=== PATIENT | male | born 1940 | race Caucasian/White ===

== ENCOUNTER 2016-12-01 12:58 | Day surgery (SDC) | payer MEDICARE, SELFPAY ==
[2016-11-28 13:08] LABS: Hematocrit 29.1 % (40-54); Hemoglobin 8.8 g/dl (13.0-16.5); Mean Corp Hgb Conc 30.2 g/gl (32-36); Mean Corpuscular Hgb 27.8 pg (27.0-32.0); Mean Corpuscular Volume 91.8 fL (80-94); Mean Platelet Vol. 8.5 fl (6.2-12.0); Platelet Count 505 K/mm3 (150-450); RBC Distribution Width CV 17.7 % (11.6-14.6); RBC Distribution Width SD 56.6 fl (35.1-43.9); Red Blood Count 3.17 M/mm3 (4.6-6.2); White Blood Count 15.5 K/mm3 (4.4-11.0)
[2016-11-28 13:09] LABS: Differential Indicated MANUAL DIFF; POSITIVE COUNT YES; POSITIVE DIFFERENTIAL YES; POSITIVE MORPHOLOGY YES
[2016-11-28 13:16] LABS: Anion Gap 4 (5-15); BUN 27 mg/dL (7-18); BUN/Creat Ratio 34.2 RATIO (10-20); Calcium,Total 8.6 mg/dL (8.5-10.1); Chloride 100 mmol/L (98-107); Creatinine, Serum 0.79 mg/dL (0.70-1.30); EST Glomerular Filtration Rate 102 mL/min (>60); Est Glom Filt Rate - Afr Amer 123 mL/min (>60); Glucose 96 mg/dL (70-110); Potassium 4.1 mmol/L (3.5-5.1); Sodium Level 134 mmol/L (136-145)
[2016-11-28 14:03] LABS: Anisocytosis 1+; Hypochromasia 1+; Lymphocyte 7 % (19-41); Metamyelocyte 1 % (0-1); Microcytosis 1+; Monocyte 15 % (0-10); Neutrophil-Band 1 % (0-5); Neutrophil-Segmented 76 % (47-70); Polychromasia 1+; Total Cells Counted 100 (MANUAL DIFF)
[2016-11-28 14:04] LABS: Platelet Estimate SLT INC (ADEQ); Platelet Morphology LARGE
[2016-11-28 14:06] LABS: Absolute Lymphocyte Count 1.09 X10^3/ul (0.83-4.51); Absolute Neutrophil Count 11.9 X10^3/uL (2.0-7.7)
[2016-12-01] VITALS (9 sets, daily range): BP systolic 102–145; BP diastolic 63–98; PULSE 69–70; RESP 15–18; TEMP 36.1–36.3; O2SAT 92–95; BMI 25.0
[2016-12-01 12:45] LABS: Pathologist Review Reviewed
--- NOTE | 2016-12-01 15:29 | PCM.DC.GS ---
Discharge Diet: Light diet - advance as tolerated - if you have questions about your diet instructions, please talk to you doctor. Discharge Activity: May Not Drive - for 1 week or while taking narcotic pain medicine. May shower in (days): 1 Lifting Restrictions: 10 pounds Call your doctor if your incision/area has: Continuous Slow Oozing, Sudden Increased Bleeding, Increased Pain/ Swelling, Increased Redness, Foul Smelling Discharge Call your doctor if you observe: Fever of 101 or Higher Suture Line Care: Avoid Pulling/Pushing, Avoid Pinching/Bending Additional Dressing/Incision Instructions:: Change or remove dressing in 4 days. Leave steri-strips in place for 1 week. Allergies/Adverse Reactions: Allergies folic acid Adverse Reaction (Mild, Verified 11/28/16 11:34) Rash amiodarone Adverse Reaction (Unknown, Verified 11/28/16 11:34) Unknown cannot remember morphine Adverse Reaction (Verified 11/28/16 11:34) HALLUCINATIONS Medications to take at Discharge Aspirin E.C. [Ecotrin] 81 mg PO DAILY@0800 11/15/14 Lisinopril [Zestril] 10 mg PO BID 11/15/14 Metoprolol(XL)Succ [Toprol Xl (Beta Jake)] 50 mg PO DAILY 11/15/14 Nitroglycerin [Nitro-Dur] 0.1 mg TRANSDERM. DAILY 11/15/14 Ranitidine [Zantac] 150 mg PO BID 11/15/14 Rosuvastatin Calcium [Crestor] 40 mg PO DAILY 11/15/14 Furosemide [Lasix] 40 mg PO DAILY 11/11/16 Potassium Chloride [Klor-Con] 20 meq PO DAILY 11/11/16 Hydrocodone/Acetaminophen [Hydrocodon-Acetaminophen 5-325] 2 each PO Q6H PRN 11/19/16 Amoxicillin/Potassium Clav [Augmentin 875-125 Tablet] 1 each PO BID #20 tablet 11/26/16 Warfarin Sodium [Coumadin] 2 mg PO DAILY 11/26/16 L. Rhamnosus GG/Inulin [Culturelle Capsule] 1 each PO DAILY 11/28/16 Primary Care Physician: Niko Sampson MD [Primary Care Provider] - Please Follow Up With: Elliott Ulloa - [phone] When: Call to make an appointment to be seen in about 10 days.
[2016-12-01] MEDS: Bupivacaine Mpf 0.5% 30 ML VIAL (15:50)
--- NOTE | 2016-12-01 16:12 | RAD_ITS ---
STUDY: X-RAY CHEST REASON FOR EXAM: Male, 76 years old. Port placement TECHNIQUE: Single frontal view of the chest. COMPARISON: October 26, 2016 FINDINGS: A right internal jugular port is present. A pacing device is stable in the left chest. The lungs are under aerated. Coarse markings are stable in the lung bases. There is stable minimal blunting of the right costophrenic angle. There is mild enlargement of the cardiac silhouette. Normal mediastinum and su. Normal visualized pulmonary arteries. There is atherosclerotic calcification of the aortic arch with tortuosity. There are diffuse degenerative changes of the visualized thoracic spine. Old rib fractures are present on the right side. There is no demonstrated abnormality of the visualized soft tissue structures of the upper abdomen. RAD/Chest 1 View (Portable) IMPRESSION: No acute abnormalities are seen after port placement on the right side. The tip is in the expected location of the distal SVC or cavoatrial junction. There is stable mild enlargement of the cardiac silhouette. There are stable chronic changes throughout the lungs. Electronically Signed: Laurie Kirk MD at 17:48 EDT Tel [phone], Service support ,
--- NOTE | 2016-12-01 16:12 | PCM.OPRPT ---
Report of Operation Date of Procedure: 12/01/16 Pre-Operative Diagnosis: Lung cancer in need of IV access for chemotherapy Post-Operative Diagnosis: Lung cancer in need of IV access for chemotherapy. Necrotic wound dorsal right foot Surgery/Procedure Performed:: Right internal jugular 6 Vietnamese PowerPort placement. Sharp debridement dorsal right foot Description of Surgical Findings:: Timeout and informed consent was obtained. 76-year-old gentleman presents for placement of a port to facilitate chemotherapy. Just prior to the operation I was asked by his to perform a dressing change of the right lower extremity if possible. The patient has dressings completely intact to the right lower extremity. He was taken the operating room placed on the table. Underwent monitored anesthesia care local anesthetic. The right neck and chest were sterilely prepped and draped. Ancef 2 g given intravenous preoperatively. Ultrasound was used to identify the right internal jugular vein local was instilled a micropuncture needle inserted micropuncture wire inserted short sheath status inserted 035 J-wire was inserted down upon the chest wall a transverse incision made right mid clavicular line second intercostal space left cautery was used to make a subtenons pocket. The tubing was then tunneled from the neck to the chest site. Fluoroscopy demonstrated good positioning sheath dilator was placed over the wire the wire and dilator removed the catheter advanced through the sheath the sheath was split the catheter was positioned at the SVC atrial junction it was connected the port securely attached over the port attachment device the port was placed in the pocket secured there with 2-0 silk the port was closed with site was closed with interrupted 3-0 Vicryl the neck site was closed with interrupted 5-0 Vicryl Steri-Strips Telfa OpSite dressings applied. I then went to perform a dressing change to the right lower extremity only to find that the dorsum of the right foot which by report previously had a blistered area now was a full-thickness necrotic wound. I sharply debrided this wound measures 3.5 x 2.5 cm. Necrotic debris extended through the subcutaneous fat. Extensor tendons appear to be on few but did not appear to be intermittently involved. Where possible debridement was performed. I then applied a saline wet-to-dry dressing.. Appropriate ongoing care will be recommended. Patient taken to recovery area in satisfactory condition. Stat portable chest x-ray is pending. Specimens obtained include cultures from the right foot wound. No drains. Blood loss minimal. Stat portable chest x-ray is pending. Elliott Ulloa M.D., F.A.C.S. cc:Dr Sampson
== END 2016-12-01 18:05 | disposition home or self-care (01) ==
PROVIDERS: Family Provider Family Medicine; PCP Family Medicine; Visit Provider Surgery
DX: C34.91 Malignant neoplasm of unspecified part of right bronchus or lung (principal); S90.821A Blister (nonthermal), right foot, initial encounter; L08.9 Local infection of the skin and subcutaneous tissue, unspecified; I48.91 Unspecified atrial fibrillation; Z95.0 Presence of cardiac pacemaker; E78.5 Hyperlipidemia, unspecified; K27.9 Peptic ulcer, site unspecified, unspecified as acute or chronic, without hemorrhage or perforation; I71.4 Abdominal aortic aneurysm, without rupture; E05.80 Other thyrotoxicosis without thyrotoxic crisis or storm; T46.2X5A Adverse effect of other antidysrhythmic drugs, initial encounter; I25.10 Atherosclerotic heart disease of native coronary artery without angina pectoris; I25.5 Ischemic cardiomyopathy; I50.9 Heart failure, unspecified; I49.3 Ventricular premature depolarization; F17.210 Nicotine dependence, cigarettes, uncomplicated; Z86.73 Personal history of transient ischemic attack (TIA), and cerebral infarction without residual deficits; Z79.1 Long term (current) use of non-steroidal anti-inflammatories (NSAID); Z79.82 Long term (current) use of aspirin; Z79.01 Long term (current) use of anticoagulants; Z79.899 Other long term (current) drug therapy
CPT/HCPCS: 11042; 36561; 36415; 36416; 71010; 71045; 77001; 80048; 85025; 85610; 87070; 87075; 87077; 87186; 87205; J7120; C1788; J2405

== ENCOUNTER → 2017-04-29 09:58 | Outpatient (CLI) | payer MEDICARE, SELFPAY ==
--- NOTE | 2017-04-29 11:27 | NURSING ---
port accessed, flushed, deaccessed per protocol attempted blood draw, some blood return noted but not enough for specimen needed. Blood draw obtained via peripheral draw per coordinate measuring machine programmer. Pt notified that cath flow may be needed if unable to draw blood in future. port did flush easily.
== END ==
PROVIDERS: Family Provider Family Medicine; PCP Family Medicine; Visit Provider Internal Medicine Cardiovascular Disease
DX: I73.89 Other specified peripheral vascular diseases (principal); Z79.01 Long term (current) use of anticoagulants; L97.512 Non-pressure chronic ulcer of other part of right foot with fat layer exposed; R60.0 Localized edema; C34.90 Malignant neoplasm of unspecified part of unspecified bronchus or lung; R09.89 Other specified symptoms and signs involving the circulatory and respiratory systems
CPT/HCPCS: 11042; 36415; 85610; 96523; A4216

== ENCOUNTER 2017-05-06 09:00 | Outpatient (RCR) | payer MEDICARE, SELFPAY ==
[2017-04-06 00:21] VITALS: BP 158/79; PULSE 96; RESP 18; TEMP 36.6; BMI 24.9
[2017-04-08 08:58] VITALS: BP 136/86; PULSE 70; RESP 18; TEMP 35.9; BMI 24.9
[2017-04-15 08:52] VITALS: BP 112/71; PULSE 70; RESP 16; TEMP 36.2; BMI 24.9
--- NOTE | 2017-04-15 11:38 | PCM.WC.PN ---
(1) Ulcer of right foot with fat layer exposed Status: Chronic Current Visit: Yes Code(s): L97.512 - Non-pressure chronic ulcer of other part of right foot with fat layer exposed (2) Other specified peripheral vascular diseases Status: Chronic Current Visit: Yes Code(s): I73.89 - Other specified peripheral vascular diseases (3) Malnutrition Status: Chronic Current Visit: Yes Code(s): E46 - Unspecified protein-calorie malnutrition (4) Adenocarcinoma of lung, stage 3 Status: Chronic Current Visit: Yes Code(s): C34.90 - Malignant neoplasm of unspecified part of unspecified bronchus or lung Comment: stage 3b Type of Wound Date of Service: 04/15/17 Chief Complaint: right foot ulcer. Left heel ulcers - healed History of Wound: He is following up for chronic right foot ulcer with tendon exposed that was taken to the operating room and advanced wound care product was applied (01/16/2017). He denies fever, chills, nausea, vomiting, loss of appetite. He denies lower extremity pain. He is eager to see if he is advanced wound care product was applied. Progress of Wound: Improving - Physical Exam Vital Signs Temp Pulse Resp BP 97.1 F L 70 16 112/71 04/15/17 08:52 04/15/17 08:52 04/15/17 08:52 04/15/17 08:52 General: Alert, Oriented x3, Cooperative Extremities: No cyanosis, Capillary Refill Less than 3 Seconds, No Calf Tenderness, Diminished Peripheral Pulses, Edema Skin: Ulcer/ Wound - No purulence, no erythema, no streaking, no infection, no exposed tendon. The wound is 100% healthy granular and there is no fibrous or necrotic tissue noted. The peripheral skin is atrophic and hairless. Wound Measurements and Assessment KUSUM - Nurse 1 - General Ulcer Measurement Start: 04/08/17 08:58 Freq: Status: Active Protocol: Activity Type Activity Date Activity User E-Sign Co-Sign Detail Recorded Client Recorded Date Recorded By Document 04/15/17 08:52 MW [id number] 04/15/17 09:01 MW 04/15/17 08:52 Wound Center Nurse 1 [Ulcer Assessment Protocol: WC.WD.LOC] #1 right foot anterior -Combined with other wound No -Current Size (cm) - Length 1.6 -Current Size (cm) - Width 1.0 -Current Size (cm) - Depth 0.1 -Total Square Cm 1.60 -Photo Taken No -Epithelialization None Present -Tunneling No -Undermining/Tunneling No -Circular Undermining No -Exudate Amt Small (1-33%) -Exudate Type Serosanguineous -Wound Margin Flat & Intact -Granulation Amt Small (1-33%) -Granulation Quality [place] -Slough/Fibrin Yes -Necrosis Amt Large (67-100%) -Necrotic Tissue Type Adherent Slough -Structure Exposed N/A -Texture (Crystal-wound Skin Appearance) Assessed Scarring -Moisture (Crystal-wound Skin Appearance Assessed ) Dry/Scaly -Color (Crystal-wound Skin Appearance) No Abnormality Assessed -Temperature (Crystal-wound Skin No Abnormality Appearance) (Pt Warm) -Tenderness on Palpation (Crystal-wound Yes Skin Appearance) -Ulcer Cleansing Rinsed/ Irrigated with Saline -Foul Odor after Cleansing No -Anesthetic Used 5% Lidocaine Gel [Edema Assessment] -Lower Limb Edema Present No -Right Calf (cm) 32.0 -Right Ankle (cm) 19.2 WC - Nurse 2 - General Ulcer CM Notes Start: 04/08/17 08:58 Freq: Status: Active Protocol: Activity Type Activity Date Activity User E-Sign Co-Sign Detail Recorded Client Recorded Date Recorded By Document 04/15/17 10:23 VINAYAK [id number] 04/15/17 10:29 VINAYAK 04/15/17 10:23 Wound Center Nurse 2 [Procedure/Treatment] #1 right foot anterior -Time 10:23 -Correct Patient Yes -Correct Side, Site, Position Yes -Correct Procedure Yes -Procedure Performed Yes -Type of Procedure Debridement -Clinical Debridement Subcutaneous -Post Debridement Size (cm) - Length 1.6 -Post Debridement Size (cm) - Width 1.1 -Post Debridement Size (cm) - Depth 0.1 -Total Square Cm 1.76 -Wound/Ulcer Outcome Not Healed -Ulcer Cleansing Rinsed/ Irrigated with Saline -Foul Odor after Cleansing No -Bioengineered Tissue No -Cetacaine [place] No -Bleeding Controlled with Pressure -Treatment Response Procedure Tolerated Well [See Physician Procedure note for Specifics] Pain Scale: 0-10 Numeric [Pain] -Is Patient Pain Free? Yes Musculoskeletal: No Tenderness to Palpation of Joints or Extremities, Muscle Wasting, - - Crepitus on palpation not present Neurological: Sensory exam intact to light touch and pain Psych/Mental Status: Normal Affect, Appropriate Debridement Note Post-Debridement Measurements/Treatment WC - Nurse 2 - General Ulcer CM Notes Start: 04/08/17 08:58 Freq: Status: Active Protocol: Activity Type Activity Date Activity User E-Sign Co-Sign Detail Recorded Client Recorded Date Recorded By Document 04/08/17 09:17 [id number] 04/08/17 09:20 Document 04/15/17 10:23 [id number] 04/15/17 10:29 04/08/17 04/15/17 09:17 10:23 Wound Center Nurse 2 #1 right foot anterior -Time 09:17 10:23 -Correct Patient Yes Yes -Correct Side, Site, Position Yes Yes -Correct Procedure Yes Yes -Procedure Performed Yes Yes -Type of Procedure Debridement -Clinical Debridement Subcutaneous -Post Debridement Size (cm) - Length 1.3 1.6 -Post Debridement Size (cm) - Width 1.4 1.1 -Post Debridement Size (cm) - Depth 0.1 0.1 -Total Square Cm 1.82 1.76 -Wound/Ulcer Outcome Not Healed Not Healed -Ulcer Cleansing Rinsed/ Rinsed/ Irrigated with Irrigated with Saline Saline -Foul Odor after Cleansing No No -Bioengineered Tissue No No -Cetacaine [place] No No -Bleeding Controlled with NA Pressure -Other Epicord intact no debridement today -Treatment Response Procedure Procedure Tolerated Well Tolerated Well Pain Scale: 0-10 Numeric Is Patient Pain Free? Yes Yes Wound debrided: Dorsal foot Laterality: Right Type of Debridement: Excisional debridement Anesthesia Used: 4% Lidocaine Solution Depth: in the subcutaneous layer Percentage of wound debrided: 100 Instrument Used: #15 blade Tissue Removed: Fibrous, devitalized subcutaneous, biofilm, slough Severity: Fat Layer Exposed Amount of bleeding with debridement: Mild Bleeding Controlled with: Pressure Patient tolerated procedure well Assessment/Plan Active Problems (Last Updated 04/09/17 @ 14:07 by Abi Lucio) Adenocarcinoma of lung, stage 3 (Chronic) stage 3b Malnutrition (Chronic) Ulcer of right foot with fat layer exposed (Chronic) Other specified peripheral vascular diseases (Chronic) Assessment: Right foot ulcer; now status post versa jet tendon and subcutaneous tissue debridement, application of advanced wound care products. Peripheral vascular disease, multilevel disease suspected. Edema left lower extremity. Malnutrition. Delayed healing. Complicated medical history with active stage IV lung disease undergoing chemotherapy Delayed healing Plan: I reviewed and discussed his case with his and the patient today. Verbal consent was obtained for subcutaneous excisional debridement of the right foot . He tolerated this well. He is progressing well on his current treatment plan and transition to epi-fix application will be considered in the future; preauthorization is still in process. A phone call was placed again today to confirm the status and there will be meeting tomorrow with [facility] director. To change dressing daily with Fela is applied today. To continue with nutritional optimization with protein supplementation and controlled medical management. To reduce pressure to the sites. He was reassured there are no acute signs of infection and I do not recommend additional antibiotics. To keep surgical shoe strap off of the dorsal right foot ulcer. He is aware of this. It is okay to continue with regular shoe gear in the left lower extremity. To keep the foot moisturized and to check to look for re-ulceration. To return to clinic in 1 week or call sooner if there are any questions or concerns. He is demonstrated that he has high risk with his recent cancer status and delayed healing. Application of this advanced wound care product is medically necessary for limb salvage and life maintenance.
--- NOTE | 2017-04-15 11:45 | PN.PCM_ITS ---
(1) Ulcer of right foot with fat layer exposed Status: Chronic Current Visit: Yes Code(s): L97.512 - Non-pressure chronic ulcer of other part of right foot with fat layer exposed (2) Other specified peripheral vascular diseases Status: Chronic Current Visit: Yes Code(s): I73.89 - Other specified peripheral vascular diseases (3) Malnutrition Status: Chronic Current Visit: Yes Code(s): E46 - Unspecified protein- calorie malnutrition (4) Adenocarcinoma of lung, stage 3 Status: Chronic Current Visit: Yes Code(s): C34.90 - Malignant neoplasm of unspecified part of unspecified bronchus or lung Comment: stage 3b Type of Wound Date of Service: 04/15/17 Chief Complaint: right foot ulcer. Left heel ulcers - healed History of Wound: He is following up for chronic right foot ulcer with tendon exposed that was taken to the operating room and advanced wound care product was applied (01/16/2017). He denies fever, chills, nausea, vomiting, loss of appetite. He denies lower extremity pain. He is eager to see if he is advanced wound care product was applied. Progress of Wound: Improving - Physical Exam Vital Signs Temp Pulse Resp BP 97.1 F L 70 16 112/71 04/15/17 08:52 04/15/17 08:52 04/15/17 08:52 04/15/17 08:52 General: Alert, Oriented x3, Cooperative Extremities: No cyanosis, Capillary Refill Less than 3 Seconds, No Calf Tenderness, Diminished Peripheral Pulses, Edema Skin: Ulcer/ Wound - No purulence, no erythema, no streaking, no infection, no exposed tendon. The wound is 100% healthy granular and there is no fibrous or necrotic tissue noted. The peripheral skin is atrophic and hairless. Wound Measurements and Assessment KUSUM - Nurse 1 - General Ulcer Measurement Start: 04/08/17 08:58 Freq: Status: Active Protocol: Activity Type Activity Date Activity User E-Sign Co-Sign Detail Recorded Client Recorded Date Recorded By Document 04/15/17 08:52 MW [id number] 04/15/17 09:01 MW 04/15/17 08:52 Wound Center Nurse 1 [Ulcer Assessment Protocol: WC.WD.LOC] #1 right foot anterior -Combined with other wound No -Current Size (cm) - Length 1.6 -Current Size (cm) - Width 1.0 -Current Size (cm) - Depth 0.1 -Total Square Cm 1.60 -Photo Taken No -Epithelialization None Present -Tunneling No -Undermining/Tunneling No -Circular Undermining No -Exudate Amt Small (1-33%) -Exudate Type Serosanguineous -Wound Margin Flat & Intact -Granulation Amt Small (1-33%) -Granulation Quality [place] -Slough/Fibrin Yes -Necrosis Amt Large (67-100%) -Necrotic Tissue Type Adherent Slough -Structure Exposed N/A -Texture (Crystal-wound Skin Appearance) Assessed Scarring -Moisture (Crystal-wound Skin Appearance Assessed ) Dry/Scaly -Color (Crystal-wound Skin Appearance) No Abnormality Assessed -Temperature (Crystal-wound Skin No Abnormality Appearance) (Pt Warm) -Tenderness on Palpation (Crystal-wound Yes Skin Appearance) -Ulcer Cleansing Rinsed/ Irrigated with Saline -Foul Odor after Cleansing No -Anesthetic Used 5% Lidocaine Gel [Edema Assessment] -Lower Limb Edema Present No -Right Calf (cm) 32.0 -Right Ankle (cm) 19.2 WC - Nurse 2 - General Ulcer CM Notes Start: 04/08/17 08:58 Freq: Status: Active Protocol: Activity Type Activity Date Activity User E-Sign Co-Sign Detail Recorded Client Recorded Date Recorded By Document 04/15/17 10:23 [email or web address] [id number] 04/15/17 10:29 VINAYAK 04/15/17 10:23 Wound Center Nurse 2 [Procedure/Treatment] #1 right foot anterior -Time 10:23 -Correct Patient Yes -Correct Side, Site, Position Yes -Correct Procedure Yes -Procedure Performed Yes -Type of Procedure Debridement -Clinical Debridement Subcutaneous -Post Debridement Size (cm) - Length 1.6 -Post Debridement Size (cm) - Width 1.1 -Post Debridement Size (cm) - Depth 0.1 -Total Square Cm 1.76 -Wound/Ulcer Outcome Not Healed -Ulcer Cleansing Rinsed/ Irrigated with Saline -Foul Odor after Cleansing No -Bioengineered Tissue No -Cetacaine [place] No -Bleeding Controlled with Pressure -Treatment Response Procedure Tolerated Well [See Physician Procedure note for Specifics] Pain Scale: 0-10 Numeric [Pain] -Is Patient Pain Free? Yes Musculoskeletal: No Tenderness to Palpation of Joints or Extremities, Muscle Wasting, - - Crepitus on palpation not present Neurological: Sensory exam intact to light touch and pain Psych/Mental Status: Normal Affect, Appropriate Debridement Note Post-Debridement Measurements/Treatment WC - Nurse 2 - General Ulcer CM Notes Start: 04/08/17 08:58 Freq: Status: Active Protocol: Activity Type Activity Date Activity User E-Sign Co-Sign Detail Recorded Client Recorded Date Recorded By Document 04/08/17 09:17 [id number] 04/08/17 09:20 Document 04/15/17 10:23 [id number] 04/15/17 10:29 04/08/17 04/15/17 09:17 10:23 Wound Center Nurse 2 #1 right foot anterior -Time 09:17 10:23 -Correct Patient Yes Yes -Correct Side, Site, Position Yes Yes -Correct Procedure Yes Yes -Procedure Performed Yes Yes -Type of Procedure Debridement -Clinical Debridement Subcutaneous -Post Debridement Size (cm) - Length 1.3 1.6 -Post Debridement Size (cm) - Width 1.4 1.1 -Post Debridement Size (cm) - Depth 0.1 0.1 -Total Square Cm 1.82 1.76 -Wound/Ulcer Outcome Not Healed Not Healed -Ulcer Cleansing Rinsed/ Rinsed/ Irrigated with Irrigated with Saline Saline -Foul Odor after Cleansing No No -Bioengineered Tissue No No -Cetacaine [place] No No -Bleeding Controlled with NA Pressure -Other Epicord intact no debridement today -Treatment Response Procedure Procedure Tolerated Well Tolerated Well Pain Scale: 0-10 Numeric Is Patient Pain Free? Yes Yes Wound debrided: Dorsal foot Laterality: Right Type of Debridement: Excisional debridement Anesthesia Used: 4% Lidocaine Solution Depth: in the subcutaneous layer Percentage of wound debrided: 100 Instrument Used: #15 blade Tissue Removed: Fibrous, devitalized subcutaneous, biofilm, slough Severity: Fat Layer Exposed Amount of bleeding with debridement: Mild Bleeding Controlled with: Pressure Patient tolerated procedure well Assessment/Plan Active Problems (Last Updated 04/09/17 @ 14:07 by Abi Lucio) Adenocarcinoma of lung, stage 3 (Chronic) stage 3b Malnutrition (Chronic) Ulcer of right foot with fat layer exposed (Chronic) Other specified peripheral vascular diseases (Chronic) Assessment: Right foot ulcer; now status post versa jet tendon and subcutaneous tissue debridement, application of advanced wound care products. Peripheral vascular disease, multilevel disease suspected. Edema left lower extremity. Malnutrition. Delayed healing. Complicated medical history with active stage IV lung disease undergoing chemotherapy Delayed healing Plan: I reviewed and discussed his case with his and the patient today. Verbal consent was obtained for subcutaneous excisional debridement of the right foot . He tolerated this well. He is progressing well on his current treatment plan and transition to epi-fix application will be considered in the future; preauthorization is still in process. A phone call was placed again today to confirm the status and there will be meeting tomorrow with [facility] director. To change dressing daily with Fela is applied today. To continue with nutritional optimization with protein supplementation and controlled medical management. To reduce pressure to the sites. He was reassured there are no acute signs of infection and I do not recommend additional antibiotics. To keep surgical shoe strap off of the dorsal right foot ulcer. He is aware of this. It is okay to continue with regular shoe gear in the left lower extremity. To keep the foot moisturized and to check to look for re- ulceration. To return to clinic in 1 week or call sooner if there are any questions or concerns. He is demonstrated that he has high risk with his recent cancer status and delayed healing. Application of this advanced wound care product is medically necessary for limb salvage and life maintenance.
[2017-04-22 08:53] VITALS: BP 146/83; PULSE 83; RESP 18; TEMP 35.2; BMI 24.9
--- NOTE | 2017-04-22 13:56 | PN.PCM_ITS ---
(1) Ulcer of right foot with fat layer exposed Status: Chronic Code(s): L97.512 - Non-pressure chronic ulcer of other part of right foot with fat layer exposed (2) Other specified peripheral vascular diseases Status: Chronic Code(s): I73.89 - Other specified peripheral vascular diseases (3) Malnutrition Status: Chronic Code(s): E46 - Unspecified protein-calorie malnutrition (4) Adenocarcinoma of lung, stage 3 Status: Chronic Code(s): C34.90 - Malignant neoplasm of unspecified part of unspecified bronchus or lung Comment: stage 3b Type of Wound Date of Service: 04/26/17 Chief Complaint: right foot ulcer. Left heel ulcers -remains healed History of Wound: He is following up for chronic right foot ulcer with tendon exposed that was taken to the operating room and advanced wound care product was applied (01/16/2017). He denies fever, chills, nausea, vomiting, loss of appetite. He denies lower extremity pain. He has a callus on his left heel that he is concerned about request an evaluation today. He denies drainage or redness to left foot Progress of Wound: Improving - Physical Exam Vital Signs Temp Pulse Resp BP 95.3 F L 83 18 146/83 H 04/22/17 08:53 04/22/17 08:53 04/22/17 08:53 04/22/17 08:53 General: Alert, Oriented x3, Cooperative Extremities: No cyanosis, Capillary Refill Less than 3 Seconds, No Calf Tenderness, Diminished Peripheral Pulses, Edema Skin: Ulcer/ Wound - No purulence, no erythema, no streaking, no odor, no necrosis, no infection bilateral, - - Dry skin buildup to the posterior lateral heel upon debridement for epithelialization is noted and there is no drainage or inflammation. I lateral lower extremity skin is atrophic and hairless. There is no longer any exposed tendon on the right foot. Wound Measurements and Assessment KUSUM - Nurse 1 - General Ulcer Measurement Start: 04/08/17 08:58 Freq: Status: Active Protocol: Activity Type Activity Date Activity User E-Sign Co-Sign Detail Recorded Client Recorded Date Recorded By Document 04/22/17 08:53 VINAYAK [id number] 04/22/17 08:59 VINAYAK 04/22/17 08:53 Wound Center Nurse 1 [Ulcer Assessment Protocol: KUSUM.TWILA.LOC] #1 right foot anterior -Combined with other wound No -Current Size (cm) - Length 0.1 -Current Size (cm) - Width 0.1 -Current Size (cm) - Depth 0.1 -Total Square Cm 0.01 -Photo Taken No -Epithelialization Large 67-100% -Tunneling No -Undermining/Tunneling No -Circular Undermining No -Exudate Amt None Present (0 %) -Wound Margin Fibrotic Scar, Thickened Scar -Granulation Amt None Present (0 %) -Slough/Fibrin Yes -Necrosis Amt Large (67-100%) -Necrotic Tissue Type Adherent Slough -Structure Exposed N/A -Texture (Crystal-wound Skin Appearance) Assessed Scarring -Moisture (Crystal-wound Skin Appearance Assessed ) Dry/Scaly -Color (Crystal-wound Skin Appearance) Assessed -Temperature (Crystal-wound Skin No Abnormality Appearance) (Pt Warm) -Tenderness on Palpation (Crystal-wound No Skin Appearance) -Ulcer Cleansing Rinsed/ Irrigated with Saline -Foul Odor after Cleansing No -Anesthetic Used 4% Lidocaine Solution [Edema Assessment] -Lower Limb Edema Present Yes -Right Calf (cm) 29.8 -Right Ankle (cm) 19.0 WC - Nurse 2 - General Ulcer CM Notes Start: 04/08/17 08:58 Freq: Status: Active Protocol: Activity Type Activity Date Activity User E-Sign Co-Sign Detail Recorded Client Recorded Date Recorded By Document 04/22/17 09:16 [id number] 04/22/17 09:20 04/22/17 09:16 Wound Center Nurse 2 [Procedure/Treatment] #1 right foot anterior -Time 09:17 -Correct Patient Yes -Correct Side, Site, Position Yes -Correct Procedure Yes -Procedure Performed Yes -Type of Procedure Debridement -Clinical Debridement Subcutaneous -Post Debridement Size (cm) - Length 1.0 -Post Debridement Size (cm) - Width 1.0 -Post Debridement Size (cm) - Depth 0.1 -Total Square Cm 1.00 -Wound/Ulcer Outcome Not Healed -Ulcer Cleansing Rinsed/ Irrigated with Saline -Foul Odor after Cleansing No -Bioengineered Tissue Yes -Type of bioengineered Tissue EPIFIX -Expiration Date 02/04/22 -Product Lot Number [id number] -Percent Used 100 -Cetacaine [place] No -Topical Lidocaine (%) 5 -Bleeding Controlled with Pressure -Treatment Response Procedure Tolerated Well [See Physician Procedure note for Specifics] Pain Scale: 0-10 Numeric [Pain] -Is Patient Pain Free? Yes Musculoskeletal: No Tenderness to Palpation of Joints or Extremities, Muscle Wasting, - - No crepitus on palpation. No pain with manipulation right foot Neurological: - - Lack of epicritic sensation light touch bilateral lower extremities Psych/Mental Status: Normal Affect, Appropriate Debridement Note Post-Debridement Measurements/Treatment WC - Nurse 2 - General Ulcer CM Notes Start: 04/08/17 08:58 Freq: Status: Active Protocol: Activity Type Activity Date Activity User E-Sign Co-Sign Detail Recorded Client Recorded Date Recorded By Document 04/08/17 09:17 [id number] 04/08/17 09:20 Document 04/15/17 10:23 [id number] 04/15/17 10:29 Document 04/22/17 09:16 [id number] 04/22/17 09:20 04/08/17 04/15/17 04/22/17 09:17 10:23 09:16 Wound Center Nurse 2 #1 right foot anterior -Time 09:17 10:23 09:17 -Correct Patient Yes Yes Yes -Correct Side, Site, Position Yes Yes Yes -Correct Procedure Yes Yes Yes -Procedure Performed Yes Yes Yes -Type of Procedure Debridement Debridement -Clinical Debridement Subcutaneous Subcutaneous -Post Debridement Size (cm) - Length 1.3 1.6 1.0 -Post Debridement Size (cm) - Width 1.4 1.1 1.0 -Post Debridement Size (cm) - Depth 0.1 0.1 0.1 -Total Square Cm 1.82 1.76 1.00 -Wound/Ulcer Outcome Not Healed Not Healed Not Healed -Ulcer Cleansing Rinsed/ Rinsed/ Rinsed/ Irrigated with Irrigated with Irrigated with Saline Saline Saline -Foul Odor after Cleansing No No No -Bioengineered Tissue No No Yes -Type of bioengineered Tissue EPIFIX -Expiration Date 02/04/22 -Product Lot Number [id number] -Percent Used 100 -Cetacaine [place] No No No -Topical Lidocaine (%) 5 -Bleeding Controlled with NA Pressure Pressure -Other Epicord intact no debridement today -Treatment Response Procedure Procedure Procedure Tolerated Well Tolerated Well Tolerated Well Pain Scale: 0-10 Numeric Is Patient Pain Free? Yes Yes Yes Wound debrided: Dorsal foot Laterality: Right Type of Debridement: Excisional debridement Anesthesia Used: 4% Lidocaine Solution Depth: in the subcutaneous layer Percentage of wound debrided: 100 Instrument Used: #15 blade Tissue Removed: Fibrous, devitalized subcutaneous, biofilm, slough Severity: Fat Layer Exposed Amount of bleeding with debridement: Mild Bleeding Controlled with: Pressure Patient tolerated procedure well Assessment/Plan Assessment: Right foot ulcer; now status post versa jet tendon and subcutaneous tissue debridement, application of advanced wound care products. Callus/dry skin-left heel without wound or infection. Peripheral vascular disease, multilevel disease suspected. Edema left lower extremity. Malnutrition. Delayed healing. Complicated medical history with active stage IV lung disease undergoing chemotherapy Delayed healing Plan: I reviewed and discussed his case with his and the patient today. Verbal consent was obtained for subcutaneous excisional debridement of the right foot. He tolerated this well. He is progressing well on his current treatment plan and transition to epi-fix application was initiated today. This product was approved and he understands the indications. He tolerated this well which was performed according to standard protocol. Product was moistened with saline gauze and further secured in place with the wound veil and Steri- Strips. He was advised to keep his dressing clean, dry, and intact until follow -up visit next week. Callus left heel was gently debrided and he was reassured no wound or infection are noted. To monitor and check daily. To continue with nutritional optimization with protein supplementation and controlled medical management. To reduce pressure to the sites. He was reassured there are no acute signs of infection and I do not recommend additional antibiotics. To keep surgical shoe strap off of the dorsal right foot ulcer. He is aware of this. It is okay to continue with regular shoe gear in the left lower extremity. To keep the foot moisturized and to check to look for re- ulceration. To return to clinic in 1 week or call sooner if there are any questions or concerns. He is demonstrated that he has high risk with his recent cancer status and delayed healing. Application of this advanced wound care product is medically necessary for limb salvage and life maintenance.
[2017-04-29 09:03] VITALS: BP 143/96; PULSE 77; RESP 18; TEMP 36; BMI 24.9
--- NOTE | 2017-04-29 09:51 | PN.PCM_ITS ---
(1) Ulcer of right foot with fat layer exposed Status: Chronic Code(s): L97.512 - Non-pressure chronic ulcer of other part of right foot with fat layer exposed (2) Other specified peripheral vascular diseases Status: Chronic Code(s): I73.89 - Other specified peripheral vascular diseases (3) Malnutrition Status: Chronic Code(s): E46 - Unspecified protein-calorie malnutrition (4) Adenocarcinoma of lung, stage 3 Status: Chronic Code(s): C34.90 - Malignant neoplasm of unspecified part of unspecified bronchus or lung Comment: stage 3b Type of Wound Date of Service: 05/02/17 Chief Complaint: right foot ulcer History of Wound: He is following up for chronic right foot ulcer with tendon exposed that was taken to the operating room and advanced wound care product was applied (01/16/2017). He denies fever, chills, nausea, vomiting, loss of appetite. He denies lower extremity pain. Progress of Wound: Improving - Physical Exam Vital Signs Temp Pulse Resp BP 96.8 F L 77 18 143/96 H 04/29/17 09:03 04/29/17 09:03 04/29/17 09:03 04/29/17 09:03 General: Alert, Oriented x3, Cooperative Extremities: No cyanosis, Capillary Refill Less than 3 Seconds, No Calf Tenderness, Diminished Peripheral Pulses, Edema - Controlled Skin: Ulcer/ Wound - No purulence, no erythema, no streaking, no infection, - - Atrophic skin Wound Measurements and Assessment WC - Nurse 1 - General Ulcer Measurement Start: 04/08/17 08:58 Freq: Status: Active Protocol: Activity Type Activity Date Activity User E-Sign Co-Sign Detail Recorded Client Recorded Date Recorded By Document 04/29/17 09:03 [facility] [id number] 04/29/17 09:10 [facility] 04/29/17 09:03 Wound Center Nurse 1 [Ulcer Assessment Protocol: KUSUM.WD.LOC] #1 right foot anterior -Combined with other wound No -Current Size (cm) - Length 1.6 -Current Size (cm) - Width 1.3 -Current Size (cm) - Depth 0.1 -Total Square Cm 2.08 -Photo Taken No -Tunneling No -Undermining/Tunneling No -Exudate Amt Small (1-33%) -Exudate Type Serosanguineous -Granulation Amt None Present (0 %) -Slough/Fibrin Yes -Necrosis Amt Large (67-100%) -Necrotic Tissue Type Adherent Slough -Structure Exposed N/A -Texture (Crystal-wound Skin Appearance) Scarring -Moisture (Crystal-wound Skin Appearance Dry/Scaly ) -Color (Crystal-wound Skin Appearance) Assessed -Temperature (Crystal-wound Skin No Abnormality Appearance) (Pt Warm) -Tenderness on Palpation (Crystal-wound No Skin Appearance) -Ulcer Cleansing Rinsed/ Irrigated with Saline -Foul Odor after Cleansing No -Anesthetic Used 5% Lidocaine Gel [Edema Assessment] -Lower Limb Edema Present No -Right Calf (cm) 30.5 -Right Ankle (cm) 19.5 - Nurse 2 - General Ulcer CM Notes Start: 04/08/17 08:58 Freq: Status: Active Protocol: Activity Type Activity Date Activity User E-Sign Co-Sign Detail Recorded Client Recorded Date Recorded By Document 04/29/17 09:30 [id number] 04/29/17 09:39 04/29/17 09:30 Wound Center Nurse 2 [Procedure/Treatment] #1 right foot anterior -Time 09:31 -Correct Patient Yes -Correct Side, Site, Position Yes -Correct Procedure Yes -Procedure Performed Yes -Type of Procedure Debridement -Clinical Debridement Subcutaneous -Post Debridement Size (cm) - Length 1.0 -Post Debridement Size (cm) - Width 0.3 -Post Debridement Size (cm) - Depth 0.1 -Total Square Cm 0.30 -Wound/Ulcer Outcome Not Healed -Ulcer Cleansing Rinsed/ Irrigated with Saline -Foul Odor after Cleansing No -Bioengineered Tissue No -Cetacaine [place] No -Topical Lidocaine (%) 5 -Bleeding Controlled with Pressure -Treatment Response Procedure Tolerated Well [See Physician Procedure note for Specifics] Pain Scale: 0-10 Numeric [Pain] -Is Patient Pain Free? Yes Musculoskeletal: No Tenderness to Palpation of Joints or Extremities, Muscle Wasting, Tenderness - No palpation pain to the wound Neurological: - - Lack of sensation right foot to light touch Psych/Mental Status: Normal Affect, Appropriate Debridement Note Post-Debridement Measurements/Treatment - Nurse 2 - General Ulcer CM Notes Start: 04/08/17 08:58 Freq: Status: Active Protocol: Activity Type Activity Date Activity User E-Sign Co-Sign Detail Recorded Client Recorded Date Recorded By Document 04/08/17 09:17 TM [id number] 04/08/17 09:20 TM Document 04/15/17 10:23 [id number] 04/15/17 10:29 JF Document 04/22/17 09:16 TM [id number] 04/22/17 09:20 TM Document 04/29/17 09:30 TM [id number] 04/29/17 09:39 04/08/17 04/15/17 04/22/17 09:17 10:23 09:16 Wound Center Nurse 2 #1 right foot anterior -Time 09:17 10:23 09:17 -Correct Patient Yes Yes Yes -Correct Side, Site, Position Yes Yes Yes -Correct Procedure Yes Yes Yes -Procedure Performed Yes Yes Yes -Type of Procedure Debridement Debridement -Clinical Debridement Subcutaneous Subcutaneous -Post Debridement Size (cm) - Length 1.3 1.6 1.0 -Post Debridement Size (cm) - Width 1.4 1.1 1.0 -Post Debridement Size (cm) - Depth 0.1 0.1 0.1 -Total Square Cm 1.82 1.76 1.00 -Wound/Ulcer Outcome Not Healed Not Healed Not Healed -Ulcer Cleansing Rinsed/ Rinsed/ Rinsed/ Irrigated with Irrigated with Irrigated with Saline Saline Saline -Foul Odor after Cleansing No No No -Bioengineered Tissue No No Yes -Type of bioengineered Tissue EPIFIX -Expiration Date 02/04/22 -Product Lot Number [id number] -Percent Used 100 -Cetacaine [place] No No No -Topical Lidocaine (%) 5 -Bleeding Controlled with NA Pressure Pressure -Other Epicord intact no debridement today -Treatment Response Procedure Procedure Procedure Tolerated Well Tolerated Well Tolerated Well Pain Scale: 0-10 Numeric Is Patient Pain Free? Yes Yes Yes 04/29/17 09:30 Wound Center Nurse 2 #1 right foot anterior -Time 09:31 -Correct Patient Yes -Correct Side, Site, Position Yes -Correct Procedure Yes -Procedure Performed Yes -Type of Procedure Debridement -Clinical Debridement Subcutaneous -Post Debridement Size (cm) - Length 1.0 -Post Debridement Size (cm) - Width 0.3 -Post Debridement Size (cm) - Depth 0.1 -Total Square Cm 0.30 -Wound/Ulcer Outcome Not Healed -Ulcer Cleansing Rinsed/ Irrigated with Saline -Foul Odor after Cleansing No -Bioengineered Tissue No -Type of bioengineered Tissue -Expiration Date -Product Lot Number -Percent Used -Cetacaine [place] No -Topical Lidocaine (%) 5 -Bleeding Controlled with Pressure -Other -Treatment Response Procedure Tolerated Well Pain Scale: 0-10 Numeric Is Patient Pain Free? Yes Wound debrided: Dorsal foot Laterality: Right Type of Debridement: Excisional debridement Anesthesia Used: 4% Lidocaine Solution Depth: in the subcutaneous layer Percentage of wound debrided: 100 Instrument Used: #15 blade Tissue Removed: Fibrous, devitalized subcutaneous, biofilm, slough Severity: Fat Layer Exposed Amount of bleeding with debridement: Mild Bleeding Controlled with: Pressure Patient tolerated procedure well Assessment/Plan Assessment: Right foot ulcer. Peripheral vascular disease, multilevel disease suspected. Edema left lower extremity. Malnutrition. Delayed healing. Complicated medical history with active stage IV lung disease undergoing chemotherapy Delayed healing Plan: I reviewed and discussed his case with his and the patient today. Verbal consent was obtained for subcutaneous excisional debridement of the right foot. He tolerated this well. He is progressing well on his current treatment plan and an application of epi-fix was initiated today. This product was approved and he understands the indications. He tolerated this well which was performed according to standard protocol. Product was moistened with saline gauze and further secured in place with the wound veil and Steri-Strips. He was advised to keep his dressing clean, dry, and intact until follow-up visit next week. To continue with nutritional optimization with protein supplementation and controlled medical management. To reduce pressure to the sites. He was reassured there are no acute signs of infection and I do not recommend additional antibiotics. To keep surgical shoe strap off of the dorsal right foot ulcer. He is aware of this. It is okay to continue with regular shoe gear in the left lower extremity. To keep the foot moisturized and to check to look for re-ulceration. To return to clinic in 1 week or call sooner if there are any questions or concerns. He is demonstrated that he has high risk with his recent cancer status and delayed healing. Application of this advanced wound care product is medically necessary for limb salvage and life maintenance.
[2017-04-29 10:39] LABS: International Normalized Ratio 1.7; Prothrombin Time (Protime)PT. 19.4 SECONDS (11.7-14.9)
[2017-05-06 08:54] VITALS: BP 130/81; PULSE 71; RESP 18; TEMP 36; BMI 24.9
--- NOTE | 2017-05-06 09:25 | PCM.WC.PN ---
(1) Ulcer of right foot with fat layer exposed Status: Resolved Current Visit: Yes Code(s): L97.512 - Non-pressure chronic ulcer of other part of right foot with fat layer exposed (2) Other specified peripheral vascular diseases Status: Chronic Current Visit: Yes Code(s): I73.89 - Other specified peripheral vascular diseases (3) Malnutrition Status: Chronic Current Visit: Yes Code(s): E46 - Unspecified protein-calorie malnutrition (4) Adenocarcinoma of lung, stage 3 Status: Chronic Current Visit: Yes Code(s): C34.90 - Malignant neoplasm of unspecified part of unspecified bronchus or lung Comment: stage 3b Type of Wound Date of Service: 05/06/17 Chief Complaint: right foot ulcer History of Wound: He is following up for chronic right foot ulcer with tendon exposed that was taken to the operating room and advanced wound care product was applied (01/16/2017). He denies fever, chills, nausea, vomiting, loss of appetite. He denies lower extremity pain. His denies drainage this past week. He continues to wear surgical shoe. Progress of Wound: Healed - Physical Exam Vital Signs Temp Pulse Resp BP 96.8 F L 71 18 130/81 H 05/06/17 08:54 05/06/17 08:54 05/06/17 08:54 05/06/17 08:54 General: Alert, Oriented x3, Cooperative Extremities: No cyanosis, No edema, Capillary Refill Less than 3 Seconds, No Calf Tenderness - Negative Rena and Grubbs sign bilateral, Diminished Peripheral Pulses, - - Dorsal contraction of lesser toes right foot Skin: Ulcer/ Wound - Full epithelialization is noted in the wound has healed. No erythema, no streaking, no odor, no drainage right foot. Wound Measurements and Assessment - Nurse 1 - General Ulcer Measurement Start: 04/08/17 08:58 Freq: Status: Active Protocol: Activity Type Activity Date Activity User E-Sign Co-Sign Detail Recorded Client Recorded Date Recorded By Document 05/06/17 08:54 VINAYAK [id number] 05/06/17 08:55 VINAYAK 05/06/17 08:54 Wound Center Nurse 1 [Ulcer Assessment Protocol: KUSUM.WD.LOC] #1 right foot anterior -Combined with other wound No -Current Size (cm) - Length 0.1 -Current Size (cm) - Width 0.1 -Current Size (cm) - Depth 0.1 -Total Square Cm 0.01 -Photo Taken Yes -Epithelialization Large 67-100% -Tunneling No -Undermining/Tunneling No -Circular Undermining No -Exudate Amt Small (1-33%) -Exudate Type Serosanguineous -Wound Margin Flat & Intact -Granulation Amt Large (67-100%) -Granulation Quality Red -Slough/Fibrin Yes -Necrosis Amt Small (1-33%) -Necrotic Tissue Type Adherent Slough -Structure Exposed N/A -Texture (Crystal-wound Skin Appearance) Assessed Scarring -Moisture (Crystal-wound Skin Appearance Assessed ) Dry/Scaly -Color (Crystal-wound Skin Appearance) Assessed -Temperature (Crystal-wound Skin No Abnormality Appearance) (Pt Warm) -Foul Odor after Cleansing No -Anesthetic Used 4% Lidocaine Solution [Edema Assessment] -Lower Limb Edema Present NA - Nurse 2 - General Ulcer CM Notes Start: 04/08/17 08:58 Freq: Status: Active Protocol: Activity Type Activity Date Activity User E-Sign Co-Sign Detail Recorded Client Recorded Date Recorded By Document 05/06/17 09:03 [id number] 05/06/17 09:04 05/06/17 09:03 Wound Center Nurse 2 [Procedure/Treatment] #1 right foot anterior -Correct Patient No -Correct Side, Site, Position No -Correct Procedure No -Procedure Performed No -Post Debridement Size (cm) - Length 0 -Post Debridement Size (cm) - Width 0 -Post Debridement Size (cm) - Depth 0 -Total Square Cm 0 -Wound/Ulcer Outcome Healed- Epithelialized -Bleeding Controlled with NA [See Physician Procedure note for Specifics] Pain Scale: 0-10 Numeric [Pain] -Is Patient Pain Free? Yes Musculoskeletal: No Tenderness to Palpation of Joints or Extremities, Muscle Wasting, - - Compartments of right foot soft Neurological: - - Lack of epicritic sensation light touch right foot Psych/Mental Status: Normal Affect, Appropriate Debridement Note Post-Debridement Measurements/Treatment - Nurse 2 - General Ulcer CM Notes Start: 04/08/17 08:58 Freq: Status: Active Protocol: Activity Type Activity Date Activity User E-Sign Co-Sign Detail Recorded Client Recorded Date Recorded By Document 04/08/17 09:17 [id number] 04/08/17 09:20 Document 04/15/17 10:23 [id number] 04/15/17 10:29 Document 04/22/17 09:16 TM [id number] 04/22/17 09:20 TM Document 04/29/17 09:30 TM [id number] 04/29/17 09:39 TM Document 05/06/17 09:03 JF [id number] 05/06/17 09:04 04/08/17 04/15/17 04/22/17 09:17 10:23 09:16 Wound Center Nurse 2 #1 right foot anterior -Time 09:17 10:23 09:17 -Correct Patient Yes Yes Yes -Correct Side, Site, Position Yes Yes Yes -Correct Procedure Yes Yes Yes -Procedure Performed Yes Yes Yes -Type of Procedure Debridement Debridement -Clinical Debridement Subcutaneous Subcutaneous -Post Debridement Size (cm) - Length 1.3 1.6 1.0 -Post Debridement Size (cm) - Width 1.4 1.1 1.0 -Post Debridement Size (cm) - Depth 0.1 0.1 0.1 -Total Square Cm 1.82 1.76 1.00 -Wound/Ulcer Outcome Not Healed Not Healed Not Healed -Ulcer Cleansing Rinsed/ Rinsed/ Rinsed/ Irrigated with Irrigated with Irrigated with Saline Saline Saline -Foul Odor after Cleansing No No No -Bioengineered Tissue No No Yes -Type of bioengineered Tissue EPIFIX -Expiration Date 02/04/22 -Product Lot Number [id number] -Percent Used 100 -Cetacaine [place] No No No -Topical Lidocaine (%) 5 -Bleeding Controlled with NA Pressure Pressure -Other Epicord intact no debridement today -Treatment Response Procedure Procedure Procedure Tolerated Well Tolerated Well Tolerated Well Pain Scale: 0-10 Numeric Is Patient Pain Free? Yes Yes Yes 04/29/17 05/06/17 09:30 09:03 Wound Center Nurse 2 #1 right foot anterior -Time 09:31 -Correct Patient Yes No -Correct Side, Site, Position Yes No -Correct Procedure Yes No -Procedure Performed Yes No -Type of Procedure Debridement -Clinical Debridement Subcutaneous -Post Debridement Size (cm) - Length 1.0 0 -Post Debridement Size (cm) - Width 0.3 0 -Post Debridement Size (cm) - Depth 0.1 0 -Total Square Cm 0.30 0 -Wound/Ulcer Outcome Not Healed Healed- Epithelialized -Ulcer Cleansing Rinsed/ Irrigated with Saline -Foul Odor after Cleansing No -Bioengineered Tissue No -Type of bioengineered Tissue -Expiration Date -Product Lot Number -Percent Used -Cetacaine [place] No -Topical Lidocaine (%) 5 -Bleeding Controlled with Pressure NA -Other -Treatment Response Procedure Tolerated Well Pain Scale: 0-10 Numeric Is Patient Pain Free? Yes Yes No debridement was completed today - The wound has healed Assessment/Plan Active Problems (Last Updated 05/01/17 @ 11:38 by Lexus Watters) Adenocarcinoma of lung, stage 3 (Chronic) stage 3b Malnutrition (Chronic) Other specified peripheral vascular diseases (Chronic) Assessment: Right foot ulcer. Peripheral vascular disease, multilevel disease suspected. Edema left lower extremity. Malnutrition. Delayed healing. Complicated medical history with active stage IV lung disease undergoing chemotherapy Delayed healing Plan: I reviewed and discussed his case . The wound has healed and no dressing was applied today. His prefers to keep it covered with a dry gauze for couple days and this is okay to progress to a regular sock after this. To keep surgical shoe strap off of the dorsal right foot ulcer. To transition back into an athletic sneaker taking care to monitor his skin for any openings, friction irritation, or pressure points; he is aware of this. To moisturize feet daily. To check feet daily for new openings or infection which are not noted today. To return to clinic in 2 week or call sooner if there are any questions or concerns. If the wound remains healed at this time he will be formally discharged from the wound care center at this visit. He is demonstrated that he has high risk with his recent cancer status and delayed healing. Application of this advanced wound care product is medically necessary for limb salvage and life maintenance.
--- NOTE | 2017-05-06 09:30 | PN.PCM_ITS ---
(1) Ulcer of right foot with fat layer exposed Status: Resolved Current Visit: Yes Code(s): L97.512 - Non-pressure chronic ulcer of other part of right foot with fat layer exposed (2) Other specified peripheral vascular diseases Status: Chronic Current Visit: Yes Code(s): I73.89 - Other specified peripheral vascular diseases (3) Malnutrition Status: Chronic Current Visit: Yes Code(s): E46 - Unspecified protein- calorie malnutrition (4) Adenocarcinoma of lung, stage 3 Status: Chronic Current Visit: Yes Code(s): C34.90 - Malignant neoplasm of unspecified part of unspecified bronchus or lung Comment: stage 3b Type of Wound Date of Service: 05/06/17 Chief Complaint: right foot ulcer History of Wound: He is following up for chronic right foot ulcer with tendon exposed that was taken to the operating room and advanced wound care product was applied (01/16/2017). He denies fever, chills, nausea, vomiting, loss of appetite. He denies lower extremity pain. His denies drainage this past week. He continues to wear surgical shoe. Progress of Wound: Healed - Physical Exam Vital Signs Temp Pulse Resp BP 96.8 F L 71 18 130/81 H 05/06/17 08:54 05/06/17 08:54 05/06/17 08:54 05/06/17 08:54 General: Alert, Oriented x3, Cooperative Extremities: No cyanosis, No edema, Capillary Refill Less than 3 Seconds, No Calf Tenderness - Negative Rena and Grubbs sign bilateral, Diminished Peripheral Pulses, - - Dorsal contraction of lesser toes right foot Skin: Ulcer/ Wound - Full epithelialization is noted in the wound has healed. No erythema, no streaking, no odor, no drainage right foot. Wound Measurements and Assessment - Nurse 1 - General Ulcer Measurement Start: 04/08/17 08:58 Freq: Status: Active Protocol: Activity Type Activity Date Activity User E-Sign Co-Sign Detail Recorded Client Recorded Date Recorded By Document 05/06/17 08:54 VINAYAK [id number] 05/06/17 08:55 VINAYAK 05/06/17 08:54 Wound Center Nurse 1 [Ulcer Assessment Protocol: KUSUM.WD.LOC] #1 right foot anterior -Combined with other wound No -Current Size (cm) - Length 0.1 -Current Size (cm) - Width 0.1 -Current Size (cm) - Depth 0.1 -Total Square Cm 0.01 -Photo Taken Yes -Epithelialization Large 67-100% -Tunneling No -Undermining/Tunneling No -Circular Undermining No -Exudate Amt Small (1-33%) -Exudate Type Serosanguineous -Wound Margin Flat & Intact -Granulation Amt Large (67-100%) -Granulation Quality Red -Slough/Fibrin Yes -Necrosis Amt Small (1-33%) -Necrotic Tissue Type Adherent Slough -Structure Exposed N/A -Texture (Crystal-wound Skin Appearance) Assessed Scarring -Moisture (Crystal-wound Skin Appearance Assessed ) Dry/Scaly -Color (Crystal-wound Skin Appearance) Assessed -Temperature (Crystal-wound Skin No Abnormality Appearance) (Pt Warm) -Foul Odor after Cleansing No -Anesthetic Used 4% Lidocaine Solution [Edema Assessment] -Lower Limb Edema Present NA - Nurse 2 - General Ulcer CM Notes Start: 04/08/17 08:58 Freq: Status: Active Protocol: Activity Type Activity Date Activity User E-Sign Co-Sign Detail Recorded Client Recorded Date Recorded By Document 05/06/17 09:03 [id number] 05/06/17 09:04 05/06/17 09:03 Wound Center Nurse 2 [Procedure/Treatment] #1 right foot anterior -Correct Patient No -Correct Side, Site, Position No -Correct Procedure No -Procedure Performed No -Post Debridement Size (cm) - Length 0 -Post Debridement Size (cm) - Width 0 -Post Debridement Size (cm) - Depth 0 -Total Square Cm 0 -Wound/Ulcer Outcome Healed- Epithelialized -Bleeding Controlled with NA [See Physician Procedure note for Specifics] Pain Scale: 0-10 Numeric [Pain] -Is Patient Pain Free? Yes Musculoskeletal: No Tenderness to Palpation of Joints or Extremities, Muscle Wasting, - - Compartments of right foot soft Neurological: - - Lack of epicritic sensation light touch right foot Psych/Mental Status: Normal Affect, Appropriate Debridement Note Post-Debridement Measurements/Treatment - Nurse 2 - General Ulcer CM Notes Start: 04/08/17 08:58 Freq: Status: Active Protocol: Activity Type Activity Date Activity User E-Sign Co-Sign Detail Recorded Client Recorded Date Recorded By Document 04/08/17 09:17 [id number] 04/08/17 09:20 Document 04/15/17 10:23 [id number] 04/15/17 10:29 Document 04/22/17 09:16 TM [id number] 04/22/17 09:20 TM Document 04/29/17 09:30 TM [id number] 04/29/17 09:39 TM Document 05/06/17 09:03 JF [id number] 05/06/17 09:04 04/08/17 04/15/17 04/22/17 09:17 10:23 09:16 Wound Center Nurse 2 #1 right foot anterior -Time 09:17 10:23 09:17 -Correct Patient Yes Yes Yes -Correct Side, Site, Position Yes Yes Yes -Correct Procedure Yes Yes Yes -Procedure Performed Yes Yes Yes -Type of Procedure Debridement Debridement -Clinical Debridement Subcutaneous Subcutaneous -Post Debridement Size (cm) - Length 1.3 1.6 1.0 -Post Debridement Size (cm) - Width 1.4 1.1 1.0 -Post Debridement Size (cm) - Depth 0.1 0.1 0.1 -Total Square Cm 1.82 1.76 1.00 -Wound/Ulcer Outcome Not Healed Not Healed Not Healed -Ulcer Cleansing Rinsed/ Rinsed/ Rinsed/ Irrigated with Irrigated with Irrigated with Saline Saline Saline -Foul Odor after Cleansing No No No -Bioengineered Tissue No No Yes -Type of bioengineered Tissue EPIFIX -Expiration Date 02/04/22 -Product Lot Number [id number] -Percent Used 100 -Cetacaine [place] No No No -Topical Lidocaine (%) 5 -Bleeding Controlled with NA Pressure Pressure -Other Epicord intact no debridement today -Treatment Response Procedure Procedure Procedure Tolerated Well Tolerated Well Tolerated Well Pain Scale: 0-10 Numeric Is Patient Pain Free? Yes Yes Yes 04/29/17 05/06/17 09:30 09:03 Wound Center Nurse 2 #1 right foot anterior -Time 09:31 -Correct Patient Yes No -Correct Side, Site, Position Yes No -Correct Procedure Yes No -Procedure Performed Yes No -Type of Procedure Debridement -Clinical Debridement Subcutaneous -Post Debridement Size (cm) - Length 1.0 0 -Post Debridement Size (cm) - Width 0.3 0 -Post Debridement Size (cm) - Depth 0.1 0 -Total Square Cm 0.30 0 -Wound/Ulcer Outcome Not Healed Healed- Epithelialized -Ulcer Cleansing Rinsed/ Irrigated with Saline -Foul Odor after Cleansing No -Bioengineered Tissue No -Type of bioengineered Tissue -Expiration Date -Product Lot Number -Percent Used -Cetacaine [place] No -Topical Lidocaine (%) 5 -Bleeding Controlled with Pressure NA -Other -Treatment Response Procedure Tolerated Well Pain Scale: 0-10 Numeric Is Patient Pain Free? Yes Yes No debridement was completed today - The wound has healed Assessment/Plan Active Problems (Last Updated 05/01/17 @ 11:38 by Lexus Watters) Adenocarcinoma of lung, stage 3 (Chronic) stage 3b Malnutrition (Chronic) Other specified peripheral vascular diseases (Chronic) Assessment: Right foot ulcer. Peripheral vascular disease, multilevel disease suspected. Edema left lower extremity. Malnutrition. Delayed healing. Complicated medical history with active stage IV lung disease undergoing chemotherapy Delayed healing Plan: I reviewed and discussed his case . The wound has healed and no dressing was applied today. His prefers to keep it covered with a dry gauze for couple days and this is okay to progress to a regular sock after this. To keep surgical shoe strap off of the dorsal right foot ulcer. To transition back into an athletic sneaker taking care to monitor his skin for any openings, friction irritation, or pressure points; he is aware of this. To moisturize feet daily. To check feet daily for new openings or infection which are not noted today. To return to clinic in 2 week or call sooner if there are any questions or concerns. If the wound remains healed at this time he will be formally discharged from the wound care center at this visit. He is demonstrated that he has high risk with his recent cancer status and delayed healing. Application of this advanced wound care product is medically necessary for limb salvage and life maintenance.
[2017-05-06 09:56] LABS: International Normalized Ratio 1.8; Prothrombin Time (Protime)PT. 20.5 SECONDS (11.7-14.9)
== END 2017-05-06 23:59 ==
LOC: WC 09:00
PROVIDERS: Internal Medicine Cardiovascular Disease; Family Provider Family Medicine; PCP Family Medicine; Visit Provider Podiatrist
DX: I73.89 Other specified peripheral vascular diseases (principal); L97.512 Non-pressure chronic ulcer of other part of right foot with fat layer exposed; R60.0 Localized edema; C34.90 Malignant neoplasm of unspecified part of unspecified bronchus or lung; R09.89 Other specified symptoms and signs involving the circulatory and respiratory systems; Z79.01 Long term (current) use of anticoagulants
CPT/HCPCS: 11042; 15275; 36415; 85610; 99213; Q4131; G0463

== ENCOUNTER → 2017-05-06 09:30 | Outpatient (CLI) | payer MEDICARE, SELFPAY | PROVIDERS: Family Provider Family Medicine; PCP Family Medicine; Visit Provider Internal Medicine Cardiovascular Disease | DX: I73.89 Other specified peripheral vascular diseases (principal); R60.0 Localized edema; L97.512 Non-pressure chronic ulcer of other part of right foot with fat layer exposed; C34.90 Malignant neoplasm of unspecified part of unspecified bronchus or lung; R09.89 Other specified symptoms and signs involving the circulatory and respiratory systems; Z79.01 Long term (current) use of anticoagulants | CPT/HCPCS: 36591; 85610; 99213; A4216; G0463 ==

== ENCOUNTER 2017-05-20 08:53 | Outpatient (RCR) | payer MEDICARE, SELFPAY ==
[2017-05-06 08:54] VITALS: BP 130/81
[2017-05-07 00:25] VITALS: PULSE 71; RESP 18; TEMP 36
[2017-05-20 08:58] VITALS: BP 133/74; PULSE 71; RESP 20; TEMP 36.4; BMI 24.9
--- NOTE | 2017-05-20 11:46 | PCM.WC.PN ---
(1) Other specified peripheral vascular diseases Status: Chronic Code(s): I73.89 - Other specified peripheral vascular diseases (2) Chronic ulcer of left foot with fat layer exposed Status: Resolved Code(s): L97.522 - Non-pressure chronic ulcer of other part of left foot with fat layer exposed Type of Wound Date of Service: 05/23/17 Chief Complaint: right foot ulcer History of Wound: He is following up for chronic right foot ulcer with tendon exposed that was taken to the operating room and advanced wound care product was applied (01/16/2017). The site remains healed and he denies drainage or new skin breaks. He denies fever, chills, nausea, vomiting, loss of appetite. He denies lower extremity pain. His denies drainage this past week. He continues to wear surgical shoe. He will resume cancer treatment this upcoming week with his oncologist. Progress of Wound: Healed - Physical Exam Vital Signs Temp Pulse Resp BP 97.5 F L 71 20 H 133/74 H 05/20/17 08:58 05/20/17 08:58 05/20/17 08:58 05/20/17 08:58 General: Alert, Oriented x3, Cooperative Extremities: No cyanosis, No edema, Capillary Refill Less than 3 Seconds, No Calf Tenderness - Negative Rena and Grubbs bilateral, Diminished Peripheral Pulses Skin: Ulcer/ Wound - No purulence, no erythema, no streaking, no odor. There is full epithelialization noted to the dorsal right foot and this site remains healed. His skin is very atrophic and hairless right lower extremity Wound Measurements and Assessment KUSUM - Nurse 1 - General Ulcer Measurement Start: 05/20/17 08:57 Freq: Status: Active Protocol: Activity Type Activity Date Activity User E-Sign Co-Sign Detail Recorded Client Recorded Date Recorded By Document 05/20/17 08:58 PIPER [id number] 05/20/17 09:09 PIPER 05/20/17 08:58 Wound Center Nurse 1 [Ulcer Assessment Protocol: KUSUM.WD.LOC] #1 right foot anterior -Combined with other wound No -Current Size (cm) - Length 0.1 -Current Size (cm) - Width 0.1 -Current Size (cm) - Depth 0 -Total Square Cm 0.01 -Date of Last Picture (Recall this 05/06/17 field) -Photo Taken No -Epithelialization Medium 34-66% -Tunneling No -Undermining/Tunneling No -Circular Undermining No -Classification - Thickness Full Thickness with Exposed Support Structure -Exudate Amt None Present (0 %) -Wound Margin Distinct, Outline Attached -Granulation Amt None Present (0 %) -Granulation Quality N/A -Slough/Fibrin Yes -Necrosis Amt None Present (0 %) -Necrotic Tissue Type Eschar -Structure Exposed N/A -Texture (Crystal-wound Skin Appearance) No Abnormality -Moisture (Crystal-wound Skin Appearance No Abnormality ) -Color (Crystal-wound Skin Appearance) No Abnormality -Temperature (Crystal-wound Skin No Abnormality Appearance) (Pt Warm) -Tenderness on Palpation (Crystal-wound No Skin Appearance) -Ulcer Cleansing Rinsed/ Irrigated with Saline -Foul Odor after Cleansing No -Anesthetic Used 5% Lidocaine Gel - Nurse 2 - General Ulcer CM Notes Start: 05/20/17 08:57 Freq: Status: Active Protocol: Activity Type Activity Date Activity User E-Sign Co-Sign Detail Recorded Client Recorded Date Recorded By Document 05/20/17 09:40 [id number] 05/20/17 09:42 05/20/17 09:40 Wound Center Nurse 2 [Procedure/Treatment] -Correct Patient No -Correct Side, Site, Position No -Correct Procedure No -Procedure Performed No -Post Debridement Size (cm) - Length 0 -Post Debridement Size (cm) - Width 0 -Post Debridement Size (cm) - Depth 0 -Total Square Cm 0 -Wound/Ulcer Outcome Healed- Epithelialized [See Physician Procedure note for Specifics] Pain Scale: 0-10 Numeric [Pain] -Is Patient Pain Free? Yes Musculoskeletal: No Tenderness to Palpation of Joints or Extremities, Muscle Wasting, - - Compartment soft right lower extremity and no crepitus on palpation. Neurological: Sensory exam intact to light touch and pain Psych/Mental Status: Normal Affect, Appropriate Debridement Note Post-Debridement Measurements/Treatment - Nurse 2 - General Ulcer CM Notes Start: 05/20/17 08:57 Freq: Status: Active Protocol: Activity Type Activity Date Activity User E-Sign Co-Sign Detail Recorded Client Recorded Date Recorded By Document 05/20/17 09:40 [id number] 05/20/17 09:42 05/20/17 09:40 Wound Center Nurse 2 #1 right foot anterior -Correct Patient No -Correct Side, Site, Position No -Correct Procedure No -Procedure Performed No -Post Debridement Size (cm) - Length 0 -Post Debridement Size (cm) - Width 0 -Post Debridement Size (cm) - Depth 0 -Total Square Cm 0 -Wound/Ulcer Outcome Healed- Epithelialized Pain Scale: 0-10 Numeric Is Patient Pain Free? Yes No debridement was completed today - The wound site remains healed and he will be discharged today Assessment/Plan Assessment: Right foot ulcer-healed. Peripheral vascular disease, multilevel disease suspected. Edema left lower extremity. Malnutrition. Delayed healing. Complicated medical history with active stage IV lung disease undergoing chemotherapy Delayed healing Plan: I reviewed and discussed his case. The wound has remained healed and no dressing was applied today. To continue to wear protective and supportive shoes. To monitor for any openings, friction irritation, or pressure points; he is aware of this. To moisturize feet daily. To check feet daily for new openings or infection which are not noted today. He will be discharged from the wound care center today and has done very well. To return to the [facility] clinic within 2 months for palliative care assistance and risk assessment. To call sooner if there are any questions or concerns. I answered all his questions.
== END 2017-06-03 23:59 ==
LOC: WC 08:53
PROVIDERS: Family Provider Family Medicine; PCP Family Medicine; Visit Provider Podiatrist
DX: Z09 Encounter for follow-up examination after completed treatment for conditions other than malignant neoplasm (principal); I73.89 Other specified peripheral vascular diseases; C34.91 Malignant neoplasm of unspecified part of right bronchus or lung; R60.0 Localized edema
CPT/HCPCS: 99213; G0463

== ENCOUNTER → 2017-06-10 16:30 | Outpatient (CLI) | payer MEDICARE, SELFPAY ==
--- NOTE | 2017-06-10 16:40 | CT_ITS ---
STUDY: CT CHEST WITH CONTRAST REASON FOR EXAM: Male, 76 years old. Lung cancer RADIATION DOSAGE (If Supplied By Facility): CTDIvol = ( 13.34 ) mGy, DLP = ( 478.45 ) mGycm TECHNIQUE: Transaxial imaging was performed following intravenous administration of 100mL ml of Isovue 300 contrast material. Individualized dose optimization techniques were used for this CT. 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 Mild emphysema. Stable small nodular densities and terminal alveolar disease in the left lower lobe. The largest measures up to 3 mm. Calcified granuloma in the right middle lobe. Normal heart and pericardium. Interval development of right paratracheal adenopathy, with a short axis measurement of 1.6 cm. Normal hilar regions. Normal enhanced pulmonary arteries. Normal aorta arch and descending thoracic aorta. Multiple remote thoracic compression deformities. These are unchanged. Remote rib deformities. Right renal cyst. CT/Chest WITH Contrast IMPRESSION: Stable small nodular densities and terminal alveolar disease in the left lower lobe. No new suspicious lung lesions. Evolving right paratracheal adenopathy. Electronically Signed: Jed Morfin MD at 5:32 EST Tel , Service support ,
[2017-06-10 16:41] LABS: CREATININE FINGERSTICK 1.3 mg/dL (0.70-1.30)
== END ==
PROVIDERS: Family Provider Family Medicine; PCP Family Medicine; Visit Provider Internal Medicine Medical Oncology
DX: C34.91 Malignant neoplasm of unspecified part of right bronchus or lung (principal)
CPT/HCPCS: 71260; Q9967; A4216

== ENCOUNTER 2017-07-01 10:15 | Outpatient (RCR) | payer MEDICARE, SELFPAY ==
[2017-06-04 00:25] VITALS: BP 130/81; PULSE 71; RESP 20; TEMP 36.4; BMI 24.9
[2017-06-17 15:28] VITALS: BP 138/73; PULSE 71; RESP 16; TEMP 36.2; BMI 25.8
--- NOTE | 2017-06-17 17:26 | PCM.WC.PN ---
(1) Chronic ulcer of left foot with fat layer exposed Status: Chronic Code(s): L97.522 - Non-pressure chronic ulcer of other part of left foot with fat layer exposed (2) ACACIA (acute kidney injury) Status: Acute Code(s): N17.9 - Acute kidney failure, unspecified (3) Other specified peripheral vascular diseases Status: Chronic Code(s): I73.89 - Other specified peripheral vascular diseases (4) Malnutrition Status: Chronic Code(s): E46 - Unspecified protein-calorie malnutrition Type of Wound Date of Service: 06/20/17 Chief Complaint: left foot ulcer History of Wound: He is following up for a return left foot ulcer with an onset of 3 weeks ago. He denies fever, chills, nausea, vomiting, loss of appetite. He denies lower extremity pain. His denies drainage this past week. He has returned to wearing his surgical shoe. Progress of Wound: stable - Physical Exam Vital Signs Temp Pulse Resp BP 97.1 F L 71 16 138/73 H 06/17/17 15:28 06/17/17 15:28 06/17/17 15:28 06/17/17 15:28 General: Alert, Oriented x3, Cooperative Extremities: No cyanosis, Capillary Refill Less than 3 Seconds, No Calf Tenderness - negative gilbert and cuevas bilateral, Diminished Peripheral Pulses, Edema - mild left Skin: Ulcer/ Wound - no maceration, no erythema, no streaking, no infection, no exposed deep tissue. the skin is atrophic. the wound bed is granular Wound Measurements and Assessment WC - Nurse 1 - General Ulcer Measurement Start: 06/17/17 13:26 Freq: Status: Active Protocol: Activity Type Activity Date Activity User E-Sign Co-Sign Detail Recorded Client Recorded Date Recorded By Document 06/17/17 15:28 MW [id number] 06/17/17 15:38 MW 06/17/17 15:28 Wound Center Nurse 1 [Ulcer Assessment] #7 LEFT LATERAL HEEL -Combined with other wound No -Current Size (cm) - Length 0.9 -Current Size (cm) - Width 0.4 -Current Size (cm) - Depth 0.2 -Total Square Cm 0.36 -Date of Last Picture (Recall this 06/17/17 field) -Photo Taken Yes -Epithelialization None Present -Tunneling No -Undermining/Tunneling No -Circular Undermining No -Exudate Amt None Present (0 %) -Granulation Amt None Present (0 %) -Granulation Quality N/A -Slough/Fibrin Yes -Necrosis Amt Large (67-100%) -Necrotic Tissue Type Adherent Slough -Structure Exposed Fat Layer Exposed -Texture (Crystal-wound Skin Appearance) Assessed Callus -Moisture (Crystal-wound Skin Appearance Assessed ) Dry/Scaly -Color (Crystal-wound Skin Appearance) No Abnormality Assessed -Temperature (Crystal-wound Skin No Abnormality Appearance) (Pt Warm) -Tenderness on Palpation (Crystal-wound No Skin Appearance) -Ulcer Cleansing Rinsed/ Irrigated with Saline -Foul Odor after Cleansing No -Anesthetic Used 4% Lidocaine Solution [Edema Assessment] -Lower Limb Edema Present No -Right Calf (cm) 33.0 -Right Ankle (cm) 19.7 -Left Calf (cm) 31.6 -Left Ankle (cm) 19.6 WC - Nurse 2 - General Ulcer CM Notes Start: 06/17/17 13:26 Freq: Status: Active Protocol: Activity Type Activity Date Activity User E-Sign Co-Sign Detail Recorded Client Recorded Date Recorded By Document 06/17/17 16:08 [id number] 06/17/17 16:09 06/17/17 16:08 Wound Center Nurse 2 [Procedure/Treatment] #7 LEFT LATERAL HEEL -Time 16:08 -Correct Patient Yes -Correct Side, Site, Position Yes -Correct Procedure Yes -Procedure Performed Yes -Type of Procedure Debridement -Clinical Debridement Subcutaneous -Post Debridement Size (cm) - Length 1.0 -Post Debridement Size (cm) - Width 0.4 -Post Debridement Size (cm) - Depth 0.2 -Total Square Cm 0.40 -Wound/Ulcer Outcome Not Healed -Ulcer Cleansing Rinsed/ Irrigated with Saline -Foul Odor after Cleansing No -Bioengineered Tissue No -Bleeding Controlled with Pressure -Treatment Response Procedure Tolerated Well [See Physician Procedure note for Specifics] Pain Scale: 0-10 Numeric [Pain] -Is Patient Pain Free? Yes Musculoskeletal: No Tenderness to Palpation of Joints or Extremities, Muscle Wasting Neurological: Sensory exam intact to light touch and pain Psych/Mental Status: Normal Affect, Appropriate Debridement Note Post-Debridement Measurements/Treatment WC - Nurse 2 - General Ulcer CM Notes Start: 06/17/17 13:26 Freq: Status: Active Protocol: Activity Type Activity Date Activity User E-Sign Co-Sign Detail Recorded Client Recorded Date Recorded By Document 06/17/17 16:08 [id number] 06/17/17 16:09 06/17/17 16:08 Wound Center Nurse 2 #7 LEFT LATERAL HEEL -Time 16:08 -Correct Patient Yes -Correct Side, Site, Position Yes -Correct Procedure Yes -Procedure Performed Yes -Type of Procedure Debridement -Clinical Debridement Subcutaneous -Post Debridement Size (cm) - Length 1.0 -Post Debridement Size (cm) - Width 0.4 -Post Debridement Size (cm) - Depth 0.2 -Total Square Cm 0.40 -Wound/Ulcer Outcome Not Healed -Ulcer Cleansing Rinsed/ Irrigated with Saline -Foul Odor after Cleansing No -Bioengineered Tissue No -Bleeding Controlled with Pressure -Treatment Response Procedure Tolerated Well Pain Scale: 0-10 Numeric Is Patient Pain Free? Yes Wound debrided: posterior lateral heel Laterality: Left Type of Debridement: Excisional debridement Anesthesia Used: 4% Lidocaine Solution Depth: in the subcutaneous layer Percentage of wound debrided: 100 Instrument Used: #15 blade Tissue Removed: fibrous, devitalized subcutaneous, biofilm, slough Severity: Fat Layer Exposed Amount of bleeding with debridement: Mild Bleeding Controlled with: Pressure Patient tolerated procedure well Assessment/Plan Assessment: Right foot ulcer-healed. Peripheral vascular disease, multilevel disease suspected. Edema left lower extremity. Malnutrition. Delayed healing. Complicated medical history with active stage IV lung disease undergoing chemotherapy Delayed healing Plan: I reviewed and discussed his case. The wound was debrided as noted in the clinical panel. To continue to wear protective and supportive shoes left surgical shoe and offloading pad. To offload this site vigorously while resting by hanging this over a pillow while in bed or wear a PRAFO boot. To monitor for any additional openings, friction irritation, or pressure points; he is aware of this. To moisturize feet daily the surround site to keep skin integrity intact. To return to the wound care center in 1 week or call sooner if problems. I answered all his questions.
[2017-06-24 11:08] VITALS: BP 124/70; PULSE 70; RESP 16; TEMP 36.2; BMI 25.8
--- NOTE | 2017-06-24 12:56 | PCM.WC.PN ---
(1) Chronic ulcer of left foot with fat layer exposed Status: Chronic Current Visit: Yes Code(s): L97.522 - Non-pressure chronic ulcer of other part of left foot with fat layer exposed (2) ACACIA (acute kidney injury) Status: Acute Current Visit: Yes Code(s): N17.9 - Acute kidney failure, unspecified (3) Other specified peripheral vascular diseases Status: Chronic Current Visit: Yes Code(s): I73.89 - Other specified peripheral vascular diseases (4) Malnutrition Status: Chronic Current Visit: Yes Code(s): E46 - Unspecified protein-calorie malnutrition (5) Delayed wound healing Status: Chronic Current Visit: Yes Code(s): T14.8XXD - Other injury of unspecified body region, subsequent encounter Type of Wound Date of Service: 06/24/17 Chief Complaint: left foot ulcer History of Wound: He is following up for a return left foot ulcer. He denies fever, chills, nausea, vomiting, loss of appetite. He denies lower extremity pain. He has returned to wearing his surgical shoe. He tries to hang his left foot over pillows while seated or lying in bed and has not obtained his offloading PRAFO boot yet as advised. He takes nutritional supplementation as advised. He did not have any CAT scan changes to his previous lung cancer site and his oncologist does not recommend proceeding forward with any additional chemotherapy or radiation therapy at this time. He will follow-up with his oncologist in 6 months. Progress of Wound: stable - Physical Exam Vital Signs Temp Pulse Resp BP 97.1 F L 70 16 124/70 H 06/24/17 11:08 06/24/17 11:08 06/24/17 11:08 06/24/17 11:08 General: Alert, Oriented x3, Cooperative Extremities: No cyanosis, No edema, Capillary Refill Less than 3 Seconds, No Calf Tenderness - Negative Grubbs sign left, Diminished Peripheral Pulses Skin: Ulcer/ Wound - No purulence, no erythema, string, no odor, no infection left lower externally. Wound bed is granular was spares fibrous tissue noted. The peripheral skin is atrophic and hairless. Wound Measurements and Assessment WC - Nurse 1 - General Ulcer Measurement Start: 06/17/17 13:26 Freq: Status: Active Protocol: Activity Type Activity Date Activity User E-Sign Co-Sign Detail Recorded Client Recorded Date Recorded By Document 06/24/17 11:08 MW [id number] 06/24/17 11:15 MW 06/24/17 11:08 Wound Center Nurse 1 [Ulcer Assessment] #7 LEFT LATERAL HEEL -Combined with other wound No -Current Size (cm) - Length 0.5 -Current Size (cm) - Width 0.5 -Current Size (cm) - Depth 0.2 -Total Square Cm 0.25 -Photo Taken No -Epithelialization None Present -Tunneling No -Undermining/Tunneling No -Circular Undermining No -Exudate Amt Small (1-33%) -Exudate Type Serosanguineous -Wound Margin Distinct, Outline Attached -Granulation Amt Small (1-33%) -Granulation Quality [place] -Slough/Fibrin Yes -Necrosis Amt Medium (34-66%) -Necrotic Tissue Type Adherent Slough -Structure Exposed N/A -Texture (Crystal-wound Skin Appearance) No Abnormality Assessed -Moisture (Crystal-wound Skin Appearance No Abnormality ) Assessed -Color (Crystal-wound Skin Appearance) No Abnormality Assessed -Temperature (Crystal-wound Skin No Abnormality Appearance) (Pt Warm) -Tenderness on Palpation (Crystal-wound No Skin Appearance) -Ulcer Cleansing Rinsed/ Irrigated with Saline -Foul Odor after Cleansing No -Anesthetic Used 4% Lidocaine Solution [Edema Assessment] -Lower Limb Edema Present No WC - Nurse 2 - General Ulcer CM Notes Start: 06/17/17 13:26 Freq: Status: Active Protocol: Activity Type Activity Date Activity User E-Sign Co-Sign Detail Recorded Client Recorded Date Recorded By Document 06/24/17 11:41 [id number] 06/24/17 11:42 06/24/17 11:41 Wound Center Nurse 2 [Procedure/Treatment] #7 LEFT LATERAL HEEL -Time 11:41 -Correct Patient Yes -Correct Side, Site, Position Yes -Correct Procedure Yes -Procedure Performed Yes -Type of Procedure Debridement -Clinical Debridement Subcutaneous -Post Debridement Size (cm) - Length 0.5 -Post Debridement Size (cm) - Width 0.9 -Post Debridement Size (cm) - Depth 0.2 -Total Square Cm 0.45 -Wound/Ulcer Outcome Not Healed -Ulcer Cleansing Rinsed/ Irrigated with Saline -Foul Odor after Cleansing No -Bioengineered Tissue No -Bleeding Controlled with Pressure -Treatment Response Procedure Tolerated Well [See Physician Procedure note for Specifics] Pain Scale: 0-10 Numeric [Pain] -Is Patient Pain Free? Yes Musculoskeletal: No Tenderness to Palpation of Joints or Extremities, Muscle Wasting, Tenderness - Pain with wound debridement and manipulation is minimal left lower extremity, - - No crepitus on palpation Neurological: - - Lack of epicritic sensation to light touch left Psych/Mental Status: Normal Affect, Appropriate Debridement Note Post-Debridement Measurements/Treatment WC - Nurse 2 - General Ulcer CM Notes Start: 06/17/17 13:26 Freq: Status: Active Protocol: Activity Type Activity Date Activity User E-Sign Co-Sign Detail Recorded Client Recorded Date Recorded By Document 06/17/17 16:08 [id number] 06/17/17 16:09 Document 06/24/17 11:41 [id number] 06/24/17 11:42 06/17/17 06/24/17 16:08 11:41 Wound Center Nurse 2 #7 LEFT LATERAL HEEL -Time 16:08 11:41 -Correct Patient Yes Yes -Correct Side, Site, Position Yes Yes -Correct Procedure Yes Yes -Procedure Performed Yes Yes -Type of Procedure Debridement Debridement -Clinical Debridement Subcutaneous Subcutaneous -Post Debridement Size (cm) - Length 1.0 0.5 -Post Debridement Size (cm) - Width 0.4 0.9 -Post Debridement Size (cm) - Depth 0.2 0.2 -Total Square Cm 0.40 0.45 -Wound/Ulcer Outcome Not Healed Not Healed -Ulcer Cleansing Rinsed/ Rinsed/ Irrigated with Irrigated with Saline Saline -Foul Odor after Cleansing No No -Bioengineered Tissue No No -Bleeding Controlled with Pressure Pressure -Treatment Response Procedure Procedure Tolerated Well Tolerated Well Pain Scale: 0-10 Numeric Is Patient Pain Free? Yes Yes Wound debrided: posterior lateral heel Laterality: Left Type of Debridement: Excisional debridement Anesthesia Used: 4% Lidocaine Solution Depth: in the subcutaneous layer Percentage of wound debrided: 100 Instrument Used: #15 blade Tissue Removed: fibrous, devitalized subcutaneous, biofilm, slough Severity: Fat Layer Exposed Amount of bleeding with debridement: Mild Bleeding Controlled with: Pressure Patient tolerated procedure well Assessment/Plan Active Problems (Last Reviewed 06/22/17 @ 13:20 by Abi Lucio) Delayed wound healing (Chronic) ACACIA (acute kidney injury) (Acute) Other specified peripheral vascular diseases (Chronic) Malnutrition (Chronic) Chronic ulcer of left foot with fat layer exposed (Chronic) Assessment: Left heel ulcer with fat layer exposed. Peripheral vascular disease, multilevel disease suspected. Edema left lower extremity. Malnutrition. Delayed healing. Complicated medical history with active stage IV lung disease -stable and no treatment intervention planned at this time Plan: I reviewed and discussed his case. The wound was debrided as noted in the clinical panel. A Fela dressing was applied and he was advised to changes daily. To discontinue Band-Aid use on his friable skin. To continue to wear protective and supportive shoes left surgical shoe and offloading pad. To offload this site vigorously while resting by hanging this over a pillow while in bed or wear a PRAFO boot. He was urged to get this this upcoming week. A prescription was previously provided. To monitor for any additional openings, friction irritation, or pressure points; he is aware of this. Continue to optimize healing by taking nutritional supplementation, Chilo. His previous vascular surgery intervention with Dr. Ulloa is noted. Re-referral will be considered if lack of healing occurs. To moisturize feet daily the surround site to keep skin integrity intact. To return to the wound care center in 1 week or call sooner if problems. I answered all his questions.
--- NOTE | 2017-06-24 13:02 | PN.PCM_ITS ---
(1) Chronic ulcer of left foot with fat layer exposed Status: Chronic Current Visit: Yes Code(s): L97.522 - Non-pressure chronic ulcer of other part of left foot with fat layer exposed (2) ACACIA (acute kidney injury) Status: Acute Current Visit: Yes Code(s): N17.9 - Acute kidney failure, unspecified (3) Other specified peripheral vascular diseases Status: Chronic Current Visit: Yes Code(s): I73.89 - Other specified peripheral vascular diseases (4) Malnutrition Status: Chronic Current Visit: Yes Code(s): E46 - Unspecified protein- calorie malnutrition (5) Delayed wound healing Status: Chronic Current Visit: Yes Code(s): T14.8XXD - Other injury of unspecified body region, subsequent encounter Type of Wound Date of Service: 06/24/17 Chief Complaint: left foot ulcer History of Wound: He is following up for a return left foot ulcer. He denies fever, chills, nausea, vomiting, loss of appetite. He denies lower extremity pain. He has returned to wearing his surgical shoe. He tries to hang his left foot over pillows while seated or lying in bed and has not obtained his offloading PRAFO boot yet as advised. He takes nutritional supplementation as advised. He did not have any CAT scan changes to his previous lung cancer site and his oncologist does not recommend proceeding forward with any additional chemotherapy or radiation therapy at this time. He will follow-up with his oncologist in 6 months. Progress of Wound: stable - Physical Exam Vital Signs Temp Pulse Resp BP 97.1 F L 70 16 124/70 H 06/24/17 11:08 06/24/17 11:08 06/24/17 11:08 06/24/17 11:08 General: Alert, Oriented x3, Cooperative Extremities: No cyanosis, No edema, Capillary Refill Less than 3 Seconds, No Calf Tenderness - Negative Grubbs sign left, Diminished Peripheral Pulses Skin: Ulcer/ Wound - No purulence, no erythema, string, no odor, no infection left lower externally. Wound bed is granular was spares fibrous tissue noted. The peripheral skin is atrophic and hairless. Wound Measurements and Assessment WC - Nurse 1 - General Ulcer Measurement Start: 06/17/17 13:26 Freq: Status: Active Protocol: Activity Type Activity Date Activity User E-Sign Co-Sign Detail Recorded Client Recorded Date Recorded By Document 06/24/17 11:08 MW [id number] 06/24/17 11:15 MW 06/24/17 11:08 Wound Center Nurse 1 [Ulcer Assessment] #7 LEFT LATERAL HEEL -Combined with other wound No -Current Size (cm) - Length 0.5 -Current Size (cm) - Width 0.5 -Current Size (cm) - Depth 0.2 -Total Square Cm 0.25 -Photo Taken No -Epithelialization None Present -Tunneling No -Undermining/Tunneling No -Circular Undermining No -Exudate Amt Small (1-33%) -Exudate Type Serosanguineous -Wound Margin Distinct, Outline Attached -Granulation Amt Small (1-33%) -Granulation Quality [place] -Slough/Fibrin Yes -Necrosis Amt Medium (34-66%) -Necrotic Tissue Type Adherent Slough -Structure Exposed N/A -Texture (Crystal-wound Skin Appearance) No Abnormality Assessed -Moisture (Crystal-wound Skin Appearance No Abnormality ) Assessed -Color (Crystal-wound Skin Appearance) No Abnormality Assessed -Temperature (Crystal-wound Skin No Abnormality Appearance) (Pt Warm) -Tenderness on Palpation (Crystal-wound No Skin Appearance) -Ulcer Cleansing Rinsed/ Irrigated with Saline -Foul Odor after Cleansing No -Anesthetic Used 4% Lidocaine Solution [Edema Assessment] -Lower Limb Edema Present No WC - Nurse 2 - General Ulcer CM Notes Start: 06/17/17 13:26 Freq: Status: Active Protocol: Activity Type Activity Date Activity User E-Sign Co-Sign Detail Recorded Client Recorded Date Recorded By Document 06/24/17 11:41 [id number] 06/24/17 11:42 06/24/17 11:41 Wound Center Nurse 2 [Procedure/Treatment] #7 LEFT LATERAL HEEL -Time 11:41 -Correct Patient Yes -Correct Side, Site, Position Yes -Correct Procedure Yes -Procedure Performed Yes -Type of Procedure Debridement -Clinical Debridement Subcutaneous -Post Debridement Size (cm) - Length 0.5 -Post Debridement Size (cm) - Width 0.9 -Post Debridement Size (cm) - Depth 0.2 -Total Square Cm 0.45 -Wound/Ulcer Outcome Not Healed -Ulcer Cleansing Rinsed/ Irrigated with Saline -Foul Odor after Cleansing No -Bioengineered Tissue No -Bleeding Controlled with Pressure -Treatment Response Procedure Tolerated Well [See Physician Procedure note for Specifics] Pain Scale: 0-10 Numeric [Pain] -Is Patient Pain Free? Yes Musculoskeletal: No Tenderness to Palpation of Joints or Extremities, Muscle Wasting, Tenderness - Pain with wound debridement and manipulation is minimal left lower extremity, - - No crepitus on palpation Neurological: - - Lack of epicritic sensation to light touch left Psych/Mental Status: Normal Affect, Appropriate Debridement Note Post-Debridement Measurements/Treatment WC - Nurse 2 - General Ulcer CM Notes Start: 06/17/17 13:26 Freq: Status: Active Protocol: Activity Type Activity Date Activity User E-Sign Co-Sign Detail Recorded Client Recorded Date Recorded By Document 06/17/17 16:08 [id number] 06/17/17 16:09 Document 06/24/17 11:41 [id number] 06/24/17 11:42 06/17/17 06/24/17 16:08 11:41 Wound Center Nurse 2 #7 LEFT LATERAL HEEL -Time 16:08 11:41 -Correct Patient Yes Yes -Correct Side, Site, Position Yes Yes -Correct Procedure Yes Yes -Procedure Performed Yes Yes -Type of Procedure Debridement Debridement -Clinical Debridement Subcutaneous Subcutaneous -Post Debridement Size (cm) - Length 1.0 0.5 -Post Debridement Size (cm) - Width 0.4 0.9 -Post Debridement Size (cm) - Depth 0.2 0.2 -Total Square Cm 0.40 0.45 -Wound/Ulcer Outcome Not Healed Not Healed -Ulcer Cleansing Rinsed/ Rinsed/ Irrigated with Irrigated with Saline Saline -Foul Odor after Cleansing No No -Bioengineered Tissue No No -Bleeding Controlled with Pressure Pressure -Treatment Response Procedure Procedure Tolerated Well Tolerated Well Pain Scale: 0-10 Numeric Is Patient Pain Free? Yes Yes Wound debrided: posterior lateral heel Laterality: Left Type of Debridement: Excisional debridement Anesthesia Used: 4% Lidocaine Solution Depth: in the subcutaneous layer Percentage of wound debrided: 100 Instrument Used: #15 blade Tissue Removed: fibrous, devitalized subcutaneous, biofilm, slough Severity: Fat Layer Exposed Amount of bleeding with debridement: Mild Bleeding Controlled with: Pressure Patient tolerated procedure well Assessment/Plan Active Problems (Last Reviewed 06/22/17 @ 13:20 by Abi Lucio) Delayed wound healing (Chronic) ACACIA (acute kidney injury) (Acute) Other specified peripheral vascular diseases (Chronic) Malnutrition (Chronic) Chronic ulcer of left foot with fat layer exposed (Chronic) Assessment: Left heel ulcer with fat layer exposed. Peripheral vascular disease , multilevel disease suspected. Edema left lower extremity. Malnutrition. Delayed healing. Complicated medical history with active stage IV lung disease -stable and no treatment intervention planned at this time Plan: I reviewed and discussed his case. The wound was debrided as noted in the clinical panel. A Fela dressing was applied and he was advised to changes daily. To discontinue Band-Aid use on his friable skin. To continue to wear protective and supportive shoes left surgical shoe and offloading pad. To offload this site vigorously while resting by hanging this over a pillow while in bed or wear a PRAFO boot. He was urged to get this this upcoming week. A prescription was previously provided. To monitor for any additional openings, friction irritation, or pressure points; he is aware of this. Continue to optimize healing by taking nutritional supplementation, Chilo. His previous vascular surgery intervention with Dr. Ulloa is noted. Re-referral will be considered if lack of healing occurs. To moisturize feet daily the surround site to keep skin integrity intact. To return to the wound care center in 1 week or call sooner if problems. I answered all his questions.
[2017-07-01 10:16] VITALS: BP 138/68; PULSE 71; RESP 16; TEMP 36.6; BMI 25.8
--- NOTE | 2017-07-01 11:38 | PCM.WC.PN ---
(1) Chronic ulcer of left foot with fat layer exposed Status: Chronic Current Visit: Yes Code(s): L97.522 - Non-pressure chronic ulcer of other part of left foot with fat layer exposed (2) ACACIA (acute kidney injury) Status: Acute Current Visit: Yes Code(s): N17.9 - Acute kidney failure, unspecified (3) Other specified peripheral vascular diseases Status: Chronic Current Visit: Yes Code(s): I73.89 - Other specified peripheral vascular diseases (4) Malnutrition Status: Chronic Current Visit: Yes Code(s): E46 - Unspecified protein-calorie malnutrition (5) Delayed wound healing Status: Chronic Current Visit: Yes Code(s): T14.8XXD - Other injury of unspecified body region, subsequent encounter (6) Ingrowing nail Status: Chronic Current Visit: Yes Code(s): L60.0 - Ingrowing nail (7) Toe pain, left Status: Chronic Current Visit: Yes Code(s): M79.675 - Pain in left toe(s) Type of Wound Date of Service: 07/01/17 Chief Complaint: painful ingrown toenail and left foot ulcer History of Wound: He is following up for a return left foot ulcer. He denies fever, chills, nausea, vomiting, loss of appetite. He denies lower extremity pain. He has returned to wearing his surgical shoe. He tries to hang his left foot over pillows while seated or lying in bed. He did obtain an alternative offloading boot however it was not a PRAFO BOOT. he takes nutritional supplementation as advised. He also complains of a new left big toe pain and thinks his nail border is ingrown. His tried to trim it. He denies redness odor or known drainage. He has lung cancer and will follow-up with his oncologist in 6 months. Progress of Wound: stable - Physical Exam Vital Signs Temp Pulse Resp BP 97.8 F 71 16 138/68 H 07/01/17 10:16 07/01/17 10:16 07/01/17 10:16 07/01/17 10:16 General: Alert, Oriented x3, Cooperative Extremities: No cyanosis, Capillary Refill Less than 3 Seconds, No Calf Tenderness, Diminished Peripheral Pulses, Edema - Mild left Skin: Ulcer/ Wound - No purulence, no erythema, streaking, no exposed tissue, no infection. There is incurvated lateral hallux nail border that does have adjacent skin discontinuity with serous drainage. There is no acute signs of infection. Pain is resolved upon removal of this nail border. His skin is atrophic and there is no hair noted Left Wound Measurements and Assessment WC - Nurse 1 - General Ulcer Measurement Start: 06/17/17 13:26 Freq: Status: Active Protocol: Activity Type Activity Date Activity User E-Sign Co-Sign Detail Recorded Client Recorded Date Recorded By Document 07/01/17 10:16 [facility] [id number] 07/01/17 10:27 [facility] 07/01/17 10:16 Wound Center Nurse 1 [Ulcer Assessment] #7 LEFT LATERAL HEEL -Combined with other wound No -Current Size (cm) - Length 0.7 -Current Size (cm) - Width 0.5 -Current Size (cm) - Depth 0.3 -Total Square Cm 0.35 -Photo Taken No -Epithelialization None Present -Tunneling No -Undermining/Tunneling No -Circular Undermining No -Exudate Amt Small (1-33%) -Exudate Type Serous -Wound Margin Distinct, Outline Attached -Granulation Amt None Present (0 %) -Slough/Fibrin Yes -Necrosis Amt Large (67-100%) -Necrotic Tissue Type Adherent Slough -Structure Exposed N/A -Texture (Crystal-wound Skin Appearance) Scarring -Moisture (Crystal-wound Skin Appearance Dry/Scaly ) -Color (Crystal-wound Skin Appearance) Erythema -Temperature (Crystal-wound Skin No Abnormality Appearance) (Pt Warm) -Tenderness on Palpation (Crystal-wound No Skin Appearance) -Ulcer Cleansing Rinsed/ Irrigated with Saline -Foul Odor after Cleansing No -Anesthetic Used 5% Lidocaine Gel WC - Nurse 2 - General Ulcer CM Notes Start: 06/17/17 13:26 Freq: Status: Active Protocol: Activity Type Activity Date Activity User E-Sign Co-Sign Detail Recorded Client Recorded Date Recorded By Document 07/01/17 10:32 [id number] 07/01/17 10:41 07/01/17 10:32 Wound Center Nurse 2 [Procedure/Treatment] -Time 10:32 -Correct Patient Yes -Correct Side, Site, Position Yes -Correct Procedure Yes -Procedure Performed Yes -Type of Procedure Debridement -Clinical Debridement Subcutaneous -Post Debridement Size (cm) - Length 0.8 -Post Debridement Size (cm) - Width 0.6 -Post Debridement Size (cm) - Depth 0.3 -Total Square Cm 0.48 -Wound/Ulcer Outcome Not Healed -Ulcer Cleansing Rinsed/ Irrigated with Saline -Foul Odor after Cleansing No -Bioengineered Tissue No -Topical Lidocaine (%) 5 -Bleeding Controlled with Pressure -Treatment Response Procedure Tolerated Well [See Physician Procedure note for Specifics] Pain Scale: 0-10 Numeric [Pain] -Is Patient Pain Free? Yes Musculoskeletal: No Tenderness to Palpation of Joints or Extremities, Muscle Wasting Neurological: Sensory exam intact to light touch and pain Psych/Mental Status: Normal Affect, Appropriate Debridement Note Post-Debridement Measurements/Treatment WC - Nurse 2 - General Ulcer CM Notes Start: 06/17/17 13:26 Freq: Status: Active Protocol: Activity Type Activity Date Activity User E-Sign Co-Sign Detail Recorded Client Recorded Date Recorded By Document 06/17/17 16:08 [id number] 06/17/17 16:09 Document 06/24/17 11:41 [id number] 06/24/17 11:42 Document 07/01/17 10:32 [id number] 07/01/17 10:41 06/17/17 06/24/17 07/01/17 16:08 11:41 10:32 Wound Center Nurse 2 #7 LEFT LATERAL HEEL -Time 16:08 11:41 10:32 -Correct Patient Yes Yes Yes -Correct Side, Site, Position Yes Yes Yes -Correct Procedure Yes Yes Yes -Procedure Performed Yes Yes Yes -Type of Procedure Debridement Debridement Debridement -Clinical Debridement Subcutaneous Subcutaneous Subcutaneous -Post Debridement Size (cm) - Length 1.0 0.5 0.8 -Post Debridement Size (cm) - Width 0.4 0.9 0.6 -Post Debridement Size (cm) - Depth 0.2 0.2 0.3 -Total Square Cm 0.40 0.45 0.48 -Wound/Ulcer Outcome Not Healed Not Healed Not Healed -Ulcer Cleansing Rinsed/ Rinsed/ Rinsed/ Irrigated with Irrigated with Irrigated with Saline Saline Saline -Foul Odor after Cleansing No No No -Bioengineered Tissue No No No -Topical Lidocaine (%) 5 -Bleeding Controlled with Pressure Pressure Pressure -Treatment Response Procedure Procedure Procedure Tolerated Well Tolerated Well Tolerated Well Pain Scale: 0-10 Numeric Is Patient Pain Free? Yes Yes Yes Wound debrided: heel Laterality: Left Type of Debridement: Excisional debridement Anesthesia Used: 4% Lidocaine Solution Depth: Down to and including healthy tissue Percentage of wound debrided: 100 Instrument Used: #15 blade Tissue Removed: fibrous, devitalized subcutaneous, biofilm, slough Severity: Fat Layer Exposed Amount of bleeding with debridement: Mild Bleeding Controlled with: Pressure Patient tolerated procedure well Assessment/Plan Active Problems (Last Reviewed 06/22/17 @ 13:20 by Abi Lucio) Delayed wound healing (Chronic) Ingrowing nail (Chronic) Toe pain, left (Chronic) ACACIA (acute kidney injury) (Acute) Other specified peripheral vascular diseases (Chronic) Malnutrition (Chronic) Chronic ulcer of left foot with fat layer exposed (Chronic) Assessment: Left heel ulcer with fat layer exposed. Left lateral hallux onychocryptosis without infection. Small superficial wound noted. Peripheral vascular disease, multilevel disease suspected. Edema left lower extremity. Malnutrition. Delayed healing. Complicated medical history with active stage IV lung disease -stable and no treatment intervention planned at this time Plan: I reviewed and discussed his case. The wound was debrided as noted in the clinical panel. A Santyl dressing was applied and he was advised to changes daily with nickel thickness. To continue to wear protective and supportive shoes left surgical shoe and offloading pad. To offload this site vigorously while resting by hanging this over a pillow while in bed or wear a PRAFO boot. He obtained an alternative offloading heel boot which looks okay at this time. To monitor for any additional openings, friction irritation, or pressure points; he is aware of this. Continue to optimize healing by taking nutritional supplementation, Chilo. His previous vascular surgery intervention with Dr. Ulloa is noted. Re-referral will be considered if lack of healing occurs. To moisturize feet daily the surround site to keep skin integrity intact. A wedge resection was performed to the left lateral hallux nail with immediate relief. There is some scant drainage but no deep tissue exposure or infection is noted. Relief to palpate the site is noted. I do not recommend additional antibiotics at this time. To return to the wound care center in 1 week or call sooner if problems. I answered all his questions.
== END 2017-07-04 23:59 ==
LOC: WC 10:15
PROVIDERS: Family Provider Family Medicine; PCP Family Medicine; Visit Provider Podiatrist
DX: I73.89 Other specified peripheral vascular diseases (principal); L97.522 Non-pressure chronic ulcer of other part of left foot with fat layer exposed; C34.91 Malignant neoplasm of unspecified part of right bronchus or lung; R60.0 Localized edema; N17.9 Acute kidney failure, unspecified; M79.675 Pain in left toe(s)
CPT/HCPCS: 11042; 97602; 99213; G0463

== ENCOUNTER 2017-07-22 11:30 | Outpatient (RCR) | payer MEDICARE, SELFPAY ==
[2017-07-05 00:25] VITALS: BP 130/81; PULSE 71; RESP 16; TEMP 36.6; BMI 24.9
[2017-07-08 10:35] VITALS: BP 144/87; PULSE 70; RESP 18; TEMP 35.7; BMI 24.9
--- NOTE | 2017-07-08 11:18 | PN.PCM_ITS ---
(1) Chronic ulcer of left foot with fat layer exposed Status: Chronic Current Visit: Yes Code(s): L97.522 - Non-pressure chronic ulcer of other part of left foot with fat layer exposed (2) Delayed wound healing Status: Chronic Current Visit: Yes Code(s): T14.8XXD - Other injury of unspecified body region, subsequent encounter (3) Cancer of right lung Status: Acute Current Visit: Yes Code(s): C34.91 - Malignant neoplasm of unspecified part of right bronchus or lung (4) Other specified peripheral vascular diseases Status: Chronic Current Visit: Yes Code(s): I73.89 - Other specified peripheral vascular diseases (5) Malnutrition Status: Chronic Current Visit: Yes Code(s): E46 - Unspecified protein- calorie malnutrition Type of Wound Date of Service: 07/09/17 Chief Complaint: left foot ulcer. Ingrown toenail pain has resolved History of Wound: He is following up for a return left foot ulcer. He denies fever, chills, nausea, vomiting, loss of appetite. He tries to hang his left foot over pillows while seated or lying in bed. He wears offloading boot. He takes nutritional supplementation as advised. His ingrown toenail pain is resolved since a wedge resection was performed he denies redness odor or drainage. Progress of Wound: Resolved ingrown toenail left. Improved wound quality left heel wound - Physical Exam Vital Signs Temp Pulse Resp BP 96.2 F L 70 18 144/87 H 07/08/17 10:35 07/08/17 10:35 07/08/17 10:35 07/08/17 10:35 General: Alert, Oriented x3, Cooperative Extremities: No cyanosis, Capillary Refill Less than 3 Seconds, No Calf Tenderness, Diminished Peripheral Pulses, Edema Skin: Ulcer/ Wound - No purulence, no erythema, streaking, no infection. Atrophic. Resolved ingrown toenail and inflammation noted to left hallux Wound Measurements and Assessment WC - Nurse 1 - General Ulcer Measurement Start: 07/08/17 10:35 Freq: Status: Active Protocol: Activity Type Activity Date Activity User E-Sign Co-Sign Detail Recorded Client Recorded Date Recorded By Document 07/08/17 10:35 DL [id number] 07/08/17 10:43 DL 07/08/17 10:35 Wound Center Nurse 1 [Ulcer Assessment] #7 LEFT LATERAL HEEL -Current Size (cm) - Length 0.5 -Current Size (cm) - Width 0.7 -Current Size (cm) - Depth 0.2 -Total Square Cm 0.35 -Photo Taken No -Exudate Amt None Present (0 %) -Wound Margin Distinct, Outline Attached -Granulation Amt Small (1-33%) -Granulation Quality [place] -Necrosis Amt Large (67-100%) -Necrotic Tissue Type Adherent Slough -Structure Exposed N/A -Texture (Crystal-wound Skin Appearance) No Abnormality -Moisture (Crystal-wound Skin Appearance No Abnormality ) -Color (Crystal-wound Skin Appearance) No Abnormality -Temperature (Crystal-wound Skin No Abnormality Appearance) (Pt Warm) -Ulcer Cleansing Wound Cleanser -Foul Odor after Cleansing No -Anesthetic Used 4% Lidocaine Solution WC - Nurse 2 - General Ulcer CM Notes Start: 07/08/17 10:35 Freq: Status: Active Protocol: Activity Type Activity Date Activity User E-Sign Co-Sign Detail Recorded Client Recorded Date Recorded By Document 07/08/17 10:54 [id number] 07/08/17 10:55 07/08/17 10:54 Wound Center Nurse 2 [Procedure/Treatment] -Time 10:54 -Correct Patient Yes -Correct Side, Site, Position Yes -Correct Procedure Yes -Procedure Performed Yes -Type of Procedure Debridement -Clinical Debridement Subcutaneous -Post Debridement Size (cm) - Length 0.6 -Post Debridement Size (cm) - Width 0.8 -Post Debridement Size (cm) - Depth 0.2 -Total Square Cm 0.48 -Wound/Ulcer Outcome Not Healed -Ulcer Cleansing Rinsed/ Irrigated with Saline -Foul Odor after Cleansing No -Bioengineered Tissue No -Topical Lidocaine (%) 4 -Bleeding Controlled with Pressure -Treatment Response Procedure Tolerated Well [See Physician Procedure note for Specifics] Pain Scale: 0-10 Numeric [Pain] -Is Patient Pain Free? Yes Musculoskeletal: No Tenderness to Palpation of Joints or Extremities, Muscle Wasting Neurological: Sensory exam intact to light touch and pain, - Psych/Mental Status: Normal Affect, Appropriate Debridement Note Post-Debridement Measurements/Treatment WC - Nurse 2 - General Ulcer CM Notes Start: 07/08/17 10:35 Freq: Status: Active Protocol: Activity Type Activity Date Activity User E-Sign Co-Sign Detail Recorded Client Recorded Date Recorded By Document 07/08/17 10:54 [id number] 07/08/17 10:55 07/08/17 10:54 Wound Center Nurse 2 #7 LEFT LATERAL HEEL -Time 10:54 -Correct Patient Yes -Correct Side, Site, Position Yes -Correct Procedure Yes -Procedure Performed Yes -Type of Procedure Debridement -Clinical Debridement Subcutaneous -Post Debridement Size (cm) - Length 0.6 -Post Debridement Size (cm) - Width 0.8 -Post Debridement Size (cm) - Depth 0.2 -Total Square Cm 0.48 -Wound/Ulcer Outcome Not Healed -Ulcer Cleansing Rinsed/ Irrigated with Saline -Foul Odor after Cleansing No -Bioengineered Tissue No -Topical Lidocaine (%) 4 -Bleeding Controlled with Pressure -Treatment Response Procedure Tolerated Well Pain Scale: 0-10 Numeric Is Patient Pain Free? Yes Wound debrided: lateral heel Laterality: Left Type of Debridement: Excisional debridement Anesthesia Used: 4% Lidocaine Solution Depth: in the subcutaneous layer Percentage of wound debrided: 100 Instrument Used: #15 blade Tissue Removed: Devitalized subcutaneous, biofilm, slough, fibrous tissue Severity: Fat Layer Exposed Amount of bleeding with debridement: Mild Bleeding Controlled with: Pressure Patient tolerated procedure well Assessment/Plan Active Problems (Last Reviewed 06/22/17 @ 13:20 by Abi Lucio) Delayed wound healing (Chronic) Cancer of right lung (Acute) Other specified peripheral vascular diseases (Chronic) Malnutrition (Chronic) Chronic ulcer of left foot with fat layer exposed (Chronic) Assessment: Left heel ulcer with fat layer exposed. Left lateral hallux onychocryptosis with previous wedge resection is now resolved. Peripheral vascular disease, multilevel disease suspected. Edema left lower extremity. Malnutrition. Delayed healing. Complicated medical history with active stage IV lung disease -stable and no treatment intervention planned at this time Plan: I reviewed and discussed his case. The wound was debrided as noted in the clinical panel. A Santyl dressing was applied and he was advised to changes daily with nickel thickness. To continue to wear protective and supportive shoes left surgical shoe and offloading pad. To offload this site vigorously while resting by hanging this over a pillow while in bed or wear a PRAFO boot. He obtained an alternative offloading heel boot which looks okay at this time. To monitor for any additional openings, friction irritation, or pressure points; he is aware of this. Continue to optimize healing by taking nutritional supplementation, Chilo. His previous vascular surgery intervention with Dr. Ulloa is noted. Re-referral will be considered if lack of healing occurs. To moisturize feet daily the surround site to keep skin integrity intact. A wedge resection was performed last visit and his ingrown toenail pain and wound have resolved. To return to the wound care center in 1 week or call sooner if problems. I answered all his questions.
[2017-07-15 08:34] VITALS: BP 146/86; PULSE 70; RESP 18; TEMP 36.4; BMI 24.9
--- NOTE | 2017-07-15 09:42 | PCM.WC.PN ---
(1) Chronic ulcer of left foot with fat layer exposed Status: Chronic Current Visit: Yes Code(s): L97.522 - Non-pressure chronic ulcer of other part of left foot with fat layer exposed (2) Delayed wound healing Status: Chronic Current Visit: Yes Code(s): T14.8XXD - Other injury of unspecified body region, subsequent encounter (3) Cancer of right lung Status: Acute Current Visit: Yes Code(s): C34.91 - Malignant neoplasm of unspecified part of right bronchus or lung (4) Other specified peripheral vascular diseases Status: Chronic Current Visit: Yes Code(s): I73.89 - Other specified peripheral vascular diseases (5) Malnutrition Status: Chronic Current Visit: Yes Code(s): E46 - Unspecified protein-calorie malnutrition Type of Wound Date of Service: 07/15/17 Chief Complaint: left foot ulcer History of Wound: He is following up for a return left foot ulcer. He denies fever, chills, nausea, vomiting, loss of appetite. He tries to hang his left foot over pillows while seated or lying in bed. He wears offloading boot. He takes nutritional supplementation as advised. Progress of Wound: . Improved wound quality left heel wound - Physical Exam Vital Signs Temp Pulse Resp BP 97.6 F L 70 18 146/86 H 07/15/17 08:34 07/15/17 08:34 07/15/17 08:34 07/15/17 08:34 General: Alert, Oriented x3, Cooperative Extremities: No cyanosis, Capillary Refill Less than 3 Seconds, No Calf Tenderness - Negative Rena and Grubbs left, Diminished Peripheral Pulses, Edema - Mild Skin: Ulcer/ Wound - No purulence, no erythema, streaking, odor, no necrosis, no exposed deep tissue. There is improved granulation tissue noted, - - Atrophic and hairless skin left lower extremity. Cat hair and heel noted left Wound Measurements and Assessment WC - Nurse 1 - General Ulcer Measurement Start: 07/08/17 10:35 Freq: Status: Active Protocol: Activity Type Activity Date Activity User E-Sign Co-Sign Detail Recorded Client Recorded Date Recorded By Document 07/15/17 08:34 DL [id number] 07/15/17 08:39 DL 07/15/17 08:34 Wound Center Nurse 1 [Ulcer Assessment] #7 LEFT LATERAL HEEL -Current Size (cm) - Length 0.6 -Current Size (cm) - Width 0.5 -Current Size (cm) - Depth 0.2 -Total Square Cm 0.30 -Photo Taken No -Exudate Amt Small (1-33%) -Exudate Type Serosanguineous -Wound Margin Distinct, Outline Attached -Granulation Amt Small (1-33%) -Granulation Quality [place] -Necrosis Amt Small (1-33%) -Necrotic Tissue Type Adherent Slough -Structure Exposed N/A -Texture (Crystal-wound Skin Appearance) No Abnormality -Moisture (Crystal-wound Skin Appearance Dry/Scaly ) -Color (Crystal-wound Skin Appearance) No Abnormality -Temperature (Crystal-wound Skin No Abnormality Appearance) (Pt Warm) -Tenderness on Palpation (Crystal-wound Yes Skin Appearance) -Ulcer Cleansing Rinsed/ Irrigated with Saline -Foul Odor after Cleansing No -Anesthetic Used 4% Lidocaine Solution WC - Nurse 2 - General Ulcer CM Notes Start: 07/08/17 10:35 Freq: Status: Active Protocol: Activity Type Activity Date Activity User E-Sign Co-Sign Detail Recorded Client Recorded Date Recorded By Document 07/15/17 08:56 [id number] 07/15/17 08:58 07/15/17 08:56 Wound Center Nurse 2 [Procedure/Treatment] -Time 08:56 -Correct Patient Yes -Correct Side, Site, Position Yes -Correct Procedure Yes -Procedure Performed Yes -Type of Procedure Debridement -Clinical Debridement Subcutaneous -Post Debridement Size (cm) - Length 0.7 -Post Debridement Size (cm) - Width 0.6 -Post Debridement Size (cm) - Depth 0.2 -Total Square Cm 0.42 -Wound/Ulcer Outcome Not Healed -Ulcer Cleansing Rinsed/ Irrigated with Saline -Foul Odor after Cleansing No -Bioengineered Tissue No -Topical Lidocaine (%) 4 -Bleeding Controlled with Pressure -Treatment Response Procedure Tolerated Well [See Physician Procedure note for Specifics] Pain Scale: 0-10 Numeric [Pain] -Is Patient Pain Free? Yes Musculoskeletal: No Tenderness to Palpation of Joints or Extremities, Muscle Wasting, Tenderness - Wound manipulation pain, - - External rotation of left lower extremity seated position is noted. Neurological: Sensory exam intact to light touch and pain Psych/Mental Status: Normal Affect, Appropriate Debridement Note Post-Debridement Measurements/Treatment WC - Nurse 2 - General Ulcer CM Notes Start: 07/08/17 10:35 Freq: Status: Active Protocol: Activity Type Activity Date Activity User E-Sign Co-Sign Detail Recorded Client Recorded Date Recorded By Document 07/08/17 10:54 TM [id number] 07/08/17 10:55 TM Document 07/15/17 08:56 TM [id number] 07/15/17 08:58 TM 07/08/17 07/15/17 10:54 08:56 Wound Center Nurse 2 #7 LEFT LATERAL HEEL -Time 10:54 08:56 -Correct Patient Yes Yes -Correct Side, Site, Position Yes Yes -Correct Procedure Yes Yes -Procedure Performed Yes Yes -Type of Procedure Debridement Debridement -Clinical Debridement Subcutaneous Subcutaneous -Post Debridement Size (cm) - Length 0.6 0.7 -Post Debridement Size (cm) - Width 0.8 0.6 -Post Debridement Size (cm) - Depth 0.2 0.2 -Total Square Cm 0.48 0.42 -Wound/Ulcer Outcome Not Healed Not Healed -Ulcer Cleansing Rinsed/ Rinsed/ Irrigated with Irrigated with Saline Saline -Foul Odor after Cleansing No No -Bioengineered Tissue No No -Topical Lidocaine (%) 4 4 -Bleeding Controlled with Pressure Pressure -Treatment Response Procedure Procedure Tolerated Well Tolerated Well Pain Scale: 0-10 Numeric Is Patient Pain Free? Yes Yes Wound debrided: lateral posterior heel Laterality: Left Type of Debridement: Excisional debridement Anesthesia Used: 4% Lidocaine Solution Percentage of wound debrided: 100 Severity: Fat Layer Exposed Amount of bleeding with debridement: Mild Bleeding Controlled with: Pressure Patient tolerated procedure well Assessment/Plan Active Problems (Last Reviewed 06/22/17 @ 13:20 by Abi Lucio) Delayed wound healing (Chronic) Cancer of right lung (Acute) Other specified peripheral vascular diseases (Chronic) Malnutrition (Chronic) Chronic ulcer of left foot with fat layer exposed (Chronic) Assessment: Left heel ulcer with fat layer exposed. Peripheral vascular disease, multilevel disease suspected. Edema left lower extremity. Malnutrition. Delayed healing. Complicated medical history with active stage IV lung disease -stable and no treatment intervention planned at this time Plan: I reviewed and discussed his case. The wound was debrided as noted in the clinical panel. A Santyl dressing was applied and he was advised to changes daily with nickel thickness. To continue to wear protective and supportive shoes left surgical shoe and offloading pad. To offload this site vigorously while resting by hanging this over a pillow while in bed or wear a PRAFO boot. He obtained an alternative offloading heel boot which looks okay at this time. To monitor for any additional openings, friction irritation, or pressure points; he is aware of this. A prescription for tramadol was provided and he was advised on safe and proper use. He was advised to take 1 tablet as needed at bedtime for pain. Continue to optimize healing by taking nutritional supplementation, Chilo. His previous vascular surgery intervention with Dr. Ulloa is noted. Re-referral will be considered if lack of healing occurs. To moisturize feet daily the surround site to keep skin integrity intact. A wedge resection was performed last visit and his ingrown toenail pain and wound have resolved. It is noted he has a collection of cat hair on the bottom of his foot he was advised to protect and shield his wound and foot from cat hair exposure to avoid infections or delayed healing. To return to the wound care center in 1 week or call sooner if problems. I answered all his questions.
--- NOTE | 2017-07-15 09:45 | PN.PCM_ITS ---
(1) Chronic ulcer of left foot with fat layer exposed Status: Chronic Current Visit: Yes Code(s): L97.522 - Non-pressure chronic ulcer of other part of left foot with fat layer exposed (2) Delayed wound healing Status: Chronic Current Visit: Yes Code(s): T14.8XXD - Other injury of unspecified body region, subsequent encounter (3) Cancer of right lung Status: Acute Current Visit: Yes Code(s): C34.91 - Malignant neoplasm of unspecified part of right bronchus or lung (4) Other specified peripheral vascular diseases Status: Chronic Current Visit: Yes Code(s): I73.89 - Other specified peripheral vascular diseases (5) Malnutrition Status: Chronic Current Visit: Yes Code(s): E46 - Unspecified protein- calorie malnutrition Type of Wound Date of Service: 07/15/17 Chief Complaint: left foot ulcer History of Wound: He is following up for a return left foot ulcer. He denies fever, chills, nausea, vomiting, loss of appetite. He tries to hang his left foot over pillows while seated or lying in bed. He wears offloading boot. He takes nutritional supplementation as advised. Progress of Wound: . Improved wound quality left heel wound - Physical Exam Vital Signs Temp Pulse Resp BP 97.6 F L 70 18 146/86 H 07/15/17 08:34 07/15/17 08:34 07/15/17 08:34 07/15/17 08:34 General: Alert, Oriented x3, Cooperative Extremities: No cyanosis, Capillary Refill Less than 3 Seconds, No Calf Tenderness - Negative Rena and Grubbs left, Diminished Peripheral Pulses, Edema - Mild Skin: Ulcer/ Wound - No purulence, no erythema, streaking, odor, no necrosis, no exposed deep tissue. There is improved granulation tissue noted, - - Atrophic and hairless skin left lower extremity. Cat hair and heel noted left Wound Measurements and Assessment WC - Nurse 1 - General Ulcer Measurement Start: 07/08/17 10:35 Freq: Status: Active Protocol: Activity Type Activity Date Activity User E-Sign Co-Sign Detail Recorded Client Recorded Date Recorded By Document 07/15/17 08:34 DL [id number] 07/15/17 08:39 DL 07/15/17 08:34 Wound Center Nurse 1 [Ulcer Assessment] #7 LEFT LATERAL HEEL -Current Size (cm) - Length 0.6 -Current Size (cm) - Width 0.5 -Current Size (cm) - Depth 0.2 -Total Square Cm 0.30 -Photo Taken No -Exudate Amt Small (1-33%) -Exudate Type Serosanguineous -Wound Margin Distinct, Outline Attached -Granulation Amt Small (1-33%) -Granulation Quality [place] -Necrosis Amt Small (1-33%) -Necrotic Tissue Type Adherent Slough -Structure Exposed N/A -Texture (Crystal-wound Skin Appearance) No Abnormality -Moisture (Crystal-wound Skin Appearance Dry/Scaly ) -Color (Crystal-wound Skin Appearance) No Abnormality -Temperature (Crystal-wound Skin No Abnormality Appearance) (Pt Warm) -Tenderness on Palpation (Crystal-wound Yes Skin Appearance) -Ulcer Cleansing Rinsed/ Irrigated with Saline -Foul Odor after Cleansing No -Anesthetic Used 4% Lidocaine Solution WC - Nurse 2 - General Ulcer CM Notes Start: 07/08/17 10:35 Freq: Status: Active Protocol: Activity Type Activity Date Activity User E-Sign Co-Sign Detail Recorded Client Recorded Date Recorded By Document 07/15/17 08:56 [id number] 07/15/17 08:58 07/15/17 08:56 Wound Center Nurse 2 [Procedure/Treatment] -Time 08:56 -Correct Patient Yes -Correct Side, Site, Position Yes -Correct Procedure Yes -Procedure Performed Yes -Type of Procedure Debridement -Clinical Debridement Subcutaneous -Post Debridement Size (cm) - Length 0.7 -Post Debridement Size (cm) - Width 0.6 -Post Debridement Size (cm) - Depth 0.2 -Total Square Cm 0.42 -Wound/Ulcer Outcome Not Healed -Ulcer Cleansing Rinsed/ Irrigated with Saline -Foul Odor after Cleansing No -Bioengineered Tissue No -Topical Lidocaine (%) 4 -Bleeding Controlled with Pressure -Treatment Response Procedure Tolerated Well [See Physician Procedure note for Specifics] Pain Scale: 0-10 Numeric [Pain] -Is Patient Pain Free? Yes Musculoskeletal: No Tenderness to Palpation of Joints or Extremities, Muscle Wasting, Tenderness - Wound manipulation pain, - - External rotation of left lower extremity seated position is noted. Neurological: Sensory exam intact to light touch and pain Psych/Mental Status: Normal Affect, Appropriate Debridement Note Post-Debridement Measurements/Treatment WC - Nurse 2 - General Ulcer CM Notes Start: 07/08/17 10:35 Freq: Status: Active Protocol: Activity Type Activity Date Activity User E-Sign Co-Sign Detail Recorded Client Recorded Date Recorded By Document 07/08/17 10:54 TM [id number] 07/08/17 10:55 TM Document 07/15/17 08:56 TM [id number] 07/15/17 08:58 TM 07/08/17 07/15/17 10:54 08:56 Wound Center Nurse 2 #7 LEFT LATERAL HEEL -Time 10:54 08:56 -Correct Patient Yes Yes -Correct Side, Site, Position Yes Yes -Correct Procedure Yes Yes -Procedure Performed Yes Yes -Type of Procedure Debridement Debridement -Clinical Debridement Subcutaneous Subcutaneous -Post Debridement Size (cm) - Length 0.6 0.7 -Post Debridement Size (cm) - Width 0.8 0.6 -Post Debridement Size (cm) - Depth 0.2 0.2 -Total Square Cm 0.48 0.42 -Wound/Ulcer Outcome Not Healed Not Healed -Ulcer Cleansing Rinsed/ Rinsed/ Irrigated with Irrigated with Saline Saline -Foul Odor after Cleansing No No -Bioengineered Tissue No No -Topical Lidocaine (%) 4 4 -Bleeding Controlled with Pressure Pressure -Treatment Response Procedure Procedure Tolerated Well Tolerated Well Pain Scale: 0-10 Numeric Is Patient Pain Free? Yes Yes Wound debrided: lateral posterior heel Laterality: Left Type of Debridement: Excisional debridement Anesthesia Used: 4% Lidocaine Solution Percentage of wound debrided: 100 Severity: Fat Layer Exposed Amount of bleeding with debridement: Mild Bleeding Controlled with: Pressure Patient tolerated procedure well Assessment/Plan Active Problems (Last Reviewed 06/22/17 @ 13:20 by Abi Lucio) Delayed wound healing (Chronic) Cancer of right lung (Acute) Other specified peripheral vascular diseases (Chronic) Malnutrition (Chronic) Chronic ulcer of left foot with fat layer exposed (Chronic) Assessment: Left heel ulcer with fat layer exposed. Peripheral vascular disease , multilevel disease suspected. Edema left lower extremity. Malnutrition. Delayed healing. Complicated medical history with active stage IV lung disease -stable and no treatment intervention planned at this time Plan: I reviewed and discussed his case. The wound was debrided as noted in the clinical panel. A Santyl dressing was applied and he was advised to changes daily with nickel thickness. To continue to wear protective and supportive shoes left surgical shoe and offloading pad. To offload this site vigorously while resting by hanging this over a pillow while in bed or wear a PRAFO boot. He obtained an alternative offloading heel boot which looks okay at this time. To monitor for any additional openings, friction irritation, or pressure points; he is aware of this. A prescription for tramadol was provided and he was advised on safe and proper use. He was advised to take 1 tablet as needed at bedtime for pain. Continue to optimize healing by taking nutritional supplementation, Chilo. His previous vascular surgery intervention with Dr. Ulloa is noted. Re-referral will be considered if lack of healing occurs. To moisturize feet daily the surround site to keep skin integrity intact. A wedge resection was performed last visit and his ingrown toenail pain and wound have resolved. It is noted he has a collection of cat hair on the bottom of his foot he was advised to protect and shield his wound and foot from cat hair exposure to avoid infections or delayed healing. To return to the wound care center in 1 week or call sooner if problems. I answered all his questions.
[2017-07-22 11:27] VITALS: BP 110/68; PULSE 70; RESP 18; TEMP 35.3; BMI 24.9
--- NOTE | 2017-07-22 12:59 | PN.PCM_ITS ---
(1) Chronic ulcer of left foot with fat layer exposed Status: Chronic Current Visit: Yes Code(s): L97.522 - Non-pressure chronic ulcer of other part of left foot with fat layer exposed (2) Delayed wound healing Status: Chronic Current Visit: Yes Code(s): T14.8XXD - Other injury of unspecified body region, subsequent encounter (3) Cancer of right lung Status: Acute Current Visit: Yes Code(s): C34.91 - Malignant neoplasm of unspecified part of right bronchus or lung (4) Other specified peripheral vascular diseases Status: Chronic Current Visit: Yes Code(s): I73.89 - Other specified peripheral vascular diseases (5) Malnutrition Status: Chronic Current Visit: Yes Code(s): E46 - Unspecified protein- calorie malnutrition Type of Wound Date of Service: 07/22/17 Chief Complaint: left foot ulcer History of Wound: He is following up for a return left foot ulcer. He denies fever, chills, nausea, vomiting, loss of appetite. He tries to hang his left foot over pillows while seated or lying in bed. He wears offloading boot and reports he would not be surprised if there is still pressure applied to his wound. He takes nutritional supplementation as advised. The Regranex prescription authorization is pending. Progress of Wound: . Improved wound quality left heel wound - Physical Exam Vital Signs Temp Pulse Resp BP 95.5 F L 70 18 110/68 07/22/17 11:27 07/22/17 11:27 07/22/17 11:27 07/22/17 11:27 General: Alert, Oriented x3, Cooperative Extremities: No cyanosis, Capillary Refill Less than 3 Seconds, No Calf Tenderness - Negative Rena and Grubbs left, Diminished Peripheral Pulses, Edema Skin: Ulcer/ Wound - No purulence, no erythema, streaking, no odor, no infection. Wound bed has increased granulation tissue. The skin is atrophic. Wound Measurements and Assessment WC - Nurse 1 - General Ulcer Measurement Start: 07/08/17 10:35 Freq: Status: Active Protocol: Activity Type Activity Date Activity User E-Sign Co-Sign Detail Recorded Client Recorded Date Recorded By Document 07/22/17 11:27 VINAYAK [id number] 07/22/17 11:31 VINAYAK 07/22/17 11:27 Wound Center Nurse 1 [Ulcer Assessment] #7 LEFT LATERAL HEEL -Combined with other wound No -Current Size (cm) - Length 0.6 -Current Size (cm) - Width 0.4 -Current Size (cm) - Depth 0.2 -Total Square Cm 0.24 -Photo Taken No -Epithelialization None Present -Tunneling No -Undermining/Tunneling No -Circular Undermining No -Exudate Amt Small (1-33%) -Exudate Type Serosanguineous -Wound Margin Flat & Intact -Granulation Amt Small (1-33%) -Granulation Quality [place] -Slough/Fibrin Yes -Necrosis Amt Large (67-100%) -Necrotic Tissue Type Adherent Slough -Structure Exposed N/A -Texture (Crystal-wound Skin Appearance) Assessed -Moisture (Crystal-wound Skin Appearance Assessed ) Dry/Scaly -Color (Crystal-wound Skin Appearance) Assessed -Temperature (Crystal-wound Skin No Abnormality Appearance) (Pt Warm) -Tenderness on Palpation (Crystal-wound No Skin Appearance) -Ulcer Cleansing Rinsed/ Irrigated with Saline -Foul Odor after Cleansing No -Anesthetic Used 4% Lidocaine Solution [Edema Assessment] -Lower Limb Edema Present No WC - Nurse 2 - General Ulcer CM Notes Start: 07/08/17 10:35 Freq: Status: Active Protocol: Activity Type Activity Date Activity User E-Sign Co-Sign Detail Recorded Client Recorded Date Recorded By Document 07/22/17 12:09 VINAYAK [id number] 07/22/17 12:10 VINAYAK 07/22/17 12:09 Wound Center Nurse 2 [Procedure/Treatment] #7 LEFT LATERAL HEEL -Time 12:09 -Correct Patient Yes -Correct Side, Site, Position Yes -Correct Procedure Yes -Procedure Performed Yes -Type of Procedure Debridement -Clinical Debridement Subcutaneous -Post Debridement Size (cm) - Length 0.6 -Post Debridement Size (cm) - Width 0.5 -Post Debridement Size (cm) - Depth 0.2 -Total Square Cm 0.30 -Wound/Ulcer Outcome Not Healed -Ulcer Cleansing Rinsed/ Irrigated with Saline -Foul Odor after Cleansing No -Bioengineered Tissue No -Bleeding Controlled with Pressure -Treatment Response Procedure Tolerated Well [See Physician Procedure note for Specifics] Pain Scale: 0-10 Numeric [Pain] -Is Patient Pain Free? Yes Musculoskeletal: No Tenderness to Palpation of Joints or Extremities, No Muscle Wasting, Muscle Wasting Neurological: Sensory exam intact to light touch and pain Psych/Mental Status: Normal Affect, Appropriate Debridement Note Post-Debridement Measurements/Treatment WC - Nurse 2 - General Ulcer CM Notes Start: 07/08/17 10:35 Freq: Status: Active Protocol: Activity Type Activity Date Activity User E-Sign Co-Sign Detail Recorded Client Recorded Date Recorded By Document 07/08/17 10:54 [id number] 07/08/17 10:55 Document 07/15/17 08:56 [id number] 07/15/17 08:58 Document 07/22/17 12:09 [id number] 07/22/17 12:10 07/08/17 07/15/17 07/22/17 10:54 08:56 12:09 Wound Center Nurse 2 #7 LEFT LATERAL HEEL -Time 10:54 08:56 12:09 -Correct Patient Yes Yes Yes -Correct Side, Site, Position Yes Yes Yes -Correct Procedure Yes Yes Yes -Procedure Performed Yes Yes Yes -Type of Procedure Debridement Debridement Debridement -Clinical Debridement Subcutaneous Subcutaneous Subcutaneous -Post Debridement Size (cm) - Length 0.6 0.7 0.6 -Post Debridement Size (cm) - Width 0.8 0.6 0.5 -Post Debridement Size (cm) - Depth 0.2 0.2 0.2 -Total Square Cm 0.48 0.42 0.30 -Wound/Ulcer Outcome Not Healed Not Healed Not Healed -Ulcer Cleansing Rinsed/ Rinsed/ Rinsed/ Irrigated with Irrigated with Irrigated with Saline Saline Saline -Foul Odor after Cleansing No No No -Bioengineered Tissue No No No -Topical Lidocaine (%) 4 4 -Bleeding Controlled with Pressure Pressure Pressure -Treatment Response Procedure Procedure Procedure Tolerated Well Tolerated Well Tolerated Well Pain Scale: 0-10 Numeric Is Patient Pain Free? Yes Yes Yes Wound debrided: heel Laterality: Left Type of Debridement: Excisional debridement Anesthesia Used: 4% Lidocaine Solution Depth: in the subcutaneous layer Percentage of wound debrided: 100 Instrument Used: #15 blade Tissue Removed: fibrous, devitalized subcutaneous, biofilm, slough Severity: Fat Layer Exposed Amount of bleeding with debridement: Mild Bleeding Controlled with: Pressure Patient tolerated procedure well Assessment/Plan Active Problems (Last Reviewed 06/22/17 @ 13:20 by Abi Lucio) Delayed wound healing (Chronic) Cancer of right lung (Acute) Other specified peripheral vascular diseases (Chronic) Malnutrition (Chronic) Chronic ulcer of left foot with fat layer exposed (Chronic) Assessment: Left heel ulcer with fat layer exposed. Peripheral vascular disease , multilevel disease suspected. Edema left lower extremity. Malnutrition. Delayed healing. Complicated medical history with active stage IV lung disease -stable and no treatment intervention planned at this time Plan: I reviewed and discussed his case. The wound was debrided as noted in the clinical panel. A Santyl dressing was applied and he was advised to changes daily with nickel thickness. The Regranex prescription authorization is pending. To continue to wear protective and supportive shoes left surgical shoe and offloading pad. To offload this site vigorously while resting by hanging this over a pillow while in bed. He has an offloading donut pillow and I strongly urged him to resume use. To monitor for any additional openings, friction irritation, or pressure points; he is aware of this. Continue to optimize healing by taking nutritional supplementation, Chilo. His previous vascular surgery intervention with Dr. Ulloa is noted. Re-referral will be considered if lack of healing occurs. To moisturize feet daily the surround site to keep skin integrity intact. To return to the wound care center in 1 week or call sooner if problems. I answered all his questions.
== END 2017-08-03 23:59 ==
LOC: WC 11:30
PROVIDERS: Family Provider Family Medicine; PCP Family Medicine; Visit Provider Podiatrist
DX: I73.89 Other specified peripheral vascular diseases (principal); C34.91 Malignant neoplasm of unspecified part of right bronchus or lung; R60.0 Localized edema; L97.422 Non-pressure chronic ulcer of left heel and midfoot with fat layer exposed
CPT/HCPCS: 11042; 97602

== ENCOUNTER → 2017-08-21 12:02 | Outpatient (CLI) | payer MEDICARE, SELFPAY ==
[2017-08-21 12:21] LABS: Prothrombin Time Fingerstick 29.8 SEC (11.9-14.4)
== END ==
PROVIDERS: Family Provider Family Medicine; PCP Family Medicine; Visit Provider Internal Medicine Cardiovascular Disease
DX: Z95.828 Presence of other vascular implants and grafts (principal)
CPT/HCPCS: 36416; 85610

== ENCOUNTER 2017-09-02 09:30 | Outpatient (RCR) | payer MEDICARE, SELFPAY ==
[2017-08-04 00:25] VITALS: BP 130/81; PULSE 70; RESP 18; TEMP 35.3; BMI 24.9
[2017-08-05 09:24] VITALS: BP 146/79; PULSE 70; RESP 18; TEMP 35.9; BMI 24.9
--- NOTE | 2017-08-05 10:18 | PN.PCM_ITS ---
(1) Chronic ulcer of left foot with fat layer exposed Status: Chronic Current Visit: Yes Code(s): L97.522 - Non-pressure chronic ulcer of other part of left foot with fat layer exposed (2) Delayed wound healing Status: Chronic Current Visit: Yes Code(s): T14.8XXD - Other injury of unspecified body region, subsequent encounter (3) Adenocarcinoma of lung, stage 3 Status: Chronic Current Visit: Yes Code(s): C34.90 - Malignant neoplasm of unspecified part of unspecified bronchus or lung Comment: stage 3b (4) Malnutrition Status: Chronic Current Visit: Yes Code(s): E46 - Unspecified protein- calorie malnutrition (5) Other specified peripheral vascular diseases Status: Chronic Current Visit: Yes Code(s): I73.89 - Other specified peripheral vascular diseases Type of Wound Date of Service: 08/06/17 Chief Complaint: left foot ulcer History of Wound: He is following up for a return left foot ulcer. He denies fever, chills, nausea, vomiting, loss of appetite. He tries to hang his left foot over pillows while seated or lying in bed. He wears offloading boot and reports he would not be surprised if there is still pressure applied to his wound. He takes nutritional supplementation as advised. The Regranex prescription authorization is pending. Progress of Wound: . Improved wound quality left heel wound - Physical Exam Vital Signs Temp Pulse Resp BP 96.6 F L 70 18 146/79 H 08/05/17 09:24 08/05/17 09:24 08/05/17 09:24 08/05/17 09:24 General: Alert, Oriented x3, Cooperative Extremities: No cyanosis, Capillary Refill Less than 3 Seconds, No Calf Tenderness, Diminished Peripheral Pulses, Edema Skin: Ulcer/ Wound - No purulence, no erythema, streaking, odor, no infection, - - atrophic skin Wound Measurements and Assessment WC - Nurse 1 - General Ulcer Measurement Start: 08/05/17 09:24 Freq: Status: Active Protocol: Activity Type Activity Date Activity User E-Sign Co-Sign Detail Recorded Client Recorded Date Recorded By Document 08/05/17 09:24 RB [id number] 08/05/17 09:27 RB 08/05/17 09:24 Wound Center Nurse 1 [Ulcer Assessment] #7 LEFT LATERAL HEEL -Combined with other wound No -Current Size (cm) - Length 0.3 -Current Size (cm) - Width 0.4 -Current Size (cm) - Depth 0.1 -Total Square Cm 0.12 -Photo Taken Yes -Tunneling No -Undermining/Tunneling No -Circular Undermining No -Classification - Thickness Full Thickness without Exposed Support Structure -Exudate Amt Small (1-33%) -Exudate Type Serosanguineous -Wound Margin Thickened -Granulation Amt Small (1-33%) -Granulation Quality [place] -Slough/Fibrin Yes -Necrosis Amt Medium (34-66%) -Necrotic Tissue Type Adherent Slough -Structure Exposed N/A -Texture (Crystal-wound Skin Appearance) Assessed -Moisture (Crystal-wound Skin Appearance [place] ) -Color (Crystal-wound Skin Appearance) Assessed -Temperature (Crystal-wound Skin No Abnormality Appearance) (Pt Warm) -Tenderness on Palpation (Crystal-wound No Skin Appearance) -Ulcer Cleansing Rinsed/ Irrigated with Saline -Foul Odor after Cleansing No -Anesthetic Used 4% Lidocaine Solution WC - Nurse 2 - General Ulcer CM Notes Start: 08/05/17 09:24 Freq: Status: Active Protocol: Activity Type Activity Date Activity User E-Sign Co-Sign Detail Recorded Client Recorded Date Recorded By Document 08/05/17 09:50 VINAYAK [id number] 08/05/17 09:51 VINAYAK 08/05/17 09:50 Wound Center Nurse 2 [Procedure/Treatment] -Time 09:50 -Correct Patient Yes -Correct Side, Site, Position Yes -Correct Procedure Yes -Procedure Performed Yes -Type of Procedure Debridement -Clinical Debridement Subcutaneous -Post Debridement Size (cm) - Length 0.3 -Post Debridement Size (cm) - Width 0.6 -Post Debridement Size (cm) - Depth 0.2 -Total Square Cm 0.18 -Wound/Ulcer Outcome Not Healed -Ulcer Cleansing Rinsed/ Irrigated with Saline -Foul Odor after Cleansing No -Bioengineered Tissue No -Bleeding Controlled with Pressure -Treatment Response Procedure Tolerated Well [See Physician Procedure note for Specifics] Pain Scale: 0-10 Numeric [Pain] -Is Patient Pain Free? Yes Musculoskeletal: No Tenderness to Palpation of Joints or Extremities, Muscle Wasting, Tenderness - wound manipulation Neurological: Sensory exam intact to light touch and pain, - Psych/Mental Status: Normal Affect, Appropriate Debridement Note Post-Debridement Measurements/Treatment WC - Nurse 2 - General Ulcer CM Notes Start: 08/05/17 09:24 Freq: Status: Active Protocol: Activity Type Activity Date Activity User E-Sign Co-Sign Detail Recorded Client Recorded Date Recorded By Document 08/05/17 09:50 VINAYAK [id number] 08/05/17 09:51 VINAYAK 08/05/17 09:50 Wound Center Nurse 2 #7 LEFT LATERAL HEEL -Time 09:50 -Correct Patient Yes -Correct Side, Site, Position Yes -Correct Procedure Yes -Procedure Performed Yes -Type of Procedure Debridement -Clinical Debridement Subcutaneous -Post Debridement Size (cm) - Length 0.3 -Post Debridement Size (cm) - Width 0.6 -Post Debridement Size (cm) - Depth 0.2 -Total Square Cm 0.18 -Wound/Ulcer Outcome Not Healed -Ulcer Cleansing Rinsed/ Irrigated with Saline -Foul Odor after Cleansing No -Bioengineered Tissue No -Bleeding Controlled with Pressure -Treatment Response Procedure Tolerated Well Pain Scale: 0-10 Numeric Is Patient Pain Free? Yes Wound debrided: heel Laterality: Left Type of Debridement: Excisional debridement Anesthesia Used: 5% Lidocaine Gel Depth: in the subcutaneous layer Percentage of wound debrided: 100 Instrument Used: #15 blade Tissue Removed: fibrous, devitalized subcutaneous, biofilm, slough Severity: Fat Layer Exposed Amount of bleeding with debridement: Mild Bleeding Controlled with: Pressure Patient tolerated procedure well Assessment/Plan Active Problems (Last Reviewed 06/22/17 @ 13:20 by Abi Lucio) Delayed wound healing (Chronic) Adenocarcinoma of lung, stage 3 (Chronic) stage 3b Malnutrition (Chronic) Chronic ulcer of left foot with fat layer exposed (Chronic) Other specified peripheral vascular diseases (Chronic) Assessment: Left heel ulcer with fat layer exposed. Peripheral vascular disease , multilevel disease suspected. Edema left lower extremity. Malnutrition. Delayed healing. Complicated medical history with active stage IV lung disease -stable and no treatment intervention planned at this time Plan: I reviewed and discussed his case. The wound was debrided as noted in the clinical panel. A Santyl dressing was applied and he was advised to changes daily with nickel thickness. The Regranex prescription authorization is pending. To continue to wear protective and supportive shoes left surgical shoe and offloading pad. To offload this site vigorously while resting by hanging this over a pillow while in bed. He has an offloading donut pillow and I strongly urged him to resume use. To monitor for any additional openings, friction irritation, or pressure points; he is aware of this. Continue to optimize healing by taking nutritional supplementation, Chilo. His previous vascular surgery intervention with Dr. Ulloa is noted. Re-referral will be considered if lack of healing occurs. To moisturize feet daily the surround site to keep skin integrity intact. To return to the wound care center in 1 week or call sooner if problems. I answered all his questions.
[2017-08-12 09:07] VITALS: BP 128/98; PULSE 71; RESP 16; TEMP 35.7; BMI 24.9
[2017-08-19 09:28] VITALS: BP 123/75; PULSE 70; RESP 18; TEMP 36.3; BMI 24.9
--- NOTE | 2017-08-19 12:38 | PN.PCM_ITS ---
(1) Chronic ulcer of left foot with fat layer exposed Status: Chronic Current Visit: Yes Code(s): L97.522 - Non-pressure chronic ulcer of other part of left foot with fat layer exposed (2) Delayed wound healing Status: Inactive Current Visit: Yes Code(s): T14.8XXD - Other injury of unspecified body region, subsequent encounter (3) Adenocarcinoma of lung, stage 3 Status: Chronic Current Visit: Yes Code(s): C34.90 - Malignant neoplasm of unspecified part of unspecified bronchus or lung Comment: stage 3b (4) Malnutrition Status: Chronic Current Visit: Yes Code(s): E46 - Unspecified protein- calorie malnutrition (5) Other specified peripheral vascular diseases Status: Inactive Current Visit: Yes Code(s): I73.89 - Other specified peripheral vascular diseases Type of Wound Date of Service: 08/19/17 Chief Complaint: left foot ulcer History of Wound: He is following up for a return left foot ulcer. He denies fever, chills, nausea, vomiting, loss of appetite. He tries to hang his left foot over pillows while seated or lying in bed. He wears offloading boot and reports he would not be surprised if there is still pressure applied to his wound. He takes nutritional supplementation as advised. Progress of Wound: . Improved wound quality left heel wound - Physical Exam Vital Signs Temp Pulse Resp BP 97.3 F L 70 18 123/75 H 08/19/17 09:28 08/19/17 09:28 08/19/17 09:28 08/19/17 09:28 General: Alert, Oriented x3, Cooperative HEENT: Atraumatic Extremities: No cyanosis, Capillary Refill Less than 3 Seconds, No Calf Tenderness, Diminished Peripheral Pulses, Edema Skin: Ulcer/ Wound - No purulence, no erythema, streaking, no odor, no infection left foot. Improved granulation central tissue is noted. There is no deep exposed tissue. The skin is atrophic. Wound Measurements and Assessment WC - Nurse 1 - General Ulcer Measurement Start: 08/05/17 09:24 Freq: Status: Active Protocol: Activity Type Activity Date Activity User E-Sign Co-Sign Detail Recorded Client Recorded Date Recorded By Document 08/19/17 09:28 RB [id number] 08/19/17 09:42 RB 08/19/17 09:28 Wound Center Nurse 1 [Ulcer Assessment] #7 LEFT LATERAL HEEL -Combined with other wound No -Current Size (cm) - Length 0.2 -Current Size (cm) - Width 0.5 -Current Size (cm) - Depth 0.1 -Total Square Cm 0.10 -Photo Taken No -Tunneling No -Undermining/Tunneling No -Circular Undermining No -Classification - Thickness Full Thickness without Exposed Support Structure -Exudate Amt Small (1-33%) -Exudate Type Serosanguineous -Wound Margin Fibrotic Scar, Thickened Scar -Granulation Amt Medium (34-66%) -Granulation Quality Seminary -Slough/Fibrin Yes -Necrosis Amt Small (1-33%) -Necrotic Tissue Type Adherent Slough -Structure Exposed N/A -Texture (Crystal-wound Skin Appearance) Callus -Moisture (Crystal-wound Skin Appearance Assessed ) -Color (Crystal-wound Skin Appearance) Assessed -Temperature (Crystal-wound Skin No Abnormality Appearance) (Pt Warm) -Tenderness on Palpation (Crystal-wound No Skin Appearance) -Ulcer Cleansing Rinsed/ Irrigated with Saline -Foul Odor after Cleansing No -Anesthetic Used 5% Lidocaine Gel Musculoskeletal: No Tenderness to Palpation of Joints or Extremities, Muscle Wasting Neurological: Sensory exam intact to light touch and pain Psych/Mental Status: Normal Affect, Appropriate Debridement Note Post-Debridement Measurements/Treatment WC - Nurse 2 - General Ulcer CM Notes Start: 08/05/17 09:24 Freq: Status: Active Protocol: Activity Type Activity Date Activity User E-Sign Co-Sign Detail Recorded Client Recorded Date Recorded By Document 08/05/17 09:50 [email or web address] [id number] 08/05/17 09:51 [email or web address] 08/05/17 09:50 Wound Center Nurse 2 #7 LEFT LATERAL HEEL -Time 09:50 -Correct Patient Yes -Correct Side, Site, Position Yes -Correct Procedure Yes -Procedure Performed Yes -Type of Procedure Debridement -Clinical Debridement Subcutaneous -Post Debridement Size (cm) - Length 0.3 -Post Debridement Size (cm) - Width 0.6 -Post Debridement Size (cm) - Depth 0.2 -Total Square Cm 0.18 -Wound/Ulcer Outcome Not Healed -Ulcer Cleansing Rinsed/ Irrigated with Saline -Foul Odor after Cleansing No -Bioengineered Tissue No -Bleeding Controlled with Pressure -Treatment Response Procedure Tolerated Well Pain Scale: 0-10 Numeric Is Patient Pain Free? Yes Wound debrided: heel Laterality: Left Type of Debridement: Excisional debridement Anesthesia Used: 4% Lidocaine Solution Depth: in the subcutaneous layer Percentage of wound debrided: 100 Instrument Used: #15 blade Tissue Removed: fibrous, devitalized subcutaneous, biofilm, slough Severity: Fat Layer Exposed Amount of bleeding with debridement: Mild Bleeding Controlled with: Pressure Patient tolerated procedure well Assessment/Plan Active Problems (Last Reviewed 08/17/17 @ 10:48 by Guadalupe Grissom) Adenocarcinoma of lung, stage 3 (Chronic) stage 3b Malnutrition (Chronic) Chronic ulcer of left foot with fat layer exposed (Chronic) Assessment: Left heel ulcer with fat layer exposed. Peripheral vascular disease , multilevel disease suspected. Edema left lower extremity. Malnutrition. Delayed healing. Complicated medical history with active stage IV lung disease -stable and no treatment intervention planned at this time Plan: I reviewed and discussed his case. The wound was debrided as noted in the clinical panel. A Santyl dressing was applied and he was advised to changes daily with nickel thickness. The Regranex prescription authorization is pending. To continue to wear protective and supportive shoes left surgical shoe and offloading pad. To offload this site vigorously while resting by hanging this over a pillow while in bed. He has an offloading donut pillow and I strongly urged him to resume use. To monitor for any additional openings, friction irritation, or pressure points; he is aware of this. Continue to optimize healing by taking nutritional supplementation, Chilo. His previous vascular surgery intervention with Dr. Ulloa is noted. Re-referral will be considered if lack of healing occurs. To moisturize feet daily the surround site to keep skin integrity intact. To return to the wound care center in 1 week or call sooner if problems. I answered all his questions.
[2017-08-26 09:19] VITALS: BP 147/68; PULSE 72; RESP 18; TEMP 35.9; BMI 24.9
--- NOTE | 2017-08-26 09:49 | PCM.WC.PN ---
(1) Chronic ulcer of left foot with fat layer exposed Status: Chronic Current Visit: Yes Code(s): L97.522 - Non-pressure chronic ulcer of other part of left foot with fat layer exposed (2) Delayed wound healing Status: Inactive Current Visit: Yes Code(s): T14.8XXD - Other injury of unspecified body region, subsequent encounter (3) Adenocarcinoma of lung, stage 3 Status: Chronic Current Visit: Yes Code(s): C34.90 - Malignant neoplasm of unspecified part of unspecified bronchus or lung Comment: stage 3b (4) Malnutrition Status: Chronic Current Visit: Yes Code(s): E46 - Unspecified protein-calorie malnutrition (5) Other specified peripheral vascular diseases Status: Inactive Current Visit: Yes Code(s): I73.89 - Other specified peripheral vascular diseases Type of Wound Date of Service: 08/26/17 Chief Complaint: left foot ulcer History of Wound: He is following up for a return left foot ulcer. He denies fever, chills, nausea, vomiting, loss of appetite. He tries to hang his left foot over pillows while seated or lying in bed. He takes nutritional supplementation as advised. He has new discomfort to the ball of his foot on the left side. He is with his today. Progress of Wound: improving - Physical Exam Vital Signs Temp Pulse Resp BP 96.6 F L 72 18 147/68 H 08/26/17 09:19 08/26/17 09:19 08/26/17 09:19 08/26/17 09:19 General: Alert, Oriented x3, Cooperative Extremities: No cyanosis, Capillary Refill Less than 3 Seconds, No Calf Tenderness, Diminished Peripheral Pulses, Edema Skin: Ulcer/ Wound - No purulence, no erythema, skin, no odor, no infection. The wound site is decreasing there is peripheral epithelialization. There is no wound to the plantar ball the foot. There is a small nucleated callus subsecond metatarsal head without skin discontinuity. His skin is atrophic Wound Measurements and Assessment WC - Nurse 1 - General Ulcer Measurement Start: 08/05/17 09:24 Freq: Status: Active Protocol: Activity Type Activity Date Activity User E-Sign Co-Sign Detail Recorded Client Recorded Date Recorded By Document 08/26/17 09:19 DOREEN [email or web address] 08/26/17 09:22 DL 08/26/17 09:19 Wound Center Nurse 1 [Ulcer Assessment] #7 LEFT LATERAL HEEL -Current Size (cm) - Length 0.2 -Current Size (cm) - Width 0.2 -Current Size (cm) - Depth 0.1 -Total Square Cm 0.04 -Photo Taken No -Exudate Amt Small (1-33%) -Exudate Type Serosanguineous -Wound Margin Distinct, Outline Attached -Granulation Amt None Present (0 %) -Necrosis Amt Large (67-100%) -Necrotic Tissue Type Adherent Slough -Structure Exposed N/A -Texture (Crystal-wound Skin Appearance) Scarring -Moisture (Crystal-wound Skin Appearance No Abnormality ) -Color (Crystal-wound Skin Appearance) No Abnormality -Temperature (Crystal-wound Skin No Abnormality Appearance) (Pt Warm) -Ulcer Cleansing Rinsed/ Irrigated with Saline -Foul Odor after Cleansing No -Anesthetic Used 4% Lidocaine Solution WC - Nurse 2 - General Ulcer CM Notes Start: 08/05/17 09:24 Freq: Status: Active Protocol: Activity Type Activity Date Activity User E-Sign Co-Sign Detail Recorded Client Recorded Date Recorded By Document 08/26/17 09:36 [id number] 08/26/17 09:39 08/26/17 09:36 Wound Center Nurse 2 [Procedure/Treatment] -Time 09:38 -Correct Patient Yes -Correct Side, Site, Position Yes -Correct Procedure Yes -Procedure Performed Yes -Type of Procedure Debridement -Clinical Debridement Subcutaneous -Post Debridement Size (cm) - Length 0.2 -Post Debridement Size (cm) - Width 0.3 -Post Debridement Size (cm) - Depth 0.2 -Total Square Cm 0.06 -Wound/Ulcer Outcome Not Healed -Ulcer Cleansing Rinsed/ Irrigated with Saline -Foul Odor after Cleansing No -Bioengineered Tissue No -Bleeding Controlled with Pressure -Treatment Response Procedure Tolerated Well [See Physician Procedure note for Specifics] Pain Scale: 0-10 Numeric [Pain] -Is Patient Pain Free? Yes Musculoskeletal: No Tenderness to Palpation of Joints or Extremities, Muscle Wasting, - - Atrophic fat pad with prominent metatarsal head left foot and dorsal contraction of lesser toes Neurological: Sensory exam intact to light touch and pain Psych/Mental Status: Normal Affect, Appropriate Debridement Note Post-Debridement Measurements/Treatment WC - Nurse 2 - General Ulcer CM Notes Start: 08/05/17 09:24 Freq: Status: Active Protocol: Activity Type Activity Date Activity User E-Sign Co-Sign Detail Recorded Client Recorded Date Recorded By Document 08/05/17 09:50 [id number] 08/05/17 09:51 Document 08/26/17 09:36 [id number] 08/26/17 09:39 08/05/17 08/26/17 09:50 09:36 Wound Center Nurse 2 #7 LEFT LATERAL HEEL -Time 09:50 09:38 -Correct Patient Yes Yes -Correct Side, Site, Position Yes Yes -Correct Procedure Yes Yes -Procedure Performed Yes Yes -Type of Procedure Debridement Debridement -Clinical Debridement Subcutaneous Subcutaneous -Post Debridement Size (cm) - Length 0.3 0.2 -Post Debridement Size (cm) - Width 0.6 0.3 -Post Debridement Size (cm) - Depth 0.2 0.2 -Total Square Cm 0.18 0.06 -Wound/Ulcer Outcome Not Healed Not Healed -Ulcer Cleansing Rinsed/ Rinsed/ Irrigated with Irrigated with Saline Saline -Foul Odor after Cleansing No No -Bioengineered Tissue No No -Bleeding Controlled with Pressure Pressure -Treatment Response Procedure Procedure Tolerated Well Tolerated Well Pain Scale: 0-10 Numeric Is Patient Pain Free? Yes Yes Wound debrided: heel Laterality: Left Type of Debridement: Excisional debridement Anesthesia Used: 5% Lidocaine Gel Depth: in the subcutaneous layer Percentage of wound debrided: 100 Instrument Used: #15 blade Tissue Removed: fibrous, devitalized subcutaneous, biofilm, slough Severity: Fat Layer Exposed Amount of bleeding with debridement: Mild Bleeding Controlled with: Pressure Patient tolerated procedure well Assessment/Plan Active Problems (Last Reviewed 08/17/17 @ 10:48 by Guadalupe Grissom) Adenocarcinoma of lung, stage 3 (Chronic) stage 3b Malnutrition (Chronic) Chronic ulcer of left foot with fat layer exposed (Chronic) Assessment: Left heel ulcer with fat layer exposed. Peripheral vascular disease, multilevel disease suspected. Edema left lower extremity. Malnutrition. Delayed healing. Complicated medical history with active stage IV lung disease -stable and no treatment intervention planned at this time. callous sub 2nd metatarsal head; metatarsalgia; atrophic fat pad Plan: I reviewed and discussed his case. The wound was debrided as noted in the clinical panel. A Santyl dressing was applied and he was advised to changes daily with nickel thickness. I recommended Regranex as well. To continue to wear protective and supportive shoes left surgical shoe and offloading pad. To offload this site vigorously while resting by hanging this over a pillow while in bed. He has an offloading donut pillow and I strongly urged him to resume use. To monitor for any additional openings, friction irritation, or pressure points; he is aware of this. Continue to optimize healing by taking nutritional supplementation, Chilo. His previous vascular surgery intervention with Dr. Ulloa is noted. Re-referral will be considered if lack of healing occurs. I debrided a small callus and recommended offloading with metatarsal raise pad. I will bring for him next week. He was reassured there are no wounds or infection, site. I discussed his etiology and treatment recommendations. Continue with surgical shoe. To moisturize feet daily the surround site to keep skin integrity intact. To return to the wound care center in 1 week or call sooner if problems. I answered all his questions.
--- NOTE | 2017-08-26 09:53 | PN.PCM_ITS ---
(1) Chronic ulcer of left foot with fat layer exposed Status: Chronic Current Visit: Yes Code(s): L97.522 - Non-pressure chronic ulcer of other part of left foot with fat layer exposed (2) Delayed wound healing Status: Inactive Current Visit: Yes Code(s): T14.8XXD - Other injury of unspecified body region, subsequent encounter (3) Adenocarcinoma of lung, stage 3 Status: Chronic Current Visit: Yes Code(s): C34.90 - Malignant neoplasm of unspecified part of unspecified bronchus or lung Comment: stage 3b (4) Malnutrition Status: Chronic Current Visit: Yes Code(s): E46 - Unspecified protein- calorie malnutrition (5) Other specified peripheral vascular diseases Status: Inactive Current Visit: Yes Code(s): I73.89 - Other specified peripheral vascular diseases Type of Wound Date of Service: 08/26/17 Chief Complaint: left foot ulcer History of Wound: He is following up for a return left foot ulcer. He denies fever, chills, nausea, vomiting, loss of appetite. He tries to hang his left foot over pillows while seated or lying in bed. He takes nutritional supplementation as advised. He has new discomfort to the ball of his foot on the left side. He is with his today. Progress of Wound: improving - Physical Exam Vital Signs Temp Pulse Resp BP 96.6 F L 72 18 147/68 H 08/26/17 09:19 08/26/17 09:19 08/26/17 09:19 08/26/17 09:19 General: Alert, Oriented x3, Cooperative Extremities: No cyanosis, Capillary Refill Less than 3 Seconds, No Calf Tenderness, Diminished Peripheral Pulses, Edema Skin: Ulcer/ Wound - No purulence, no erythema, skin, no odor, no infection. The wound site is decreasing there is peripheral epithelialization. There is no wound to the plantar ball the foot. There is a small nucleated callus subsecond metatarsal head without skin discontinuity. His skin is atrophic Wound Measurements and Assessment WC - Nurse 1 - General Ulcer Measurement Start: 08/05/17 09:24 Freq: Status: Active Protocol: Activity Type Activity Date Activity User E-Sign Co-Sign Detail Recorded Client Recorded Date Recorded By Document 08/26/17 09:19 DOREEN [id number] 08/26/17 09:22 DL 08/26/17 09:19 Wound Center Nurse 1 [Ulcer Assessment] #7 LEFT LATERAL HEEL -Current Size (cm) - Length 0.2 -Current Size (cm) - Width 0.2 -Current Size (cm) - Depth 0.1 -Total Square Cm 0.04 -Photo Taken No -Exudate Amt Small (1-33%) -Exudate Type Serosanguineous -Wound Margin Distinct, Outline Attached -Granulation Amt None Present (0 %) -Necrosis Amt Large (67-100%) -Necrotic Tissue Type Adherent Slough -Structure Exposed N/A -Texture (Crystal-wound Skin Appearance) Scarring -Moisture (Crystal-wound Skin Appearance No Abnormality ) -Color (Crystal-wound Skin Appearance) No Abnormality -Temperature (Crystal-wound Skin No Abnormality Appearance) (Pt Warm) -Ulcer Cleansing Rinsed/ Irrigated with Saline -Foul Odor after Cleansing No -Anesthetic Used 4% Lidocaine Solution WC - Nurse 2 - General Ulcer CM Notes Start: 08/05/17 09:24 Freq: Status: Active Protocol: Activity Type Activity Date Activity User E-Sign Co-Sign Detail Recorded Client Recorded Date Recorded By Document 08/26/17 09:36 [id number] 08/26/17 09:39 08/26/17 09:36 Wound Center Nurse 2 [Procedure/Treatment] -Time 09:38 -Correct Patient Yes -Correct Side, Site, Position Yes -Correct Procedure Yes -Procedure Performed Yes -Type of Procedure Debridement -Clinical Debridement Subcutaneous -Post Debridement Size (cm) - Length 0.2 -Post Debridement Size (cm) - Width 0.3 -Post Debridement Size (cm) - Depth 0.2 -Total Square Cm 0.06 -Wound/Ulcer Outcome Not Healed -Ulcer Cleansing Rinsed/ Irrigated with Saline -Foul Odor after Cleansing No -Bioengineered Tissue No -Bleeding Controlled with Pressure -Treatment Response Procedure Tolerated Well [See Physician Procedure note for Specifics] Pain Scale: 0-10 Numeric [Pain] -Is Patient Pain Free? Yes Musculoskeletal: No Tenderness to Palpation of Joints or Extremities, Muscle Wasting, - - Atrophic fat pad with prominent metatarsal head left foot and dorsal contraction of lesser toes Neurological: Sensory exam intact to light touch and pain Psych/Mental Status: Normal Affect, Appropriate Debridement Note Post-Debridement Measurements/Treatment WC - Nurse 2 - General Ulcer CM Notes Start: 08/05/17 09:24 Freq: Status: Active Protocol: Activity Type Activity Date Activity User E-Sign Co-Sign Detail Recorded Client Recorded Date Recorded By Document 08/05/17 09:50 [id number] 08/05/17 09:51 Document 08/26/17 09:36 [id number] 08/26/17 09:39 08/05/17 08/26/17 09:50 09:36 Wound Center Nurse 2 #7 LEFT LATERAL HEEL -Time 09:50 09:38 -Correct Patient Yes Yes -Correct Side, Site, Position Yes Yes -Correct Procedure Yes Yes -Procedure Performed Yes Yes -Type of Procedure Debridement Debridement -Clinical Debridement Subcutaneous Subcutaneous -Post Debridement Size (cm) - Length 0.3 0.2 -Post Debridement Size (cm) - Width 0.6 0.3 -Post Debridement Size (cm) - Depth 0.2 0.2 -Total Square Cm 0.18 0.06 -Wound/Ulcer Outcome Not Healed Not Healed -Ulcer Cleansing Rinsed/ Rinsed/ Irrigated with Irrigated with Saline Saline -Foul Odor after Cleansing No No -Bioengineered Tissue No No -Bleeding Controlled with Pressure Pressure -Treatment Response Procedure Procedure Tolerated Well Tolerated Well Pain Scale: 0-10 Numeric Is Patient Pain Free? Yes Yes Wound debrided: heel Laterality: Left Type of Debridement: Excisional debridement Anesthesia Used: 5% Lidocaine Gel Depth: in the subcutaneous layer Percentage of wound debrided: 100 Instrument Used: #15 blade Tissue Removed: fibrous, devitalized subcutaneous, biofilm, slough Severity: Fat Layer Exposed Amount of bleeding with debridement: Mild Bleeding Controlled with: Pressure Patient tolerated procedure well Assessment/Plan Active Problems (Last Reviewed 08/17/17 @ 10:48 by Guadalupe Grissom) Adenocarcinoma of lung, stage 3 (Chronic) stage 3b Malnutrition (Chronic) Chronic ulcer of left foot with fat layer exposed (Chronic) Assessment: Left heel ulcer with fat layer exposed. Peripheral vascular disease , multilevel disease suspected. Edema left lower extremity. Malnutrition. Delayed healing. Complicated medical history with active stage IV lung disease -stable and no treatment intervention planned at this time. callous sub 2nd metatarsal head; metatarsalgia; atrophic fat pad Plan: I reviewed and discussed his case. The wound was debrided as noted in the clinical panel. A Santyl dressing was applied and he was advised to changes daily with nickel thickness. I recommended Regranex as well. To continue to wear protective and supportive shoes left surgical shoe and offloading pad. To offload this site vigorously while resting by hanging this over a pillow while in bed. He has an offloading donut pillow and I strongly urged him to resume use. To monitor for any additional openings, friction irritation, or pressure points; he is aware of this. Continue to optimize healing by taking nutritional supplementation, Chilo. His previous vascular surgery intervention with Dr. Ulloa is noted. Re-referral will be considered if lack of healing occurs. I debrided a small callus and recommended offloading with metatarsal raise pad. I will bring for him next week. He was reassured there are no wounds or infection, site. I discussed his etiology and treatment recommendations. Continue with surgical shoe. To moisturize feet daily the surround site to keep skin integrity intact. To return to the wound care center in 1 week or call sooner if problems. I answered all his questions.
[2017-09-02 09:27] VITALS: BP 130/67; PULSE 69; RESP 18; TEMP 36.4; BMI 24.9
--- NOTE | 2017-09-02 11:05 | PN.PCM_ITS ---
(1) Chronic ulcer of left foot with fat layer exposed Status: Chronic Current Visit: Yes Code(s): L97.522 - Non-pressure chronic ulcer of other part of left foot with fat layer exposed (2) Delayed wound healing Status: Inactive Current Visit: Yes Code(s): T14.8XXD - Other injury of unspecified body region, subsequent encounter (3) Adenocarcinoma of lung, stage 3 Status: Chronic Current Visit: Yes Code(s): C34.90 - Malignant neoplasm of unspecified part of unspecified bronchus or lung Comment: stage 3b (4) Malnutrition Status: Chronic Current Visit: Yes Code(s): E46 - Unspecified protein- calorie malnutrition (5) Other specified peripheral vascular diseases Status: Inactive Current Visit: Yes Code(s): I73.89 - Other specified peripheral vascular diseases Type of Wound Date of Service: 09/02/17 Chief Complaint: left foot ulcer History of Wound: He is following up for a return left foot ulcer. He denies fever, chills, nausea, vomiting, loss of appetite. He tries to hang his left foot over pillows while seated or lying in bed. He takes nutritional supplementation as advised. He is with his today. Progress of Wound: improving - Physical Exam Vital Signs Temp Pulse Resp BP 97.5 F L 69 18 130/67 H 09/02/17 09:27 09/02/17 09:27 09/02/17 09:27 09/02/17 09:27 General: Alert, Oriented x3, Cooperative Extremities: No cyanosis, Capillary Refill Less than 3 Seconds, No Calf Tenderness, Diminished Peripheral Pulses, Tenderness - Resolved palpation pain ulcer site left Skin: Ulcer/ Wound - No purulence, no erythema, streaking, odor, no infection left foot. There is peripheral epithelialization noted in the wound depth has decreased. The peripheral skin is atrophic and hairless. No necrosis is noted. Wound Measurements and Assessment WC - Nurse 1 - General Ulcer Measurement Start: 08/05/17 09:24 Freq: Status: Active Protocol: Activity Type Activity Date Activity User E-Sign Co-Sign Detail Recorded Client Recorded Date Recorded By Document 09/02/17 09:27 DL [id number] 09/02/17 09:35 DL 09/02/17 09:27 Wound Center Nurse 1 [Ulcer Assessment] #7 LEFT LATERAL HEEL -Current Size (cm) - Length 0.1 -Current Size (cm) - Width 0.2 -Current Size (cm) - Depth 0.1 -Total Square Cm 0.02 -Photo Taken No -Exudate Amt None Present (0 %) -Wound Margin Flat & Intact -Granulation Amt Large (67-100%) -Granulation Quality [place] -Necrosis Amt Small (1-33%) -Necrotic Tissue Type Adherent Slough -Structure Exposed N/A -Texture (Crystal-wound Skin Appearance) No Abnormality -Moisture (Crystal-wound Skin Appearance No Abnormality ) -Color (Crystal-wound Skin Appearance) No Abnormality -Temperature (Crystal-wound Skin No Abnormality Appearance) (Pt Warm) -Tenderness on Palpation (Crystal-wound No Skin Appearance) -Ulcer Cleansing Rinsed/ Irrigated with Saline -Foul Odor after Cleansing No -Anesthetic Used 4% Lidocaine Solution WC - Nurse 2 - General Ulcer CM Notes Start: 08/05/17 09:24 Freq: Status: Active Protocol: Activity Type Activity Date Activity User E-Sign Co-Sign Detail Recorded Client Recorded Date Recorded By Document 09/02/17 09:48 [id number] 09/02/17 09:49 09/02/17 09:48 Wound Center Nurse 2 [Procedure/Treatment] -Time 09:48 -Correct Patient Yes -Correct Side, Site, Position Yes -Correct Procedure Yes -Procedure Performed Yes -Type of Procedure Debridement -Clinical Debridement Subcutaneous -Post Debridement Size (cm) - Length 0.2 -Post Debridement Size (cm) - Width 0.3 -Post Debridement Size (cm) - Depth 0.1 -Total Square Cm 0.06 -Wound/Ulcer Outcome Not Healed -Ulcer Cleansing Rinsed/ Irrigated with Saline -Foul Odor after Cleansing No -Bioengineered Tissue No -Bleeding Controlled with Pressure -Treatment Response Procedure Tolerated Well [See Physician Procedure note for Specifics] Pain Scale: 0-10 Numeric [Pain] -Is Patient Pain Free? Yes Musculoskeletal: No Tenderness to Palpation of Joints or Extremities, Muscle Wasting Neurological: Sensory exam intact to light touch and pain Psych/Mental Status: Normal Affect, Appropriate Debridement Note Post-Debridement Measurements/Treatment WC - Nurse 2 - General Ulcer CM Notes Start: 08/05/17 09:24 Freq: Status: Active Protocol: Activity Type Activity Date Activity User E-Sign Co-Sign Detail Recorded Client Recorded Date Recorded By Document 08/05/17 09:50 [id number] 08/05/17 09:51 Document 08/26/17 09:36 [id number] 08/26/17 09:39 Document 09/02/17 09:48 [id number] 09/02/17 09:49 08/05/17 08/26/17 09/02/17 09:50 09:36 09:48 Wound Center Nurse 2 #7 LEFT LATERAL HEEL -Time 09:50 09:38 09:48 -Correct Patient Yes Yes Yes -Correct Side, Site, Position Yes Yes Yes -Correct Procedure Yes Yes Yes -Procedure Performed Yes Yes Yes -Type of Procedure Debridement Debridement Debridement -Clinical Debridement Subcutaneous Subcutaneous Subcutaneous -Post Debridement Size (cm) - Length 0.3 0.2 0.2 -Post Debridement Size (cm) - Width 0.6 0.3 0.3 -Post Debridement Size (cm) - Depth 0.2 0.2 0.1 -Total Square Cm 0.18 0.06 0.06 -Wound/Ulcer Outcome Not Healed Not Healed Not Healed -Ulcer Cleansing Rinsed/ Rinsed/ Rinsed/ Irrigated with Irrigated with Irrigated with Saline Saline Saline -Foul Odor after Cleansing No No No -Bioengineered Tissue No No No -Bleeding Controlled with Pressure Pressure Pressure -Treatment Response Procedure Procedure Procedure Tolerated Well Tolerated Well Tolerated Well Pain Scale: 0-10 Numeric Is Patient Pain Free? Yes Yes Yes Wound debrided: heel Laterality: Left Type of Debridement: Excisional debridement Anesthesia Used: 5% Lidocaine Gel Depth: in the subcutaneous layer Percentage of wound debrided: 100 Instrument Used: #15 blade Tissue Removed: fibrous, devitalized subcutaneous, biofilm, slough, callous peripheral Severity: Fat Layer Exposed Amount of bleeding with debridement: Mild Bleeding Controlled with: Pressure Patient tolerated procedure well Assessment/Plan Active Problems (Last Reviewed 08/17/17 @ 10:48 by Guadalupe Grissom) Adenocarcinoma of lung, stage 3 (Chronic) stage 3b Malnutrition (Chronic) Chronic ulcer of left foot with fat layer exposed (Chronic) Assessment: Left heel ulcer with fat layer exposed. Peripheral vascular disease , multilevel disease suspected. Edema left lower extremity. Malnutrition. Delayed healing. Complicated medical history with active stage IV lung disease -stable and no treatment intervention planned at this time. callous sub 2nd metatarsal head; metatarsalgia; atrophic fat pad Plan: I reviewed and discussed his case. The wound was debrided as noted in the clinical panel. A Santyl dressing was applied and he was advised to changes daily with nickel thickness. I recommended Regranex as well. To continue to wear protective and supportive shoes left surgical shoe and offloading pad. To offload this site vigorously while resting by hanging this over a pillow while in bed. He has an offloading donut pillow and I strongly urged him to resume use. To monitor for any additional openings, friction irritation, or pressure points; he is aware of this. Continue to optimize healing by taking nutritional supplementation, Chilo. His previous vascular surgery intervention with Dr. Ulloa is noted. Re-referral will be considered if lack of healing occurs. He was reassured there are no wounds or infection, site. I discussed his etiology and treatment recommendations. Continue with surgical shoe. To moisturize feet daily the surround site to keep skin integrity intact. To return to the wound care center in 1 week or call sooner if problems. I answered all his questions.
== END 2017-09-03 23:59 ==
LOC: WC 09:30
PROVIDERS: Family Provider Family Medicine; PCP Family Medicine; Visit Provider Podiatrist
DX: L97.522 Non-pressure chronic ulcer of other part of left foot with fat layer exposed (principal); L97.512 Non-pressure chronic ulcer of other part of right foot with fat layer exposed; I73.89 Other specified peripheral vascular diseases; C34.91 Malignant neoplasm of unspecified part of right bronchus or lung; R60.0 Localized edema; E46 Unspecified protein-calorie malnutrition; M77.42 Metatarsalgia, left foot
CPT/HCPCS: 11042; 97602; 99212; G0463

== ENCOUNTER → 2017-09-09 10:48 | Outpatient (CLI) | payer MEDICARE, SELFPAY ==
--- NOTE | 2017-09-09 10:48 | DT_ITS ---
This patient was seen during an EMR downtime September 07, 2017 - September 14, 2017. This patient may have a combination of paper and electronic documentation or all paper documentation. All documentation is viewable within the e-chart portion of [employer] for each patient visit.
[2017-09-14 14:36] LABS: Prothrombin Time Fingerstick 34.1 SEC (11.9-14.4)
== END ==
PROVIDERS: Family Provider Family Medicine; PCP Family Medicine; Visit Provider Internal Medicine Cardiovascular Disease
DX: I48.91 Unspecified atrial fibrillation (principal)
CPT/HCPCS: 36416; 85610

== ENCOUNTER 2017-09-30 09:35 | Outpatient (RCR) | payer MEDICARE, SELFPAY ==
[2017-09-30 09:56] LABS: Prothrombin Time Fingerstick 34.9 SEC (11.9-14.4)
== END 2017-09-30 10:00 | disposition home or self-care (01) ==
LOC: LAB 09:35
PROVIDERS: Family Provider Family Medicine; PCP Family Medicine; Visit Provider Internal Medicine Cardiovascular Disease
DX: Z95.828 Presence of other vascular implants and grafts (principal)
CPT/HCPCS: 36416; 85610

== ENCOUNTER 2017-09-30 14:00 | Outpatient (RCR) | payer MEDICARE, SELFPAY ==
[2017-09-04 00:26] VITALS: BP 130/67; PULSE 69; RESP 18; TEMP 36.4; BMI 24.9
[2017-09-16 09:26] VITALS: BP 133/73; PULSE 71; RESP 18; TEMP 35.9; BMI 24.9
--- NOTE | 2017-09-16 11:13 | PN.PCM_ITS ---
(1) Chronic ulcer of left foot with fat layer exposed Status: Chronic Current Visit: Yes Code(s): L97.522 - Non-pressure chronic ulcer of other part of left foot with fat layer exposed (2) Ingrowing nail Status: Chronic Current Visit: Yes Code(s): L60.0 - Ingrowing nail (3) PVD (peripheral vascular disease) Status: Chronic Current Visit: Yes Code(s): I73.9 - Peripheral vascular disease, unspecified Type of Wound Date of Service: 09/16/17 Chief Complaint: left foot ulcer. ingrown toenail painful History of Wound: He is following up for a return left foot ulcer. He denies fever, chills, nausea, vomiting, loss of appetite. He tries to hang his left foot over pillows while seated or lying in bed. He takes nutritional supplementation as advised. He is with his today. He complains of an ingrown toenail of the left great toe and asked for help trimming this. he reports some minimal drainage and pain with shoe gear and direct touch. He reports resolved ball of foot pain. Progress of Wound: improving. Other issue today-left ingrown toenail - Physical Exam Vital Signs Temp Pulse Resp BP 96.6 F L 71 18 133/73 H 09/16/17 09:26 09/16/17 09:26 09/16/17 09:26 09/16/17 09:26 General: Alert, Oriented x3, Cooperative Extremities: No cyanosis, Capillary Refill Less than 3 Seconds, No Calf Tenderness - Negative Rena and Grubbs bilateral, Diminished Peripheral Pulses, Edema - Mild bilateral lower extremities, - - Palpation pain to the lateral border of left hallux incurvature nail. No pain to hallux interphalangeal joint or with passive motion of the left foot. No metatarsal head plantar palpation discomfort of left foot Skin: Ulcer/ Wound - No purulence, no erythema, streaking, odor, no necrosis. The wound site is significantly decreased and there is no longer exposed granulation tissue. This is more of a sub-hemorrhagic tissue and is demonstrating signs of healing. Bilateral lower extremity skin is atrophic and hairless. The right dorsal foot previous ulcer site is fully epithelialized and demonstrates remodeling progression; this looks great, - - There is an curvature to the medial and lateral borders of the left hallux nail with skin discontinuity to the lateral deep aspect with minimal hematogenous drainage upon wedge resection. The rest of the nails well adhered and there is no signs of infection. Wound Measurements and Assessment - Nurse 1 - General Ulcer Measurement Start: 09/16/17 09:26 Freq: Status: Active Protocol: Activity Type Activity Date Activity User E-Sign Co-Sign Detail Recorded Client Recorded Date Recorded By Document 09/16/17 09:26 RB [id number] 09/16/17 09:35 RB 09/16/17 09:26 Wound Center Nurse 1 [Ulcer Assessment] #7 LEFT LATERAL HEEL -Combined with other wound No -Current Size (cm) - Length 0.3 -Current Size (cm) - Width 0.1 -Current Size (cm) - Depth 0.1 -Total Square Cm 0.03 -Photo Taken No -Epithelialization Small 1-33% -Tunneling No -Undermining/Tunneling No -Circular Undermining No -Classification - Thickness Full Thickness without Exposed Support Structure -Exudate Amt Small (1-33%) -Exudate Type Serosanguineous -Wound Margin Distinct, Outline Attached -Granulation Amt Medium (34-66%) -Granulation Quality [place] -Slough/Fibrin Yes -Necrosis Amt Small (1-33%) -Necrotic Tissue Type Adherent Slough -Structure Exposed N/A -Texture (Crystal-wound Skin Appearance) Assessed Callus -Moisture (Crystal-wound Skin Appearance Assessed ) -Color (Crystal-wound Skin Appearance) Assessed -Temperature (Crystal-wound Skin No Abnormality Appearance) (Pt Warm) -Tenderness on Palpation (Crystal-wound No Skin Appearance) -Ulcer Cleansing Rinsed/ Irrigated with Saline -Foul Odor after Cleansing No -Anesthetic Used 4% Lidocaine Solution - Nurse 2 - General Ulcer CM Notes Start: 09/16/17 09:26 Freq: Status: Active Protocol: Activity Type Activity Date Activity User E-Sign Co-Sign Detail Recorded Client Recorded Date Recorded By Document 09/16/17 10:15 [email or web address] [id number] 09/16/17 10:16 09/16/17 10:15 Wound Center Nurse 2 [Procedure/Treatment] -Time 10:16 -Correct Patient Yes -Correct Side, Site, Position Yes -Correct Procedure Yes -Procedure Performed Yes -Type of Procedure Debridement -Clinical Debridement Selective -Post Debridement Size (cm) - Length 0.2 -Post Debridement Size (cm) - Width 0.4 -Post Debridement Size (cm) - Depth 0.2 -Total Square Cm 0.08 -Wound/Ulcer Outcome Not Healed -Ulcer Cleansing Rinsed/ Irrigated with Saline -Foul Odor after Cleansing No -Bioengineered Tissue No -Bleeding Controlled with Pressure -Treatment Response Procedure Tolerated Well [See Physician Procedure note for Specifics] Pain Scale: 0-10 Numeric [Pain] -Is Patient Pain Free? Yes Musculoskeletal: No Tenderness to Palpation of Joints or Extremities, Muscle Wasting, - - Decreased pain with left heel wound manipulation Neurological: Sensory exam intact to light touch and pain Psych/Mental Status: Normal Affect, Appropriate Debridement Note Post-Debridement Measurements/Treatment WC - Nurse 2 - General Ulcer CM Notes Start: 09/16/17 09:26 Freq: Status: Active Protocol: Activity Type Activity Date Activity User E-Sign Co-Sign Detail Recorded Client Recorded Date Recorded By Document 09/16/17 10:15 [email or web address] [id number] 09/16/17 10:16 [email or web address] 09/16/17 10:15 Wound Center Nurse 2 #7 LEFT LATERAL HEEL -Time 10:16 -Correct Patient Yes -Correct Side, Site, Position Yes -Correct Procedure Yes -Procedure Performed Yes -Type of Procedure Debridement -Clinical Debridement Selective -Post Debridement Size (cm) - Length 0.2 -Post Debridement Size (cm) - Width 0.4 -Post Debridement Size (cm) - Depth 0.2 -Total Square Cm 0.08 -Wound/Ulcer Outcome Not Healed -Ulcer Cleansing Rinsed/ Irrigated with Saline -Foul Odor after Cleansing No -Bioengineered Tissue No -Bleeding Controlled with Pressure -Treatment Response Procedure Tolerated Well Pain Scale: 0-10 Numeric Is Patient Pain Free? Yes Wound debrided: heel Laterality: Left Type of Debridement: Excisional debridement Anesthesia Used: 5% Lidocaine Gel Depth: Down to and including healthy tissue Percentage of wound debrided: 100 Instrument Used: #15 blade Tissue Removed: fibrous, devitalized superficial tissue, biofilm, slough Severity: Limited To Skin Breakdown Amount of bleeding with debridement: Mild Bleeding Controlled with: Pressure Patient tolerated procedure well Assessment/Plan Active Problems (Last Reviewed 08/17/17 @ 10:48 by Guadalupe Grissom) Ingrowing nail (Chronic) PVD (peripheral vascular disease) (Chronic) Chronic ulcer of left foot with fat layer exposed (Chronic) Assessment: Left heel ulcer with fat layer exposed. Peripheral vascular disease , multilevel disease suspected. Edema left lower extremity. Malnutrition. Delayed healing. Complicated medical history with active stage IV lung disease -stable and no treatment intervention planned at this time. Resolved ball of foot pain. Ingrown toenail without infection left hallux lateral more than medial borders Plan: I reviewed and discussed his case. The wound was debrided as noted in the clinical panel. A Santyl dressing was applied and he was advised to changes daily with nickel thickness. To continue to wear protective and supportive shoes left surgical shoe. To offload this site vigorously while resting by hanging this over a pillow while in bed. He has an offloading donut pillow and I strongly urged him to resume use. To monitor for any additional openings, friction irritation, or pressure points; he is aware of this. Continue to optimize healing by taking nutritional supplementation, Chilo. His previous vascular surgery intervention with Dr. Ulloa is noted. Re-referral will be considered if lack of healing occurs. He was reassured there are no wounds or infection, site. I also evaluated his right foot today which looks very stable and remains healed. To keep the skin moisturized. A wedge resection was performed with a sterile nail nipper to the left hallux lateral and medial borders. There is scant hematogenous drainage noted and a dry Band- Aid was applied. If there are any signs of skin irritation recommend he change to gauze application. Additional wound care is not required at this time. He was reassured there are no signs of infection and he will continue to monitor this. Relief was noted after the wedge resection was performed. To return to the wound care center in 1 week or call sooner if problems. I answered all his questions.
[2017-09-23 10:21] VITALS: BP 152/85; PULSE 78; RESP 20; TEMP 36.6; BMI 24.9
--- NOTE | 2017-09-23 10:58 | PN.PCM_ITS ---
(1) Skin ulcer of left foot, limited to breakdown of skin Status: Chronic Current Visit: Yes Code(s): L97.521 - Non-pressure chronic ulcer of other part of left foot limited to breakdown of skin (2) Ingrowing nail Status: Resolved Current Visit: Yes Code(s): L60.0 - Ingrowing nail (3) PVD (peripheral vascular disease) Status: Chronic Current Visit: Yes Code(s): I73.9 - Peripheral vascular disease, unspecified (4) Metatarsalgia, left foot Status: Resolved Current Visit: Yes Code(s): M77.42 - Metatarsalgia, left foot Type of Wound Date of Service: 09/23/17 Chief Complaint: left foot ulcer. ingrown toenail resolved. Follow-up foot pain resolved left History of Wound: He is following up for a return left foot ulcer. He denies fever, chills, nausea, vomiting, loss of appetite. He tries to hang his left foot over pillows while seated or lying in bed. He takes nutritional supplementation as advised. He is with his today. The pain at his recently trimmed out ingrown toenail the left foot has resolved and he denies redness or drainage. His previous ball of foot pain has resolved and he defers additional workup or intervention. He tries to hang his foot over pillows or bed while resting. Progress of Wound: improving wound - Physical Exam Vital Signs Temp Pulse Resp BP 97.8 F 78 20 H 152/85 H 09/23/17 10:21 09/23/17 10:21 09/23/17 10:21 09/23/17 10:21 General: Alert, Oriented x3, Cooperative Extremities: No cyanosis, No edema, Capillary Refill Less than 3 Seconds, No Calf Tenderness, Diminished Peripheral Pulses Skin: Ulcer/ Wound - No purulence, no erythema, streaking, no odor, no infection. There is no longer exposed fat or subcutaneous tissue and the wound has been epithelializing well. The peripheral skin is atrophic. There is no maceration. Wound Measurements and Assessment WC - Nurse 1 - General Ulcer Measurement Start: 09/16/17 09:26 Freq: Status: Active Protocol: Activity Type Activity Date Activity User E-Sign Co-Sign Detail Recorded Client Recorded Date Recorded By Document 09/23/17 10:21 [email or web address] [id number] 09/23/17 10:23 DL 09/23/17 10:21 Wound Center Nurse 1 [Ulcer Assessment] #7 LEFT LATERAL HEEL -Current Size (cm) - Length 0.6 -Current Size (cm) - Width 0.3 -Current Size (cm) - Depth 0.1 -Total Square Cm 0.18 -Photo Taken No -Exudate Amt None Present (0 %) -Wound Margin Flat & Intact -Granulation Amt None Present (0 %) -Necrosis Amt Small (1-33%) -Necrotic Tissue Type Adherent Slough -Structure Exposed N/A -Texture (Crystal-wound Skin Appearance) No Abnormality -Moisture (Crystal-wound Skin Appearance No Abnormality ) -Color (Crystal-wound Skin Appearance) No Abnormality -Ulcer Cleansing Rinsed/ Irrigated with Saline -Foul Odor after Cleansing No -Anesthetic Used 4% Lidocaine Solution WC - Nurse 2 - General Ulcer CM Notes Start: 09/16/17 09:26 Freq: Status: Active Protocol: Activity Type Activity Date Activity User E-Sign Co-Sign Detail Recorded Client Recorded Date Recorded By Document 09/23/17 10:51 [id number] 09/23/17 10:54 09/23/17 10:51 Wound Center Nurse 2 [Procedure/Treatment] -Time 10:51 -Correct Patient Yes -Correct Side, Site, Position Yes -Correct Procedure Yes -Procedure Performed Yes -Type of Procedure Debridement -Clinical Debridement Selective -Post Debridement Size (cm) - Length 0.6 -Post Debridement Size (cm) - Width 0.3 -Post Debridement Size (cm) - Depth 0.1 -Total Square Cm 0.18 -Wound/Ulcer Outcome Not Healed -Ulcer Cleansing Rinsed/ Irrigated with Saline -Foul Odor after Cleansing No -Bioengineered Tissue No -Bleeding Controlled with Pressure -Treatment Response Procedure Tolerated Well [See Physician Procedure note for Specifics] Pain Scale: 0-10 Numeric [Pain] -Is Patient Pain Free? Yes Musculoskeletal: No Tenderness to Palpation of Joints or Extremities, Muscle Wasting, Tenderness - Resolved tenderness on palpation to the left heel wound Neurological: Sensory exam intact to light touch and pain Psych/Mental Status: Normal Affect, Appropriate Debridement Note Post-Debridement Measurements/Treatment WC - Nurse 2 - General Ulcer CM Notes Start: 09/16/17 09:26 Freq: Status: Active Protocol: Activity Type Activity Date Activity User E-Sign Co-Sign Detail Recorded Client Recorded Date Recorded By Document 09/16/17 10:15 [id number] 09/16/17 10:16 Document 09/23/17 10:51 [id number] 09/23/17 10:54 09/16/17 09/23/17 10:15 10:51 Wound Center Nurse 2 #7 LEFT LATERAL HEEL -Time 10:16 10:51 -Correct Patient Yes Yes -Correct Side, Site, Position Yes Yes -Correct Procedure Yes Yes -Procedure Performed Yes Yes -Type of Procedure Debridement Debridement -Clinical Debridement Selective Selective -Post Debridement Size (cm) - Length 0.2 0.6 -Post Debridement Size (cm) - Width 0.4 0.3 -Post Debridement Size (cm) - Depth 0.2 0.1 -Total Square Cm 0.08 0.18 -Wound/Ulcer Outcome Not Healed Not Healed -Ulcer Cleansing Rinsed/ Rinsed/ Irrigated with Irrigated with Saline Saline -Foul Odor after Cleansing No No -Bioengineered Tissue No No -Bleeding Controlled with Pressure Pressure -Treatment Response Procedure Procedure Tolerated Well Tolerated Well Pain Scale: 0-10 Numeric Is Patient Pain Free? Yes Yes Wound debrided: heel Laterality: Left Type of Debridement: Selective debridement Anesthesia Used: 5% Lidocaine Gel Depth: in the subcutaneous layer Percentage of wound debrided: 100 Instrument Used: #15 blade Tissue Removed: fibrous, peripheral skin peeling and maceration, biofilm, slough Severity: Limited To Skin Breakdown Amount of bleeding with debridement: None Patient tolerated procedure well Assessment/Plan Active Problems (Last Reviewed 08/17/17 @ 10:48 by Guadalupe Grissom) Skin ulcer of left foot, limited to breakdown of skin (Chronic) PVD (peripheral vascular disease) (Chronic) Chronic ulcer of left foot with fat layer exposed (Chronic) Assessment: Left heel ulcer with fat layer exposed. Peripheral vascular disease , multilevel disease suspected. Edema left lower extremity. Malnutrition. Delayed healing. Complicated medical history with active stage IV lung disease -stable and no treatment intervention planned at this time. Resolved ball of foot pain. Ingrown toenail without infection left hallux lateral more than medial borders-resolved after his previous wedge resection Plan: I reviewed and discussed his case. The wound was debrided as noted in the clinical panel. A Santyl dressing was applied and he was advised to changes daily with nickel thickness. To continue to wear protective and supportive shoes left surgical shoe. To offload this site vigorously while resting by hanging this over a pillow while in bed. He has an offloading donut pillow and I strongly urged him to resume use again today which was discussed at length. To monitor for any additional openings, friction irritation, or pressure points; he is aware of this. Continue to optimize healing by taking nutritional supplementation, Chilo. His previous vascular surgery intervention with Dr. Ulloa is noted. Re-referral will be considered if lack of healing occurs. He was reassured there are no wounds or infection, site. I also evaluated his right foot today which looks very stable and remains healed. To keep the skin moisturized. A wedge resection was performed to the left hallux last visit and his pain has completely resolved. He is very happy with his progress. To monitor for return of ingrown toenail or infection in which neither is noted today. There is no drainage or palpation pain. He reassured me there is no ball of foot pain and defers further Insole adjustments or workup. To return to the wound care center in 1 week or call sooner if problems. I answered all his questions.
[2017-09-30 13:44] VITALS: BP 135/71; PULSE 71; RESP 18; TEMP 36.4; BMI 24.9
--- NOTE | 2017-09-30 16:05 | PCM.WC.PN ---
(1) Skin ulcer of left foot, limited to breakdown of skin Status: Resolved Current Visit: Yes Code(s): L97.521 - Non-pressure chronic ulcer of other part of left foot limited to breakdown of skin (2) PVD (peripheral vascular disease) Status: Chronic Current Visit: Yes Code(s): I73.9 - Peripheral vascular disease, unspecified Type of Wound Date of Service: 09/30/17 Chief Complaint: left foot ulcer healed History of Wound: He is following up for a return left foot ulcer. He denies fever, chills, nausea, vomiting, loss of appetite. He tries to hang his left foot over pillows while seated or lying in bed. He takes nutritional supplementation as advised. He is with his today. He tries to hang his foot over pillows or bed while resting. He denies drainage and thinks the site has healed. Progress of Wound: healed - Physical Exam Vital Signs Temp Pulse Resp BP 97.6 F L 71 18 135/71 H 09/30/17 13:44 09/30/17 13:44 09/30/17 13:44 09/30/17 13:44 General: Alert, Oriented x3, Cooperative Extremities: No cyanosis, Capillary Refill Less than 3 Seconds, No Calf Tenderness, Diminished Peripheral Pulses, Edema Skin: Ulcer/ Wound - full epithelialization is noted. there is no purulence, no erythema, no infection noted. the skin is atrophic Wound Measurements and Assessment WC - Nurse 1 - General Ulcer Measurement Start: 09/16/17 09:26 Freq: Status: Active Protocol: Activity Type Activity Date Activity User E-Sign Co-Sign Detail Recorded Client Recorded Date Recorded By Document 09/30/17 13:44 DL [id number] 09/30/17 13:49 DL 09/30/17 13:44 Wound Center Nurse 1 [Ulcer Assessment] #7 LEFT LATERAL HEEL -Current Size (cm) - Length 0.4 -Current Size (cm) - Width 0.6 -Current Size (cm) - Depth 0.1 -Total Square Cm 0.24 -Photo Taken No -Exudate Amt None Present (0 %) -Wound Margin Flat & Intact -Granulation Amt None Present (0 %) -Necrosis Amt Small (1-33%) -Necrotic Tissue Type Adherent Slough -Structure Exposed N/A -Texture (Crystal-wound Skin Appearance) Scarring -Moisture (Crystal-wound Skin Appearance No Abnormality ) -Color (Crystal-wound Skin Appearance) No Abnormality -Temperature (Crystal-wound Skin No Abnormality Appearance) (Pt Warm) -Ulcer Cleansing Rinsed/ Irrigated with Saline -Foul Odor after Cleansing No -Anesthetic Used 4% Lidocaine Solution - Nurse 2 - General Ulcer CM Notes Start: 09/16/17 09:26 Freq: Status: Active Protocol: Activity Type Activity Date Activity User E-Sign Co-Sign Detail Recorded Client Recorded Date Recorded By Document 09/30/17 14:13 [id number] 09/30/17 14:14 09/30/17 14:13 Wound Center Nurse 2 [Procedure/Treatment] -Time 14:13 -Post Debridement Size (cm) - Length 0 -Post Debridement Size (cm) - Width 0 -Post Debridement Size (cm) - Depth 0 -Total Square Cm 0 -Wound/Ulcer Outcome Healed- Epithelialized [See Physician Procedure note for Specifics] Pain Scale: 0-10 Numeric [Pain] -Is Patient Pain Free? Yes Musculoskeletal: No Tenderness to Palpation of Joints or Extremities, Muscle Wasting Neurological: - - lack of epicritic sensation via light touch noted Psych/Mental Status: Normal Affect, Appropriate Debridement Note Post-Debridement Measurements/Treatment - Nurse 2 - General Ulcer CM Notes Start: 09/16/17 09:26 Freq: Status: Active Protocol: Activity Type Activity Date Activity User E-Sign Co-Sign Detail Recorded Client Recorded Date Recorded By Document 09/16/17 10:15 [id number] 09/16/17 10:16 Document 09/23/17 10:51 [id number] 09/23/17 10:54 Document 09/30/17 14:13 [id number] 09/30/17 14:14 09/16/17 09/23/17 09/30/17 10:15 10:51 14:13 Wound Center Nurse 2 #7 LEFT LATERAL HEEL -Time 10:16 10:51 14:13 -Correct Patient Yes Yes -Correct Side, Site, Position Yes Yes -Correct Procedure Yes Yes -Procedure Performed Yes Yes -Type of Procedure Debridement Debridement -Clinical Debridement Selective Selective -Post Debridement Size (cm) - Length 0.2 0.6 0 -Post Debridement Size (cm) - Width 0.4 0.3 0 -Post Debridement Size (cm) - Depth 0.2 0.1 0 -Total Square Cm 0.08 0.18 0 -Wound/Ulcer Outcome Not Healed Not Healed Healed- Epithelialized -Ulcer Cleansing Rinsed/ Rinsed/ Irrigated with Irrigated with Saline Saline -Foul Odor after Cleansing No No -Bioengineered Tissue No No -Bleeding Controlled with Pressure Pressure -Treatment Response Procedure Procedure Tolerated Well Tolerated Well Pain Scale: 0-10 Numeric Is Patient Pain Free? 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 Edema left lower extremity. Malnutrition. Delayed healing. Complicated medical history with active stage IV lung disease -stable and no treatment intervention planned at this time Plan: I reviewed and discussed his case. The wound was debrided as noted in the clinical panel. This site is healed. to d/c dressing care. To continue to wear protective and supportive shoes left surgical shoe. To offload this site vigorously while resting by hanging this over a pillow while in bed. He has an offloading donut pillow and I strongly urged him to resume use again . To monitor for any additional openings, friction irritation, or pressure points; he is aware of this. His previous vascular surgery intervention with Dr. Ulloa is noted. Re-referral will be considered if lack of healing occurs. He was reassured there are no wounds or infection, site. To return to the foot and ankle center with Dr. Cid in 8 weeks or call sooner if problems to confirm this friable site has remodeled and the wound is still healed. I answered all his questions.He is discharged from the wound care center at this time.
== END 2017-10-03 23:59 ==
LOC: WC 14:00
PROVIDERS: Family Provider Family Medicine; PCP Family Medicine; Visit Provider Podiatrist
DX: I73.9 Peripheral vascular disease, unspecified (principal); L97.522 Non-pressure chronic ulcer of other part of left foot with fat layer exposed; L60.0 Ingrowing nail
CPT/HCPCS: 11042; 36416; 85610; 97597; 99213; G0463

== ENCOUNTER 2017-10-29 10:26 | Outpatient (RCR) | payer MEDICARE, SELFPAY ==
[2017-10-29 10:50] LABS: Prothrombin Time Fingerstick 39.9 SEC (11.9-14.4)
[2017-10-29 11:08] LABS: International Normalized Ratio 3.1; Prothrombin Time (Protime)PT. 32.3 SECONDS (11.7-14.9)
== END 2017-10-29 12:00 | disposition home or self-care (01) ==
LOC: LAB 10:26
PROVIDERS: Family Provider Family Medicine; PCP Family Medicine; Visit Provider Internal Medicine Cardiovascular Disease
DX: I48.1 Persistent atrial fibrillation (principal); Z95.828 Presence of other vascular implants and grafts
CPT/HCPCS: 36416; 85610

== ENCOUNTER 2017-11-19 11:37 | Outpatient (RCR) | payer MEDICARE, SELFPAY ==
[2017-11-19 12:48] LABS: International Normalized Ratio 2.9; Prothrombin Time (Protime)PT. 30.7 SECONDS (11.7-14.9)
== END 2017-11-19 13:00 | disposition home or self-care (01) ==
LOC: LAB 11:37
PROVIDERS: Family Provider Family Medicine; PCP Family Medicine; Visit Provider Internal Medicine Cardiovascular Disease
DX: Z95.828 Presence of other vascular implants and grafts (principal)
CPT/HCPCS: 36415; 85610

== ENCOUNTER 2017-12-10 10:46 | Outpatient (RCR) | payer MEDICARE, SELFPAY ==
[2017-12-10 11:51] LABS: International Normalized Ratio 2.5
== END 2017-12-10 12:00 | disposition home or self-care (01) ==
LOC: LAB 10:46
PROVIDERS: Family Provider Family Medicine; PCP Family Medicine; Visit Provider Internal Medicine Cardiovascular Disease
DX: Z95.828 Presence of other vascular implants and grafts (principal)
CPT/HCPCS: 36415; 85610

== ENCOUNTER → 2017-12-24 12:09 | Outpatient (CLI) | payer MEDICARE, SELFPAY ==
--- NOTE | 2017-12-24 12:11 | CT_ITS ---
STUDY: CT CHEST with CONTRAST REASON FOR EXAM: Male, 77 years old. Malignant neoplasm of the lung. RADIATION DOSAGE (If Supplied By Facility): CTDIvol = ( 16.62 ) mGy, DLP = ( 556.97 ) mGycm TECHNIQUE: Transaxial imaging was performed with the administration of intravenous contrast material. Coronal and sagittal 2-D MPR. Isovue-370, 90 mL. Individualized dose optimization techniques were used for this CT. COMPARISON: CT chest 06/10/2017, 04/09/2017, 01/15/2017. FINDINGS: Supraclavicular: Minimally nodular thyroid gland likely reflecting goiter. Stable. Body wall soft tissues: Left pectoral pacer device. No acute process. Upper abdomen: Limited evaluation, stable benign right renal superior pole cyst. Osseous structures: Kyphosis, mild scoliosis, osteopenia, old healed rib fractures. No acute osseous process. Mediastinum: Normal esophagus. A pretracheal centrally necrotic enlarged lymph node measuring 3.3 cm craniocaudal, 3.3 cm anterior-posterior and 3.3 cm transverse has substantially increased in size compared to imaging of June 10, 2017 at which time the greatest dimension was approximately 1.9 cm. A few additional very small lymph nodes are stable. Highly suspicious for metastatic lymphadenopathy. Cardiovascular: Stable borderline cardiomegaly, prominent coronary calcifications. Pacer wires. Nondilated aorta with mild atherosclerosis. Nondilated central pulmonary arteries with no evidence of pulmonary embolus. Lungs: Generalized hyperlucency consistent with underlying COPD with mild paraseptal emphysematous changes at the apices. The left lung is otherwise clear. There is a densely calcified pulmonary nodule in the right lower lobe stable compared to prior imaging. The central airways are normal. No endobronchial lesion. CT/Chest WITH Contrast IMPRESSION: Prominent interval enlargement of a highly suspicious lymph node within the mediastinum since imaging of 06/10/2017. Maximum dimension is 3.3 cm, with evidence of partial central necrosis. Highly suspicious for malignancy. There is no evidence of lung malignancy at this time. Electronically Signed: Heber Ordonez, at 13:01 EDT Tel , Service support ,
[2017-12-24 12:51] LABS: CREATININE FINGERSTICK 0.9 mg/dL (0.70-1.30); EGFR FINGERSTICK > 60.0000 mL/min (>60)
== END ==
PROVIDERS: Family Provider Family Medicine; PCP Family Medicine; Visit Provider Internal Medicine Medical Oncology
DX: C34.2 Malignant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 lobe, bronchus or lung (principal)
CPT/HCPCS: 71260; Q9967

== ENCOUNTER 2018-02-01 15:29 | Emergency (ER) | payer MEDICARE, SELFPAY ==
[2018-02-01 15:30] VITALS: BP 164/82; PULSE 70; RESP 18; TEMP 36.8; O2SAT 94; BMI 29.5
--- NOTE | 2018-02-01 16:02 | ED.VISSUMM ---
- ER Visit Summary Date of Service: 02/01/18 Chief Complaint: Rash History of Present Illness: The patient is a 77 M currently being treated with chemotherapy for lung cancer presenting with a rash down in the creases of his groin that he noticed this morning. It is somewhat itchy but not painful. No rash anywhere else. No fever or other complaints. No nausea or vomiting. Otherwise feeling well. Physical Examination: He has a fairly classic candidal appearing rash in his inguinal creases. No secondary cellulitis. There are fairly classic satellite lesions. No petechiae. No rash anywhere else. The entire area involved is quite small, less than the size of the palm of his hand and total. Test Results: None performed Emergency Department Course and Treatment: The rash appears fairly classic for candidal rash in the creases of his groin. I talked with him about keeping the area dry and we will treat with nystatin powder. I discussed the case with his oncologist, Dr. Corea who agrees and will arrange close follow-up for recheck. There is no evidence of cellulitis or necrotizing fasciitis at this time. Treatment Plan: Nystatin Disposition: Home stable Impression: Initial encounter candidal dermatitis This note was generated with [employer] dictation software. It may contain incorrect words, spelling, and punctuation that were not noted in review of the chart prior to signing ED Disposition - Plan for ED Patient: Chief Complaint: Rash Instructions: ED Candidiasis Cutaneous Referrals: Ian Corea MD [NON-STAFF] - 1 Day for another exam
--- NOTE | 2018-02-01 16:10 | ED.VISSUMM ---
- ER Visit Summary Date of Service: 02/01/18 Chief Complaint: [] History of Present Illness: The patient is a 77 M [] Physical Examination: [] Test Results: [] Emergency Department Course and Treatment: [] Treatment Plan: [] Disposition: [] Impression: [] This note was generated with [employer] dictation software. It may contain incorrect words, spelling, and punctuation that were not noted in review of the chart prior to signing ED Disposition - Plan for ED Patient: Chief Complaint: Rash Instructions: ED Candidiasis Cutaneous Prescriptions: Nystatin Powder [Mycostatin Powder] 1 applic TOPICAL BID 7 Days #1 bottle Referrals: Ian Corea MD [NON-STAFF] - 1 Day for another exam
== END 2018-02-01 16:17 | disposition home or self-care (01) ==
PROVIDERS: Emergency Provider Emergency Medicine; Family Provider Family Medicine; PCP Family Medicine
DX: L30.8 Other specified dermatitis (principal); B37.9 Candidiasis, unspecified; C34.90 Malignant neoplasm of unspecified part of unspecified bronchus or lung; Z79.82 Long term (current) use of aspirin; Z79.01 Long term (current) use of anticoagulants; Z79.899 Other long term (current) drug therapy
CPT/HCPCS: 99282

== ENCOUNTER → 2018-03-03 07:52 | Outpatient (CLI) | payer MEDICARE, SELFPAY ==
[2018-02-23 08:56] VITALS: BMI 31.7
--- NOTE | 2018-03-03 07:53 | CT_ITS ---
STUDY: CT CHEST/THORAX WITH CONTRAST REASON FOR EXAM: Male, 77 years old. Lung cancer follow-up. RADIATION DOSAGE (If Supplied By Facility): CTDIvol = ( 16.43 ) mGy, DLP = ( 739.98 ) mGycm TECHNIQUE: Transaxial imaging was performed following intravenous administration of 100mL ml of Isovue 300 contrast material. Multiplanar coronal and sagittal images were reformatted. Individualized dose optimization techniques were used for this CT. COMPARISON: CT chest with contrast December 24, 2017; PET/CT January 18, 2018. FINDINGS: The generator of a cardiac pacemaker is in the infraclavicular soft tissues of the left anterior chest wall. Leads extend to the right atrium and ventricle. Chemotherapy port hub is in the soft tissues of the right anterior chest wall, the catheter extending to the cavoatrial junction. There is a stable 1 cm calcified granuloma in the anterolateral inferior right middle lobe. 3 mm calcified granuloma seen in the posterolateral left lower lobe. There are subpleural emphysematous blebs in the posterolateral right upper lobe. Minor curvilinear scarring seen in the lateral lingula of the left lower lobe. There is no demonstrated pleural abnormality. Normal heart and pericardium. There are calcifications of the coronary arteries. Again seen is a well-defined 2.0 x 2.05 x 2.05 cm precarinal soft tissue mass correlating to the hypermetabolic lesion on PET/CT. This has decreased in size since December 24, 2017. A few other nonspecific, subcentimeter mediastinal lymph nodes are also present. Normal hilar regions. Normal enhanced pulmonary arteries. There is atherosclerotic calcification of the aortic arch, proximal brachiocephalic arteries, and descending thoracic aorta. There are multi-level degenerative changes of the thoracic spine. There are stable severe compression fractures of the T7 and T8 vertebra, mild depression of the superior T4 and T5 vertebral endplate, minor depression of the inferior T9 vertebral endplate, and mild anterior wedging of the T10 vertebra. There are old healed right 4-9 rib fractures as well as old healed fracture deformities of the left lateral seventh-eighth ribs. There is a stable exophytic 2.5 x 2.0 x 2.1 cm cortical cyst at the medial upper pole of the right kidney. 2 cortical cysts are again seen at the midpole of the left kidney, each measuring approximately 2.3 x 2.5 x 2.5 cm. The gallbladder is partially contracted. Common bile duct diameter reaches 11 mm. The abdominal aorta just below the diaphragmatic hiatus is 3.1 x 3.0 cm. The upper margin of a stent graft is seen in the immediate infrarenal aorta. CT/Chest WITH Contrast IMPRESSION: 1. 2.05 cm precarinal soft tissue mass correlating to the hypermetabolic lesion on recent PET/CT is unchanged. This is decreased in size since December 2017, however. 2. Atherosclerotic vascular calcifications again noted. There is an endovascular stent in the infrarenal abdominal aorta. 3. Chemotherapy port and dual-lead left subclavian cardiac pacemaker are again noted. 4. Stable multilevel compression fracture deformities of the thoracic spine as well as old healed bilateral rib fractures. 5. Stable 1 cm right middle lobe calcified granuloma and focal calcified granuloma in the left lower lobe. 6. Stable bilateral renal cortical cysts. Electronically Signed: Maxime Hercules MD at 8:38 EST , Service support ,
--- OUTSIDE RECORDS SUMMARY | 2018-04-28 12:22 | XMS RPT_ITS ---
:1940 Author Organization OHIP Support Name Relationship Address Phone JULIO MOSLEY Unavailable [address] + [place] [address] R Unavailable Unavailable Unavailable TRENA, SOFIA Unavailable Unavailable + [place] [address] JULIO MOSLEY Unavailable [address] + [place] [address] R Unavailable Unavailable Unavailable TRENA, SOFIA Unavailable Unavailable + [place] [address] JOSE RAMON JULIO Unavailable [address] + [place] [address] R Unavailable Unavailable Unavailable TRENA, SOFIA Unavailable . + [place] [address] PETE MOSLEYA Unavailable [address] + [place] [address] R Unavailable Unavailable Unavailable TRENA, SOFIA Unavailable . + [place] [address] PETE MOSLEYA Unavailable [address] + [place] [address] R Unavailable Unavailable Unavailable TRENA, SOFIA Unavailable . + [place] [address] HAYEGLULY JULIO Unavailable [address] + [place] [address] R Unavailable Unavailable Unavailable TRENA, SOFIA Unavailable Unavailable + [place] [address] PETE MOSLEYA Unavailable [address] + [place] [address] R Unavailable Unavailable Unavailable TRENA, SOFIA Unavailable Unavailable + [place] [address] GREEUGENE JULIO Unavailable [address] + [place] [address] R Unavailable Unavailable Unavailable TRENA, SOFIA Unavailable Unavailable + GREEGORPETEA Unavailable [address] + [place] [address] R Unavailable Unavailable Unavailable TRENA, SOFIA Unavailable Unavailable + GREELMERORPETEA Unavailable [address] + [place] [address] R Unavailable Unavailable Unavailable TRENA, SOFIA Unavailable Unavailable + GREEGOR JULIO Unavailable [address] + [place] [address] R Unavailable Unavailable Unavailable TRENA, SOFIA Unavailable Unavailable + GREEGOR JULIO Unavailable [address] + [place] [address] R Unavailable Unavailable Unavailable TRENA, SOFIA Unavailable Unavailable + GREEGOR JULIO Unavailable [address] + [place] [address] R Unavailable Unavailable Unavailable TRENA, SOFIA Unavailable Unavailable + GREEGOR JULIO Unavailable [address] + [place] [address] R Unavailable Unavailable Unavailable TRENA, SOFIA Unavailable Unavailable + [place] [address] GREEGOR, JULIO Unavailable [address] + [place] [address] R Unavailable Unavailable Unavailable TRENA, SOFIA Unavailable 1 + [place] [address] GREEGOR, JULIO Unavailable [address] + [place] [address] R Unavailable Unavailable Unavailable TRENA, SOFIA Unavailable Unavailable + [place] [address] GREEGOR, JULIO Unavailable [address] + [place] [address] R Unavailable Unavailable Unavailable TRENA, SOFIA Unavailable Unavailable + [place] [address] GREEGOR, JULIO Unavailable [address] + [place] [address] R Unavailable Unavailable Unavailable TRENA, SOFIA Unavailable Unavailable + [place] [address] GREEGOR, JULIO Unavailable [address] + [place] [address] R Unavailable Unavailable Unavailable TRENA, SOFIA Unavailable Unavailable + [place] [address] GREEGOR, JULIO Unavailable [address] + [place] [address] R Unavailable Unavailable Unavailable TRENA, SOFIA Unavailable Unavailable + [place] [address] GREEGOR, JULIO Unavailable [address] + [place] [address] R Unavailable Unavailable Unavailable TRENA, SOFIA Unavailable Unavailable + [place] [address] GREEGOR, JULIO Unavailable [address] + [place] [address] R Unavailable Unavailable Unavailable TRENA, SOFIA Unavailable Unavailable + [place] [address] GREEGOR, JULIO Unavailable [address] + [place] [address] R Unavailable Unavailable Unavailable TRENA, SOFIA Unavailable Unavailable + [place] [address] GREEGOR, JULIO Unavailable [address] + [place] [address] R Unavailable Unavailable Unavailable TRENA, SOFIA Unavailable . + [place] [address] GREEGOR, JULIO Unavailable [address] + [place] [address] R Unavailable Unavailable Unavailable TRENA, SOFIA Unavailable Unavailable + [place] [address] GREEGOR, JULIO Unavailable [address] + [place] [address] R Unavailable Unavailable Unavailable TRENA, SOFIA Unavailable . + [place] [address] GREEGOR, JULIO Unavailable [address] + [place] [address] R Unavailable Unavailable Unavailable TRENA, SOFIA Unavailable . + [place] [address] GREEGOR, JULIO Unavailable [address] + [place] [address] R Unavailable Unavailable Unavailable TRENA, SOFIA Unavailable . + [place] [address] GREEGOR, JULIO Unavailable [address] + [place] [address] R Unavailable Unavailable Unavailable TRENA, SOFIA Unavailable Unavailable + GREEGOR, JULIO Unavailable [address] + [place] [address] R Unavailable Unavailable Unavailable Trena, Sofia Unavailable . + [place] [address] GREEGOR, JULIO Unavailable [address] + [place] [address] R Unavailable Unavailable Unavailable [place], Sofia Unavailable . + [place] [address] GREEGOR, JULIO Unavailable [address] + [place] [address] R Unavailable Unavailable Unavailable Trena, Sofia Unavailable . + [place] [address] GREEGOR, JULIO Unavailable [address] + [place] [address] R Unavailable Unavailable Unavailable [place], Sofia Unavailable . + [place] [address] GREEGOR, JULIO Unavailable [address] + [place] [address] R Unavailable Unavailable Unavailable Trena, Sofia Unavailable . + [place] [address] GREEGOR, JULIO Unavailable [address] + [place] [address] R Unavailable Unavailable Unavailable Trena, Sofia Unavailable . + [place] [address] GREEGOR, JULIO Unavailable [address] + [place] [address] R Unavailable Unavailable Unavailable [place], Sofia Unavailable . + [place] [address] GREEGOR, JULIO Unavailable [address] + [place] [address] R Unavailable Unavailable Unavailable [place], Sofia Unavailable . + [place] [address] GREEGOR JULIO Unavailable [address] + [place] [address] R Unavailable Unavailable Unavailable [place], Sofia Unavailable . + [place] [address] GREEGOR JULIO Unavailable [address] + [place] [address] R Unavailable Unavailable Unavailable [place], Sofia Unavailable . + [place] [address] GREEGOR JULIO Unavailable [address] + [place] [address] R Unavailable Unavailable Unavailable Trena, Sofia Unavailable . + [place] [address] GREEGOR JULIO Unavailable [address] + [place] [address] R Unavailable Unavailable Unavailable [place], Sofia Unavailable . + [place] [address] GREEGOR JULIO Unavailable [address] + [place] [address] R Unavailable Unavailable Unavailable [place], Sofia Unavailable . + [place] [address] R Unavailable Unavailable Unavailable [place], Sofia Unavailable 1 + [place] [address] R Unavailable Unavailable Unavailable [place], Sofia Unavailable 1 + [place] [address] R Unavailable Unavailable Unavailable [place], Sofia Unavailable 1 + [place] [address] Care Team Providers Name Role Phone Allison Cid Attending Unavailable Camilla, Niko Primary Care Unavailable Allison Cid Attending Unavailable Camilla, Niko Primary Care Unavailable Allison Cid Attending Unavailable Camilla, Niko Primary Care Unavailable Allison Cid Attending Unavailable Camilla, Niko Primary Care Unavailable Camilla, Niko Primary Care Unavailable Jenaro Love Attending Unavailable Mariia Bennett Attending Unavailable Nhung Guy Referring Unavailable Camilla, Niko Primary Care Unavailable Ian Corea Consulting Unavailable Ian Corea Attending Unavailable Nhung Guy Referring Unavailable Camilla, Niko Primary Care Unavailable Ian Corea Consulting Unavailable Carine Salmon Attending Unavailable Camilla, Niko Referring Unavailable Flash Gaytan Attending Unavailable Flash Gaytan Referring Unavailable Camilla, Niko Primary Care Unavailable PraIan hunter Attending Unavailable Nhung Guy Referring Unavailable Camilla, Niko Primary Care Unavailable PraIan hunter Consulting Unavailable PraIan hunter Attending Unavailable PrahIan Referring Unavailable Camilla, Niko Primary Care Unavailable Flash Gaytan Attending Unavailable Flash Gaytan Referring Unavailable Camilla, Niko Primary Care Unavailable Flash Gaytan Attending Unavailable Flash Gaytan Referring Unavailable Camilla, Niko Primary Care Unavailable Flash Gaytan Attending Unavailable Flash Gaytan Referring Unavailable Camilla, Niko Primary Care Unavailable Jane CALLE-Micheline Thompson Attending Unavailable Camilla, Niko Referring Unavailable Camilla, Niko Primary Care Unavailable Flash Gaytan Attending Unavailable Flash Gaytan Referring Unavailable Camilla, Niko Primary Care Unavailable Carine Salmon Attending Unavailable Camilla, Niko Referring Unavailable Camilla, Niko Primary Care Unavailable Flash Gaytan Attending Unavailable Flash Gaytan Referring Unavailable Camilla, Niko Primary Care Unavailable Flash Gaytan Attending Unavailable Flash Gaytan Referring Unavailable Camilla, Niko Primary Care Unavailable Flash Gaytan Attending Unavailable Camilla, Niko Referring Unavailable Camilla, Niko Primary Care Unavailable Vaibhav Singh Attending Unavailable Ian Corea Attending Unavailable Nhung Guy Referring Unavailable Camilla, Niko Primary Care Unavailable PraIan hunter Consulting Unavailable PraIan hunter Attending Unavailable PraIan hunter Referring Unavailable Camilla, Niko Primary Care Unavailable Elliott Ulloa Attending Unavailable CebulElliott Referring Unavailable FasciAllison rogers Attending Unavailable Camilla, Niko Primary Care Unavailable Carine Salmon Attending Unavailable Camilla, Niko Referring Unavailable Camilla, Niko Primary Care Unavailable Allison Cid Attending Unavailable Camilla, Niko Primary Care Unavailable Flash Gaytan Attending Unavailable Camilla, Niko Primary Care Unavailable Flash Gaytan Attending Unavailable Flash Gaytan Referring Unavailable Camilla, Niko Primary Care Unavailable PraIan hunter Attending Unavailable Camilla, Niko Primary Care Unavailable PraIan hunter Consulting Unavailable Micheline Lara PA-C Attending Unavailable Camilla, Niko Primary Care Unavailable PraIan hunter Attending Unavailable Camilla, Niko Primary Care Unavailable Allison Cid Attending Unavailable Camilla, Niko Primary Care Unavailable Flash Gaytan Attending Unavailable Camilla, Niko Primary Care Unavailable Mary Aguayo Consulting Unavailable Allison Cid Attending Unavailable Flash Gaytan Attending Unavailable Flash Gaytan Referring Unavailable Camilla, Niko Primary Care Unavailable Flash Gaytan Attending Unavailable Flash Gaytan Referring Unavailable Camilla, Niko Primary Care Unavailable Prah, Ian Attending Unavailable Malena, Nhung Referring Unavailable Camilla, Niko Primary Care Unavailable Prah, Ian Consulting Unavailable Flash Gaytan Attending Unavailable Camilla, Niko Referring Unavailable Prah, Ian Attending Unavailable Guy, Nhung Referring Unavailable Camilla, Niko Primary Care Unavailable Prah, Ian Consulting Unavailable Prah, Ian Attending Unavailable Prah, Ian Referring Unavailable Camilla, Niko Primary Care Unavailable Prah, Ian Attending Unavailable Guy, Nhung Referring Unavailable Camilla, Niko Primary Care Unavailable Prah, Ian Consulting Unavailable Prah, Ian Attending Unavailable Guy, Nhung Referring Unavailable Camilla, Niko Primary Care Unavailable Prah, Ian Consulting Unavailable Sabrina, Mariia Attending Unavailable Malena, Nhung Referring Unavailable Camilla, Niko Primary Care Unavailable Prah, Ian Consulting Unavailable Prah, Ian Attending Unavailable Camilla, Niko Primary Care Unavailable Guy, Nhung Referring Unavailable PROBLEMS PROBLEMS DATE TYPE CONDITION / CODE ATTENDING STATUS SOURCE 03/19/2018 Unknown I25.10 - Flash Gaytan Active [place] Atherosclerotic heart Community disease of [facility] coronary artery Repository without angina pectoris / I25.10(ICD-10) 03/19/2018 Unknown E78.5 - GaytanFlash Active [place] Hyperlipidemia, Community unspecified / Hospital E78.5(ICD-10) Repository 03/16/2018 Unknown Z79.01 - longterm AnmolIan Active [place] (current) use of Community anticoagulants / Hospital Z79.01(ICD-10) Repository 03/12/2018 Unknown 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 / Hospital I27.21(ICD-10) Repository 03/08/2018 Unknown C34.91 - Malignant [place], Ian Active [place] neoplasm of Community unspecified part of Hospital right bronchus or lung Repository / C34.91(ICD-10) 03/08/2018 Unknown Z79.899 - Other long PradaleIan Active [place] term (current) drug Community therapy / Hospital Z79.899(ICD-10) Repository 02/10/2018 Unknown 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, Active [place] neoplasm of upper [place] Community lobe, right bronchus Hospital or lung / Repository C34.11(ICD-10) 01/21/2018 Unknown Z95.828 - Presence of [place], Ian Active [place] other vascular Community implants and grafts / Hospital Z95.828(ICD-10) Repository 01/08/2018 Unknown Z95.0 - Presence of Carine Salmon Active [place] cardiac pacemaker / Community Z95.0(ICD-10) Hospital Repository 01/08/2018 Unknown I44.2 - Carine Salmon Active [place] Atrioventricular Community block, complete / Hospital I44.2(ICD-10) Repository 01/08/2018 Unknown I25.5 - Ischemic Carine Salmon Active [place] cardiomyopathy / Community I25.5(ICD-10) Hospital Repository 01/08/2018 Unknown I48.2 - Chronic atrial Carine Salmon Active [place] fibrillation / Community I48.2(ICD-10) Hospital Repository 12/29/2017 Unknown C34.2 - Malignant Ian Corea Active [place] neoplasm of [facility] lobe, bronchus or lung Hospital / C34.2(ICD-10) Repository 11/05/2017 Unknown I48.1 - Persistent Flash Gaytan Active [place] atrial fibrillation / Community I48.1(ICD-10) Hospital Repository 10/04/2017 Unknown I73.89 - Other Fascione, Active [place] specified peripheral [facility] vascular diseases / Hospital I73.89(ICD-10) Repository 09/30/2017 Unknown I48.91 - Unspecified Flash Gaytan Active [place] atrial fibrillation / Community I48.91(ICD-10) Hospital Repository 06/04/2017 Unknown I73.9 - Peripheral ReenatuckerElliott silva Active [place] vascular disease, Community unspecified / Hospital I73.9(ICD-10) Repository PROCEDURES PROCEDURES No Procedure Records FoundRESULTS RESULTS LIVER PROFILE Collected: 03/19/2018 Status: F Source: [place] 10:55 AM [facility] REPOSITORY TYPE CODE TESTS RESULT OUT OF RANGE REFERENCE UNITS LAB L501.1500 6.4-8.2 g/dL Normal T PROT 7.6 LAB L501.1800 3.2-5.0 g/dL Normal ALB 4.1 LAB L501.1950 2.2-4.2 g/dL Normal GLOB 3.5 LAB L501.4100 15-37 U/L Normal AST 26 LAB L501.4305 45-117 U/L Normal ALK P 70 LAB L501.4405 16-61 U/L Normal ALT 45 LAB L501.4600 0.20-1.00 mg/dL Normal T BILI 0.50 LAB L501.4700 0.00-0.30 mg/dL Normal D BILI 0.17 Performed By: #### L500.3400, L500.4100 #### [facility] [address] [place], [address] LIPID PROFILE Collected: 03/19/2018 Status: F Source: [place] 10:55 AM [facility] REPOSITORY TYPE CODE TESTS RESULT OUT OF RANGE REFERENCE UNITS LAB L501.4900 200 mg/dL Normal CHOL 150 Result Comment: <200 mg/dL Desirable 200-240 mg/dL Borderline >240 mg/dL High Risk LAB L501.5000 mg/dL Normal TRIG 97 Result Comment: The drugs N-Acetylcysteine and Metamizole may falsely depress this assay. Serum Triglycerides Reference Interval Normal <150 mg/dL Borderline high 150 - 199 mg/dL High 200 - 499 mg/dL Very High > or = 500 mg/dL LAB L501.6400 mg/dL Normal HDL 84 Result Comment: The drugs N-Acetylcysteine and Metamizole may falsely depress this assay. Reference Range HDL <40 mg/dL Low HDL Cholesterol HDL >or= 60 mg/dL High HDL Cholesterol LAB L501.6500 0-130 mg/dL Normal LDL 47 LAB L501.6600 5-40 mg/dL Normal VLDL 19 Performed By: #### L500.3400, L500.4100 #### [facility] [address] [place], [address] ONCOLOGY VISIT REPORT Observed: 03/16/2018 Status: F Source: [place] 9:23 AM [facility] REPOSITORY [facility] [address] [place] [address] OFFICE VISIT Date of Service: 03/16/18912 MR#: [id number] Acct: [id number] Name: TOMÁS MOSLEY Rep #: [id number] : 1940 From: Ian Corea MD Age/Sex: 77/M Location: OMD Status: Signed Subjective - Date of Service Date of Service:: 03/16/18 - Chief Complaint F/U for chemotherapy. - History of Present Illness Mr. Tomás Mosley is a pleasant 77y.o.man who presented with chronic cough, CTA 08/11/16 revealed right pleural based mass/effusion. He underwent a CT guided biopsy on 08/28/2016 under the care of Dr. An which showed poorly differentiated NSCLC, of adenocarcinoma histology. PET/CT 09/29/16 showed hypermetabolic activity in the carinal- subcarinal mediastinum, right infrahilar region measuring 2.1 cm, SUV 7.1 and throughout right hemithorax SUV 10.5. CT brain obtained 09/29/16 demonstrated no evidence of metastatic disease. Lung sequence could not be performed d/t inadequate amount of tissue from original biopsy. Proposed patient begin Cisplatin/Alimta on 10/09/16, however patient elected to hold until second biopsy could be obtained to allow for lung sequencing and more specific diagnosis. Final lung sequencing showed negative EGFR, ALK, ROS1 AND BRAF. Thus, he began Carboplatin/Alimta/Keytruda on 11/05/16. He developed peripheral edema, given Lasix then developed ulcers on the R feet so 2nd cycle is delayed. He was found to have Peripheral vascular disease and had angioplasty and stenting of R femoral artery done on 01/01/2017. CT chest on 01/15/2017 showed partial response with decrease in the pleural based nodules. Chemotherapy was held because of peripheral Vascular disease and leg ulcers, since healed. PET/CT 01/18/18 showed progressive disease-mediastinal node. Began palliative carboplatin, pemetrexed and pembrolizumab on 01/26/18, 2nd cycle was delayed one week because of Neutropenia-ANC 1.2. CT chest on 03/03/2018 showed Partial response with decrease in pretracheal node. He comes in for 3rd cycle. - Past Medical/Social History Past Medical History Past Medical History: Edema,Heart disease,Hypertension Other Past Medical History: PERIPHERAL VASCULAR DISEASE Cancer: Lung cancer Past Surgical History Surgical: Appendectomy,Pacemaker Other Surgical History: PORT PLACEMENT CARDIAC CATH PERFORATED ULCER ANGIOPLASTI/STENT abdominal anerysm right foot ulcer debridement dr. cid rt leg arteriogram, rt femoral artery stents dr ulloa Dec 2016 Family History Paternal Past Medical History: Unknown Maternal Past Medical History: Heart disease Social History Social History: No changes Smoking Status Former smoker Review of Systems Constitutional:: Denies: Fever, Sweats, Weight loss, Appetite change, Chills Cardiovascular:: Denies: Chest pain, Palpitations, Dyspnea on exertion, Orthopnea, PND, Shortness of breath Respiratory: Denies: Cough, Hemoptysis, Shortness of Breath, Wheezing Gastrointestinal:: Denies: Abdominal pain, Nausea, Vomiting, Diarrhea, Constipation, Hematochezia Genitourinary: Denies: Dysuria, Hematuria, 15, Flank pain Musculoskeletal:: Denies: Back pain, Myalgia, Arthralgia Skin: Denies: Rash, Skin Changes, Wounds Neurological:: Denies: Headache, Dizziness, Visual changes, Tinnitus, Hearing loss Psychiatric: Denies: Anxiety, Depression, Homicidal Ideations, Suicidal Ideations Vital Signs Height 5 ft 7 in Weight: 92.351 kg Weight in Pounds 203.6 lbs Pulse Ox 98 - Physical Exam General: - - Port R IC area. HEENT: Atraumatic, PERRLA, EOMI, Normocephalic Oropharynx:: Dry mucosa Neck:: Supple, Trachea midline. Negative for: JVD, bilateral Cardiac:: Regular rate, Regular rhythm, Normal S1, Normal S2. Negative for: Murmur Lungs: Clear to auscultation, Excusion symmetrical. Negative for: Rhonchi, Wheezes Abdomen:: Bowel sounds x 4, Soft, Non-tender, Non-distended. Negative for: Hepatosplenomegaly Extremities:: Negative for: Cyanosis, Edema Neurological: Neuro grossly intact Skin:: Negative for: Lesions, Rash, Petechiae, Ecchymosis Psychiatric:: Appropriate affect, Euthymic Lymphatics:: Negative for: Cervical lymphadenopathy, Supraclavicular lymphadenopathy, Axillary lymphadenopathy Laboratory Data: Laboratory Tests Diagnostic Data: Diagnostic Data PET, CT Tumor Imaging 01/18/18 10:48 IMPRESSION: 1. ABNORMAL EXAMINATION INDICATIVE OF MALIGNANT VIABLE NEOPLASM. 2. Increased glucose concentration persistently defined in the carinal level mediastinum fulfills quantitative criteria for viable neoplasm. 3. Enhanced FDG concentration currently defined in the right upper medial hemithorax pleural interface does not fulfill quantitative criteria for viable pleural neoplasm. (Barbour, et al, Chest 122:1918, 2002). 4. Facilitated radiopharmaceutical concentration noted in the lower pelvis contiguous to prostate gland to the right of the midline may warrant further investigation with magnetic resonance imaging or potentially 18F-fluciclovine PET-CT scintigraphy. (Ben et al, Journal of Nuclear Medicine 55:1986, 2014). 5. There is interim metabolic resolution of the prior defined mediastinal and right thoracic perihilar, right hemithorax pleural interface hypermetabolic foci. Electronic Signature Heber Bardales D.O. Electronically Signed: Heber Bardales DO at 13:49 EDT Tel , Service support , Assessment and Plan NSCLC adenocarcinoma stage IV, Partial Response to 1 cycle of Carboplatin, Alimta and Keytruda so did observation. PET/CT showed progressive disease-mediastinal node. Restarted Carboplatin/Alimta/Keytruda, due for 3rd cycle, Partial response. Counts OK. Plan is to proceed with Carboplatin/Alimta/Keytruda C3. Will do additional 2 more cycles then reassess with CT. RTC 2 weeks with CBC/CMP/Mag for Toxicity check. Medications: Prescriptions This Visit Medication Instructions Recorded Primary Care Provider: Niko Sampson MD Referring Provider: - Problem List (1) Non-small cell carcinoma of right lung, stage 4 Status: Chronic (2) Chemotherapy management, encounter for Status: Acute Code Visit Office Visits / Consults: [id number] OV L5 Est 03/16/18 0923 <Electronically signed by Ian Corea MD> Date Ian Corea MD Cosigner Signature: Date (if applicable) CC: CBC W/DIFF, AUTOMATED Collected: 03/16/2018 Status: F Source: [place] 8:22 AM [facility] REPOSITORY TYPE CODE TESTS RESULT OUT OF RANGE REFERENCE UNITS LAB L100.1000 4.4-11.0 K/mm3 Low WBC 4.2 LAB L100.1200 4.6-6.2 M/mm3 Low RBC 4.39 LAB L100.1300 13.0-16.5 g/dl Normal HGB 13.0 LAB L100.1400 40-54 % Normal HCT 41.2 LAB L100.1500 80-94 fL Normal MCV 93.8 LAB L100.1600 27.0-32.0 pg Normal MCH 29.6 LAB L100.1700 32-36 g/gl Low MCHC 31.6 LAB L100.1810 11.6-14.6 % High RDW CV 17.0 LAB L100.1820 35.1-43.9 fl High RDW SD 56.8 LAB L100.1900 150-450 K/mm3 Normal PLT 266 LAB L100.2000 6.2-12.0 fl Normal MPV 8.6 LAB L100.2100 47-70 % Low NEUT% 44.4 LAB L100.2200 19-41 % Normal LY% 24.1 LAB L100.2300 0-10 % High MONO% 30.4 LAB L100.2400 0-5 % Normal EO% 0.2 LAB L100.2500 0-1 % Normal BASO% 0.2 LAB L100.2550 0.0-0.9 % Normal IM GRAN % 0.700 Result Comment: IG% - Immature Granulocytes (promyelocytes, myelocytes and metamyelocytes) > 1% indicates that a LEFT SHIFT is Present. LAB L100.2620 2.0-7.7 X10 3/uL Low Absolute Neut 1.9 LAB L100.2720 0.83-4.51 X10 3/ul Normal Absolute Lymph 1.02 Performed By: #### L100.0100 #### [facility] [address] [place], [address] COMPREHENSIVE METABOLIC Collected: 03/16/2018 Status: F Source: [facility] 8:22 AM [facility] REPOSITORY Order Comment: Reason for Laboratory Test Chemotherapy Reason for Laboratory Test CHEMOTHERAPY TYPE CODE TESTS RESULT OUT OF RANGE REFERENCE UNITS LAB L501.0100 74-106 mg/dL Normal GLU 104 Result Comment: Fasting Glucose result from 100 to 125 mg/dL suggests IMPAIRED HOMEOSTASIS per A.D.A. criteria. Please note revised GLUCOSE reference range effective 2017. LAB L501.1000 7-18 mg/dL High BUN 39 LAB L501.1100 0.70-1.30 mg/dL Normal CREAT,SERUM 1.26 Result Comment: The validity of the calculated GFR AND GFRAA in patients over 70 years has not been determined. Clinical correlation is essential. LAB L501.1110 >60 mL/min Low EST GFR 59 Result Comment: Non- GFR Calc LAB L501.1115 >60 mL/min Normal EST GFR - AA 71 Result Comment: GFR Calc LAB L501.1255 ml/min Normal Estimated CRCL 46.63 LAB L501.1300 10-20 RATIO High BUN/CRE 31.0 LAB L501.1500 6.4-8. g/dL Normal 2 T PROT 7.3 LAB L501.1800 3.2-5. g/dL Normal 0 ALB 3.7 LAB L501.1950 2.2-4. g/dL Normal 2 GLOB 3.6 LAB L501.2000 0.9-2. RATIO Normal 4 A/G 1.0 LAB L501.2200 8.5-10 mg/dL Normal .1 CA 8.7 LAB L501.4100 15-37 U/L Normal AST 24 LAB L501.4305 45-117 U/L Normal ALK P 83 LAB L501.4405 16-61 U/L Normal ALT 51 LAB L501.4600 0.20-1 mg/dL Normal .00 T BILI 0.20 LAB L501.5300 136-14 mmol/L Normal 5 NA 139 LAB L501.5600 3.5-5. mmol/L Normal 1 K 4.6 LAB L501.5900 98-107 mmol/L Normal CL 107 LAB L501.6100 21.0-3 mmol/L Normal 2.0 CO2 24.0 LAB L501.6200 5-15 Normal GAP 8 Performed By: #### L500.4050, L501.2300, L501.9520 #### [facility] [address] [place], [address] PHOSPHORUS Collected: 03/16/2018 Status: F Source: MERT 8:22 AM [facility] REPOSITORY Order Comment: Reason for Laboratory Test Chemotherapy Reason for Laboratory Test CHEMOTHERAPY TYPE CODE TESTS RESULT OUT OF RANGE REFERENCE UNITS LAB L501.2300 2.5-4.9 mg/dL Normal PHOS 2.8 Performed By: #### L500.4050, L501.2300, L501.9520 #### [facility] [address] [place], [address] THYROID STIM HORMONE Collected: 03/16/2018 Status: F Source: SAPPHIRE (TSH) 8:22 AM [facility] REPOSIT[facility] Order Comment: Reason for Laboratory Test Chemotherapy Reason for Laboratory Test CHEMOTHERAPY TYPE CODE TESTS RESULT OUT OF RANGE REFERENCE UNITS LAB L501.9520 0.358-3.74 uIU/mL Normal TSH 3.72 Performed By: #### L500.4050, L501.2300, L501.9520 #### [facility] [address] [place], [address] CARDIOLOGY VISIT Observed: 03/12/2018 Status: F Source: [facility] REPORT 11:23 AM [facility] REPOSIT[facility] [address] [place] [address] OFFICE VISIT Date of Service: 03/12/18 MR#: [id number] Acct: [id number] Name: TOMÁS MOSLEY Rep #: [id number] : 1940 Provider: Flash Gaytan MD Age/Sex: 77/M [place] [facility] [place] Signed HPI HPI Chief Complaint: Routine follow up Details: Mr Mosley is a very pleasant 77-year-old gentleman. He is returning for followup of his coronary artery disease and atrial fibrillation status post AV junctional ablation and permanent pacemaker with history of resolved Ischemic cardiomyopathy. Mr. Mosley underwent a CT scan of his abdomen which showed a 4.9 cm fusiform infrarenal abdominal aortic aneurysm which was an increase in size from his previous ultrasound of a year ago measuring 4.1 cm. He apparently was evaluated by Dr. Ulloa who recommended endovascular repair. in anticipation of his endovascular repair, he underwent a stress echocardiogram and echocardiogram on 03/24/12. At that time he had no new ischemic territories his LVEF was 50%. The patient underwent successful aortoiliac stent grafting at that time. Recently, on 11/16/14 the patient presented with abdominal pain and acute suppurative appendicitis. He underwent urgent surgical correction by Dr. Ulloa and has been doing well ever since. He denies any abdominal pain. From a cardiac standpoint he denies any chest pain, angina, shortness of breath or dyspnea on exertion. Unfortunately, despite his plethora of endovascular disease, he continues to smoke about 1 pack of cigarettes per day. He had been smoking about 1 pack for the past 55 years, and in fact has quit smoking completely for over 1 year. He denies any lightheadedness, dizziness, presyncope or syncopal episodes. He is taking and tolerating his medicines well. patient recently had his appendix repaired, as well as his pacemaker generator change. In addition Dr. Ulloa has placed a AAA endovascular stent, as well as more recently performed lower extremity angioplasty and stenting after the patient developed sores on his heels, and a nonhealing ulcer, and his claudication symptoms have markedly improved. 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 He has successfully quit smoking about 6 months ago. Patient continues to undergo chemotherapy every 3 weeks, followed by CAT scans. He denies any exertional chest pain, angina, shortness of breath presyncope or syncope. In our office today his blood pressure is 90/60, and pulse is 72 and regular. His physical exam is as below. He has no edema. His lipids as of 12/2014 showed an HDL of 50 and LDL of 55. His lipids as of August 2015 show an LDL 65 and HDL of 45. His lipids as of 03/09/17 show an LDL of 29 and HDL of 53. Intake Vital Signs03/12/18 Height 5 ft 7 in 03/12/18 Weight: 203 lb 03/12/18 Body Mass Index (BMI) 31.8 03/12/18 Blood Pressure 90/60 Intake Visit Reasons: 6 M FU Russet Repairer Required: No Accompanied by: Is patient in pain?: No Allergies morphine Adverse Reaction (Severe, Verified 03/12/18 11:05) HALLUCINATIONS amiodarone Adverse Reaction (Unknown, Verified 03/12/18 11:05) Unknown Medications Aspirin E.C. [Ecotrin] 81 mg PO DAILY@0800 11/15/14 [History Confirmed 03/12/18] rosuvastatin 40 mg tablet 40 mg PO DAILY #90 tab 07/14/17 [Rx Confirmed 03/12/18] warfarin 6 mg tablet 6 mg PO 6XW #90 tab 07/20/17 [Rx Confirmed 03/12/18] lisinopril 10 mg tablet 10 mg PO BID #180 tab 08/17/17 [Rx Confirmed 03/12/18] metoprolol succinate ER 100 mg tablet,extended release 24 hr 50 mg PO DAILY #90 tab 08/17/17 [Rx Confirmed 03/12/18] potassium chloride ER 20 mEq tablet,extended release(part/cryst) 20 meq PO DAILY #90 tab 12/21/17 [Rx Confirmed 03/12/18] Dexamethasone [Decadron] 4 mg PO BIDCM #30 tab 01/21/18 [Rx Confirmed 03/08/18] Folic Acid 1 mg PO DAILY@0800 #90 tab 01/21/18 [Rx Confirmed 03/12/18] furosemide 40 mg tablet 40 mg PO DAILY #180 tab 01/25/18 [Rx Confirmed 03/12/18] nitroglycerin 0.1 mg/hr transdermal 24 hour patch 0.1 mg TRANSDERMAL DAILY #90 ea 02/10/18 [Rx Confirmed 03/12/18] ranitidine 150 mg tablet 150 mg PO BID #180 tab 03/04/18 [Rx Confirmed 03/12/18] Lidocaine/Prilocaine [Lidocaine-Prilocaine Cream] 30 gm TP DAILY #1 tube 03/08/18 [Rx Confirmed 03/12/18] Lactobacillus rhamnosus GG 10 billion cell capsule 1 cap PO DAILY 03/12/18 [History Confirmed 03/12/18] PFSH Medical History Secondary pulmonary arterial hypertension (Chronic) AAA (abdominal aortic aneurysm) (Chronic) Atrial flutter (Chronic) Atherosclerotic heart disease of [place] coronary artery without angina pectoris (Chronic) Hyperthyroidism (Chronic) Chronic systolic congestive heart failure (Chronic) Pleural effusion (Chronic) PVD (peripheral vascular disease) (Chronic) Chronic atrial fibrillation (Chronic) Cardiomyopathy, ischemic (Chronic) Atrioventricular block, complete (Chronic) Hyperlipidemia (Chronic) Hypertension (Chronic) longterm (current) use of anticoagulants (Chronic) Perforated ulcer (Acute) RIGHT FOOT ULCER DEBRIDEMENT (Acute) s/p apll (Acute 03/10/17) Surgical History H/O endovascular stent graft for abdominal aortic aneurysm (Chronic) History of coronary artery stent placement (Chronic 03/01/01) Presence of cardiac pacemaker (Chronic) H/O angioplasty (Chronic) History of appendectomy (Chronic) Hx of cardiac cath (Chronic) MED PORT PLACEMENT (Chronic) STENT FEMORAL ARTERY (Chronic) Family History Mother Hypertension CAD (coronary artery disease) Myocardial infarction Brother Sudden cardiac Brother Sudden cardiac CAD (coronary artery disease) CABG Social History Smoking Status: Former smoker ROS Const Const: Positive for other (Feels well, is undergoing chemo for lung cancer per Dr. Scales); negative for weakness, body ache, fever(s), chills, frequent falls, night sweats, daytime sleepiness, difficulty sleeping, weight gain, weight loss, increased appetite, poor appetite, anorexia, fatigue, excessive sweating or headache(s) Eyes Eyes: Negative for blind spots, loss of peripheral vision, transient loss of vision, blurry vision, change in vision, double vision, floaters, tunnel vision or other ENT ENT: Negative for headache(s), tongue swelling, lip swelling or balance problems Cardio Chest Pain: No Palpitations: No Edema: None Muscle aches with walking: None Resp Respiratory: Positive for SOB with activity (Not too bad, just a little); negative for SOB at rest, SOB orthopnea\SOB lying down, Cough, Coughing up blood/hemoptysis, chest congestion, pain on inspiration, snoring, stridor, wheezing, crackles, paroxysmal nocturnal dyspnea or other GI GI: Negative nausea, vomiting, heartburn, constipation, belching, bloating, cramping, vomiting blood/hematemesis, bright, red blood in stools, black,tarry stools, loose stools, Difficulty Swallowing or other : Negative for hematuria, frequent nighttime urination/ nocturia, erectile dysfunction or abnormal vaginal bleeding Musc Musc: Negative for muscle aches/ myalgia, muscle weakness, joint pain or balance problems Skin Skin: Negative redness, non-healing lesions, rash, unusual bruising, skin ulcer, wounds, jaundice or other Neuro Neuro: Positive for other (Uses cane for balance); negative for weakness, frequent falls, blurry vision, double vision or headache(s) Vladimir Hematologic/Lymphatic: Negative for easy bleeding, easy bruising, enlarged lymph nodes or other Endo Endo: Negative for fatigue or excessive sweating Psych Psych: Negative for anxiety, depression, thoughts of harming anyone, thoughts of harming yourself, visual hallucinations, panic attacks or audible hallucinations Allergy Allergy/Immunology: Negative for throat swelling, Negative for hives, Negative for tongue swelling, Negative for lip swelling, Negative for rash Cardiology Exam Const Appearance: cooperative, healthy appearing and no acute distress Nutritional Appearance: well nourished Orientation: alert, oriented x3 and oriented to person Head Head: normal to inspection, atraumatic and normocephalic Nose: external nose normal Face and Sinus: face symmetric Mouth: oral mucosae normal Eyes General: appearance normal, both eyes and all related structures Eyelids: eyelids normal Conjunctivae: conjunctivae normal Pupils: PERRL and normal by confrontation EOM: EOM intact bilaterally Neck Neck: normal visual inspection and full ROM Carotids: normal carotid upstroke Chest Chest inspection: normal inspection of the chest Auscultation: Bilateral: Clear to Auscultation Cardio Palpation: normal PMI Rate: regular rate Rhythm: regular rhythm Heart sounds: S1 normal and S2 normal GI GI: normal to inspection, no hepatosplenomegaly and bowel sounds present Neuro General: alert, oriented x3, awake, CN's II-XI intact bilaterally and moves all extremities Skin Skin: no rashes or lesions noted Extremities Pulses: Normal: Right Femoral Pulse, Left Femoral Pulse, Right Dorsalis Pedis Pulse, Left Dorsalis Pedis Pulse, Right Posterior Tibial Pulse, Left Posterior Tibial Pulse, Right Radial Pulse, Left Radial Pulse Lower Extremity Edema: None: Bilateral Psych Psychological: normal affect Assessment AND Plan 1. Atherosclerotic heart disease of [place] coronary artery without angina pectoris I25.10 Plan 1. Coronary artery disease: No exertional anginal symptoms at this time. No indication for any additional stress testing. I have recommended the patient undergo a repeat echocardiogram given his cardiomyopathy, pulmonary hypertension, and ongoing chemotherapy to document his LV function. His most recent echocardiogram was on 11/13/16, which showed mild global LV dysfunction with an EF of 50%, and RVSP of 41 mmHg. The patient has had a significant reduction in his LV function, he may require adjustment to his chemotherapy. If however he does remain the same, he can proceed with ongoing chemotherapy. Orders Orders: 2. Hyperlipidemia, unspecified hyperlipidemia type E78.5 Plan 2. Hyperlipidemia: We are awaiting a repeat lipid profile. Patient has no myalgias. Continue Crestor. 3. Atrial fibrillation: Patient is status post ablation therapy followed by pacemaker therapy with chronic background atrial fibrillation. Continue Coumadin therapy. His pacemaker is monitored by Marilyn on a regular basis. 4. Return office in 6 months. This note was generated using a voice recognition system and there may be incorrect words, spelling or punctuation that were not noted when reviewing the office note prior to saving. Orders Orders: Plan Detail Other Orders Orders: Follow Up +6M (Michael) Coding Level of Care Code Off vis,est,level 3 Diagnoses Atherosclerotic heart disease of [place] coronary artery without angina pectoris I25.10 Hyperlipidemia, unspecified hyperlipidemia type E78.5 Hyperlipidemia type: unspecified Coding Level of Care Code Off vis,est,level 3 Diagnoses Atherosclerotic heart disease of [place] coronary artery without angina pectoris I25.10 Hyperlipidemia, unspecified hyperlipidemia type E78.5 Hyperlipidemia type: unspecified 03/12/18 1123 <Electronically signed by Flash Gaytan MD> Date Flash Gaytan MD Cosigner Signature: Date (if applicable) CC: Niko Sampson MD ONCOLOGY VISIT REPORT Observed: 03/08/2018 Status: F Source: [facility]IRE 5:20 PM [facility] REPOSIT[facility] [address] [place] [id number] OFFICE VISIT Date of Service: 03/08/18 1135 MR#: [id number] Acct: [id number] Name: TOMÁS MOSLEY Rep #: [id number] : 1940 From: Ian Corea MD Age/Sex: 77/M Location: [facility] Status: Signed Subjective - Date of Service Date of Service:: 03/08/18 - Chief Complaint F/U for toxicity check and CT results. - History of Present Illness Mr. Tomás Mosley is a pleasant 77y.o.man who presented with chronic cough, CTA 08/11/16 revealed right pleural based mass/effusion. He underwent a CT guided biopsy on 08/28/2016 under the care of Dr. An which showed poorly differentiated NSCLC, of adenocarcinoma histology. PET/CT 09/29/16 showed hypermetabolic activity in the carinal- subcarinal mediastinum, right infrahilar region measuring 2.1 cm, SUV 7.1 and throughout right hemithorax SUV 10.5. CT brain obtained 09/29/16 demonstrated no evidence of metastatic disease. Lung sequence could not be performed d/t inadequate amount of tissue from original biopsy. Proposed patient begin Cisplatin/Alimta on 10/09/16, however patient elected to hold until second biopsy could be obtained to allow for lung sequencing and more specific diagnosis. Final lung sequencing showed negative EGFR, ALK, ROS1 AND BRAF. Thus, he began Carboplatin/Alimta/Keytruda on 11/05/16. He developed peripheral edema, given Lasix then developed ulcers on the R feet so 2nd cycle is delayed. He was found to have Peripheral vascular disease and had angioplasty and stenting of R femoral artery done on 01/01/2017. CT chest on 01/15/2017 showed partial response with decrease in the pleural based nodules. Chemotherapy was held because of peripheral Vascular disease and leg ulcers, since healed. PET/CT 01/18/18 showed progressive disease-mediastinal node. Began palliative carboplatin, pemetrexed, pembrolizumab on 01/26/18, 2nd cycle was delayed one week because of Neutropenia-ANC 1.2. He comes in for 3rd cycle after CT chest. - Past Medical/Social History Past Medical History Past Medical History: Edema,Heart disease,Hypertension Other Past Medical History: PERIPHERAL VASCULAR DISEASE Cancer: Lung cancer Past Surgical History Surgical: Appendectomy,Pacemaker Other Surgical History: PORT PLACEMENT CARDIAC CATH PERFORATED ULCER ANGIOPLASTI/STENT abdominal anerysm right foot ulcer debridement dr. cid rt leg arteriogram, rt femoral artery stents dr ulloa Dec 2016 Family History Paternal Past Medical History: Unknown Maternal Past Medical History: Heart disease Social History Social History: No changes Smoking Status Former smoker Review of Systems Constitutional:: Denies: Fever, Sweats, Weight loss, Appetite change, Chills Cardiovascular:: Denies: Chest pain, Palpitations, Dyspnea on exertion, Orthopnea, PND, Shortness of breath Respiratory: Denies: Cough, Hemoptysis, Shortness of Breath, Wheezing Gastrointestinal:: Denies: Abdominal pain, Nausea, Vomiting, Diarrhea, Constipation, Hematochezia Genitourinary: Denies: Dysuria, Hematuria, 15, Flank pain Musculoskeletal:: Denies: Back pain, Myalgia, Arthralgia Skin: Denies: Rash, Skin Changes, Wounds Neurological:: Denies: Headache, Dizziness, Visual changes, Tinnitus, Hearing loss Psychiatric: Denies: Anxiety, Depression, Homicidal Ideations, Suicidal Ideations Vital Signs Height 5 ft 7 in Weight: 92.986 kg Weight in Pounds 205.0 lbs Pulse Ox 92 - Physical Exam General: Alert, Oriented x3, No apparent distress, - - port R IC area HEENT: Atraumatic, PERRLA, EOMI, Normocephalic Oropharynx:: Dry mucosa Neck:: Supple, Trachea midline. Negative for: JVD, bilateral Cardiac:: Regular rate, Regular rhythm, Normal S1, Normal S2. Negative for: Murmur Lungs: Clear to auscultation, Excusion symmetrical. Negative for: Rhonchi, Wheezes Abdomen:: Bowel sounds x 4, Soft, Non-tender, Non-distended. Negative for: Hepatosplenomegaly Lymphatics:: Negative for: Cervical lymphadenopathy, Supraclavicular lymphadenopathy, Axillary lymphadenopathy Laboratory Data: Laboratory Tests WBC 5.3 (4.4-11.0) K/mm3 Diagnostic Data: Diagnostic Data PET, CT Tumor Imaging 01/18/18 10:48 IMPRESSION: 1. ABNORMAL EXAMINATION INDICATIVE OF MALIGNANT VIABLE NEOPLASM. 2. Increased glucose concentration persistently defined in the carinal level mediastinum fulfills quantitative criteria for viable neoplasm. 3. Enhanced FDG concentration currently defined in the right upper medial hemithorax pleural interface does not fulfill quantitative criteria for viable pleural neoplasm. (Barbour, et al, Chest 122:1918, 2002). 4. Facilitated radiopharmaceutical concentration noted in the lower pelvis contiguous to prostate gland to the right of the midline may warrant further investigation with magnetic resonance imaging or potentially 18F-fluciclovine PET-CT scintigraphy. (Ben et al, Journal of Nuclear Medicine 55:1986, 2014). 5. There is interim metabolic resolution of the prior defined mediastinal and right thoracic perihilar, right hemithorax pleural interface hypermetabolic foci. Electronic Signature Heber Bardales D.O. Electronically Signed: Heber Bardales DO at 13:49 EDT Tel , Service support , 03/03/2018 CT/Chest WITH Contrast IMPRESSION: 1. 2.05 cm precarinal soft tissue mass correlating to the hypermetabolic lesion on recent PET/CT is unchanged. This is decreased in size since December 2017, however. 2. Atherosclerotic vascular calcifications again noted. There is an endovascular stent in the infrarenal abdominal aorta. 3. Chemotherapy port and dual-lead left subclavian cardiac pacemaker are again noted. 4. Stable multilevel compression fracture deformities of the thoracic spine as well as old healed bilateral rib fractures. 5. Stable 1 cm right middle lobe calcified granuloma and focal calcified granuloma in the left lower lobe. 6. Stable bilateral renal cortical cysts. Electronically Signed: Maxime Hercules MD at 8:38 EST Assessment and Plan NSCLC adenocarcinoma stage IV, Partial Response to 1 cycle of Carboplatin, Alimta and Keytruda. PET/CT showed progressive disease-mediastinal node. Restarted Carboplatin/Alimta/Keytruda, due for 2nd cycle, Partial response. Counts OK. Plan is to proceed with Carboplatin/Alimta/Keytruda C3. Will do additional 2 cycles [address]ess with CT. RTC 2 weeks with CBC/CMP/Mag for Toxicity check. Medications: Prescriptions This Visit Medication Instructions Recorded Dexamethasone [Decadron] 4 mg PO BIDCM #30 tablet 01/21/18 Primary Care Provider: Niko Sampson MD Referring Provider: - Problem List (1) Non-small cell carcinoma of right lung, stage 4 Status: Chronic (2) Chemotherapy management, encounter for Status: Acute Code Visit Office Visits / Consults: [id number] OV L5 Est 03/08/18 1720 <Electronically signed by Ian Corea MD> Date Ian Corea MD Cosigner Signature: Date (if applicable) CC: PROTHROMBIN TIME W/INR Collected: 03/08/2018 Status: F Source: [facility] 9:52 AM [facility] REPOS[facility] TYPE CODE TESTS RESULT OUT OF RANGE REFERENCE UNITS LAB L300.4150 11.7-14.9 SECONDS High PROTIME 29.9 LAB L300.4200 Normal INR 2.8 Performed By: #### L300.3900 #### [facility] [address] [place], [address] CBC W/DIFF, AUTOMATED Collected: 03/08/2018 Status: F Source: [facility] 9:51 AM [facility]POSIT[facility] Order Comment: Reason for Laboratory Test . TYPE CODE TESTS RESULT OUT OF RANGE REFERENCE UNITS LAB L100.1000 4.4-11.0 K/mm3 Normal WBC 5.3 LAB L100.1200 4.6-6.2 M/mm3 Low RBC 4.39 LAB L100.1300 13.0-16.5 g/dl Low HGB 12.7 LAB L100.1400 40-54 % Normal HCT 40.5 LAB L100.1500 80-94 fL Normal MCV 92.3 LAB L100.1600 27.0-32.0 pg Normal MCH 28.9 LAB L100.1700 32-36 g/gl Low MCHC 31.4 LAB L100.1810 11.6-14.6 % High RDW CV 16.1 LAB L100.1820 35.1-43.9 fl High RDW SD 53.1 LAB L100.1900 150-450 K/mm3 Low PLT 59 LAB L100.2000 6.2-12.0 fl Normal MPV 10.1 LAB L100.2100 47-70 % High NEUT% 73.3 LAB L100.2200 19-41 % Low LY% 12.4 LAB L100.2300 0-10 % High MONO% 13.7 LAB L100.2400 0-5 % Normal EO% 0.2 LAB L100.2500 0-1 % Normal BASO% 0.0 LAB L100.2550 0.0-0.9 % Normal IM GRAN % 0.400 Result Comment: IG% - Immature Granulocytes (promyelocytes, myelocytes and metamyelocytes) > 1% indicates that a LEFT SHIFT is Present. LAB L100.2620 2.0-7.7 X10 3/uL Normal Absolute Neut 3.9 LAB L100.2720 0.83-4.51 X10 3/ul Low Absolute Lymph 0.66 Performed By: #### L100.0100 #### [facility] [address] [place], [address] COMPREHENSIVE METABOLIC Collected: 03/08/2018 Status: F Source: MERT PACK 9:51 AM [facility] REPOSIT[facility] Order Comment: Reason for Laboratory Test . TYPE CODE TESTS RESULT OUT OF RANGE REFERENCE UNITS LAB L501.0100 74-106 mg/dL High GLU 108 Result Comment: Fasting Glucose result from 100 to 125 mg/dL suggests IMPAIRED HOMEOSTASIS per A.D.A. criteria. Please note revised GLUCOSE reference range effective 2017. LAB L501.1000 7-18 mg/dL High BUN 45 LAB L501.1100 0.70-1.30 mg/dL Normal CREAT,SERUM 1.09 Result Comment: The validity of the calculated GFR AND GFRAA in patients over 70 years has not been determined. Clinical correlation is essential. LAB L501.1110 >60 mL/min Normal EST GFR 70 Result Comment: Non- GFR Calc LAB L501.1115 >60 mL/min Normal EST GFR - AA 85 Result Comment: GFR Calc LAB L501.1255 ml/min Normal Estimated CRCL 53.90 LAB L501.1300 10-20 RATIO High BUN/CRE 41.3 LAB L501.1500 6.4-8. g/dL Normal 2 T PROT 7.1 LAB L501.1800 3.2-5. g/dL Normal 0 ALB 3.6 LAB L501.1950 2.2-4. g/dL Normal 2 GLOB 3.5 LAB L501.2000 0.9-2. RATIO Normal 4 A/G 1.0 LAB L501.2200 8.5-10 mg/dL Normal .1 CA 8.6 LAB L501.4100 15-37 U/L High AST 41 LAB L501.4305 45-117 U/L Normal ALK P 79 LAB L501.4405 16-61 U/L High ALT 80 LAB L501.4600 0.20-1 mg/dL Normal .00 T BILI 0.20 LAB L501.5300 136-14 mmol/L Normal 5 NA 139 LAB L501.5600 3.5-5. mmol/L Normal 1 K 4.7 LAB L501.5900 98-107 mmol/L High CL 108 LAB L501.6100 21.0-3 mmol/L Normal 2.0 CO2 24.0 LAB L501.6200 5-15 Normal GAP 7 Performed By: #### L500.4050 #### [facility] [address] [place], [address] CHEST WITH CONTRAST Observed: 03/03/2018 Status: F Source: [facility] 7:53 AM [facility] REPOSIT[facility] [address] [place] [address] Chest WITH Contrast MR#: [id number] Acct: [id number] Name: TOMÁS MOSLEY Rep #: [id number] : 1940 M 77 From: Mono Hercules MD PCP: Niko Sampson MD Status: REG CLI Study: Chest WITH Contrast Date of Exam: 03/03/18 Exam# [id number] Ordering Dr: Ian Corea MD STUDY: CT CHEST/THORAX WITH CONTRAST REASON FOR EXAM: Male, 77 years old. Lung cancer follow-up. RADIATION DOSAGE (If Supplied By Facility): CTDIvol = ( 16.43 ) mGy, DLP = ( 739.98 ) mGycm TECHNIQUE: Transaxial imaging was performed following intravenous administration of 100mL ml of Isovue 300 contrast material. Multiplanar coronal and sagittal images were reformatted. Individualized dose optimization techniques were used for this CT. COMPARISON: CT chest with contrast December 24, 2017; PET/CT January 18, 2018. FINDINGS: The generator of a cardiac pacemaker is in the infraclavicular soft tissues of the left anterior chest wall. Leads extend to the right atrium and ventricle. Chemotherapy port hub is in the soft tissues of the right anterior chest wall, the catheter extending to the cavoatrial junction. There is a stable 1 cm calcified granuloma in the anterolateral inferior right middle lobe. 3 mm calcified granuloma seen in the posterolateral left lower lobe. There are subpleural emphysematous blebs in the posterolateral right upper lobe. Minor curvilinear scarring seen in the lateral lingula of the left lower lobe. There is no demonstrated pleural abnormality. Normal heart and pericardium. There are calcifications of the coronary arteries. Again seen is a well-defined 2.0 x 2.05 x 2.05 cm precarinal soft tissue mass correlating to the hypermetabolic lesion on PET/CT. This has decreased in size since December 24, 2017. A few other nonspecific, subcentimeter mediastinal lymph nodes are also present. Normal hilar regions. Normal enhanced pulmonary arteries. There is atherosclerotic calcification of the aortic arch, proximal brachiocephalic arteries, and descending thoracic aorta. There are multi-level degenerative changes of the thoracic spine. There are stable severe compression fractures of the T7 and T8 vertebra, mild depression of the superior T4 and T5 vertebral endplate, minor depression of the inferior T9 vertebral endplate, and mild anterior wedging of the T10 vertebra. There are old healed right 4-9 rib fractures as well as old healed fracture deformities of the left lateral seventh-eighth ribs. There is a stable exophytic 2.5 x 2.0 x 2.1 cm cortical cyst at the medial upper pole of the right kidney. 2 cortical cysts are again seen at the midpole of the left kidney, each measuring approximately 2.3 x 2.5 x 2.5 cm. The gallbladder is partially contracted. Common bile duct diameter reaches 11 mm. The abdominal aorta just below the diaphragmatic hiatus is 3.1 x 3.0 cm. The upper margin of a stent graft is seen in the immediate infrarenal aorta. CT/Chest WITH Contrast IMPRESSION: 1. 2.05 cm precarinal soft tissue mass correlating to the hypermetabolic lesion on recent PET/CT is unchanged. This is decreased in size since December 2017, however. 2. Atherosclerotic vascular calcifications again noted. There is an endovascular stent in the infrarenal abdominal aorta. 3. Chemotherapy port and dual-lead left subclavian cardiac pacemaker are again noted. 4. Stable multilevel compression fracture deformities of the thoracic spine as well as old healed bilateral rib fractures. 5. Stable 1 cm right middle lobe calcified granuloma and focal calcified granuloma in the left lower lobe. 6. Stable bilateral renal cortical cysts. Electronically Signed: Maxime Hercules MD at 8:38 EST , Service support , CC: Ian Corea MD; Niko Sampson MD Bread Wrapper Operator: Signed ONCOLOGY VISIT REPORT Observed: 02/23/2018 Status: F Source: [facility] 9:36 AM [facility] REPOSITORY [facility] [address] [place], [place] [address] [address] OFFICE VISIT Date of Service: 02/23/18 0932 MR#: [id number] Acct: [id number] Name: TOMÁS MOSLEY Rep #: [id number] : 1940 From: Ian Corea MD Age/Sex: 77/M Location: OMD Status: Signed Subjective - Date of Service Date of Service:: 02/23/18 - Chief Complaint F/U for Carboplatin/pemetrexed/pembrolizumab - History of Present Illness Mr. Tomás Mosley is a pleasant 77y.o.man who presented with chronic cough, CTA 08/11/16 revealed right pleural based mass/effusion. He underwent a CT guided biopsy on 08/28/2016 under the care of Dr. An which showed poorly differentiated NSCLC, of adenocarcinoma histology. PET/CT 09/29/16 showed hypermetabolic activity in the carinal- subcarinal mediastinum, right infrahilar region measuring 2.1 cm, SUV 7.1 and throughout right hemithorax SUV 10.5. CT brain obtained 09/29/16 demonstrated no evidence of metastatic disease. Lung sequence could not be performed d/t inadequate amount of tissue from original biopsy. Proposed patient begin Cisplatin/Alimta on 10/09/16, however patient elected to hold until second biopsy could be obtained to allow for lung sequencing and more specific diagnosis. Final lung sequencing showed negative EGFR, ALK, ROS1 AND BRAF. Thus, he began Carboplatin/Alimta/Keytruda on 11/05/16. He developed peripheral edema, given Lasix then developed ulcers on the R feet so 2nd cycle is delayed. He was found to have Peripheral vascular disease and had angioplasty and stenting of R femoral artery done on 01/01/2017. CT chest on 01/15/2017 showed partial response with decrease in the pleural based nodules. Chemotherapy was held because of peripheral Vascular disease and leg ulcers, since healed. PET/CT 01/18/18 showed progressive disease-mediastinal node. Began palliative carboplatin, pemetrexed, pembrolizumab on 01/26/18, comes in for 2nd cycle. Was delayed last week because of Neutropenia-ANC 1.2. - Past Medical/Social History Past Medical History Past Medical History: Edema,Heart disease,Hypertension Other Past Medical History: PERIPHERAL VASCULAR DISEASE Cancer: Lung cancer Past Surgical History Surgical: Appendectomy,Pacemaker Other Surgical History: PORT PLACEMENT CARDIAC CATH PERFORATED ULCER ANGIOPLASTI/STENT abdominal anerysm right foot ulcer debridement dr. cid rt leg arteriogram, rt femoral artery stents dr ulloa Dec 2016 Family History Paternal Past Medical History: Unknown Maternal Past Medical History: Heart disease Social History Social History: No changes Smoking Status Former smoker Review of Systems Constitutional:: Denies: Fever, Sweats, Weight loss, Appetite change, Chills Cardiovascular:: Denies: Chest pain, Palpitations, Dyspnea on exertion, Orthopnea, PND, Shortness of breath Respiratory: Denies: Cough, Hemoptysis, Shortness of Breath, Wheezing Gastrointestinal:: Denies: Abdominal pain, Nausea, Vomiting, Diarrhea, Constipation, Hematochezia Genitourinary: Denies: Dysuria, Hematuria, 15, Flank pain Musculoskeletal:: Denies: Back pain, Myalgia, Arthralgia Skin: Denies: Rash, Skin Changes, Wounds Neurological:: Denies: Headache, Dizziness, Visual changes, Tinnitus, Hearing loss Psychiatric: Denies: Anxiety, Depression, Homicidal Ideations, Suicidal Ideations Vital Signs Height 5 ft 7 in Weight: 91.989 kg Weight in Pounds 202.8 lbs Pulse Ox 92 - Physical Exam General: Alert, Oriented x3, No apparent distress HEENT: Atraumatic, PERRLA, EOMI, Normocephalic Oropharynx:: Dry mucosa Neck:: Supple, Trachea midline. Negative for: JVD, bilateral Cardiac:: Regular rate, Regular rhythm, Normal S1, Normal S2. Negative for: Murmur Lungs: Clear to auscultation, Excusion symmetrical. Negative for: Rhonchi, Wheezes Neurological: Unsteady Gait - walking with a cane Lymphatics:: Negative for: Cervical lymphadenopathy, Supraclavicular lymphadenopathy, Axillary lymphadenopathy Laboratory Data: Laboratory Tests Diagnostic Data: Diagnostic Data PET, CT Tumor Imaging 01/18/18 10:48 IMPRESSION: 1. ABNORMAL EXAMINATION INDICATIVE OF MALIGNANT VIABLE NEOPLASM. 2. Increased glucose concentration persistently defined in the carinal level mediastinum fulfills quantitative criteria for viable neoplasm. 3. Enhanced FDG concentration currently defined in the right upper medial hemithorax pleural interface does not fulfill quantitative criteria for viable pleural neoplasm. (Barbour, et al, Chest 122:1918, 2002). 4. Facilitated radiopharmaceutical concentration noted in the lower pelvis contiguous to prostate gland to the right of the midline may warrant further investigation with magnetic resonance imaging or potentially 18F-fluciclovine PET-CT scintigraphy. (Ben et al, Journal of Nuclear Medicine 55:1986, 2014). 5. There is interim metabolic resolution of the prior defined mediastinal and right thoracic perihilar, right hemithorax pleural interface hypermetabolic foci. Electronic Signature Heber Bardales D.O. Electronically Signed: Heber Bardales DO at 13:49 EDT Tel , Service support , Assessment and Plan NSCLC adenocarcinoma stage IV, Partial Response to 1 cycle of Carboplatin, Alimta and Keytruda. PET/CT shows progressive disease-mediastinal node. Restarted Carboplatin/Alimta/Keytruda, due for 2nd cycle. Counts OK. Plan is to proceed with Carboplatin/Alimta/Keytruda C2. Obtain CT chest to assess disease status. RTC 2 weeks with CBC/CMP/Mag for Toxicity check. Medications: Prescriptions This Visit Medication Instructions Recorded Dexamethasone [Decadron] 4 mg PO BIDCM #30 tablet 01/21/18 Primary Care Provider: Niko Sampson MD Referring Provider: - Problem List (1) Non-small cell carcinoma of right lung, stage 4 Status: Chronic (2) Chemotherapy management, encounter for Status: Acute Code Visit Office Visits / Consults: [id number] OV L5 Est 02/23/18 0936 <Electronically signed by Ian Corea MD> Date Ian Corea MD Cosigner Signature: Date (if applicable) CC: CBC W/DIFF, AUTOMATED Collected: 02/23/2018 Status: F Source: [facility] 8:30 AM [facility] REPOSITORY TYPE CODE TESTS RESULT OUT OF RANGE REFERENCE UNITS LAB L100.1000 4.4-11.0 K/mm3 Normal WBC 6.2 LAB L100.1200 4.6-6.2 M/mm3 Low RBC 4.56 LAB L100.1300 13.0-16.5 g/dl Normal HGB 13.3 LAB L100.1400 40-54 % Normal HCT 42.6 LAB L100.1500 80-94 fL Normal MCV 93.4 LAB L100.1600 27.0-32.0 pg Normal MCH 29.2 LAB L100.1700 32-36 g/gl Low MCHC 31.2 LAB L100.1810 11.6-14.6 % High RDW CV 15.9 LAB L100.1820 35.1-43.9 fl High RDW SD 53.8 LAB L100.1900 150-450 K/mm3 Normal PLT 211 LAB L100.2000 6.2-12.0 fl Normal MPV 9.2 LAB L100.2100 47-70 % Normal NEUT% 51.2 LAB L100.2200 19-41 % Normal LY% 33.4 LAB L100.2300 0-10 % High MONO% 14.1 LAB L100.2400 0-5 % Normal EO% 0.2 LAB L100.2500 0-1 % Normal BASO% 0.3 LAB L100.2550 0.0-0.9 % Normal IM GRAN % 0.800 Result Comment: IG% - Immature Granulocytes (promyelocytes, myelocytes and metamyelocytes) > 1% indicates that a LEFT SHIFT is Present. LAB L100.2620 2.0-7.7 X10 3/uL Normal Absolute Neut 3.2 LAB L100.2720 0.83-4.51 X10 3/ul Normal Absolute Lymph 2.08 Performed By: #### L100.0100 #### [facility] [address], [address] COMPREHENSIVE METABOLIC Collected: 02/23/2018 Status: F Source: [facility] 8:30 AM [facility] REPOSIT[facility] Order Comment: Reason for Laboratory Test Chemotherapy Reason for Laboratory Test CHEMOTHERAPY TYPE CODE TESTS RESULT OUT OF RANGE REFERENCE UNITS LAB L501.0100 74-106 mg/dL High GLU 109 Result Comment: Fasting Glucose result from 100 to 125 mg/dL suggests IMPAIRED HOMEOSTASIS per A.D.A. criteria. Please note revised GLUCOSE reference range effective 2017. LAB L501.1000 7-18 mg/dL High BUN 35 LAB L501.1100 0.70-1.30 mg/dL Normal CREAT,SERUM 1.19 Result Comment: The validity of the calculated GFR AND GFRAA in patients over 70 years has not been determined. Clinical correlation is essential. LAB L501.1110 >60 mL/min Normal EST GFR 63 Result Comment: Non- GFR Calc LAB L501.1115 >60 mL/min Normal EST GFR - AA 76 Result Comment: GFR Calc LAB L501.1255 ml/min Normal Estimated CRCL 49.37 LAB L501.1300 10-20 RATIO High BUN/CRE 29.4 LAB L501.1500 6.4-8. g/dL Normal 2 T PROT 7.4 LAB L501.1800 3.2-5. g/dL Normal 0 ALB 3.7 LAB L501.1950 2.2-4. g/dL Normal 2 GLOB 3.7 LAB L501.2000 0.9-2. RATIO Normal 4 A/G 1.0 LAB L501.2200 8.5-10 mg/dL Normal .1 CA 8.7 LAB L501.4100 15-37 U/L Normal AST 22 LAB L501.4305 45-117 U/L Normal ALK P 90 LAB L501.4405 16-61 U/L Normal ALT 42 LAB L501.4600 0.20-1 mg/dL Normal .00 T BILI 0.30 LAB L501.5300 136-14 mmol/L Low 5 NA 135 LAB L501.5600 3.5-5. mmol/L Normal 1 K 4.8 LAB L501.5900 98-107 mmol/L Normal CL 105 LAB L501.6100 21.0-3 mmol/L Normal 2.0 CO2 26.0 LAB L501.6200 5-15 Low GAP 4 Performed By: #### L500.4050, L501.2300, L501.9520 #### [facility] [address] [facility] [place], [address] PHOSPHORUS Collected: 02/23/2018 Status: F Source: [facility] 8:30 AM [facility] REPOSITORY Order Comment: Reason for Laboratory Test Chemotherapy Reason for Laboratory Test CHEMOTHERAPY TYPE CODE TESTS RESULT OUT OF RANGE REFERENCE UNITS LAB L501.2300 2.5-4.9 mg/dL Low PHOS 2.4 Performed By: #### L500.4050, L501.2300, L501.9520 #### [facility] [address] [place], [address] THYROID STIM HORMONE Collected: 02/23/2018 Status: F Source: [facility] ([facility]) 8:30 AM [facility] REPOSITORY Order Comment: Reason for Laboratory Test Chemotherapy Reason for Laboratory Test CHEMOTHERAPY TYPE CODE TESTS RESULT OUT OF RANGE REFERENCE UNITS LAB L501.9520 0.358-3.74 uIU/mL Normal TSH 3.17 Performed By: #### L500.4050, L501.2300, L501.9520 #### [facility] [address] [place], [address] ONCOLOGY VISIT REPORT Observed: 02/16/2018 Status: F Source: [facility] 9:13 AM [facility] REPOSITORY [facility] [address] [place] [address] OFFICE VISIT Date of Service: 02/16/18 09 MR#: [id number] Acct: [id number] Name: TOMÁS MOSLEY Jacque Rep #: [id number] : 1940 From: Ian Corea MD Age/Sex: 77/M Location: OMD Status: Signed Subjective - Date of Service Date of Service:: 02/16/18 - Chief Complaint F/U for Carboplatin/pemetrexed/pembrolizumab - History of Present Illness Mr. Tomás Mosley is a pleasant 77y.o.man who presented with chronic cough, CTA 08/11/16 revealed right pleural based mass/effusion. He underwent a CT guided biopsy on 08/28/2016 under the care of Dr. An which showed poorly differentiated NSCLC, of adenocarcinoma histology. PET/CT 09/29/16 showed hypermetabolic activity in the carinal- subcarinal mediastinum, right infrahilar region measuring 2.1 cm, SUV 7.1 and throughout right hemithorax SUV 10.5. CT brain obtained 09/29/16 demonstrated no evidence of metastatic disease. Lung sequence could not be performed d/t inadequate amount of tissue from original biopsy. Proposed patient begin Cisplatin/Alimta on 10/09/16, however patient elected to hold until second biopsy could be obtained to allow for lung sequencing and more specific diagnosis. Final lung sequencing showed negative EGFR, ALK, ROS1 AND BRAF. Thus, he began Carboplatin/Alimta/Keytruda on 11/05/16. He developed peripheral edema, given Lasix then developed ulcers on the R feet so 2nd cycle is delayed. He was found to have Peripheral vascular disease and had angioplasty and stenting of R femoral artery done on 01/01/2017. CT chest on 01/15/2017 showed partial response with decrease in the pleural based nodules. Chemotherapy was held because of peripheral Vascular disease and leg ulcers, since healed. PET/CT 01/18/18 showed progressive disease-mediastinal node. Began palliative carboplatin, pemetrexed, pembrolizumab on 01/26/18, comes in for 2nd cycle. - Past Medical/Social History Past Medical History Past Medical History: Edema,Heart disease,Hypertension Other Past Medical History: PERIPHERAL VASCULAR DISEASE Cancer: Lung cancer Past Surgical History Surgical: Appendectomy,Pacemaker Other Surgical History: PORT PLACEMENT CARDIAC CATH PERFORATED ULCER ANGIOPLASTI/STENT abdominal anerysm right foot ulcer debridement dr. cid rt leg arteriogram, rt femoral artery stents dr ulloa Dec 2016 Family History Paternal Past Medical History: Unknown Maternal Past Medical History: Heart disease Social History Social History: No changes Smoking Status Former smoker Review of Systems Constitutional:: Denies: Fever, Sweats, Weight loss, Appetite change, Chills Cardiovascular:: Denies: Chest pain, Palpitations, Dyspnea on exertion, Orthopnea, PND, Shortness of breath Respiratory: Denies: Cough, Hemoptysis, Shortness of Breath, Wheezing Gastrointestinal:: Denies: Abdominal pain, Nausea, Vomiting, Diarrhea, Constipation, Hematochezia Genitourinary: Denies: Dysuria, Hematuria, 15, Flank pain Musculoskeletal:: Denies: Back pain, Myalgia, Arthralgia Skin: Denies: Rash, Skin Changes, Wounds Neurological:: Denies: Headache, Dizziness, Visual changes, Tinnitus, Hearing loss Psychiatric: Denies: Anxiety, Depression, Homicidal Ideations, Suicidal Ideations Vital Signs Height 5 ft 7 in Weight: 91.535 kg Weight in Pounds 201.8 lbs Pulse Ox 99 - Physical Exam General: Alert, Oriented x3, No apparent distress, - - port R IC area. HEENT: Atraumatic, PERRLA, EOMI, Normocephalic Oropharynx:: Dry mucosa Neck:: Supple, Trachea midline. Negative for: JVD, bilateral Cardiac:: Regular rate, Regular rhythm, Normal S1, Normal S2. Negative for: Murmur Lungs: Clear to auscultation, Excusion symmetrical. Negative for: Rhonchi, Wheezes Extremities:: Negative for: Cyanosis, Edema Neurological: Neuro grossly intact Laboratory Data: Laboratory Tests WBC 2.8 L (4.4-11.0) K/mm3 RBC 4.29 L (4.6-6.2) M/mm3 Hgb 12.7 L (13.0-16.5) g/dl Diagnostic Data: Diagnostic Data PET, CT Tumor Imaging 01/18/18 10:48 IMPRESSION: 1. ABNORMAL EXAMINATION INDICATIVE OF MALIGNANT VIABLE NEOPLASM. 2. Increased glucose concentration persistently defined in the carinal level mediastinum fulfills quantitative criteria for viable neoplasm. 3. Enhanced FDG concentration currently defined in the right upper medial hemithorax pleural interface does not fulfill quantitative criteria for viable pleural neoplasm. (Barbour, et al, Chest 122:1918, 2002). 4. Facilitated radiopharmaceutical concentration noted in the lower pelvis contiguous to prostate gland to the right of the midline may warrant further investigation with magnetic resonance imaging or potentially 18F-fluciclovine PET-CT scintigraphy. (Ben et al, Journal of Nuclear Medicine 55:1986, 2014). 5. There is interim metabolic resolution of the prior defined mediastinal and right thoracic perihilar, right hemithorax pleural interface hypermetabolic foci. Electronic Signature Heber Bardales D.O. Electronically Signed: Heber Bardales DO at 13:49 EDT Tel , Service support , Assessment and Plan NSCLC adenocarcinoma stage IV, Partial Response to 1 cycle of Carboplatin, Alimta and Keytruda. PET/CT shows progressive disease-mediastinal node. Restarted Carboplatin/Alimta/Keytruda, due for 2nd cycle. Low ANC-1.2 Plan is to hold therapy with Carboplatin/Alimta/Keytruda C2. RTC 1 week with CBC/CMP/Mag for C2. Medications: Prescriptions This Visit Medication Instructions Recorded Dexamethasone [Decadron] 4 mg PO BIDCM #30 tablet 01/21/18 Primary Care Provider: Niko Sampson MD Referring Provider: - Problem List (1) Non-small cell carcinoma of right lung, stage 4 Status: Chronic (2) Chemotherapy management, encounter for Status: Acute Code Visit Office Visits / Consults: [id number] OV L5 Est 02/16/1813 <Electronically signed by Ian Corea MD> Date Ian Corea MD Cosign Signature: Date (if applicable) CC: CBC W/DIFF, AUTOMATED Collected: 02/16/2018 Status: F Source: [facility] 8:34 AM [facility] REPOSITORY Order Comment: Reason for Laboratory Test . TYPE CODE TESTS RESULT OUT OF RANGE REFERENCE UNITS LAB L100.1000 4.4-11.0 K/mm3 Low WBC 2.8 LAB L100.1200 4.6-6.2 M/mm3 Low RBC 4.29 LAB L100.1300 13.0-16.5 g/dl Low HGB 12.7 LAB L100.1400 40-54 % Normal HCT 40.3 LAB L100.1500 80-94 fL Normal MCV 93.9 LAB L100.1600 27.0-32.0 pg Normal MCH 29.6 LAB L100.1700 32-36 g/gl Low MCHC 31.5 LAB L100.1810 11.6-14.6 % High RDW CV 15.4 LAB L100.1820 35.1-43.9 fl High RDW SD 50.4 LAB L100.1900 150-450 K/mm3 Normal PLT 217 LAB L100.2000 6.2-12.0 fl Normal MPV 8.6 LAB L100.2100 47-70 % Low NEUT% 44.2 LAB L100.2200 19-41 % Normal LY% 28.6 LAB L100.2300 0-10 % High MONO% 25.7 LAB L100.2400 0-5 % Normal EO% 0.7 LAB L100.2500 0-1 % Normal BASO% 0.4 LAB L100.2550 0.0-0.9 % Normal IM GRAN % 0.400 Result Comment: IG% - Immature Granulocytes (promyelocytes, myelocytes and metamyelocytes) > 1% indicates that a LEFT SHIFT is Present. LAB L100.2620 2.0-7.7 X10 3/uL Low Absolute Neut 1.2 LAB L100.2720 0.83-4.51 X10 3/ul Low Absolute Lymph 0.79 Performed By: #### L100.0100 #### [facility] [address] [place], [address] COMPREHENSIVE METABOLIC Collected: 02/16/2018 Status: F Source: [facility] 8:34 AM [facility] REPOS[facility] Order Comment: Reason for Laboratory Test . TYPE CODE TESTS RESULT OUT OF RANGE REFERENCE UNITS LAB L501.0100 74-106 mg/dL High GLU 136 Result Comment: Fasting Glucose result greater than or equal to 126 mg/dL suggests DIABETES MELLITUS per A.D.A. criteria. Please note revised GLUCOSE reference range effective 2017. LAB L501.1000 7-18 mg/dL High BUN 31 LAB L501.1100 0.70-1.30 mg/dL Normal CREAT,SERUM 1.28 Result Comment: The validity of the calculated GFR AND GFRAA in patients over 70 years has not been determined. Clinical correlation is essential. LAB L501.1110 >60 mL/min Low EST GFR 58 Result Comment: Non- GFR Calc LAB L501.1115 >60 mL/min Normal EST GFR - AA 70 Result Comment: GFR Calc LAB L501.1255 ml/min Normal Estimated CRCL 45.90 LAB L501.1300 10-20 RATIO High BUN/CRE 24.2 LAB L501.1500 6.4-8. g/dL Normal 2 T PROT 7.1 LAB L501.1800 3.2-5. g/dL Normal 0 ALB 3.5 LAB L501.1950 2.2-4. g/dL Normal 2 GLOB 3.6 LAB L501.2000 0.9-2. RATIO Normal 4 A/G 1.0 LAB L501.2200 8.5-10 mg/dL Normal .1 CA 8.5 LAB L501.4100 15-37 U/L Normal AST 20 LAB L501.4305 45-117 U/L Normal ALK P 89 LAB L501.4405 16-61 U/L Normal ALT 42 LAB L501.4600 0.20-1 mg/dL Normal .00 T BILI 0.30 LAB L501.5300 136-14 mmol/L Normal 5 NA 143 LAB L501.5600 3.5-5. mmol/L Normal 1 K 4.4 LAB L501.5900 98-107 mmol/L High CL 109 LAB L501.6100 21.0-3 mmol/L Normal 2.0 CO2 27.0 LAB L501.6200 5-15 Normal GAP 7 Performed By: #### L500.4050 #### [facility] [address] [place], [place], [address] CBC W/DIFF, AUTOMATED Collected: 02/11/2018 Status: F Source: [facility] 7:59 AM [facility] REPOSITORY Order Comment: Reason for Laboratory Test . TYPE CODE TESTS RESULT OUT OF RANGE REFERENCE UNITS LAB L100.1000 4.4-11.0 K/mm3 Low WBC 2.8 LAB L100.1200 4.6-6.2 M/mm3 Low RBC 4.37 LAB L100.1300 13.0-16.5 g/dl Low HGB 12.9 LAB L100.1400 40-54 % Normal HCT 40.9 LAB L100.1500 80-94 fL Normal MCV 93.6 LAB L100.1600 27.0-32.0 pg Normal MCH 29.5 LAB L100.1700 32-36 g/gl Low MCHC 31.5 LAB L100.1810 11.6-14.6 % High RDW CV 14.8 LAB L100.1820 35.1-43.9 fl High RDW SD 47.9 LAB L100.1900 150-450 K/mm3 Low PLT 79 LAB L100.2000 6.2-12.0 fl Normal MPV 8.9 LAB L100.2100 47-70 % Normal NEUT% 55.6 LAB L100.2200 19-41 % Normal LY% 23.3 LAB L100.2300 0-10 % High MONO% 20.0 LAB L100.2400 0-5 % Normal EO% 0.7 LAB L100.2500 0-1 % Normal BASO% 0.0 LAB L100.2550 0.0-0.9 % Normal IM GRAN % 0.400 Result Comment: IG% - Immature Granulocytes (promyelocytes, myelocytes and metamyelocytes) > 1% indicates that a LEFT SHIFT is Present. LAB L100.2620 2.0-7.7 X10 3/uL Low Absolute Neut 1.5 LAB L100.2720 0.83-4.51 X10 3/ul Low Absolute Lymph 0.64 Performed By: #### L100.0100 #### [facility] [address] [place] [address]. [place], [address] ONCOLOGY VISIT REPORT Observed: 02/10/2018 Status: F Source: [facility] 1:29 PM [facility] REPOSITORY [facility] [address] [place] [address]. [place] [address] OFFICE VISIT Date of Service: 02/09/18 1119 MR#: [id number] Acct: [id number] Name: TOMÁS MOSLEY Rep #: [id number] : 1940 From: Mariia DEE Age/Sex: 77/M Location: OMD Status: Signed Subjective - Date of Service Date of Service:: 02/09/18 - Chief Complaint Toxicity assessment Carboplatin/pemetrexed/pembrolizumab - History of Present Illness Mr. Tomás Mosley is a pleasant 77y.o.man who presented with chronic cough, CTA 08/11/16 revealed right pleural based mass/effusion. He underwent a CT guided biopsy on 08/28/2016 under the care of Dr. An which showed poorly differentiated NSCLC, of adenocarcinoma histology. PET/CT 09/29/16 showed hypermetabolic activity in the carinal- subcarinal mediastinum, right infrahilar region measuring 2.1 cm, SUV 7.1 and throughout right hemithorax SUV 10.5. CT brain obtained 09/29/16 demonstrated no evidence of metastatic disease. Lung sequence could not be performed d/t inadequate amount of tissue from original biopsy. Proposed patient begin Cisplatin/Alimta on 10/09/16, however patient elected to hold until second biopsy could be obtained to allow for lung sequencing and more specific diagnosis. Final lung sequencing showed negative EGFR, ALK, ROS1 AND BRAF. Thus, he began Carboplatin/Alimta/Keytruda on 11/05/16. He developed peripheral edema, given Lasix then developed ulcers on the R feet so 2nd cycle is delayed. He was found to have Peripheral vascular disease and had angioplasty and stenting of R femoral artery done on 01/01/2017. CT chest on 01/15/2017 showed partial response with decrease in the pleural based nodules. Chemotherapy was held because of peripheral Vascular disease and leg ulcers, since healed. PET/CT 01/18/18 showed progressive disease-mediastinal node. Began palliative carboplatin, pemetrexed, pembrolizumab on 01/26/18. - Interval History The patient is presenting to clinic accompanied by spouse for 2 week follow up and toxicity assessment. Received cycle 1 carboplatin, pemetrexed and pembrolizumab on 01/26/18. States he developed a rash in his groin last week which prompted presentation to [facility] ED. Treated for candidiasis, states rash has resolved with Nystatin. Otherwise, he denies any outstanding complaints r/t today's visit and verbalized it went good in reference to the past 2 weeks. Admits to bruising easily but denies any overt episodes of bleeding. - Past Medical/Social History Past Medical History Past Medical History: Edema,Heart disease,Hypertension Other Past Medical History: PERIPHERAL VASCULAR DISEASE Cancer: Lung cancer Past Surgical History Surgical: Appendectomy,Pacemaker Other Surgical History: PORT PLACEMENT CARDIAC CATH PERFORATED ULCER ANGIOPLASTI/STENT abdominal anerysm right foot ulcer debridement dr. cid rt leg arteriogram, rt femoral artery stents dr ulloa Dec 2016 Family History Paternal Past Medical History: Unknown Maternal Past Medical History: Heart disease Social History Social History: No changes Smoking Status Former smoker Review of Systems Constitutional:: Reports: Fatigue - mild, unchanged. Denies: Fever, Sweats, Weight loss, Appetite change, Chills Cardiovascular:: Reports: Dyspnea on exertion - mild, unchanged. Denies: Chest pain, Palpitations, Orthopnea, PND, Shortness of breath Respiratory: Reports: Cough, Shortness of Breath. Denies: Hemoptysis, Wheezing Gastrointestinal:: Denies: Abdominal pain, Nausea, Vomiting, Diarrhea, Constipation, Melena, Hematochezia Genitourinary: Reports: Nocturia. Denies: Dysuria, Hematuria, Urinary frequency, Flank pain Musculoskeletal:: Denies: Back pain, Myalgia, Arthralgia Skin: Denies: Rash, Skin Changes, Wounds Neurological:: Reports: Numbness, Tingling. Denies: Headache, Dizziness, Visual changes, Tinnitus, Hearing loss Psychiatric: Denies: Anxiety, Depression, Homicidal Ideations, Suicidal Ideations Vital Signs Height 5 ft 7 in Weight: 202 lb 12.8 oz Weight in Pounds 202.8 lbs Pulse Ox 94 - Physical Exam General: Alert, Oriented x3, No apparent distress HEENT: Atraumatic, Normocephalic Oropharynx:: Negative for: Dry mucosa, Ulcerated lesions Neck:: Supple, Trachea midline. Negative for: JVD, bilateral Cardiac:: Regular rate, Regular rhythm, Normal S1, Normal S2 Lungs: Diminished, Excusion symmetrical. Negative for: Rhonchi, Wheezes, Tachypneic, Increased respiratory effort Abdomen:: Bowel sounds x 4, Soft, Non-tender, Non-distended. Negative for: Hepatosplenomegaly Extremities:: Negative for: Cyanosis, Edema Neurological: Neuro grossly intact, Unsteady Gait - uses cane Skin:: Ecchymosis - multiple areas in various stages of healing BUE. Negative for: Lesions, Rash, Petechiae Psychiatric:: Appropriate affect, Euthymic Lymphatics:: Negative for: Cervical lymphadenopathy, Supraclavicular lymphadenopathy, Axillary lymphadenopathy Laboratory Data: Laboratory Tests WBC 3.5 L (4.4-11.0) K/mm3 RBC 4.31 L (4.6-6.2) M/mm3 Hgb 12.8 L (13.0-16.5) g/dl Diagnostic Data: Diagnostic Data PET, CT Tumor Imaging 01/18/18 10:48 IMPRESSION: 1. ABNORMAL EXAMINATION INDICATIVE OF MALIGNANT VIABLE NEOPLASM. 2. Increased glucose concentration persistently defined in the carinal level mediastinum fulfills quantitative criteria for viable neoplasm. 3. Enhanced FDG concentration currently defined in the right upper medial hemithorax pleural interface does not fulfill quantitative criteria for viable pleural neoplasm. (Barbour, et al, Chest 122:1918, 2002). 4. Facilitated radiopharmaceutical concentration noted in the lower pelvis contiguous to prostate gland to the right of the midline may warrant further investigation with magnetic resonance imaging or potentially 18F-fluciclovine PET-CT scintigraphy. (Ben et al, Journal of Nuclear Medicine 55:1986, 2014). 5. There is interim metabolic resolution of the prior defined mediastinal and right thoracic perihilar, right hemithorax pleural interface hypermetabolic foci. Electronic Signature Heber Bardales D.O. Electronically Signed: Heber Bardales DO at 13:49 EDT Tel , Service support , Assessment and Plan 1. NSCLC adenocarcinoma stage IV- PET/CT 01/18/18 showed progressive disease-mediastinal node. Began carboplatin, pemetrexed, pembrolizumab in the palliative setting on 01/26/18. Overall tolerated well with the exception of hematologic toxicity (discussed below). CBC reviewed shows Hgb 12.8, ANC 2.5. 2. Thrombocytopenia, chemotherapy induced- Grade 3, as evidenced by platelet count 49,000. Patient uses cane, given fall risk advised him to hold ASA and warfarin and recheck platelets on 02/11/18. Extractor Puller, Dr. Gaytan made aware. Discussed with Dr Corea dose attenuation of carboplatin with cycle 2 and subsequent cycles. Patient is in agreement with the aforementioned plan. RTO on 02/16/18 for consideration of cycle 2 carboplatin, pemetrexed and pembrolizumab, sooner if issues arise. Mariia Bennett, MSN, SALES DEVELOPMENT MANAGER-C, AOCNP Medications: Prescriptions This Visit Medication Instructions Recorded Dexamethasone [Decadron] 4 mg PO BIDCM #30 tablet 01/21/18 Primary Care Provider: Niko Sampson MD Referring Provider: - Problem List (1) Non-small cell carcinoma of right lung, stage 4 Status: Chronic (2) Chemotherapy-induced thrombocytopenia Status: Acute 02/10/18 1329 <Electronically signed by Mariia Bennett MAIL HANDLERS SUPERVISOR-C> Date Mariia DHALIWALC Cosigner Signature: Date (if applicable) CC: PROTHROMBIN TIME W/INR Collected: 02/09/2018 Status: F Source: [facility] 9:47 AM [facility] REPOSITORY TYPE CODE TESTS RESULT OUT OF RANGE REFERENCE UNITS LAB L300.4150 11.7-14.9 SECONDS High PROTIME 28.5 LAB L300.4200 Normal INR 2.7 Performed By: #### L300.3900 #### [facility] [address] [place], [address] COMPREHENSIVE METABOLIC Collected: 02/09/2018 Status: F Source: [facility] 9:37 AM [facility] REPOSITORY Order Comment: Reason for Laboratory Test . TYPE CODE TESTS RESULT OUT OF RANGE REFERENCE UNITS LAB L501.0100 74-106 mg/dL Normal GLU 96 Result Comment: Please note revised GLUCOSE reference range effective 2017. LAB L501.1000 7-18 mg/dL High BUN 30 LAB L501.1100 0.70-1.30 mg/dL Normal CREAT,SERUM 1.05 Result Comment: The validity of the calculated GFR AND GFRAA in patients over 70 years has not been determined. Clinical correlation is essential. LAB L501.1110 >60 mL/min Normal EST GFR 73 Result Comment: Non- GFR Calc LAB L501.1115 >60 mL/min Normal EST GFR - AA 88 Result Comment: GFR Calc LAB L501.1255 ml/min Normal Estimated CRCL 55.96 LAB L501.1300 10-20 RATIO High BUN/CRE 28.6 LAB L501.1500 6.4-8. g/dL Normal 2 T PROT 7.0 LAB L501.1800 3.2-5. g/dL Normal 0 ALB 3.6 LAB L501.1950 2.2-4. g/dL Normal 2 GLOB 3.4 LAB L501.2000 0.9-2. RATIO Normal 4 A/G 1.1 LAB L501.2200 8.5-10 mg/dL Low .1 CA 8.4 LAB L501.4100 15-37 U/L Normal AST 32 LAB L501.4305 45-117 U/L Normal ALK P 83 LAB L501.4405 16-61 U/L High ALT 70 LAB L501.4600 0.20-1 mg/dL Normal .00 T BILI 0.30 LAB L501.5300 136-14 mmol/L Normal 5 NA 139 LAB L501.5600 3.5-5. mmol/L Normal 1 K 4.7 LAB L501.5900 98-107 mmol/L Normal CL 107 LAB L501.6100 21.0-3 mmol/L Normal 2.0 CO2 24.0 LAB L501.6200 5-15 Normal GAP 8 Performed By: #### L500.4050 #### [facility] [address] [place], [address] CBC W/DIFF, AUTOMATED Collected: 02/09/2018 Status: C Source: [facility] 9:37 AM [facility] REPOSITORY Order Comment: Reason for Laboratory Test . TYPE CODE TESTS RESULT OUT OF RANGE REFERENCE UNITS LAB L100.1000 4.4-11.0 K/mm3 Low WBC 3.5 LAB L100.1200 4.6-6.2 M/mm3 Low RBC 4.31 LAB L100.1300 13.0-16.5 g/dl Low HGB 12.8 LAB L100.1400 40-54 % Normal HCT 40.3 LAB L100.1500 80-94 fL Normal MCV 93.5 LAB L100.1600 27.0-32.0 pg Normal MCH 29.7 LAB L100.1700 32-36 g/gl Low MCHC 31.8 LAB L100.1810 11.6-14.6 % High RDW CV 14.9 LAB L100.1820 35.1-43.9 fl High RDW SD 48.2 LAB L100.1900 150-450 K/mm3 Low alert PLT 49 Result Comment: CRITICAL VALUE VERIFIED. CALLED TO MALKA TILLEY AT [facility] 02/09/18 1038 Anat Ramirez. RESULTS READ BACK BY SAME . LAB L100.2000 6.2-12.0 fl Normal MPV 9.4 LAB L100.2100 47-70 % High NEUT% 71.0 LAB L100.2200 19-41 % Low LY% 17.1 LAB L100.2300 0-10 % High MONO% 11.3 LAB L100.2400 0-5 % Normal EO% 0.3 LAB L100.2500 0-1 % Normal BASO% 0.0 LAB L100.2550 0.0-0.9 % Normal IM GRAN % 0.300 Result Comment: IG% - Immature Granulocytes (promyelocytes, myelocytes and metamyelocytes) > 1% indicates that a LEFT SHIFT is Present. LAB L100.2620 2.0-7.7 X10 3/uL Normal Absolute Neut 2.5 LAB L100.2720 0.83-4.51 X10 3/ul Low Absolute Lymph 0.59 LAB L100.5500 ADEQ Normal PLT EST MKD DEC LAB L100.9900 Normal PATH REV Reviewed Result Comment: Leukopenia and Thrombocytopenia. Clinical correlation necessary. Des Fu M.D. 02/10/18 AMENDED REPORT 02/10/18 1435 PATH REV previously reported as: August daxa Performed By: #### L100.0100 #### [facility] [address] [place], [address] EMERGENCY DEPARTMENT Observed: 02/01/2018 Status: F Source: [facility] SUMMARY 4:11 PM [facility] REPOSITORY [facility] Medical Records Department [address] [place] [address] Emergency Department Summary 02/01/18 1610 MR#: [id number] Acct: [id number] Name: TOMÁS MOSLEY Rep #: [id number] : 1940 77 From: Brendan Love MD PCP: Niko Sampson MD Status: REG ER - ER Visit Summary Date of Service: 02/01/18 Chief Complaint: [] History of Present Illness: The patient is a 77 M [] Physical Examination: [] Test Results: [] Emergency Department Course and Treatment: [] Treatment Plan: [] Disposition: [] Impression: [] This note was generated with M[employer] software. It may contain incorrect words, spelling, and punctuation that were not noted in review of the chart prior to signing ED Disposition - Plan for ED Patient: Chief Complaint: Rash Instructions: ED Candidiasis Cutaneous Prescriptions: Nystatin Powder [Mycostatin Powder] 1 applic TOPICAL BID 7 Days #1 bottle Referrals: Ian Corea MD [NON-STAFF] - 1 Day for another exam What to do if you have Problems For any increased pain, shortness of breath, bleeding, nausea or vomiting, chest pain, or any unexpected problems, contact your Primary Care Provider. Call [facility] ([phone]) or report to the closest Emergency Room. Call 911 if necessary. 02/01/18 161 <Electronically signed by Brendan Love MD> Date Brendan Love MD Cosigner Signature (If Indicated): Date CC: Niko Sampson MD EMERGENCY DEPARTMENT Observed: 02/01/2018 Status: F Source: [facility] SUMMARY 4:04 PM [facility] REPOSITORY [facility] Medical Records Department [address] [place] [address] Emergency Department Summary 02/01/181601 MR#: [id number] Acct: [id number] Name: TOMÁS MOSLEY Rep #: [id number] : 1940 77 From: Brendan Love MD PCP: Niko Sampson MD Status: REG ER - ER Visit Summary Date of Service: 02/01/18 Chief Complaint: Rash History of Present Illness: The patient is a 77 M currently being treated with chemotherapy for lung cancer presenting with a rash down in the creases of his groin that he noticed this morning. It is somewhat itchy but not painful. No rash anywhere else. No fever or other complaints. No nausea or vomiting. Otherwise feeling well. Physical Examination: He has a fairly classic candidal appearing rash in his inguinal creases. No secondary cellulitis. There are fairly classic satellite lesions. No petechiae. No rash anywhere else. The entire area involved is quite small, less than the size of the palm of his hand and total. Test Results: None performed Emergency Department Course and Treatment: The rash appears fairly classic for candidal rash in the creases of his groin. I talked with him about keeping the area dry and we will treat with nystatin powder. I discussed the case with his oncologist, Dr. Corea who agrees and will arrange close follow-up for recheck. There is no evidence of cellulitis or necrotizing fasciitis at this time. Treatment Plan: Nystatin Disposition: Home stable Impression: Initial encounter candidal dermatitis This note was generated with [employer] dictation software. It may contain incorrect words, spelling, and punctuation that were not noted in review of the chart prior to signing ED Disposition - Plan for ED Patient: Chief Complaint: Rash Instructions: ED Candidiasis Cutaneous Referrals: Ian Corea MD [NON-STAFF] - 1 Day for another exam What to do if you have Problems For any increased pain, shortness of breath, bleeding, nausea or vomiting, chest pain, or any unexpected problems, contact your Primary Care Provider. Call [facility] ([phone]) or report to the closest Emergency Room. Call 911 if necessary. 02/01/18 1604 <Electronically signed by Brendan Love MD> Date Brendan Love MD Cosigner Signature (If Indicated): Date CC: Niko Sampson MD ONCOLOGY VISIT REPORT Observed: 01/25/2018 Status: F Source: [facility] 1:57 PM [facility] REPOSITORY [facility] [address] [place] [address] OFFICE VISIT Date of Service: 01/25/18 1212 MR#: [id number] Acct: [id number] Name: TOMÁS MOSLEY Rep #: [id number] : 1940 From: Mariia DEE Age/Sex: 77/M Location: ONC Status: Signed Subjective - Date of Service Date of Service:: 01/25/18 - Chief Complaint Chemotherapy education-Carboplatin/Alimta/Keytruda - History of Present Illness Mr. Tomás Mosley is a pleasant 77y.o.man who presented with chronic cough, CTA 08/11/16 revealed right pleural based mass/effusion. He underwent a CT guided biopsy on 08/28/2016 under the care of Dr. An which showed poorly differentiated NSCLC, of adenocarcinoma histology. PET/CT 09/29/16 showed hypermetabolic activity in the carinal- subcarinal mediastinum, right infrahilar region measuring 2.1 cm, SUV 7.1 and throughout right hemithorax SUV 10.5. CT brain obtained 09/29/16 demonstrated no evidence of metastatic disease. Lung sequence could not be performed d/t inadequate amount of tissue from original biopsy. Proposed patient begin Cisplatin/Alimta on 10/09/16, however patient elected to hold until second biopsy could be obtained to allow for lung sequencing and more specific diagnosis. Final lung sequencing showed negative EGFR, ALK, ROS1 AND BRAF. Thus, he began Carboplatin/Alimta/Keytruda on 11/05/16. He developed peripheral edema, given Lasix then developed ulcers on the R feet so 2nd cycle is delayed. He was found to have Peripheral vascular disease and had angioplasty and stenting of R femoral artery done on 01/01/2017. CT chest on 01/15/2017 showed partial response with decrease in the pleural based nodules. Chemotherapy was held because of peripheral Vascular disease and leg ulcers, since healed. PET/CT 01/18/18 showed progressive disease-mediastinal node. - Interval History The patient is presenting to clinic accompanied by spouse for chemotherapy /immunotherapy education. He has not yet picked up prescriptions for dexamethasone or folic acid provided to him by Dr. Corea last week. Did receive a flu shot in December. Believes he has antiemetic at home. - Past Medical/Social History Past Medical History Past Medical History: Edema,Heart disease,Hypertension Other Past Medical History: PERIPHERAL VASCULAR DISEASE Cancer: Lung cancer Past Surgical History Surgical: Appendectomy,Pacemaker Other Surgical History: PORT PLACEMENT CARDIAC CATH PERFORATED ULCER ANGIOPLASTI/STENT abdominal anerysm right foot ulcer debridement dr. cid rt leg arteriogram, rt femoral artery stents dr ulloa Dec 2016 Family History Paternal Past Medical History: Unknown Maternal Past Medical History: Heart disease Social History Social History: No changes Smoking Status Former smoker Review of Systems Constitutional:: Reports: Weakness, Fatigue. Denies: Fever, Sweats, Weight loss, Appetite change, Chills Cardiovascular:: Reports: Dyspnea on exertion. Denies: Chest pain, Palpitations, Orthopnea, PND, Shortness of breath Respiratory: Reports: Cough, Shortness of Breath. Denies: Hemoptysis, Wheezing Gastrointestinal:: Denies: Abdominal pain, Nausea, Vomiting, Diarrhea, Constipation, Melena, Hematochezia Genitourinary: Reports: Nocturia. Denies: Dysuria, Hematuria, Flank pain Musculoskeletal:: Reports: Back pain. Denies: Myalgia, Arthralgia Skin: Denies: Rash, Skin Changes, Wounds Neurological:: Denies: Headache, Dizziness, Numbness, Tingling, Frequent falls - uses cane, Visual changes, Tinnitus, Hearing loss Psychiatric: Denies: Anxiety, Depression, Homicidal Ideations, Suicidal Ideations Vital Signs Height 5 ft 7 in Weight: 203 lb 3.2 oz Weight in Pounds 203.2 lbs Pulse Ox 93 - Physical Exam General: Alert, Oriented x3, No apparent distress HEENT: Atraumatic, Normocephalic Psychiatric:: Appropriate affect, Euthymic Diagnostic Data: Diagnostic Data PET, CT Tumor Imaging 01/18/18 10:48 IMPRESSION: 1. ABNORMAL EXAMINATION INDICATIVE OF MALIGNANT VIABLE NEOPLASM. 2. Increased glucose concentration persistently defined in the carinal level mediastinum fulfills quantitative criteria for viable neoplasm. 3. Enhanced FDG concentration currently defined in the right upper medial hemithorax pleural interface does not fulfill quantitative criteria for viable pleural neoplasm. (Barbour, et al, Chest 122:1918, 2002). 4. Facilitated radiopharmaceutical concentration noted in the lower pelvis contiguous to prostate gland to the right of the midline may warrant further investigation with magnetic resonance imaging or potentially 18F-fluciclovine PET-CT scintigraphy. (Ben et al, Journal of Nuclear Medicine 55:1986, 2014). 5. There is interim metabolic resolution of the prior defined mediastinal and right thoracic perihilar, right hemithorax pleural interface hypermetabolic foci. Electronic Signature Heber Bardales D.O. Electronically Signed: Heber Bardales DO at 13:49 EDT Tel , Service support , Assessment and Plan 1. NSCLC adenocarcinoma stage IV- PET/CT 01/18/18 showed progressive disease-mediastinal node. It has been proposed he begin Carboplatin/Alimta/Keytruda. The patient has been thoroughly educated to risks/benefits associated with chemotherapy. Specifically, he has been educated to potential side effects, recommendations for symptom management, and circumstances in which he should contact provider immediately, such as the development of any signs/symptoms of infection inclusive of temperature > 100.4. Encouraged to go directly to ED should fever occur outside normal clinic hours. He has been provided written educational information and after hours contact information and patient has prescriptions for folic acid, dexamethasone and antiemetic. To receive b12 injection today. Greater than 50% of this one hour visit was spent in counseling and a significant amount of time was allotted for questions. All the patient's concerns were addressed to his satisfaction and he is agreeable to proceed. Tentatively, he will commence with cycle 1 on 01/26/18 and plan to complete 2 cycles and and reassess with CT. Mariia Bennett, MSN, SALES DEVELOPMENT MANAGER-C, AOCNP Medications: Prescriptions This Visit Medication Instructions Recorded Furosemide [Lasix] 40 mg PO DAILY 11/11/16 Dexamethasone [Decadron] 4 mg PO BIDCM #30 tablet 01/21/18 Primary Care Provider: Niko Sampson MD Referring Provider: - Problem List (1) Non-small cell carcinoma of right lung, stage 4 Status: Chronic (2) Educational circumstance Status: Acute 01/25/18 1357 <Electronically signed by Mariia DEE> Date Mariia Bennett NP-C Cosigner Signature: Date (if applicable) CC: ONCOLOGY VISIT REPORT Observed: 01/21/2018 Status: F Source: [facility] 4:52 PM [facility] REPOSITORY [facility] [address] [place] [address] OFFICE VISIT Date of Service: 01/21/18 1639 MR#: [id number] Acct: [id number] Name: TOMÁS MOSLEY Rep #: [id number] : 1940 From: Ian Corea MD Age/Sex: 77/M Location: OMD Status: Signed Subjective - Date of Service Date of Service:: 01/21/18 - Chief Complaint F/u for NSCLC management. - History of Present Illness Mr. Tomás Mosley is a pleasant 77y.o.man who presented with chronic cough, CTA 08/11/16 revealed right pleural based mass/effusion. He underwent a CT guided biopsy on 08/28/2016 under the care of Dr. An which showed poorly differentiated NSCLC, of adenocarcinoma histology. PET/CT 09/29/16 showed hypermetabolic activity in the carinal- subcarinal mediastinum, right infrahilar region measuring 2.1 cm, SUV 7.1 and throughout right hemithorax SUV 10.5. CT brain obtained 09/29/16 demonstrated no evidence of metastatic disease. Lung sequence could not be performed d/t inadequate amount of tissue from original biopsy. Proposed patient begin Cisplatin/Alimta on 10/09/16, however patient elected to hold until second biopsy could be obtained to allow for lung sequencing and more specific diagnosis. Final lung sequencing showed negative EGFR, ALK, ROS1 AND BRAF. Thus, he began Carboplatin/Alimta/Keytruda on 11/05/16. He developed peripheral edema, given Lasix then developed ulcers on the R feet so 2nd cycle is delayed. He was found to have Peripheral vascular disease and had angioplasty and stenting of R femoral artery done on 01/01/2017. CT chest on 01/15/2017 showed partial response with decrease in the pleural based nodules. Chemotherapy was held because of peripheral Vascular disease and leg ulcers. Right leg ulcer has healed. CT on 12/24/2017 showed increase in pre-tracheal node. Had a PET/CT done and comes in for follow up. - Past Medical/Social History Past Medical History Past Medical History: Edema,Heart disease,Hypertension Other Past Medical History: PERIPHERAL VASCULAR DISEASE Cancer: Lung cancer Past Surgical History Surgical: Appendectomy,Pacemaker Other Surgical History: PORT PLACEMENT CARDIAC CATH PERFORATED ULCER ANGIOPLASTI/STENT abdominal anerysm right foot ulcer debridement dr. cid rt leg arteriogram, rt femoral artery stents dr ulloa Dec 2016 Family History Paternal Past Medical History: Unknown Maternal Past Medical History: Heart disease Social History Social History: No changes Smoking Status Former smoker Review of Systems Constitutional:: Denies: Fever, Sweats, Weight loss, Appetite change, Chills Cardiovascular:: Denies: Chest pain, Palpitations, Dyspnea on exertion, Orthopnea, PND, Shortness of breath Respiratory: Denies: Cough, Hemoptysis, Shortness of Breath, Wheezing Gastrointestinal:: Denies: Abdominal pain, Nausea, Vomiting, Diarrhea, Constipation, Hematochezia Genitourinary: Denies: Dysuria, Hematuria, 15, Flank pain Musculoskeletal:: Denies: Back pain, Myalgia, Arthralgia Skin: Denies: Rash, Skin Changes, Wounds Neurological:: Denies: Headache, Dizziness, Visual changes, Tinnitus, Hearing loss Psychiatric: Denies: Anxiety, Depression, Homicidal Ideations, Suicidal Ideations Vital Signs Height 5 ft 7 in Weight: 91.852 kg Weight in Pounds 202.5 lbs Pulse Ox 100 - Physical Exam General: Alert, Oriented x3, No apparent distress Laboratory Data: Laboratory Tests Diagnostic Data: Diagnostic Data PET, CT Tumor Imaging 01/18/18 10:48 IMPRESSION: 1. ABNORMAL EXAMINATION INDICATIVE OF MALIGNANT VIABLE NEOPLASM. 2. Increased glucose concentration persistently defined in the carinal level mediastinum fulfills quantitative criteria for viable neoplasm. 3. Enhanced FDG concentration currently defined in the right upper medial hemithorax pleural interface does not fulfill quantitative criteria for viable pleural neoplasm. (Barbour, et al, Chest 122:1918, 2002). 4. Facilitated radiopharmaceutical concentration noted in the lower pelvis contiguous to prostate gland to the right of the midline may warrant further investigation with magnetic resonance imaging or potentially 18F-fluciclovine PET-CT scintigraphy. (Ben et al, Journal of Nuclear Medicine 55:1986, 2014). 5. There is interim metabolic resolution of the prior defined mediastinal and right thoracic perihilar, right hemithorax pleural interface hypermetabolic foci. Electronic Signature Heber Bardales D.O. Electronically Signed: Heber Bardales DO at 13:49 EDT Tel , Service support , Assessment and Plan NSCLC adenocarcinoma stage IV, Partial Response to 1 cycle of Carboplatin, Alimta and Keytruda. PET/CT shows progressive disease-mediastinal node. Discussed further management with Chemotherapy, risks, benefits and side effect. Pt agrees to proceed. Plan is to restart therapy with Carboplatin/Alimta/Keytruda on 01/26/2018. Will do 2 cycles and reassess with CT. RTC 2 weeks. Medications: Prescriptions This Visit Medication Instructions Recorded Furosemide [Lasix] 40 mg PO DAILY 11/11/16 Dexamethasone [Decadron] 4 mg PO BIDCM #30 tablet 01/21/18 Folic Acid 1 mg PO DAILY@0800 #90 tablet 01/21/18 Primary Care Provider: Niko Sampson MD Referring Provider: - Problem List (1) Non-small cell carcinoma of right lung, stage 4 Status: Chronic Code Visit Office Visits / Consults: 71444 OV L5 Est 01/21/18 4882 <Electronically signed by Ian Corea MD> Date Ian Maxignclaudia Signature: Date (if applicable) CC: PROTHROMBIN TIME W/INR Collected: 01/21/2018 Status: F Source: [facility] 9:53 AM [facility] REPOSITORY TYPE CODE TESTS RESULT OUT OF RANGE REFERENCE UNITS LAB L300.4150 11.7-14.9 SECONDS High PROTIME 32.9 LAB L300.4200 Normal INR 3.2 Performed By: #### L300.3900 #### [facility] [address] [place], [address] CBC W/DIFF, AUTOMATED Collected: 01/21/2018 Status: F Source: [facility] 9:50 AM [facility] REPOSIT[facility] Order Comment: Reason for Laboratory Test . TYPE CODE TESTS RESULT OUT OF RANGE REFERENCE UNITS LAB L100.1000 4.4-11.0 K/mm3 Normal WBC 7.0 LAB L100.1200 4.6-6.2 M/mm3 Normal RBC 4.78 LAB L100.1300 13.0-16.5 g/dl Normal HGB 14.0 LAB L100.1400 40-54 % Normal HCT 44.3 LAB L100.1500 80-94 fL Normal MCV 92.7 LAB L100.1600 27.0-32.0 pg Normal MCH 29.3 LAB L100.1700 32-36 g/gl Low MCHC 31.6 LAB L100.1810 11.6-14.6 % High RDW CV 14.9 LAB L100.1820 35.1-43.9 fl High RDW SD 48.6 LAB L100.1900 150-450 K/mm3 Normal PLT 234 LAB L100.2000 6.2-12.0 fl Normal MPV 9.1 LAB L100.2100 47-70 % High NEUT% 72.6 LAB L100.2200 19-41 % Low LY% 13.8 LAB L100.2300 0-10 % High MONO% 11.4 LAB L100.2400 0-5 % Normal EO% 1.2 LAB L100.2500 0-1 % Normal BASO% 0.3 LAB L100.2550 0.0-0.9 % Normal IM GRAN % 0.700 Result Comment: IG% - Immature Granulocytes (promyelocytes, myelocytes and metamyelocytes) > 1% indicates that a LEFT SHIFT is Present. LAB L100.2620 2.0-7.7 X10 3/uL Normal Absolute Neut 5.1 LAB L100.2720 0.83-4.51 X10 3/ul Normal Absolute Lymph 0.96 Performed By: #### L100.0100, L500.4050 #### [facility] [address] [place], [address] COMPREHENSIVE METABOLIC Collected: 01/21/2018 Status: F Source: [facility] 9:50 AM [facility] REPOS[facility] Order Comment: Reason for Laboratory Test . TYPE CODE TESTS RESULT OUT OF RANGE REFERENCE UNITS LAB L501.0100 74-106 mg/dL Normal GLU 106 Result Comment: Fasting Glucose result from 100 to 125 mg/dL suggests IMPAIRED HOMEOSTASIS per A.D.A. criteria. Please note revised GLUCOSE reference range effective 2017. LAB L501.1000 7-18 mg/dL High BUN 38 LAB L501.1100 0.70-1.30 mg/dL Normal CREAT,SERUM 1.19 Result Comment: The validity of the calculated GFR AND GFRAA in patients over 70 years has not been determined. Clinical correlation is essential. LAB L501.1110 >60 mL/min Normal EST GFR 63 Result Comment: Non- GFR Calc LAB L501.1115 >60 mL/min Normal EST GFR - AA 76 Result Comment: GFR Calc LAB L501.1255 ml/min Normal Estimated CRCL 49.37 LAB L501.1300 10-20 RATIO High BUN/CRE 31.9 LAB L501.1500 6.4-8. g/dL Normal 2 T PROT 7.6 LAB L501.1800 3.2-5. g/dL Normal 0 ALB 3.7 LAB L501.1950 2.2-4. g/dL Normal 2 GLOB 3.9 LAB L501.2000 0.9-2. RATIO Normal 4 A/G 0.9 LAB L501.2200 8.5-10 mg/dL Normal .1 CA 8.5 LAB L501.4100 15-37 U/L Normal AST 19 Result Comment: Slight Hemolysis, Result may be falsely increased. LAB L501.4305 45-117 U/L Normal ALK P 97 LAB L501.4405 16-61 U/L Normal ALT 30 LAB L501.4600 0.20-1.00 mg/dL Normal T BILI 0.30 LAB L501.5300 136-145 mmol/L Normal NA 138 LAB L501.5600 3.5-5.1 mmol/L Normal K 4.7 Result Comment: Slight Hemolysis, Result may be falsely increased. LAB L501.5900 98-107 mmol/L High CL 108 LAB L501.6100 21.0-32.0 mmol/L Normal CO2 25.0 LAB L501.6200 5-15 Normal 5 GAP Performed By: #### L100.0100, L500.4050 #### [facility] [address] [facility] [place], [address] PET/CT TUMOR BASE Observed: 01/18/2018 Status: F Source: [facility] -[facility] 10:48 AM [facility] REPOSITORY [facility] Imaging Services [address] [place] [address] PET/CT Tumor Base -Thigh Subs MR#: [id number] Acct: [id number] Name: TOMÁS MOSLEY Jacque Rep #: [id number] : 1940 M 77 From: Heber Bardales DO PCP: Niko Sampson MD Status: REG RCR Study: PET/CT Tumor Base -Thigh Subs Date of Exam: 01/18/18 Exam# [id number] Ordering Dr: Ian Corea MD EXAMINATION: FDG PET/CT INDICATIONS: A 77-year-old male with reported history of primary lung carcinoma presenting for restaging examination. COMPARISON EXAMINATION: CT of the chest report dated 12/24/17, previous FDG PET-CT study dated 09/29/16 INDEX LESION SIZE SUV INTERPRETATION PERSISTENT: carinal level mediastinum (n=1) 28.5 x 35.1-mm (frame 185) comp. to 21.9-mm (09/29/16) 6.2 comp. to 6.5 (09/29/16) Fulfills quantitative criteria for viable neoplasm PERSISTENT: right hemithorax pleural interface 2.3 comp. to 10.5 (09/29/16) Quantitative criteria for viable neoplasm are not fulfilled NEW: lower pelvis, prostate gland 8.9-mm (frame 28) 2.4 May warrant further investigation with magnetic resonance imaging and/or potentially 18F-fluciclovine PET-CT imaging PREVIOUS: additional mediastinal, right thoracic perihilar, right hemithorax pleural interface Demonstrate metabolic resolution on the current examination TECHNIQUE: Following the intravenous administration of F-18 deoxyglucose, multiplanar image acquisitions of the neck, chest, abdomen and pelvis to level of mid thigh, obtained at one hour post radiopharmaceutical administration contemporaneously interpreted with the current CT of the neck, chest, abdomen and pelvis to level of mid thigh, dated 01/18/[address] of the chest report dated 12/24/17, previous FDG PET study dated 09/29/16 reveal: FINDINGS: 1. A single nodular focus of enhanced glucose metabolism is defined in the carinal level mediastinum to the right of the midline corresponding to a previously defined hypermetabolic soft tissue density noted on FDG PET-CT examination dated 09/29/16. The current calculated maximum standard uptake value is 6.2, compared to 6.5 defined on the FDG PET-CT study dated 09/29/16. The maximal axial diameter of the corresponding metabolic, morphologic abnormality on review of CT of the chest dated 01/18/18 is 28.5-mm (transverse) x 35.1-mm (AP). 2. A single small nodular focus of increased glucose concentration remains apparent in the right upper medial hemithorax at the pleural interface generating a current calculated maximum standard uptake value of 2.3, compared to 10.5 defined on the FDG PET-CT study dated 01/18/18. Quantitative criteria for viable neoplasm are not fulfilled. 3. An asymmetric increase in glucose concentration is observed in the lower pelvis caudal to the urinary bladder contiguous to the prostate gland to the right of the midline. The current calculated maximum standard uptake value is 2.4. The maximal axial diameter of the metabolic abnormality on review of CT of the pelvis dated 01/18/18 is 8.9-mm (transverse). 4. Normal physiologic distribution of the radiopharmaceutical is apparent in the hepatic (3.2/2.7) and splenic parenchyma, both renal units, bladder and visualized intestinal tract. The visualized portion of the cerebral cortex demonstrate symmetric and preserved glucose metabolism. Diffuse radiopharmaceutical concentration is noted in all four quadrants of the abdomen and pelvis. The previously identified additional mediastinal and right thoracic perihilar, as well as right hemithorax pleural interface hypermetabolic foci are not apparent on the current examination. Prominent glucose concentration is observed in the ascending, descending thoracic and abdominal aorta. Diffuse radiopharmaceutical concentration is noted in all four quadrants of the abdomen and pelvis. Pertinent CT findings are as follows: CHEST: There is atherosclerotic calcification defined in the thoracic aorta without evidence of dilatation-aneurysm formation. Coronary arterial calcification is observed. Yancy-cath and ventricular pacemaker placement is visualized. There are no parenchymal densities-nodules noted within the right-left hemithorax demonstrating discernible quantitatively significant enhanced glucose metabolism. ABDOMEN AND PELVIS: There is evidence of an aortic bi-iliac graft placement. There is atherosclerotic calcification defined in the abdominal aorta without evidence of dilatation-aneurysm formation. Abdominal vasculature calcification is defined. Right-left subcentimeter inguinal soft tissue densities with fatty hilus formation are non-glucose avid. Cyst formation is defined in the bilateral kidneys. SKELETAL: Degenerative changes are noted in the cervical, thoracic and lumbar spine. There is a compression deformity noted at the level of the seventh thoracic vertebra without evidence of quantitatively significant increased glucose metabolism. PET/PET/CT Tumor Base -Thigh Subs IMPRESSION: 1. ABNORMAL EXAMINATION INDICATIVE OF MALIGNANT VIABLE NEOPLASM. 2. Increased glucose concentration persistently defined in the carinal level mediastinum fulfills quantitative criteria for viable neoplasm. 3. Enhanced FDG concentration currently defined in the right upper medial hemithorax pleural interface does not fulfill quantitative criteria for viable pleural neoplasm. (Barbour, et al, Chest 122:1918, 2002). 4. Facilitated radiopharmaceutical concentration noted in the lower pelvis contiguous to prostate gland to the right of the midline may warrant further investigation with magnetic resonance imaging or potentially 18F-fluciclovine PET-CT scintigraphy. (Ben couch al, Journal of Nuclear Medicine 55:1986, 2014). 5. There is interim metabolic resolution of the prior defined mediastinal and right thoracic perihilar, right hemithorax pleural interface hypermetabolic foci. Electronic Signature Heber Bardales D.O. Electronically Signed: Heber Bardales DO at 13:49 EDT Tel , Service support , CC: Ian Corea MD; Niko Sampson MD Bread Wrapper Operator: Signed PACEMAKER CHECK Observed: 01/07/2018 Status: F Source: [facility] 3:32 PM [facility] REPOSITORY [facility] [address] [place] [address] Pacemaker Check Date of Service: 01/07/18 1134 MR#: [id number] Acct: [id number] Name: TOMÁS MOSLEY Rep #: [id number] : 1940 From: Carine Salmon Age/Sex: 77/M [place] [facility] [place]: Signed Billing Codes PM Device Codes: PM Dev Prog Eval, Single 01/07/18 1136 <Electronically signed by Carine Salmon > Date Carine Salmon 01/07/18 1532<Electronically signed by Flash Gaytan MD> Cosign Signature: Date (if applicable) Flash Gaytan MD CC: ONCOLOGY VISIT REPORT Observed: 12/29/2017 Status: F Source: [facility] 1:29 PM [facility] REPOSITORY [facility] [address] [place] [address] OFFICE VISIT Date of Service: 12/29/17 1319 MR#: [id number] Acct: [id number] Name: TOMÁS MOSLEY Rep #: [id number] : 1940 From: Ian Corea MD Age/Sex: 77/M Location: [facility] Status: Signed Subjective - Date of Service Date of Service:: 12/29/17 - Chief Complaint F/u for NSCLC - History of Present Illness Mr. Tomás Mosley is a pleasant 77y.o.man who presented with chronic cough, CTA 08/11/16 revealed right pleural based mass/effusion. He underwent a CT guided biopsy on 08/28/2016 under the care of Dr. An which showed poorly differentiated NSCLC, of adenocarcinoma histology. PET/CT 09/29/16 showed hypermetabolic activity in the carinal- subcarinal mediastinum, right infrahilar region measuring 2.1 cm, SUV 7.1 and throughout right hemithorax SUV 10.5. CT brain obtained 09/29/16 demonstrated no evidence of metastatic disease. Lung sequence could not be performed d/t inadequate amount of tissue from original biopsy. Proposed patient begin Cisplatin/Alimta on 10/09/16, however patient elected to hold until second biopsy could be obtained to allow for lung sequencing and more specific diagnosis. Final lung sequencing showed negative EGFR, ALK, ROS1 AND BRAF. Thus, he began Carboplatin/Alimta/Keytruda on 11/05/16. He developed peripheral edema, given Lasix then developed ulcers on the R feet so 2nd cycle is delayed. He was found to have Peripheral vascular disease and had angioplasty and stenting of R femoral artery done on 01/01/2017. CT chest on 01/15/2017 showed partial response with decrease in the pleural based nodules. Chemotherapy was held because of peripheral Vascular disease and leg ulcers. Right leg ulcer has healed. He is on observation, comes in for follow up. - Past Medical/Social History Past Medical History Past Medical History: Edema,Heart disease,Hypertension Other Past Medical History: PERIPHERAL VASCULAR DISEASE Cancer: Lung cancer Past Surgical History Surgical: Appendectomy,Pacemaker Other Surgical History: PORT PLACEMENT CARDIAC CATH PERFORATED ULCER ANGIOPLASTI/STENT abdominal anerysm right foot ulcer debridement dr. cid rt leg arteriogram, rt femoral artery stents dr ulloa Dec 2016 Family History Paternal Past Medical History: Unknown Maternal Past Medical History: Heart disease Social History Social History: No changes Smoking Status Former smoker Review of Systems Constitutional:: Reports: Weight gain. Denies: Fever, Sweats, Weight loss, Appetite change, Chills Cardiovascular:: Denies: Chest pain, Palpitations, Dyspnea on exertion, Orthopnea, PND, Shortness of breath Respiratory: Denies: Cough, Hemoptysis, Shortness of Breath, Wheezing Gastrointestinal:: Denies: Abdominal pain, Nausea, Vomiting, Diarrhea, Constipation, Hematochezia Genitourinary: Denies: Dysuria, Hematuria, 15, Flank pain Musculoskeletal:: Denies: Back pain, Myalgia, Arthralgia Skin: Denies: Rash, Skin Changes, Wounds Neurological:: Denies: Headache, Dizziness, Visual changes, Tinnitus, Hearing loss Psychiatric: Denies: Anxiety, Depression, Homicidal Ideations, Suicidal Ideations Vital Signs Height 5 ft 7 in Weight: 89.358 kg Weight in Pounds 197.0 lbs Pulse Ox 94 - Physical Exam General: Alert, Oriented x3, No apparent distress HEENT: Atraumatic, PERRLA, EOMI, Normocephalic Oropharynx:: Dry mucosa Neck:: Supple, Trachea midline. Negative for: JVD, bilateral Cardiac:: Regular rate, Regular rhythm, Normal S1, Normal S2. Negative for: Murmur Lungs: Clear to auscultation, Excusion symmetrical. Negative for: Rhonchi, Wheezes Abdomen:: Bowel sounds x 4, Soft, Non-tender, Non-distended. Negative for: Hepatosplenomegaly Extremities:: Negative for: Cyanosis, Edema Neurological: Neuro grossly intact Skin:: Negative for: Lesions, Rash, Petechiae, Ecchymosis Psychiatric:: Appropriate affect, Euthymic Lymphatics:: Negative for: Cervical lymphadenopathy, Supraclavicular lymphadenopathy, Axillary lymphadenopathy Laboratory Data: Laboratory Tests Diagnostic Data: 12/24/[address]/Chest WITH Contrast IMPRESSION: Prominent interval enlargement of a highly suspicious lymph node within the mediastinum since imaging of 06/10/2017. Maximum dimension is 3.3 cm, with evidence of partial central necrosis. Highly suspicious for malignancy. There is no evidence of lung malignancy at this time. Electronically Signed: Heber Ordonez, at 13:01 EDT Assessment and Plan NSCLC adenocarcinoma stage IV, Partial Response to 1 cycle of Carboplatin, Alimta and Keytruda. PVD. CT shows progressive disease. Plan is to obtain PET/Ct to restage disease. RTC 2 weeks to discuss further mgmt. Medications: Prescriptions This Visit Medication Instructions Recorded Furosemide [Lasix] 40 mg PO DAILY 11/11/16 Primary Care Provider: Niko Sampson MD Referring Provider: - Problem List (1) Non-small cell carcinoma of right lung, stage 4 Status: Chronic Code Visit Office Visits / Consults: 53204 OV L4 Est 12/29/17 1329 <Electronically signed by Ian Corea MD> Date Ian Corea MD Cosigner Signature: Date (if applicable) CC: PROTHROMBIN TIME W/INR Collected: 12/29/2017 Status: F Source: [facility] 12:38 PM [facility] REPOSITORY TYPE CODE TESTS RESULT OUT OF RANGE REFERENCE UNITS LAB L300.4150 11.7-14.9 SECONDS High PROTIME 32.2 LAB L300.4200 Normal INR 3.1 Performed By: #### L300.3900 #### [facility] [address] [place], [address] CBC W/DIFF, AUTOMATED Collected: 12/29/2017 Status: F Source: [facility] 12:34 PM [facility] REPOSITORY Order Comment: Reason for Laboratory Test . TYPE CODE TESTS RESULT OUT OF RANGE REFERENCE UNITS LAB L100.1000 4.4-11.0 K/mm3 Normal WBC 9.0 LAB L100.1200 4.6-6.2 M/mm3 Normal RBC 4.95 LAB L100.1300 13.0-16.5 g/dl Normal HGB 14.4 LAB L100.1400 40-54 % Normal HCT 46.0 LAB L100.1500 80-94 fL Normal MCV 92.9 LAB L100.1600 27.0-32.0 pg Normal MCH 29.1 LAB L100.1700 32-36 g/gl Low MCHC 31.3 LAB L100.1810 11.6-14.6 % Normal RDW CV 14.6 LAB L100.1820 35.1-43.9 fl High RDW SD 49.3 LAB L100.1900 150-450 K/mm3 Normal PLT 166 LAB L100.2000 6.2-12.0 fl Normal MPV 9.0 LAB L100.2100 47-70 % High NEUT% 71.9 LAB L100.2200 19-41 % Low LY% 12.9 LAB L100.2300 0-10 % High MONO% 14.1 LAB L100.2400 0-5 % Normal EO% 0.7 LAB L100.2500 0-1 % Normal BASO% 0.2 LAB L100.2550 0.0-0.9 % Normal IM GRAN % 0.200 Result Comment: IG% - Immature Granulocytes (promyelocytes, myelocytes and metamyelocytes) > 1% indicates that a LEFT SHIFT is Present. LAB L100.2620 2.0-7.7 X10 3/uL Normal Absolute Neut 6.5 LAB L100.2720 0.83-4.51 X10 3/ul Normal Absolute Lymph 1.16 Performed By: #### L100.0100 #### [facility] [address] [place], [address] COMPREHENSIVE METABOLIC Collected: 12/29/2017 Status: F Source: [facility] 12:34 PM [facility] REPOSIT[facility] Order Comment: Reason for Laboratory Test . TYPE CODE TESTS RESULT OUT OF RANGE REFERENCE UNITS LAB L501.0100 74-106 mg/dL Normal GLU 83 Result Comment: Please note revised GLUCOSE reference range effective 2017. LAB L501.1000 7-18 mg/dL High BUN 42 LAB L501.1100 0.70-1.30 mg/dL Normal CREAT,SERUM 1.24 Result Comment: The validity of the calculated GFR AND GFRAA in patients over 70 years has not been determined. Clinical correlation is essential. LAB L501.1110 >60 mL/min Normal EST GFR 60 Result Comment: Non- GFR Calc LAB L501.1115 >60 mL/min Normal EST GFR - AA 73 Result Comment: GFR Calc LAB L501.1255 ml/min Normal Estimated CRCL 47.38 LAB L501.1300 10-20 RATIO High BUN/CRE 33.9 LAB L501.1500 6.4-8. g/dL Normal 2 T PROT 7.3 LAB L501.1800 3.2-5. g/dL Normal 0 ALB 4.1 LAB L501.1950 2.2-4. g/dL Normal 2 GLOB 3.2 LAB L501.2000 0.9-2. RATIO Normal 4 A/G 1.3 LAB L501.2200 8.5-10 mg/dL Normal .1 CA 9.2 LAB L501.4100 15-37 U/L Normal AST 16 LAB L501.4305 45-117 U/L Normal ALK P 92 LAB L501.4405 16-61 U/L Normal ALT 25 LAB L501.4600 0.20-1 mg/dL Normal .00 T BILI 0.40 LAB L501.5300 136-14 mmol/L Normal 5 NA 141 LAB L501.5600 3.5-5. mmol/L Normal 1 K 5.1 LAB L501.5900 98-107 mmol/L High CL 108 LAB L501.6100 21.0-3 mmol/L Normal 2.0 CO2 26.0 LAB L501.6200 5-15 Normal GAP 7 Performed By: #### L500.4050 #### [facility] [address] [place], [address] CREATININE FINGERSTICK Collected: 12/24/2017 Status: F Source: [facility] 12:41 PM [facility] REPOSITORY TYPE CODE TESTS RESULT OUT OF RANGE REFERENCE UNITS LAB L9100.0210 0.70-1.30 mg/dL Normal CREATININE WB 0.9 LAB L9100.0220 >60 mL/min EGFR WB Normal > 60.0000 Performed By: #### L9100.0200 #### [facility] Point [facility] [address] [place] [address] CHEST WITH CONTRAST Observed: 12/24/2017 Status: F Source: [facility] 12:11 PM [facility] REPOSITORY [facility] Imaging Services [address] [place] [address] Chest WITH Contrast MR#: [id number] Acct: [id number] Name: TOMÁS MOSLEY Rep #: [id number] : 1940 M 77 From: Heber Ordonez MD PCP: Niko Sampson MD Status: REG CLI Study: Chest WITH Contrast Date of Exam: 12/24/17 Exam# [id number] Ordering Dr: Ian Corea MD STUDY: CT CHEST with CONTRAST REASON FOR EXAM: Male, 77 years old. Malignant neoplasm of the lung. RADIATION DOSAGE (If Supplied By Facility): CTDIvol = ( 16.62 ) mGy, DLP = ( 556.97 ) mGycm TECHNIQUE: Transaxial imaging was performed with the administration of intravenous contrast material. Coronal and sagittal 2-D MPR. Isovue-370, 90 mL. Individualized dose optimization techniques were used for this CT. COMPARISON: CT chest 06/10/2017, 04/09/2017, 01/15/2017. FINDINGS: Supraclavicular: Minimally nodular thyroid gland likely reflecting goiter. Stable. Body wall soft tissues: Left pectoral pacer device. No acute process. Upper abdomen: Limited evaluation, stable benign right renal superior pole cyst. Osseous structures: Kyphosis, mild scoliosis, osteopenia, old healed rib fractures. No acute osseous process. Mediastinum: Normal esophagus. A pretracheal centrally necrotic enlarged lymph node measuring 3.3 cm craniocaudal, 3.3 cm anterior- posterior and 3.3 cm transverse has substantially increased in size compared to imaging of June 10, 2017 at which time the greatest dimension was approximately 1.9 cm. A few additional very small lymph nodes are stable. Highly suspicious for metastatic lymphadenopathy. Cardiovascular: Stable borderline cardiomegaly, prominent coronary calcifications. Pacer wires. Nondilated aorta with mild atherosclerosis. Nondilated central pulmonary arteries with no evidence of pulmonary embolus. Lungs: Generalized hyperlucency consistent with underlying COPD with mild paraseptal emphysematous changes at the apices. The left lung is otherwise clear. There is a densely calcified pulmonary nodule in the right lower lobe stable compared to prior imaging. The central airways are normal. No endobronchial lesion. CT/Chest WITH Contrast IMPRESSION: Prominent interval enlargement of a highly suspicious lymph node within the mediastinum since imaging of 06/10/2017. Maximum dimension is 3.3 cm, with evidence of partial central necrosis. Highly suspicious for malignancy. There is no evidence of lung malignancy at this time. Electronically Signed: Heber Ordonez, at 13:01 EDT Tel , Service support , CC: Ian Corea MD; Niko Sampson MD Bread Wrapper Operator: Signed PROTHROMBIN TIME W/INR Collected: 12/10/2017 Status: F Source: [facility] 10:49 AM [facility] REPOSIT[facility] TYPE CODE TESTS RESULT OUT OF RANGE REFERENCE UNITS LAB L300.4150 11.7-14.9 SECONDS High PROTIME 27.0 LAB L300.4200 Normal INR 2.5 Performed By: #### L300.3900 #### [facility] [address] [place], [address] PROTHROMBIN TIME W/INR Collected: 11/19/2017 Status: F Source: [facility] 11:47 AM [facility] REPOSIT[facility] TYPE CODE TESTS RESULT OUT OF RANGE REFERENCE UNITS LAB L300.4150 11.7-14.9 SECONDS High PROTIME 30.7 LAB L300.4200 Normal INR 2.9 Performed By: #### L300.3900 #### [facility] [address] [place], [address] PROTHROMBIN TIME W/INR Collected: 10/29/2017 Status: F Source: [facility] 10:48 AM [facility] REPOSIT[facility] Order Comment: Result obtained is for confirmation testing of Fingerstick PT/INR Specimen # [id number] . 10/29/17 1049 [id number] THIS CONFIRMATION SPECIMEN RESULT IS FROM VENOUS BLOOD. TYPE CODE TESTS RESULT OUT OF RANGE REFERENCE UNITS LAB L300.4150 11.7-14.9 SECONDS High PROTIME 32.3 LAB L300.4200 Normal INR 3.1 Performed By: #### L300.3900 #### [facility] [address] [place], [address] PROTIME W/INR Collected: 10/29/2017 Status: F Source: [facility] 10:34 AM [facility] REPOSIT[facility] Order Comment: This critical result is preliminary and not confirmed. Venous sample sent to main laboratory for confirmation. A call with confirmation result will follow. See specimen #:[CG] for confirmation result. Preliminary critical result Call to/Read back by []. 10/29/17 104Skyler HEBERT. TYPE CODE TESTS RESULT OUT OF REFERENCE UNITS RANGE LAB L9200.1001 11.9-14.4 SEC High PROTIME ISTAT 39.9 Result Comment: Reference Range 11.9 - 14.4 LAB L9200.2000 Normal INR ISTAT 3.50 Result Comment: Critical Value > 3.5 Performed By: #### L9200.0000 #### [facility] Point of Care [address] [place] [address] PACEMAKER CHECK Observed: 10/08/2017 Status: F Source: SAPPHIRE 3:51 PM [facility] REPOSITORY [facility] [place] [address] Pacemaker Check Date of Service: 10/08/17 1015 MR#: [id number] Acct: [id number] Name: TOMÁS MOSLEY Jacque Rep #: [id number] : 1940 From: Carine Salmon Age/Sex: 77/M [place] [facility] [place]: Signed Billing Codes PM Device Codes: PM Ty Valderrmaa, Yumiko 10/08/17 1017 <Electronically signed by Carine Salmon > Date Carine Salmon 10/08/17 1551<Electronically signed by Flash Gaytan MD> Mansoorignclaudia Signature: Date (if applicable) Flash Gaytan MD CC: PROTIME W/INR Collected: 09/30/2017 Status: F Source: MERT FINGERSTICK 9:42 AM [facility] REPOSITORY TYPE CODE TESTS RESULT OUT OF REFERENCE UNITS RANGE LAB L9200.1001 11.9-14.4 SEC High PROTIME ISTAT 34.9 Result Comment: Reference Range 11.9 - 14.4 LAB L9200.2000 Normal INR ISTAT 3.10 Result Comment: Critical Value > 3.5 Performed By: #### L9200.0000 #### [facility] Point of Care [address] [place] [address] DOWNTIME REPORT Observed: 09/24/2017 Status: F Source: MERT 1:20 PM [facility] REPOSITORY [facility] Medical Records [place] [address] Downtime Report MR#: [id number] Acct: [id number] Name: TOMÁS MOSLEY Rep #: [id number] : 1940 77 From: Kaz Szymanski PCP: Niko Sampson MD Status: REG CLI This patient was seen during an EMR downtime September 07, 2017 - September 14, 2017. This patient may have a combination of paper and electronic documentation or all paper documentation. All documentation is viewable within the e-chart portion of [employer] for each patient visit. PROTIME W/INR Collected: 09/09/2017 Status: F Source: MERT [place] 11:06 AM [facility] REPOSITORY TYPE CODE TESTS RESULT OUT OF REFERENCE UNITS RANGE LAB L9200.1001 11.9-14.4 SEC High PROTIME ISTAT 34.1 Result Comment: Reference Range 11.9 - 14.4 LAB L9200.2000 Normal INR ISTAT 3.00 Result Comment: Critical Value > 3.5 Performed By: #### L9200.0000 #### [facility] Point of Care [address] [place] [address] PROTIME W/INR Collected: 08/21/2017 Status: F Source: MERT [place] 12:13 PM [facility] REPOSITORY TYPE CODE TESTS RESULT OUT OF REFERENCE UNITS RANGE LAB L9200.1001 11.9-14.4 SEC High PROTIME ISTAT 29.8 Result Comment: Reference Range 11.9 - 14.4 LAB L9200.2000 Normal INR ISTAT 2.60 Result Comment: Critical Value > 3.5 Performed By: #### L9200.0000 #### [facility] Point of [place] [address] CARDIOLOGY VISIT Observed: 08/17/2017 Status: F Source: MERT REPORT 11:19 AM [facility] REPOSITORY [facility] [address] [place] [address] OFFICE VISIT Date of Service: 08/17/17 MR#: [id number] Acct: [id number] Name: TOMÁS MOSLEY Rep #: [id number] : 1940 Provider: Flash Gaytan MD Age/Sex: 77/M Location: [facility] [place] Status: Signed HPI HPI Chief Complaint: Routine f/u Details: Mr Mosley is a very pleasant 77-year-old gentleman. He is returning for followup of his coronary artery disease and atrial fibrillation status post AV junctional ablation and permanent pacemaker with history of resolved Ischemic cardiomyopathy. Since his last visit Mr. Mosley did undergo a CT scan of his abdomen which showed a 4.9 cm fusiform infrarenal abdominal aortic aneurysm which was an increase in size from his previous ultrasound of a year ago measuring 4.1 cm. He apparently was evaluated by Dr. Ulloa who recommended endovascular repair. in anticipation of his endovascular repair, he underwent a stress echocardiogram and echocardiogram on 03/24/12. At that time he had no new ischemic territories his LVEF was 50%. The patient underwent successful aortoiliac stent grafting at that time. Recently, on 11/16/14 the patient presented with abdominal pain and acute suppurative appendicitis. He underwent urgent surgical correction by Dr. Ulloa and has been doing well ever since. He denies any abdominal pain. From a cardiac standpoint he denies any chest pain, angina, shortness of breath or dyspnea on exertion. Unfortunately, despite his plethora of endovascular disease, he continues to smoke about 1 pack of cigarettes per day. He had been smoking about 1 pack for the past 55 years, and in fact has quit smoking completely for over 1 year. He denies any lightheadedness, dizziness, presyncope or syncopal episodes. He is taking and tolerating his medicines well. patient recently had his appendix repaired, as well as his pacemaker generator change. In addition Dr. Ulloa has placed a AAA endovascular stent, and his claudication symptoms have markedly improved. In our office today his blood pressure is 106/60, and pulse is 70and regular. His physical exam is as below. He has no edema. His lipids as of 12/2014 showed an HDL of 50 and LDL of 55. His lipids as of August 2015 show an LDL 65 and HDL of 45. His lipids as of 03/09/17 show an LDL of 29 and HDL of 53. Intake Vital Signs08/17/17 Height 5 ft 7 in Intake Visit Reasons: 6 M FU Allergies folic acid Allergy (Mild, Verified 08/17/17 10:48) Rash amiodarone Adverse Reaction (Unknown, Verified 08/17/17 10:48) Unknown morphine Adverse Reaction (Verified 08/17/17 10:48) HALLUCINATIONS Medications Aspirin E.C. [Ecotrin] 81 mg PO DAILY@0800 11/15/14 [History Confirmed 08/17/17] Nitroglycerin [Nitro-Dur] 0.1 mg TRANSDERM. DAILY 11/15/14 [History Confirmed 08/17/17] Furosemide [Lasix] 40 mg PO DAILY 11/11/16 [History Confirmed 08/17/17] Potassium Chloride [Klor-Con] 20 meq PO DAILY 11/11/16 [History Confirmed 08/17/17] warfarin 4 mg tablet 4 mg PO .COMPLEX 05/01/17 [History Confirmed 08/17/17] ranitidine 150 mg tablet 150 mg PO BID #180 tab 05/20/17 [Rx Confirmed 08/17/17] rosuvastatin 40 mg tablet 40 mg PO DAILY #90 tab 07/14/17 [Rx Confirmed 08/17/17] warfarin 6 mg tablet 6 mg PO 6XW #90 tab 07/20/17 [Rx Confirmed 08/17/17] hydrocodone 5 mg-acetaminophen 300 mg tablet 1 tab PO Q4H PRN 08/17/17 [History Confirmed 08/17/17] lisinopril 10 mg tablet 10 mg PO BID #180 tab 08/17/17 [Rx Confirmed 08/17/17] metoprolol succinate ER 100 mg tablet,extended release 24 hr 50 mg PO DAILY #90 tab 08/17/17 [Rx Confirmed 08/17/17] tramadol 50 mg tablet 50 mg PO QHS tab 08/17/17 [History Confirmed 08/17/17] PFSH Medical History Secondary pulmonary arterial hypertension (Chronic) AAA (abdominal aortic aneurysm) (Chronic) Atrial flutter (Chronic) Atherosclerotic heart disease of [place] coronary artery without angina pectoris (Chronic) Hyperthyroidism (Chronic) Chronic systolic congestive heart failure (Chronic) Pleural effusion (Chronic) PVD (peripheral vascular disease) (Chronic) Chronic atrial fibrillation (Chronic) Cardiomyopathy, ischemic (Chronic) Atrioventricular block, complete (Chronic) Hyperlipidemia (Chronic) Hypertension (Chronic) intermediate school teacher (current) use of anticoagulants (Chronic) Perforated ulcer (Acute) RIGHT FOOT ULCER DEBRIDEMENT (Acute) s/p apll (Acute 03/10/17) Surgical History H/O endovascular stent graft for abdominal aortic aneurysm (Chronic) History of coronary artery stent placement (Chronic 03/01/01) Presence of cardiac pacemaker (Chronic) H/O angioplasty (Chronic) History of appendectomy (Chronic) Hx of cardiac cath (Chronic) MED PORT PLACEMENT (Chronic) STENT FEMORAL ARTERY (Chronic) Family History Mother Hypertension CAD (coronary artery disease) Myocardial infarction Brother Sudden cardiac Brother Sudden cardiac CAD (coronary artery disease) CABG Social History Smoking Status: Former smoker ROS Const Const: Positive for weakness and fatigue; negative for difficulty sleeping, frequent falls, headache(s) or excessive sweating Eyes Eyes: Negative for loss of peripheral vision, transient loss of vision, blurry vision or double vision ENT ENT: Negative for Nosebleed/epistaxis, balance problems, dizziness or headache(s) Cardio Chest Pain: No Edema: None Muscle aches with walking: None Resp Respiratory: Negative for SOB with activity, SOB at rest, SOB orthopnea\SOB lying down or paroxysmal nocturnal dyspnea GI GI: Negative nausea or heartburn : Negative for hematuria Musc Musc: Negative for muscle aches/ myalgia, muscle weakness, joint pain or balance problems Skin Skin: Negative non-healing lesions, unusual bruising or rash Neuro Neuro: Positive for weakness; negative for blurry vision, dizziness, lightheadedness, orthostatic symptoms, double vision, frequent falls or headache(s) Vladimir Hematologic/Lymphatic: Negative for easy bruising Endo Endo: Positive for fatigue; negative for excessive sweating or increased thirst/drinking Psych Psych: Negative for anxiety or depression Allergy Allergy/Immunology: Negative for hives, Negative for rash Cardiology Exam Const Appearance: cooperative, healthy appearing and no acute distress Nutritional Appearance: well nourished Orientation: alert, oriented x3 and oriented to person Head Head: normal to inspection, atraumatic and normocephalic Nose: external nose normal Face and Sinus: face symmetric Mouth: oral mucosae normal Eyes General: appearance normal, both eyes and all related structures Eyelids: eyelids normal Conjunctivae: conjunctivae normal Pupils: PERRL and normal by confrontation EOM: EOM intact bilaterally Neck Neck: normal visual inspection and full ROM Carotids: normal carotid upstroke Chest Chest inspection: normal inspection of the chest Auscultation: Bilateral: Clear to Auscultation Cardio Palpation: normal PMI Rate: regular rate Rhythm: regular rhythm Heart sounds: S1 normal and S2 normal GI GI: normal to inspection, no hepatosplenomegaly and bowel sounds present Neuro General: alert, oriented x3, awake, CN's II-XI intact bilaterally and moves all extremities Skin Skin: no rashes or lesions noted Extremities Pulses: Normal: Right Femoral Pulse, Left Femoral Pulse, Right Dorsalis Pedis Pulse, Left Dorsalis Pedis Pulse, Right Posterior Tibial Pulse, Left Posterior Tibial Pulse, Right Radial Pulse, Left Radial Pulse Lower Extremity Edema: None: Bilateral Psych Psychological: normal affect Assessment AND Plan 1. Atherosclerotic heart disease of [place] coronary artery without angina pectoris I25.10 Plan 1. Coronary artery disease: No exertional anginal symptoms at this time. No indication for any additional testing. His blood pressure is much better controlled than on her last visit. Continue baby aspirin, lisinopril, metoprolol. In addition he will continue chronic Coumadin therapy for his peripheral vascular disease and pulmonary hypertension history. 2. Hyperlipidemia, unspecified hyperlipidemia type E78.5 Plan 2. Hyperlipidemia: His LDL and HDL cholesterol are at goal. Continue Crestor. 3. Return office in 6 months. This note was generated using a voice recognition system and there may be incorrect words, spelling or punctuation that were not noted when reviewing the office note prior to saving. Plan Detail Other Orders Orders: Other Medications New: Follow Up +6M (Gaytan) Coding Level of Care Code Off vis,est,level 3 Diagnoses Atherosclerotic heart disease of [place] coronary artery without angina pectoris I25.10 Hyperlipidemia, unspecified hyperlipidemia type E78.5 Hyperlipidemia type: unspecified Coding Level of Care Code Off vis,est,level 3 Diagnoses Atherosclerotic heart disease of [place] coronary artery without angina pectoris I25.10 Hyperlipidemia, unspecified hyperlipidemia type E78.5 Hyperlipidemia type: unspecified 08/17/17 1119 <Electronically signed by Flash Gaytan MD> Date Flash Gaytan MD Cosigner Signature: Date (if applicable) CC: Niko Sampson PROTHROMBIN TIME W/INR Collected: 08/10/2017 Status: F Source: [facility] 1:49 PM [facility] REPOSITORY TYPE CODE TESTS RESULT OUT OF RANGE REFERENCE UNITS LAB L300.4150 11.7-14.9 SECONDS High PROTIME 31.8 LAB L300.4200 Normal INR 3.1 Performed By: #### L300.3900 #### [facility] [address] [place], [place], [address] PROTHROMBIN TIME W/INR Collected: 07/13/2017 Status: F Source: [facility]IRE 1:02 PM [facility] REPOSITORY TYPE CODE TESTS RESULT OUT OF RANGE REFERENCE UNITS LAB L300.4150 11.7-14.9 SECONDS High PROTIME 29.6 LAB L300.4200 Normal INR 2.8 Performed By: #### L300.3900 #### [facility] [address] [place], [address] ONCOLOGY VISIT REPORT Observed: 06/22/2017 Status: F Source: SAPPHIRE 2:45 PM [facility] REPOSITORY [facility] [address] [place] [address] OFFICE VISIT Date of Service: 06/22/17 1413 MR#: [id number] Acct: [id number] Name: TOMÁS MOSLEY Rep #: [id number] : 1940 From: Ian Corea MD Age/Sex: 76/M Location: [facility] Status: Signed Subjective - Date of Service Date of Service:: 06/22/17 - Chief Complaint F/u for NSCLC - History of Present Illness Mr. Tomás Mosley is a pleasant 76y.o.man who presented with chronic cough, CTA 08/11/16 revealed right pleural based mass/effusion. He underwent a CT guided biopsy on 08/28/2016 under the care of Dr. An which showed poorly differentiated NSCLC, of adenocarcinoma histology. PET/CT 09/29/16 showed hypermetabolic activity in the carinal- subcarinal mediastinum, right infrahilar region measuring 2.1 cm, SUV 7.1 and throughout right hemithorax SUV 10.5. CT brain obtained 09/29/16 demonstrated no evidence of metastatic disease. Lung sequence could not be performed d/t inadequate amount of tissue from original biopsy. Proposed patient begin Cisplatin/Alimta on 10/09/16, however patient elected to hold until second biopsy could be obtained to allow for lung sequencing and more specific diagnosis. Final lung sequencing showed negative EGFR, ALK, ROS1 AND BRAF. Thus, he began Carboplatin/Alimta/Keytruda on 11/05/16. He developed peripheral edema, given Lasix then developed ulcers on the R feet so 2nd cycle is delayed. He was found to have Peripheral vascular disease and had angioplasty and stenting of R femoral artery done on 01/01/2017. CT chest on 01/15/2017 showed partial response with decrease in the pleural based nodules. Chemotherapy is on hold because of peripheral Vascular disease and leg ulcers. He had CT chest done and comes in for follow-up. Right leg ulcer has healed. - Past Medical/Social History Past Medical History Past Medical History: Edema,Heart disease,Hypertension Other Past Medical History: PERIPHERAL VASCULAR DISEASE Cancer: Lung cancer Past Surgical History Surgical: Appendectomy,Pacemaker Other Surgical History: PORT PLACEMENT CARDIAC CATH PERFORATED ULCER ANGIOPLASTI/STENT abdominal anerysm right foot ulcer debridement dr. cid rt leg arteriogram, rt femoral artery stents dr ulloa Dec 2016 Family History Paternal Past Medical History: Unknown Maternal Past Medical History: Heart disease Social History Social History: No changes Smoking Status Former smoker Review of Systems Constitutional:: Denies: Fever, Sweats, Weight loss, Appetite change, Chills Cardiovascular:: Denies: Chest pain, Palpitations, Dyspnea on exertion, Orthopnea, PND, Shortness of breath Respiratory: Denies: Cough, Hemoptysis, Shortness of Breath, Wheezing Gastrointestinal:: Denies: Abdominal pain, Nausea, Vomiting, Diarrhea, Constipation, Hematochezia Genitourinary: Denies: Dysuria, Hematuria, 15, Flank pain Musculoskeletal:: Denies: Back pain, Myalgia, Arthralgia Skin: Reports: - - Left leg ulcer.. Denies: Rash, Skin Changes, Wounds Neurological:: Denies: Headache, Dizziness, Visual changes, Tinnitus, Hearing loss Psychiatric: Denies: Anxiety, Depression, Homicidal Ideations, Suicidal Ideations Vital Signs Height 5 ft 7 in Weight: 79.379 kg Weight in Pounds 175.0 lbs Pulse Ox 91 - Physical Exam General: Alert, Oriented x3, No apparent distress HEENT: Atraumatic, PERRLA, EOMI, Normocephalic Oropharynx:: Dry mucosa Neck:: Supple, Trachea midline. Negative for: JVD, bilateral Cardiac:: Regular rate, Regular rhythm, Normal S1, Normal S2. Negative for: Murmur Lungs: Clear to auscultation, Excusion symmetrical. Negative for: Rhonchi, Wheezes Extremities:: - - + foot ulcer. Psychiatric:: Appropriate affect, Euthymic Lymphatics:: Negative for: Cervical lymphadenopathy, Supraclavicular lymphadenopathy, Axillary lymphadenopathy Laboratory Data: Laboratory Tests WBC 7.3 Hgb 14.3 Plt Count 175 Total Bilirubin 0.50 AST 18 ALT 30 Alkaline Phosphatase 107 Total Protein 7.3 Albumin 3.8 Assessment and Plan NSCLC adenocarcinoma stage IV, Partial Response to 1 cycle of Carboplatin, Alimta and Keytruda. PVD with leg ulcer, Chemotherapy on hold because of PVD and Ulcer. CT shows no evidence of progressive disease. Plan is to continue observation. RTC [address] chest/cbc/cmp. Medications: Prescriptions This Visit Medication Instructions Recorded Furosemide [Lasix] 40 mg PO DAILY 11/11/16 Potassium Chloride [Klor-Con] 20 meq PO DAILY 11/11/16 Primary Care Provider: Niko Sampson MD Referring Provider: - Problem List (1) Non-small cell carcinoma of right lung, stage 4 Status: Chronic (2) Ischemic ulcer of leg Status: Chronic Code Visit Office Visits / Consults: [id number] OV L4 Est 06/22/17 1445 <Electronically signed by Ian Corea MD> Date Ian Corea MD Cosigner Signature: Date (if applicable) CC: Niko Sampson PROTHROMBIN TIME W/INR Collected: 06/15/2017 Status: F Source: [facility]IRE 12:47 PM [facility] REPOSITORY TYPE CODE TESTS RESULT OUT OF RANGE REFERENCE UNITS LAB L300.4150 11.7-14.9 SECONDS High PROTIME 29.9 LAB L300.4200 Normal INR 2.8 Performed By: #### L300.3900 #### [facility] [address] [place], [address] CBC W/DIFF, AUTOMATED Collected: 06/15/2017 Status: F Source: [facility]PHIRE 12:46 PM [facility] REPOSITORY Order Comment: Reason for Laboratory Test OV TYPE CODE TESTS RESULT OUT OF RANGE REFERENCE UNITS LAB L100.1000 4.4-11.0 K/mm3 Normal WBC 7.3 LAB L100.1200 4.6-6.2 M/mm3 Normal RBC 4.90 LAB L100.1300 13.0-16.5 g/dl Normal HGB 14.3 LAB L100.1400 40-54 % Normal HCT 44.9 LAB L100.1500 80-94 fL Normal MCV 91.6 LAB L100.1600 27.0-32.0 pg Normal MCH 29.2 LAB L100.1700 32-36 g/gl Low MCHC 31.8 LAB L100.1810 11.6-14.6 % High RDW CV 15.5 LAB L100.1820 35.1-43.9 fl High RDW SD 52.4 LAB L100.1900 150-450 K/mm3 Normal PLT 175 LAB L100.2000 6.2-12.0 fl Normal MPV 8.7 LAB L100.2100 47-70 % High NEUT% 75.1 LAB L100.2200 19-41 % Low LY% 12.8 LAB L100.2300 0-10 % High MONO% 10.9 LAB L100.2400 0-5 % Normal EO% 0.8 LAB L100.2500 0-1 % Normal BASO% 0.3 LAB L100.2550 0.0-0.9 % Normal IM GRAN % 0.100 Result Comment: IG% - Immature Granulocytes (promyelocytes, myelocytes and metamyelocytes) > 1% indicates that a LEFT SHIFT is Present. LAB L100.2620 2.0-7.7 X10 3/uL Normal Absolute Neut 5.5 LAB L100.2720 0.83-4.51 X10 3/ul Normal Absolute Lymph 0.94 Performed By: #### L100.0100, L500.4050 #### [facility] [address] [place], [place], [address] COMPREHENSIVE METABOLIC Collected: 06/15/2017 Status: F Source: MERT RAMONE 12:46 PM [facility] REPOSITORY Order Comment: Reason for Laboratory Test OV TYPE CODE TESTS RESULT OUT OF RANGE REFERENCE UNITS LAB L501.0100 74-106 mg/dL High GLU 113 Result Comment: Fasting Glucose result from 100 to 125 mg/dL suggests IMPAIRED HOMEOSTASIS per A.D.A. criteria. Please note revised GLUCOSE reference range effective 2017. LAB L501.1000 7-18 mg/dL High BUN 30 LAB L501.1100 0.70-1.30 mg/dL Normal CREAT,SERUM 1.03 Result Comment: The validity of the calculated GFR AND GFRAA in patients over 70 years has not been determined. Clinical correlation is essential. LAB L501.1110 >60 mL/min Normal EST GFR 75 Result Comment: Non- GFR Calc LAB L501.1115 >60 mL/min Normal EST GFR - AA 90 Result Comment: GFR Calc LAB L501.1255 ml/min Normal Estimated CRCL 57.94 LAB L501.1300 10-20 RATIO High BUN/CRE 29.1 LAB L501.1500 6.4-8. g/dL Normal 2 T PROT 7.3 LAB L501.1800 3.2-5. g/dL Normal 0 ALB 3.8 LAB L501.1950 2.2-4. g/dL Normal 2 GLOB 3.5 LAB L501.2000 0.9-2. RATIO Normal 4 A/G 1.1 LAB L501.2200 8.5-10 mg/dL Normal .1 CA 8.8 LAB L501.4100 15-37 U/L Normal AST 18 LAB L501.4305 45-117 U/L Normal ALK P 107 LAB L501.4405 16-61 U/L Normal ALT 30 Result Comment: Please note revised ALT reference range effective 2017. LAB L501.4600 0.20-1.00 mg/dL Normal T BILI 0.50 LAB L501.5300 136-145 mmol/L Normal NA 140 LAB L501.5600 3.5-5.1 mmol/L Normal K 4.3 LAB L501.5900 98-107 mmol/L Normal CL 103 LAB L501.6100 21.0-32.0 mmol/L Normal CO2 27.0 LAB L501.6200 5-15 Normal GAP 10 Performed By: #### L100.0100, L500.4050 #### [facility] [address] [place], [address] CREATININE FINGERSTICK Collected: 06/10/2017 Status: F Source: [facility] 4:38 PM [facility] REPOSITORY TYPE CODE TESTS RESULT OUT OF RANGE REFERENCE UNITS LAB L9100.0210 0.70-1.30 mg/dL Normal CREATININE WB 1.3 Performed By: #### L9100.0200 #### [facility] Point of Care [address] [place] [address] CHEST WITH CONTRAST Observed: 06/10/2017 Status: F Source: [facility] 4:33 PM [facility] REPOSITORY [facility] Imaging Services [address] [place] [address] Chest WITH Contrast MR#: [id number] Acct: [id number] Name: TOMÁS MOSLEY Rep #: [id number] : 1940 M 76 From: Jed Morfin MD PCP: Niko Sampson Status: REG CLI Study: Chest WITH Contrast Date of Exam: 06/10/17 Exam# [id number] Ordering Dr: Ian Corea MD STUDY: CT CHEST WITH CONTRAST REASON FOR EXAM: Male, 76 years old. Lung cancer RADIATION DOSAGE (If Supplied By Facility): CTDIvol = ( 13.34 ) mGy, DLP = ( 478.45 ) mGycm TECHNIQUE: Transaxial imaging was performed following intravenous administration of 100mL ml of Isovue 300 contrast material. Individualized dose optimization techniques were used for this CT. 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 Mild emphysema. Stable small nodular densities and terminal alveolar disease in the left lower lobe. The largest measures up to 3 mm. Calcified granuloma in the right middle lobe. Normal heart and pericardium. Interval development of right paratracheal adenopathy, with a short axis measurement of 1.6 cm. Normal hilar regions. Normal enhanced pulmonary arteries. Normal aorta arch and descending thoracic aorta. Multiple remote thoracic compression deformities. These are unchanged. Remote rib deformities. Right renal cyst. CT/Chest WITH Contrast IMPRESSION: Stable small nodular densities and terminal alveolar disease in the left lower lobe. No new suspicious lung lesions. Evolving right paratracheal adenopathy. Electronically Signed: Jed Morfin MD at 5:32 EST Tel , Service support , CC: Ian Corea MD; Niko Sampson Bread Wrapper Operator: Signed OFFICE VISIT REPORT Observed: 06/09/2017 Status: F Source: MERT 1:18 PM [facility] [address] [place] [address] OFFICE VISIT Date of Service: 05/22/17 MR#: [id number] Acct: [id number] Patient: TOMÁS MOSLEY Rep #: [id number] : 1940 Provider: Carine Salmon Age/Sex: 76/M [place] [facility] [place]: Signed Comments Summary Comments: Single Chamber Pacemaker Evaluation: Interrogation shows no VHR episode since last check 02/12/2017. Left pectoral pocket/incision w/o s/s of infection or erosion. Pt offers no cardiac complaints. Presenting rhythm shows Ventricular paced @ 70 ppm. CORRECTIONAL GUARD=90%. Battery longevity approx 9.5 yrs. Lead impedances and pace/sense threshold remain stable. Unable to check ventricular sensing d/t no intrinsic R waves with rate decrease. No parameter changes made. Counters cleared. Next f/u appt scheduled for in 3 mos. Device Device Date Interviewed: 05/22/17 Follow-up Location: in office Interview Reason: routine follow up Industrial Ecologist: [employer] Name: Essentio SR IS-1 Model: L100 Serial #: [id number] Implant Date: 07/09/15 Year(s): 1 Implant Physician: Dr. Obdulio Briones/[facility] Patient Characteristics Atrial Indication: Permanent atrial fibrillation AV/Node Indication: Catheter ablation induced complete heart Ejection fraction %: 50 to 54 (11/12/2016) By: Echo Underlying rhythm: Atrial fibrillation with complete heart block Pacemaker Dependent: Yes (No intrinsic R waves) Device Characteristics Device: Single Chamber Type: Pacemaker Remote Follow-Up: No Device Physical Exam Yes Incision well healed Leads Lead #1 Industrial Ecologist Lead 1: Guidant Model Lead 1: 4469 Serial# Lead 1: [id number] Date Implanted Lead 1: 09/24/04 Position Lead 1: RA Lead #2 Industrial Ecologist Lead 2: Guidant Model Lead 2: 4470 Serial# Lead 2: [id number] Date Implanted Lead 2: 09/24/04 Position Lead 2: RV Diagnostics Pacing % RV Pacin Arrhythmias Non-Sust Episodes: 0 Measurements Battery Magnet Rate (bmp): 100 Battery Status: ALFONZO Predicted Remaining Longevity (months or years): 9.5 years RV Measurements Impedance (Ohms): 697 Threshold Voltage: 0.5 @ PW(ms): 0.4 Bello Settings Pacemaker Mode: VVI Base Rate: 70 bpm Max Sensor Rate: 140 bpm Billing Codes PM Device Codes: PM Dev Prog Eval, Single Assessment AND Plan Problems 1. Presence of cardiac pacemaker Z95.0 2. Atrioventricular block, complete I44.2 3. Cardiomyopathy, ischemic I25.5 4. Chronic atrial fibrillation I48.2 06/06/17 1337 <Electronically signed by Carine Salmon > Date Carine Salmon 06/08/17 1017<Electronically signed by Flash Gaytan MD> Cosigner Signature: Date (if applicable) Flash Gaytan MD CC: PROTHROMBIN TIME W/INR Collected: 06/03/2017 Status: F Source: [facility]IRE 9:51 AM [facility] REPOSITORY Order Comment: CRITICAL VALUE VERIFIED. CALLED TO CINDY 06/03/17 1029 Nuzhat Monroe. RESULTS READ BACK BY CINDY . TYPE CODE TESTS RESULT OUT OF REFERENCE UNITS RANGE LAB L300.4150 11.7-14.9 SECONDS High PROTIME 37.3 LAB L300.4200 High alert INR 3.7 Performed By: #### L300.3900 #### [facility] [address] [facility] [place], [place], [address] PROTHROMBIN TIME W/INR Collected: 05/20/2017 Status: F Source: [facility] 10:03 AM [facility] REPOSITORY TYPE CODE TESTS RESULT OUT OF RANGE REFERENCE UNITS LAB L300.4150 11.7-14.9 SECONDS High PROTIME 29.9 LAB L300.4200 Normal INR 3.0 Performed By: #### L300.3900 #### [facility] [address] [place], [address] PROTHROMBIN TIME W/INR Collected: 05/06/2017 Status: F Source: [facility] 9:35 AM [facility] REPOSITORY Order Comment: MEDOUT/PORT TYPE CODE TESTS RESULT OUT OF RANGE REFERENCE UNITS LAB L300.4150 11.7-14.9 SECONDS High PROTIME 20.5 LAB L300.4200 Normal INR 1.8 Performed By: #### L300.3900 #### [facility] [address] [place], [address] PROTHROMBIN TIME W/INR Collected: 04/29/2017 Status: F Source: MERT 10:10 AM [facility] REPOSITORY TYPE CODE TESTS RESULT OUT OF RANGE REFERENCE UNITS LAB L300.4150 11.7-14.9 SECONDS High PROTIME 19.4 LAB L300.4200 Normal INR 1.7 Performed By: #### L300.3900 #### [facility] [address] [place], [address] ARTERIAL DUPLEX US Observed: 04/14/2017 Status: F Source: SAPPHIRE -KAMALA EXTREM 5:19 PM [facility] REPOSITORY [facility] Cardiovascular Services [address] [place] [address] Art Duplex US Bilat Lower Ext 04/14/17 1046 MR#: [id number] Acct: [id number] Name: TOMÁS MOSLEY Rep #: [id number] : 1940 76 From: Elliott Ulloa MD Attending Dr: Micheline Lara PA-C Status: REG CLI Ordering Dr: Micheline Lara PA-C Date: 04/14/17 Location: [facility] Sex: M C Admitted: Reason For Study: PVD Right Velocities Left Velocities Common Femoral Artery, mid = 238 cm./sec. Common Femoral Artery, mid = 141 cm./sec. Supf Femoral Artery, prox = 161 cm./sec. Profunda Femoral Artery = 167 cm./sec. Supf Femoral Artery, mid = 53.0 cm./sec. Popliteal Artery, mid = 18.9 cm./sec. Supf Femoral Artery, dist. = 48.1 cm./sec. Post Tibial Artery, mid = 12.6 cm./sec. Profunda Femoral Artery = 179 cm./sec. Peroneal Artery, mid = 17.1 cm./sec. Popliteal Artery, mid = 94.4 cm./sec. Peroneal Artery,dist. = 7.38 cm./sec. Post. Tibial Artery, prox = 52.8 cm./sec. Ant Tibial Artery, mid = 7.38 cm./sec. Post. Tibial Artery, mid = 59.8 cm./sec. Ant. Tibial Artery, distal = 8.33 cm./sec. Post. Tibial Artery, dist = 50.4 cm./sec. Peroneal Artery, mid = 44.6 cm./sec. Peroneal Artery,dist = 45.7 cm./sec. Ant. Tibial Artery, mid = 40.5 cm./sec. Ant. Tibial Artery, dist = 55.7 cm./sec. Procedure The exam was diagnostic. Exam performed in department. Interpretation Summary Diffusely disease right common femoral artery and profunda femoral with moderate disease. Patent right superficial femoral artery stent Occluded left superficial femoral artery with very diminished flows distally. Ordering Physician: Micheline Lara PA-C Performed By: Harry Moore RVT 04/14/171717 Date Elliott Ulloa MD CC: Micheline Lara PA-C; Niko Sampson Date Dictated: 04/14/17 1046 Date Transcribed: 04/14/171717 Bread Wrapper Operator: Signed CBC W/DIFF, AUTOMATED Collected: 04/14/2017 Status: F Source: MERT 12:00 PM [facility] REPOSITORY Order Comment: Reason for Laboratory Test OV TYPE CODE TESTS RESULT OUT OF RANGE REFERENCE UNITS LAB L100.1000 4.4-11.0 K/mm3 Normal WBC 6.4 LAB L100.1200 4.6-6.2 M/mm3 Normal RBC 4.78 LAB L100.1300 13.0-16.5 g/dl Normal HGB 13.3 LAB L100.1400 40-54 % Normal HCT 43.0 LAB L100.1500 80-94 fL Normal MCV 90.0 LAB L100.1600 27.0-32.0 pg Normal MCH 27.8 LAB L100.1700 32-36 g/gl Low MCHC 30.9 LAB L100.1810 11.6-14.6 % High RDW CV 15.9 LAB L100.1820 35.1-43.9 fl High RDW SD 52.4 LAB L100.1900 150-450 K/mm3 Normal PLT 153 LAB L100.2000 6.2-12.0 fl Normal MPV 9.3 LAB L100.2100 47-70 % Normal NEUT% 68.1 LAB L100.2200 19-41 % Low LY% 14.0 LAB L100.2300 0-10 % High MONO% 16.8 LAB L100.2400 0-5 % Normal EO% 0.6 LAB L100.2500 0-1 % Normal BASO% 0.3 LAB L100.2550 0.0-0.9 % Normal IM GRAN % 0.200 Result Comment: IG% - Immature Granulocytes (promyelocytes, myelocytes and metamyelocytes) > 1% indicates that a LEFT SHIFT is Present. LAB L100.2620 2.0-7.7 X10 3/uL Normal Absolute Neut 4.4 LAB L100.2720 0.83-4.51 X10 3/ul Normal Absolute Lymph 0.90 Performed By: #### L100.0100, L504.2610 #### [facility] [address] [facility] [place], [place], [address] LDH Collected: 04/14/2017 Status: F Source: SAPPHIRE 12:00 [facility] REPOSITORY Order Comment: Reason for Laboratory Test OV Serial Specimen #1, #2 or #3? 1 TYPE CODE TESTS RESULT OUT OF RANGE REFERENCE UNITS LAB L504.2610 87-241 U/L Normal LDH 199 Performed By: #### L100.0100, L504.2610 #### [facility] [address] [place], [place], [address] PROTHROMBIN TIME W/INR Collected: 04/14/2017 Status: F Source: [facility] 12:00 PM [facility] REPOSITORY Order Comment: DR GAYTAN ORDERED PT TYPE CODE TESTS RESULT OUT OF RANGE REFERENCE UNITS LAB L300.4150 11.7-14.9 SECONDS High PROTIME 18.6 LAB L300.4200 Normal INR 1.6 Performed By: #### L300.3900 #### [facility] [address] [place], [address] CHEST WITH CONTRAST Observed: 04/09/2017 Status: F Source: [facility] 12:57 PM [facility] REPOSITORY [facility] Imaging Services [address] [place] [address] Chest WITH Contrast MR#: [id number] Acct: [id number] Name: TOMÁS MOSLEY Rep #: [id number] : 1940 M 76 From: Adair Painting DO PCP: Niko Sampson Status: REG CLI Study: Chest WITH Contrast Date of Exam: 04/09/17 Exam# [id number] Ordering Dr: Ian Corea MD STUDY: CT CHEST WITH CONTRAST REASON FOR EXAM: Male, 76 years old. Lung cancer RADIATION DOSAGE (If Supplied By Facility): CTDIvol = ( 14.34 ) mGy, DLP = ( 376.21 ) mGycm TECHNIQUE: Transaxial imaging was performed following intravenous administration of 100 ml of Isovue 300 contrast material. Individualized dose optimization techniques were used for this CT. COMPARISON: 01/15/2017 FINDINGS: Again noted is right lower lobectomy. There is a stable densely calcified nodule in the right middle lobe measuring 1.1 x 1.1 cm. Stable airspace disease/scarring seen in the right lung base. Stable loculated effusion in the right lung base. Hyperinflated compatible with COPD. There is a stable small nodule in the superior segment of the left lower lobe measuring 6 mm. No other masses or nodules are identified. No acute airspace disease. There is mild cardiac enlargement. Normal pericardium. Stable appearance of mediastinal lymphadenopathy. Normal hilar regions. Normal enhanced pulmonary arteries. There is atherosclerotic tortuosity of the aortic arch and descending thoracic aorta. There are multi-level degenerative changes of the thoracic spine. Stable postsurgical changes of the right lower rib cage compatible with thoracotomy. Stable severe compression fractures of the mid thoracic spine. There is no demonstrated abnormality of the visualized upper abdomen. CT/Chest WITH Contrast IMPRESSION: 1. Interval improvement in airspace disease in the right lower lobe with continued scarring/atelectasis and small loculated effusion. Stable postsurgical changes compatible with thoracotomy. 2. Stable densely calcified nodule in the right middle lobe. 3. Stable small nodule in the superior segment of the left lower lobe. 4. Stable mediastinal lymphadenopathy Electronically Signed: Adair Painting DO at 9:01 EST Tel , Service support , CC: Ian Corea MD; Niko Sampson Bread Wrapper Operator: Signed PROTHROMBIN TIME W/INR Collected: 04/01/2017 Status: F Source: [facility] 10:00 AM [facility] REPOSITORY TYPE CODE TESTS RESULT OUT OF RANGE REFERENCE UNITS LAB L300.4150 11.7-14.9 SECONDS High PROTIME 17.0 LAB L300.4200 Normal INR 1.4 Performed By: #### L300.3900 #### [facility] [address] [place], [address] SURGERY VISIT REPORT Observed: 03/24/2017 Status: F Source: [facility]IRE 10:48 AM [facility] REPOSITORY [facility] [address] [place] [address] OFFICE VISIT Date of Service: 03/23/17 MR#: [id number] Acct: [id number] Name: TOMÁS MOSLEY Jacque Rep #: [id number] : 1940 Provider: Micheline Lara PA-C Age/Sex: 76/M Location: [facility] Status: Signed Intake Intake Visit Reasons: Post op Arteriogram 03/10 Russet Repairer Required: No Is patient in pain?: No Allergies folic acid Adverse Reaction (Mild, Verified 03/23/17 13:45) Rash amiodarone Adverse Reaction (Unknown, Verified 03/23/17 13:45) Unknown morphine Adverse Reaction (Verified 03/23/17 13:45) HALLUCINATIONS Medications Aspirin E.C. [Ecotrin] 81 mg PO DAILY@0800 11/15/14 [History Confirmed 03/23/17] Lisinopril [Zestril] 10 mg PO BID 11/15/14 [History Confirmed 03/23/17] Metoprolol(XL)Succ [Toprol Xl (Beta Jake)] 50 mg PO DAILY 11/15/14 [History Confirmed 03/23/17] Nitroglycerin [Nitro-Dur] 0.1 mg TRANSDERM. DAILY 11/15/14 [History Confirmed 03/23/17] Ranitidine [Zantac] 150 mg PO BID 11/15/14 [History Confirmed 03/23/17] Furosemide [Lasix] 40 mg PO DAILY 11/11/16 [History Confirmed 03/23/17] Potassium Chloride [Klor-Con] 20 meq PO DAILY 11/11/16 [History Confirmed 03/23/17] Rosuvastatin Calcium [Crestor] 40 mg PO DAILY 12/03/16 [History Confirmed 03/23/17] Meloxicam [Mobic] 7.5 mg PO BID 03/09/17 [History Confirmed 03/23/17] warfarin 4 mg tablet 4 mg PO .COMPLEX 03/16/17 [History Confirmed 03/23/17] warfarin 2 mg tablet 2 mg PO .COMPLEX #90 tab 03/17/17 [Rx Confirmed 03/23/17] PFSH Medical History Non-small cell carcinoma of right lung, stage 4 (Chronic) Educational circumstance (Acute) Toxic encephalopathy (Acute) ACACIA (acute kidney injury) (Acute) Atrial fibrillation (Chronic) Hyperlipidemia (Chronic) Hypertension (Chronic) Adenocarcinoma of lung, stage 3 (Chronic) Bilateral lower extremity edema (Chronic) Dehydration (Acute) Hypoalbuminemia due to protein-calorie malnutrition (Acute) Neutrophilia (Acute) 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) Other specified peripheral vascular diseases (Chronic) Venous insufficiency (Chronic) Malnutrition (Chronic) Pressure ulcer of buttock (Acute) Pressure ulcer, heel, left, unstageable (Acute) Chronic ulcer of left leg with fat layer exposed (Acute) 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 Dr. Ulloa performed a left lower extremity arteriogram with left superficial femoral artery angioplasty and left superficial femoral artery 6 x 200 mm protege stenting x 2 on 03/10/2017. Patient tolerated the procedure well. Findings included left superficial femoral artery occlusion. Patient notes his ulcerations on bilateral feet are improving. He continues to go to the wound center for dressing changes. He noted minimal amount of right groin discomfort 2 days after the procedure, however this has since resolved. He denies active drainage or bleeding from the groin site. Exam Extrem Other: Left groin- micropuncture c/d/i. No erythema or infection noted. No hematoma or pseudoaneurysm noted. Pulses: Femoral: R- 2+, L- 2+; Popliteal: R- 1+, L- 1+; Pedal- R- 1, L- 1. Bilateral feet polar to palpation with dependent pallor. Assessment AND Plan Problems 1. Pressure ulcer of left foot, unstageable L89.890 2. Ulcer of right foot with necrosis of muscle L97.513 3. PAD (peripheral artery disease) I73.9 Plan Recommend PVR testing in 3 weeks Repeat PVR testing in 6 months and follow-up with Dr. Ulloa May follow-up sooner if needed Continue with wound center Discuss resuming chemotherapy with Dr. Corea As far as the procedure Dr. Ulloa performed there is no contraindication to resuming chemo. I would leave the decision up to Dr. Corea. Orders Orders: 03/24/17 1048 <Electronically signed by Micheline Lara PA-C> Date Micheline Lara PA-C Cosigner Signature: Date (if applicable) CC: ALLERGIES ALLERGIES DATE TYPE / CODE NAME / CODE REACTION SEVERITY SOURCE 03/16/2018 Drug morphine/F00 hallucinations [place] Allergy/124 4182091(RXNO [facility] 941231([facility] ED CT) Repository 03/16/2018 Drug amiodarone/F Unknown Unknown [place] Allergy/416 245940430(RX Community 779861([facility] ED CT) Repository 03/08/2018 Drug folic Rash DE [place] Allergy/416 acid/Y274904 Community 000991([place] [address]([facility] ED [facility]) Repository ENCOUNTERS ENCOUNTERS ADMIT/DISCHARGE ACCOUNT ADMITTING ENCOUNTER LOCATION SOURCE NUMBER CLASS 03/23/2018 [id number] Ambulatory Mert [place] 0 [facility] ing:[facility] Repository 03/19/2018 [id number] Ambulatory [place] Mert 9 [facility] ing:LAB Repository 03/16/2018 [id number] Ambulatory BMSBuilding:B [place] 7 [facility] Repository 03/16/2018 [id number] Ambulatory [place] Mert 6 [facility] ing:ONC Repository 03/12/2018/ [id number] Ambulatory BMSBuilding:B [place] 8 2 [facility] Repository 03/08/2018 [id number] Ambulatory BMSBuilding:B [place] 9 [facility] Repository 03/03/2018 [id number] Ambulatory Mert [place] 7 [facility] ing:CT Repository 02/23/2018 [id number] Ambulatory BMSBuilding:B [place] 7 [facility] Repository 02/16/2018 [id number] Ambulatory BMSBuilding:B [place] 0 [facility] Repository 02/09/2018 [id number] Ambulatory BMSBuilding:B [place] 6 [facility] Repository 02/01/2018/ [id number] [place] 1 [facility] ing:ED Repository 01/25/2018 [id number] Ambulatory BMSBuilding:B [place] 2 [facility] Repository 01/21/2018 [id number] Ambulatory BMSBuilding:B [place] 6 [facility] Repository 01/14/2018 [id number] Ambulatory Mert M[place] 1 [facility] ing:LAB Repository 01/07/2018/ [id number] Ambulatory BMSBuilding:B [place] 8 9 [facility] Repository 12/29/2017 [id number] Ambulatory BMSBuilding:B Mert 6 [facility] Repository 12/24/2017 [id number] Ambulatory [place] Mert 5 [facility] ing:CT Repository 12/10/2017/ [id number] Ambulatory Mert [place] 8 8 [facility] ing:LAB Repository 11/19/2017/ [id number] Ambulatory [place] Mert 8 1 [facility] ing:LAB Repository 10/29/2017/ [id number] Ambulatory Mert [place] 8 3 [facility] ing:LAB Repository 10/14/2017 [id number] Ambulatory [place] 8 [facility] ing:WC Repository 09/30/2017/ [id number] Ambulatory Mert [place] 8 2 [facility] ing:WC Repository 09/30/2017/ [id number] Ambulatory [place] Mert 8 6 [facility] ing:LAB Repository 09/30/2017/ [id number] Ambulatory BMSBuilding:B Mert 8 2 [facility] Repository 09/09/2017 [id number] Ambulatory [place] 8 [facility] ing:LAB Repository 09/02/2017/ [id number] Ambulatory Mert [place] 8 8 [facility] ing:WC Repository 08/21/2017 [id number] Ambulatory [place] Mert 5 [facility] ing:LAB Repository 08/17/2017/ [id number] Ambulatory BMSBuilding:B [place] 8 9 [facility] Repository 08/14/2017 [id number] Ambulatory BMSBuilding:B [place] 0 [facility] Repository 07/22/2017/ [id number] Ambulatory [facility]ert [place] 8 8 [facility] ing[facility] Repository 07/01/2017/ [id number] [place] 5 [facility] ing:WC Repository 06/22/2017 [id number] Ambulatory BMSBuilding:B Mert 3 [facility] Repository 06/10/2017 [id number] Ambulatory [place] [facility] 7 [facility] ing:CT Repository 05/22/2017/ [id number] Ambulatory BMSBuilding:B [place] 8 8 [facility] Repository 05/20/2017/ [id number] Ambulatory [place] Mert 8 7 [facility] ing:WC Repository 05/06/2017 [id number] Ambulatory [facility]ert [place] 8 [facility] ing:MED[facility]P Repository 05/06/2017/ [id number] Ambulatory [place] 8 5 [facility] ing:WC Repository 04/29/2017 [id number] Ambulatory [place] 0 [facility] ing:MED[facility]P Repository 04/14/2017 [id number] Ambulatory [place] Mert 2 [facility] ing:[facility] Repository 04/14/2017 [id number] Ambulatory BMSBuilding:B [place] 0 [facility] Repository 04/14/2017 [id number] Ambulatory BMSBuilding:B [place] 2 [facility] Repository 04/09/2017 [id number] Ambulatory [place]ert [place] 2 [facility] ing:[facility] Repository 04/01/2017 [id number] Ambulatory [place]ert [place] 3 [facility] ing:MED[facility]P Repository 04/01/2017/ [id number] Ambulatory [place] Mert 7 3 [facility] ing:WC Repository 03/23/2017/ [id number] Ambulatory BMSBuilding:B Mert 7 4 [facility] Repository PAYERS PAYERS ENCOUNTER GUARANTOR PAYER SUBSCRIBER SOURCE 03/23/2018 TOMÁS D Primary TOMÁS D [place] [id number] Insurance:HUMANA GREEGORDOB: Community SILVER MEDICARE [place]olicy [id number]: Repository [address]Llq: 330 [id number] [phone] () Date:[id number] [address]SO: 03/23/2018 Secondary NOT GIVENUNK Mert Insurance:SELF PAY [facility] Number: Effective Repository Date:2018-03-12 03/19/2018 TOMÁS D Primary TOMÁS D [place] [id number] Insurance:HUMANA GREEGORDOB: Community SILVER MEDICARE PPOPolicy [id number] Number: Repository [address]Zfl: 330 [id number] [phone] () Date:1040-73-42[place] [id number]: 03/19/2018 Secondary NOT GIVENUNK [place] Insurance:SELF PAY [facility] Number: Effective Repository Date:2018-03-19 03/16/2018 TOMÁS D Primary TOMÁS D [place] [id number] Insurance:HUMANA GREEGORDOB: Community S[employer]VER MEDICARE PPOPolicy [id number] Number: Repository [address]Uzw: 330 [id number] [phone] () Date:[id number] [address]XW: 03/16/2018 Secondary NOT GIVENUNK Mert Insurance:SELF PAY [facility] Number: Effective Repository Date:2018-03-16 03/16/2018 TOMÁS D Primary TOMÁS D [place] [id number] Insurance:HUMANA GREEGORDOB: Community S[employer]VER MEDICARE PPOPolicy [id number] Number: Repository [address]Eop: (330 [id number] [phone] (HP) Date:1064-24-06Rn [address] [address]MK: 03/16/2018 Secondary NOT GIVENUNK [place] Insurance:SELF PAY [facility] Number: Effective Repository Date:2016-09-17 03/12/2018 TOMÁS D Primary TOMÁS D [place] [id number] Insurance:HUMANA GREEGORDOB: Community [facility] [id number] Number: Repository [id number]: (330 [id number] [phone] () Date:7435-80-49Xp [address] [address]GE: 03/12/2018 Secondary NOT GIVENUNK [place] Insurance:SELF PAY [facility] Number: Effective Repository Date:2018-03-12 03/08/2018 TOMÁS D Primary TOMÁS D [place] [id number] Insurance:HUMANA GREEGORDOB: Community SILVER MEDICARE [facility] [id number] Number: Repository [address]Cby: (330 [id number] [phone] () Date:4722-96-11Vj [address] [address]ET: 03/08/2018 Secondary NOT GIVENUNK [place] Insurance:SELF PAY [facility] Number: Effective Repository Date:2018-03-08 03/03/2018 TOMÁS D Primary TOMÁS D [place] [id number] Insurance:HUMANA GREEGORDOB: Community SILVER MEDICARE [facility] [id number] [place] Number: Repository [address]Nnv: 330 [id number] [phone] () Date:1100-03-36Fn [address] [address]LM: 03/03/2018 Secondary NOT GIVENUNK [place] Insurance:SELF PAY [facility] Number: Effective Repository Date:2018-02-23 02/23/2018 TOMÁS D Primary TOMÁS D [place] [id number] Insurance:HUMANA GREEGORDOB: Community SILVER MEDICARE [facility] [id number] Number: Repository [address]Gms: (330 [id number] [phone] (HP) Date:5016-60-34Dg [address] [address]OI: 02/23/2018 Secondary NOT GIVENUNK Mert Insurance:SELF PAY [facility] Number: Effective Repository Date:2018-02-23 02/16/2018 TOMÁS D Primary TOMÁS D [place] [id number] Insurance:HUMANA GREEGORDOB: Community [place] [facility] [id number] Number: Repository [id number]: 330 [id number] [phone] (HP) Date:4998-69-26Fh [address] [address]GZ: 02/16/2018 Secondary NOT GIVENUNK [place] Insurance:SELF PAY [facility] Number: Effective Repository Date:2018-02-16 02/09/2018 TOMÁS D Primary TOMÁS D [place] [id number] Insurance:HUMANA GREEGORDOB: Community [place] [facility] [id number]: Repository [address]Eem: 330 [id number] [phone] () Date:3708-59-56Wq [address] [address]FU: 02/09/2018 Secondary NOT GIVENUNK [place]ert Insurance:SELF PAY [facility] Number: Effective Repository Date:2018-02-09 02/01/2018 TOMÁS D Primary TOMÁS D [place] [id number] Insurance:HUMANA GREEGORDOB: Community PAGE MEDICARE [facility] [id number] [place] Number: Repository [address]Weg: 330 [id number] [phone] (HP) Date:2166-60-14Zg [place] 101[address]12[address]WP: 02/01/2018 Secondary NOT GIVENUNK [place] Insurance:SELF PAY [facility] Number: Effective Repository Date:2018-02-01 01/25/2018 TOMÁS D Primary TOMÁS D [place] [id number] Insurance:HUMANA GREEGORDOB: Community [facility] [id number] [place] Number[place] Repository [address]Mfs: 330 [id number] [phone] () Date:7880-70-24Wg [address] [address]DI: 01/25/2018 Secondary NOT GIVENUNK [place] Insurance:SELF PAY [facility] Number: Effective Repository Date:2018-01-25 01/21/2018 TOMÁS D Primary TOMÁS D [place] [id number] Insurance:HUMANA GREEGORDOB: Community PAGE MEDICARE [facility] [id number] [place] Number[place] Repository [address]Wwm: 330 [id number] [phone] () Date:0462-53-73Kt[address] [address]GY: 01/21/2018 Secondary NOT GIVENUNK [place] Insurance:SELF PAY [facility] Number: Effective Repository Date:2018-01-21 01/14/2018 TOMÁS D Primary TOMÁS D [place] [id number] Insurance:HUMANA GREEGORDOB: Community PAGE MEDICARE [facility] [id number] [place] Number[place] Repository [address]Enb: 330 [id number] [phone] () Date:9420-66-27Qp [address] [address]VA: 01/14/2018 Secondary NOT GIVENUNK [place] Insurance:SELF PAY [facility] Number: Effective Repository Date:2018-01-06 01/07/2018 TOMÁS D Primary TOMÁS D [place] [id number] Insurance:HUMANA GREEGORDOB: Community PAGE MEDICARE [facility] [id number] [place] Repository [address]Ika: 330 [id number] [phone] (HP) Date:3311-29-43Xo [address] [address]: 01/07/2018 Secondary NOT GIVENUNK [place] Insurance:SELF PAY [facility]: Effective Repository Date:2018-01-07 12/29/2017 TOMÁS D Primary TOMÁS D [place] [id number] Insurance:HUMANA GREEGORDOB: Community SILVER MEDICARE [id number] [place] Number[facility] Repository [address]Efp: 330 [id number] [phone] (HP) Date:8606-41-97Hp [address] [address]QF: 12/29/2017 Secondary NOT GIVENUNK [place] Insurance:SELF PAY [facility] Number: Effective Repository Date:2017-12-29 12/24/2017 TOMÁS D Primary TOMÁS D [place] [id number] Insurance:HUMANA GREEGORDOB: Community SILVER MEDICARE PP[facility]icy [id number] [place] Number: Repository [address]Ses: 330 [id number] [phone] (HP) Date:4417-50-85Ri [address] [address]JO: 12/24/2017 Secondary NOT GIVENUNK [place] Insurance:SELF PAY [facility] Number: Effective Repository Date:2017-06-22 12/10/2017 TOMÁS D Primary TOMÁS D [place] [id number] Insurance:HUMANA GREEGORDOB: Community SILVER MEDICARE PPOPolic [id number] [place] Number[place] Repository [address]Ptr: 330 [id number] [phone] (HP) Date:1991-53-98Fn [address] [address]FD: 12/10/2017 Secondary NOT GIVENUNK [place] Insurance:SELF PAY [facility] Number: Effective Repository Date:2017-12-08 11/19/2017 TOMÁS D Primary TOMÁS D [place] [id number] Insurance:HUMANA GREEGORDOB: Community SILVER MEDICARE PPOPolic [id number] [place] Number[place] Repository [address]Rmq: 330 [id number] [phone] (HP) Date:1601-77-81Qe [address] [address]XM: 11/19/2017 Secondary NOT GIVENUNK [place] Insurance:SELF PAY [facility] Number: Effective Repository Date:2017-11-05 10/29/2017 TOMÁS D Primary TOMÁS D [place] [id number] Insurance:HUMANA GREEGORDOB: Community SILVER MEDICARE [facility] [id number] [place] Number[place] Repository [address]Uzr: 330 [id number] [phone] (HP) Date:6660-31-44[place] [address]WP: 10/29/2017 Secondary NOT GIVENUNK [place] Insurance:SELF PAY [facility] Number: Effective Repository Date:2017-10-02 10/14/2017 TOMÁS D Primary TOMÁS D [place] [id number] Insurance:HUMANA GREEGORDOB: Community [facility] [id number]ository [address]Dew: (330 [id number] [phone] (HP) Date:2610-15-06Mh [address] [address]NC: 10/14/2017 Secondary NOT GIVENUNK [place] Insurance:SELF PAY [facility] Number: Effective Repository Date:2017-10-04 09/30/2017 TOMÁS D Primary TOMÁS D [place] [id number] Insurance:HUMANA GREEGORDOB: Community SILVER MEDICARE [facility] [id number] Number: Repository [address]Vsx: 330 [id number] [phone] (HP) Date:3224-76-06Xx [address] [address]GN: 09/30/2017 Secondary NOT GIVENUNK [place] Insurance:SELF PAY [facility] Number: Effective Repository Date:2017-09-04 09/30/2017 TOMÁS D Primary TOMÁS D [place] [id number] Insurance:HUMANA GREEGORDOB: Community SILVER MEDICARE PPOPolicy [id number][place] Number: Repository [address]Aft: 330 [id number] [phone] (HP) Date:7574-74-60Za [address] [address]HW: 09/30/2017 Secondary NOT GIVENUNK [place] Insurance:SELF PAY [facility] Number: Effective Repository Date:2017-09-30 09/30/2017 TOMÁS D Primary TOMÁS D [place] [id number] Insurance:HUMANA GREEGORDOB: Community SILVER MEDICARE [facility] [id number] Number: Repository [address]Rqi: 330 [id number] [phone] () Date:1730-94-02Jc [address] [address]TJ: 09/30/2017 Secondary NOT GIVENUNK [place] Insurance:SELF PAY [facility] Number: Effective Repository Date:2017-08-19 09/09/2017 TOMÁS D Primary TOMÁS D [place] [id number] Insurance:HUMANA GREEGORDOB: Community [facility] [id number] Number[place] Repository [address]Umg: 330 [id number] [phone] (HP) Date:7131-73-00Tb [address] [address]YV: 09/09/2017 Secondary NOT GIVENUNK [place] Insurance:SELF PAY [facility] Number: Effective Repository Date:2017-09-09 09/02/2017 TOMÁS D Primary TOMÁS D [place] [id number] Insurance:HUMANA GREEGORDOB: Community SILVER MEDICARE [facility] [id number] [place] Number[place] Repository [address]Hyf: 330 [id number] [phone] (HP) Date:9799-09-10Ma [address] [address]CO: 09/02/2017 Secondary NOT GIVENUNK [place] Insurance:SELF PAY [facility] Number: Effective Repository Date:2017-08-04 08/21/2017 TOMÁS D Primary TOMÁS D [place] [id number] Insurance:HUMANA GREEGORDOB: Community PAGE MEDICARE [facility] [id number] [facility] [place] Number: Repository [address]Hie: 330 [id number] [phone] () Date:2286-01-25Hg [address] [address]CO: 08/21/2017 Secondary NOT GIVENUNK [place] Insurance:SELF PAY [facility] Number: Effective Repository Date:2017-08-21 08/17/2017 TOMÁS D Primary TOMÁS D [place] [id number] Insurance:HUMANA GREEGORDOB: Community PAGE MEDICARE [facility] [id number], [place] Number: Repository [address]Lsk: 330 [id number] [phone] () Date:8414-66-80Lt [address] [address]LN: 08/17/2017 Secondary NOT GIVENUNK [place] Insurance:SELF PAY [facility] Number: Effective Repository Date:2017-08-17 08/14/2017 TOMÁS D Primary TOMÁS D [place] [id number] Insurance:HUMANA GREEGORDOB: Community SILVER MEDICARE [facility] [id number] [place] Number: Repository [address]Tks: 330 [id number] [phone] (HP) Date:9578-92-33Fe [address] [address]HF: 08/14/2017 Secondary NOT GIVENUNK [place] Insurance:SELF PAY [facility] Number: Effective Repository Date:2017-08-14 07/22/2017 TOMÁS D Primary TOMÁS D [place] [id number] Insurance:HUMANA GREEGORDOB: Community SILVER MEDICARE [facility] [id number] [place] Number: Repository [address]Cyd: 330 [id number] [phone] () Date:8623-02-96Wq[address] [address]SK: 07/22/2017 Secondary NOT GIVENUNK [place] Insurance:SELF PAY [facility] Number: Effective Repository Date:2017-07-05 07/01/2017 TOMÁS D Primary TOMÁS D [place] [id number] Insurance:HUMANA GREEGORDOB: Community SILVER MEDICARE [facility] [id number] [place] Number: Repository [address]Abt: 330 [id number] [phone] () Date:2054-38-91GaE[place] 87[address]012[address]WP: 07/01/2017 Secondary NOT GIVENUNK [place] Insurance:SELF PAY [facility] Number: Effective Repository Date:2017-06-04 06/22/2017 TOMÁS D Primary TOMÁS D [place] [id number] Insurance:HUMANA GREEGORDOB: Community SILVER MEDICARE PPOPolicy [id number] [place] Number[place] Repository [address]Aoz: (330 [id number] [phone] () Date:9991-80-44Dw[address] [address]GE: 06/22/2017 Secondary NOT GIVENUNK [place] Insurance:SELF PAY [facility] Number: Effective Repository Date:2017-06-22 06/10/2017 TOMÁS D Primary TOMÁS D [place] [id number] Insurance:HUMANA GREEGORDOB: Community SILVER MEDICARE PPOPolicy [id number] [place] Number[place] Repository [address]Ria: 330 [id number] [phone] (HP) Date:1860-31-58Nh [address] [address]KP: 06/10/2017 Secondary NOT GIVENUNK [place] Insurance:SELF PAY [facility] Number: Effective Repository Date:2017-04-14 05/22/2017 TOMÁS D Primary TOMÁS D [place] [id number] Insurance:HUMANA GREEGORDOB: Community SILVER MEDICARE [facility] [id number] [place] Number[place]ository [address]Ped: 330 [id number] [phone] (HP) Date:2062-01-69Dz [address] [address]ZN: 05/22/2017 Secondary NOT GIVENUNK [place] Insurance:SELF PAY [facility] Number: Effective Repository Date:2017-03-11 05/20/2017 TOMÁS D Primary TOMÁS D [place] [id number] Insurance:HUMANA GREEGORDOB: Community SILVER MEDICARE [facility] [id number] [place] Repository [address]Iga: 330 [id number] [phone] (HP) Date:6714-27-47Da [address] [address]MR: 05/20/2017 Secondary NOT GIVENUNK [place] Insurance:SELF PAY [facility] Number: Effective Repository Date:2017-05-07 05/06/2017 TOMÁS D Primary TOMÁS D [place] [id number] Insurance:HUMANA GREEGORDOB: Community SILVER MEDICARE [facility] [id number] [place]ository [address]Iwk: 330 [id number] [phone] (HP) Date:6616-47-13Xv [address] [address]WJ: 05/06/2017 Secondary NOT GIVENUNK [place] Insurance:SELF PAY [facility] Number: Effective Repository Date:2017-05-04 05/06/2017 TOMÁS D Primary TOMÁS D [place] [id number] Insurance:HUMANA GREEGORDOB: Community SILVER MEDICARE [facility] [id number] [place]: Repository [address]Uyg: (330 [id number] [phone] (HP) Date:7965-26-48YK [address] [address]FF: 05/06/2017 Secondary NOT GIVENUNK [place] Insurance:SELF PAY [facility] Number: Effective Repository Date:2017-04-06 04/29/2017 TOMÁS D Primary TOMÁS D [place] [id number] Insurance:HUMANA GREEGORDOB: Community SILVER MEDICARE [facility] [id number] [place]ository [address]Uss: 330 [id number] [phone] (HP) Date:0563-29-38Mv [address]WP: 04/29/2017 Secondary NOT GIVENUNK [place] Insurance:SELF PAY [facility] Number: Effective Repository Date:2017-04-27 04/14/2017 TOMÁS D Primary TOMÁS D [place] [id number] Insurance:HUMANA GREEGORDOB: Community SILVER MEDICARE [facility] [id number] [place]ository [address]Ovx: 330 [id number] [phone] (HP) Date:0443-97-78LG [place] 579[address]WP: 04/14/2017 Secondary NOT GIVENUNK [place] Insurance:SELF PAY [facility] Number: Effective Repository Date:2017-03-24 04/14/2017 TOMÁS D Primary TOMÁS D [place] [id number] Insurance:HUMANA GREEGORDOB: Community SILVER MEDICARE [facility] [id number] [place]ository [address]Urs: 330 [id number] [phone] (HP) Date:2661-55-92Fr [place] 101[address]WP: 04/14/2017 Secondary NOT GIVENUNK [place] Insurance:SELF PAY [facility] Number: Effective Repository Date:2017-04-14 04/14/2017 TOMÁS D Primary TOMÁS D [place] [id number] Insurance:HUMANA GREEGORDOB: Community SILVER MEDICARE OPolicy [id number] [place] Number[place] Repository [address]Xbt: 330 [id number] [phone] () Date:1910-02-32JR [address] [address]WS: 04/14/2017 Secondary NOT GIVENUNK [place] Insurance:SELF PAY [facility] Number: Effective Repository Date:2017-04-14 04/09/2017 TOMÁS D Primary TOMÁS D [place] [id number] Insurance:HUMANA GREEGORDOB: Community SILVER MEDICARE [facility] [id number] [place] Number[place] Repository [address]Zoh: 330 [id number] [phone] () Date:7943-36-92AI [address] [address]NQ: 04/09/2017 Secondary NOT GIVENUNK [place] Insurance:SELF PAY [facility] Number: Effective Repository Date:2017-02-09 04/01/2017 TOMÁS D Primary TOMÁS D [place] [id number] Insurance:HUMANA GREEGORDOB: Community PAGE MEDICARE [facility] [id number] [place] Number: Repository [address]Szf: 330 [id number] [phone] () Date:4810-19-21BI [address] [address]UD: 04/01/2017 Secondary NOT GIVENUNK [place] Insurance:SELF PAY [facility] Number: Effective Repository Date:2017-03-31 04/01/2017 TOMÁS D Primary TOMÁS D [place] [id number] Insurance:HUMANA GREEGORDOB: Community PAGE MEDICARE [facility] [id number] [place] Repository [address]Zof: 330 [id number] [phone] () Date:6032-20-56GW [address] [address]TU: 04/01/2017 Secondary NOT GIVENUNK [place] Insurance:SELF PAY [facility] Number: Effective Repository Date:2017-03-06 03/23/2017 TOMÁS [place] Primary TOMÁS [id number] Insurance:HUMANA GREEGORDOB: Community SILVER MEDICARE PPOPolicy [id number] [place] Number[place] Repository [address]Jvy: 330 [id number] [phone] () Date:4268-00-89PF [address] [address]SX: 03/23/2017 Secondary NOT GIVENUNK [place] Insurance:SELF PAY [facility] Number: Effective Repository Date:2017-03-11
== END ==
PROVIDERS: Family Provider Family Medicine; PCP Family Medicine; Referring Provider Internal Medicine Medical Oncology; Visit Provider Internal Medicine Medical Oncology
DX: C34.2 Malignant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 lobe, bronchus or lung (principal)
CPT/HCPCS: 71260; Q9967; A4216

== ENCOUNTER → 2018-03-19 10:49 | Outpatient (CLI) | payer MEDICARE, SELFPAY ==
[2018-03-16 08:59] VITALS: BMI 31.8
[2018-03-19 13:34] LABS: AST(SGOT) 26 U/L (15-37); Alanine Aminotransfer ALT/SGPT 45 U/L (16-61); Albumin, Serum 4.1 g/dL (3.2-5.0); Alkaline Phosphatase 70 U/L (45-117); Bilirubin, Direct 0.17 mg/dL (0.00-0.30); Cholesterol 150 mg/dL (200); Globulin 3.5 g/dL (2.2-4.2); High Density Lipoprotein 84 mg/dL; Protein, Total 7.6 g/dL (6.4-8.2); Triglycerides 97 mg/dL; Very Low Density Lipoprotein 19 mg/dL (5-40)
--- OUTSIDE RECORDS SUMMARY | 2018-05-05 02:11 | XMS RPT_ITS ---
:1940 Author Organization OHIP Support Name Relationship Address Phone JULIO MOLSEY Unavailable [address] + [place] [address] R Unavailable Unavailable Unavailable DIMPLE, SOFIA Unavailable Unavailable + JULIO MOSLEY Unavailable [address] + [place] [address] R Unavailable Unavailable Unavailable DIMPLE, SOFIA Unavailable Unavailable + JULIO MOSLEY Unavailable [address] + [place] [address] R Unavailable Unavailable Unavailable DIMPLE, SOFIA Unavailable UNKNOWN + [place] [address] GREEGPETE MAURICIOA Unavailable [address] + [place] [address] R Unavailable Unavailable Unavailable DIMPLE, SOFIA Unavailable UNKNOWN + [place] [address] JULIO MOSLEY Unavailable [address] + [place] [address] R Unavailable Unavailable Unavailable DIMPLE, SOFIA Unavailable Unavailable + [place] [address] JULIO MOSLEY Unavailable [address] + [place] [address] R Unavailable Unavailable Unavailable DIMPLE, SOFIA Unavailable Unavailable + [place] [address] JULIO MOSLEY Unavailable [address] + [place] [address] R Unavailable Unavailable Unavailable DIMPLE, SOFIA Unavailable Unavailable + [place] [address] GREEGLULY JULIO Unavailable [address] + [place] [address] R Unavailable Unavailable Unavailable DIMPLE, SOFIA Unavailable UNKNOWN + [place] [address] GREEGOR JULIO Unavailable [address] + [place] [address] R Unavailable Unavailable Unavailable DIMPLE, SOFIA Unavailable Unavailable + [place] [address] GREEGOR JULIO Unavailable [address] + [place] [address] R Unavailable Unavailable Unavailable DIMPLE, SOFIA Unavailable . + [place] [address] GREEGOR, JULIO Unavailable [address] + [place] [address] R Unavailable Unavailable Unavailable DIMPLE, SOFIA Unavailable . + [place] [address] GREEGOR, JULIO Unavailable [address] + [place] [address] R Unavailable Unavailable Unavailable DIMPLE, SOFIA Unavailable Unavailable + [place] [address] GREEGOR, JULIO Unavailable [address] + [place] [address] R Unavailable Unavailable Unavailable DIMPLE, SOFIA Unavailable Unavailable + [place] [address] GREEGOR, JULIO Unavailable [address] + [place] [address] R Unavailable Unavailable Unavailable DIMPLE, SOFIA Unavailable Unavailable + GREEGOR JULIO Unavailable [address] + [place] [address] R Unavailable Unavailable Unavailable DIMPLE, SOFIA Unavailable Unavailable + GREEGOR JULIO Unavailable [address] + [place] [address] R Unavailable Unavailable Unavailable DIMPLE, SOFIA Unavailable Unavailable + GREEGOR JULIO Unavailable [address] + [place] [address] R Unavailable Unavailable Unavailable DIMPLE, SOFIA Unavailable Unavailable + GREEGOR JULIO Unavailable [address] + [place] [address] R Unavailable Unavailable Unavailable DIMPLE, SOFIA Unavailable Unavailable + GREEGOR JULIO Unavailable [address] + [place] [address] R Unavailable Unavailable Unavailable DIMPLE, SOFIA Unavailable Unavailable + GREEGOR, JULIO Unavailable [address] + [place] [address] R Unavailable Unavailable Unavailable DIMPLE, SOFIA Unavailable Unavailable + [place] [address] GREEGOR, JULIO Unavailable [address] + [place] [address] R Unavailable Unavailable Unavailable DIMPLE, SOFIA Unavailable 1 + [place] [address] GREEGOR, JULIO Unavailable [address] + [place] [address] R Unavailable Unavailable Unavailable DIMPLE, SOFIA Unavailable Unavailable + [place] [address] GREEGOR, JULIO Unavailable [address] + [place] [address] R Unavailable Unavailable Unavailable DIMPLE, SOFIA Unavailable Unavailable + [place] [address] GREEGOR, JULIO Unavailable [address] + [place] [address] R Unavailable Unavailable Unavailable DIMPLE, SOFIA Unavailable Unavailable + [place] [address] GREEGOR, JULIO Unavailable [address] + [place] [address] R Unavailable Unavailable Unavailable DIMPLE, SOFIA Unavailable Unavailable + [place] [address] GREEGOR, JULIO Unavailable [address] + [place] [address] R Unavailable Unavailable Unavailable DIMPLE, SOFIA Unavailable Unavailable + [place] [address] GREEGOR, JULIO Unavailable [address] + [place] [address] R Unavailable Unavailable Unavailable DIMPLE, SOFIA Unavailable Unavailable + [place] [address] GREEGOR, JULIO Unavailable [address] + [place] [address] R Unavailable Unavailable Unavailable DIMPLE, SOFIA Unavailable Unavailable + [place] [address] GREEGOR, UJLIO Unavailable [address] + [place] [address] R Unavailable Unavailable Unavailable DIMPLE, SOFIA Unavailable Unavailable + [place] [address] GREEGOR, JULIO Unavailable [address] + [place] [address] R Unavailable Unavailable Unavailable DIMPLE, SOFIA Unavailable . + [place] [address] GREEGOR, JULIO Unavailable [address] + [place] [address] R Unavailable Unavailable Unavailable DIMPLE, SOFIA Unavailable Unavailable + [place] [address] GREEGOR, JULIO Unavailable [address] + [place] [address] R Unavailable Unavailable Unavailable DIMPLE, SOFIA Unavailable . + [place] [address] GREEGOR, JULIO Unavailable [address] + [place] [address] R Unavailable Unavailable Unavailable DIMPLE, SOFIA Unavailable . + [place] [address] GREEGOR, JULIO Unavailable [address] + [place] [address] R Unavailable Unavailable Unavailable DIMPLE, SOFIA Unavailable . + [place] [address] GREEGOR, JULIO Unavailable [address] + [place] [address] R Unavailable Unavailable Unavailable DIMPLE, SOFIA Unavailable Unavailable + GREEGOR, JULIO Unavailable [address] + [place] [address] R Unavailable Unavailable Unavailable Mccreary, Sofia Unavailable . + [place] [address] GREEGOR, JULIO Unavailable [address] + [place] [address] R Unavailable Unavailable Unavailable Dimple, Sofia Unavailable . + [place] [address] GREEGOR, JULIO Unavailable [address] + [place] [address] R Unavailable Unavailable Unavailable Mccreary, Sofia Unavailable . + [place] [address] GREEGOR JULIO Unavailable [address] + [place] [address] R Unavailable Unavailable Unavailable Mccreary, Sofia Unavailable . + [place] [address] GREEGOR JULIO Unavailable [address] + [place] [address] R Unavailable Unavailable Unavailable Dimple, Sofia Unavailable . + [place] [address] GREEGOR, JULIO Unavailable [address] + [place] [address] R Unavailable Unavailable Unavailable Mccreary, Sofia Unavailable . + [place] [address] GREEGOR JULIO Unavailable [address] + [place] [address] R Unavailable Unavailable Unavailable Mccreary, Sofia Unavailable . + [place] [address] GREEGOR JULIO Unavailable [address] + [place] [address] R Unavailable Unavailable Unavailable Mccreary, Sofia Unavailable . + [place] [address] GREEGOR JULIO Unavailable [address] + [place] [address] R Unavailable Unavailable Unavailable Mccreary, Sofia Unavailable . + [place] [address] Care Team Providers Name Role Phone Ian Corea Attending Unavailable Nhung Guy Referring Unavailable Camilla, Niko Primary Care Unavailable Ian Corea Consulting Unavailable Flash Rodriguez Attending Unavailable Flash Rodriguez Referring Unavailable Camilla, Niko Primary Care Unavailable Flash Rodriguez Attending Unavailable Flash Rodriguez Referring Unavailable Camilla, Niko Primary Care Unavailable Ian Corea Attending Unavailable Nhung Guy Referring Unavailable Camilla, Niko Primary Care Unavailable Ian Corea Consulting Unavailable Mariia Bennett Attending Unavailable Nhung Guy Referring Unavailable Camilla, Niko Primary Care Unavailable Ian Corea Consulting Unavailable Carine Salmon Attending Unavailable Camilla, Niko Referring Unavailable PrahIan Attending Unavailable Camilla, Niko Primary Care Unavailable Nhung Guy Referring Unavailable MichaeloneAllison Attending Unavailable Camilla, Niko Primary Care Unavailable Flash Rodriguez Attending Unavailable Flash Rodriguez Referring Unavailable Camilla, Niko Primary Care Unavailable Flash Rodriguez Attending Unavailable Camilla, Niko Primary Care Unavailable Allison Cid Attending Unavailable Camilla, Niko Primary Care Unavailable Flash Rodriguez Attending Unavailable Flash Rodriguez Referring Unavailable SabrinaMariia zhong Attending Unavailable Nhung Guy Referring Unavailable Camilla, Niko Primary Care Unavailable PrahIan Consulting Unavailable PraIan hunter Attending Unavailable Nhung Guy Referring Unavailable Camilla, Niko Primary Care Unavailable Pradale, Ian Consulting Unavailable Carine Salmon Attending Unavailable Camilla, Niko Referring Unavailable Camilla, Niko Primary Care Unavailable FascioneAllison Attending Unavailable Camilla, Niko Primary Care Unavailable Pradale, Ian Attending Unavailable PrahIan Referring Unavailable Camilla, Niko Primary Care Unavailable Pradale, Ian Attending Unavailable Nhung Guy Referring Unavailable Camilla, Niko Primary Care Unavailable PraIan hunter Consulting Unavailable MichaeloneAllison Attending Unavailable Camilla, Niko Primary Care Unavailable FascioneAllison Attending Unavailable Camilla, Niko Primary Care Unavailable Vaibhav Singh Attending Unavailable Flash Rodriguez Attending Unavailable Camilla, Niko Referring Unavailable Camilla, Niko Primary Care Unavailable Flash Rodriguez Attending Unavailable Flash Rodriguez Referring Unavailable Camilla, Niko Primary Care Unavailable MichaeloneAllison Attending Unavailable Camilla, Niko Primary Care Unavailable Flash Rodriguez Attending Unavailable Flash Rodriguez Referring Unavailable Camilla, Niko Primary Care Unavailable Carine Salmon Attending Unavailable Camilla, Niko Referring Unavailable Camilla, Niko Primary Care Unavailable Flash Rodriguez Attending Unavailable Flash Rodriguez Referring Unavailable Camilla, Niko Primary Care Unavailable Flash Rodriguez Attending Unavailable Flash Rodriguez Referring Unavailable Camilla, Niko Primary Care Unavailable Allison Cid Attending Unavailable Camilla, Niko Primary Care Unavailable Flash Rodriguez Attending Unavailable Flash Rodriguez Referring Unavailable Camilla, Niko Primary Care Unavailable Flash Rodriguez Attending Unavailable Flash Rodriguez Referring Unavailable Camilla, Niko Primary Care Unavailable PraIan hunter Attending Unavailable PraIan hunter Referring Unavailable Camilla, Niko Primary Care Unavailable Pradale, Ian Attending Unavailable Nhung Guy Referring Unavailable Camilla, Niko Primary Care Unavailable PraIan hunter Consulting Unavailable Flash Rodriguez Attending Unavailable lFash Rodriguez Referring Unavailable Camilla, Niko Primary Care Unavailable Carine Salmon Attending Unavailable Camilla, Niko Referring Unavailable Prah, Ian Attending Unavailable Guy, Nhung Referring Unavailable Camilla, Niko Primary Care Unavailable Prah, Ian Consulting Unavailable Sabrina, Mariia Attending Unavailable Malena, Nhung Referring Unavailable Camilla, Niko Primary Care Unavailable Prah, Ian Consulting Unavailable Camilla, Niko Primary Care Unavailable Jenaro Love Attending Unavailable Sabrina, Mariia Attending Unavailable Malena, Nhung [...] Care Unavailable Prah, Ian Consulting Unavailable Flash Rodriguez Attending Unavailable Camilla, Niko Referring Unavailable PROBLEMS PROBLEMS DATE TYPE CONDITION / CODE ATTENDING STATUS SOURCE 04/27/2018 Unknown 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 of Community anticoagulants / Hospital Z79.01(ICD-10) Repository 04/15/2018 Unknown C34.91 - Malignant Sabrina, Active [place] neoplasm of [place] [facility] unspecified part of Hospital right bronchus or lung Repository / C34.91(ICD-10) 04/15/2018 Unknown Z79.899 - Other long Sabrina, Active [place] term (current) drug [place] [facility] therapy / [facility] Z79.899(ICD-10) Repository 04/16/2018 Unknown I25.5 - Ischemic Carine Salmon Active [place] cardiomyopathy / Community I25.5(ICD-10) Hospital Repository 04/16/2018 Unknown I44.2 - Luis AntonioCarine taylor Active [place] Atrioventricular Community block, complete / Hospital I44.2(ICD-10) Repository 04/16/2018 Unknown I48.2 - Chronic atrial Carine Salmon Active [place] fibrillation / Community I48.2(ICD-10) Hospital Repository 04/16/2018 Unknown I50.22 - Chronic Luis AntonioCarine taylor Active [place] systolic (congestive) Community heart failure / Hospital I50.22(ICD-10) Repository 04/16/2018 Unknown Z95.0 - Presence of Carine Salmon 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 / Community Z95.0(ICD-10) Hospital Repository 03/19/2018 Unknown 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 [place] 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 / I25.10(ICD-10) 03/19/2018 Unknown E78.5 - Flash Rodriguez Active [place] Hyperlipidemia, Community unspecified / Hospital E78.5(ICD-10) Repository 03/12/2018 Unknown 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 / Hospital I27.21(ICD-10) Repository 02/10/2018 Unknown 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, Active [place] neoplasm of upper [place] [facility] lobe, right bronchus Hospital or lung / Repository C34.11(ICD-10) 01/21/2018 Unknown Z95.828 - Presence of Ian Corae Active [place] other vascular Community implants and grafts / Hospital Z95.828(ICD-10) Repository 12/29/2017 Unknown C34.2 - Malignant PraIan hunter Active [place]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 Community lobe, bronchus or lung Hospital / C34.2(ICD-10) Repository 11/05/2017 Unknown I48.1 - Persistent Flash Rodriguez Active [place] atrial fibrillation / Community I48.1(ICD-10) Hospital Repository 10/04/2017 Unknown I73.89 - Other Fascione, Active [place] specified peripheral Allison [facility] vascular diseases / Hospital I73.89(ICD-10) Repository 09/30/2017 Unknown I48.91 - Unspecified Flash Rodriguez Active [place] atrial fibrillation / Community I48.91(ICD-10) Hospital Repository PROCEDURES PROCEDURES No Procedure Records FoundRESULTS RESULTS ONCOLOGY VISIT REPORT Observed: 04/27/2018 Status: F Source: [place] 9:45 AM [facility] REPOSITORY [facility] [place] [address] OFFICE VISIT Date of Service: 04/27/18 0935 MR#: [id number] Acct: [id number] Name: DOUGLAS MOSLEY Rep #: [id number] : 1940 From: Ian Corea MD Age/Sex: 77/M Location: [facility] Status: Signed with Addenda ADDENDUM by Ian Corea MD on 04/27/18 at 0945 Code Visit P: Obtain CT chest to assess disease status. 04/27/18 0945 <Electronically signed by Ian Corea MD> Date Ian Corea MD cc: * Signed Subjective - Date of Service Date of Service:: 04/27/18 - Chief Complaint F/U for chemotherapy. - History of Present Illness Mr. Douglas Mosley is a pleasant 77y.o.man who presented [...] Began palliative carboplatin, pemetrexed and pembrolizumab on 10/23/18, 2nd cycle was delayed one week because of Neutropenia-ANC 1.2. CT chest on 03/03/2018 showed Partial response with decrease in pretracheal node. Received cycle 3 on 03/16/2018 and comes for C5. He feels well. - Past Medical/Social History Past Medical History [...] Signs Height 5 ft 7 in Weight: 93.894 kg Weight in Pounds 207.0 lbs Pulse Ox 93 - Physical Exam General: Alert, Oriented x3, No apparent distress, - - Port R IC area. 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 Partial Response to 1 cycle of Carboplatin, Alimta and Keytruda so did observation because of PVD and leg ulcer. PET/CT showed progressive disease-mediastinal node. Restarted Carboplatin/Alimta/Keytruda on 01/26/2018 with Partial response. Due for C5 today. Neutropenia-ANC 1.3. Plan is to hold chemotherapy 5th cycle today. RTC 1 weeks with CBC/CMP/Mag for C5. Medications: Prescriptions This Visit Medication Instructions Recorded Primary Care Provider: Niko Sampson MD Referring Provider: - Problem List (1) Non-small cell carcinoma of right lung, stage 4 Status: Chronic (2) Chemotherapy management, encounter for Status: Acute Code Visit Office Visits / Consults: 23405 OV L5 Est 04/27/18 0943 <Electronically signed by Ian Corea MD> Date Ian Corea MD Cosigner Signature: Date (if applicable) CC: CBC W/DIFF, AUTOMATED Collected: 04/27/2018 Status: F Source: [place] 8:19 AM [facility] REPOSITORY TYPE CODE TESTS RESULT OUT OF RANGE REFERENCE UNITS LAB L100.1000 4.4-11.0 K/mm3 Low WBC 2.8 LAB L100.1200 4.6-6.2 M/mm3 Low RBC 3.57 LAB L100.1300 13.0-16.5 g/dl Low HGB 11.0 LAB L100.1400 40-54 % Low HCT 35.2 LAB L100.1500 80-94 fL High MCV 98.6 LAB L100.1600 27.0-32.0 pg Normal MCH 30.8 LAB L100.1700 32-36 g/gl Low MCHC 31.3 LAB L100.1810 11.6-14.6 % High RDW CV 18.6 LAB L100.1820 35.1-43.9 fl High RDW SD 66.1 LAB L100.1900 150-450 K/mm3 Low PLT 82 LAB L100.2000 6.2-12.0 fl Normal MPV 9.5 LAB L100.2100 47-70 % Low NEUT% 46.9 LAB L100.2200 19-41 % Normal LY% 31.7 LAB L100.2300 0-10 % High MONO% 21.0 LAB L100.2400 0-5 % Normal EO% 0.0 LAB L100.2500 0-1 % Normal BASO% 0.0 LAB L100.2550 0.0-0.9 % Normal IM GRAN % 0.400 Result Comment: IG% - Immature Granulocytes (promyelocytes, myelocytes and metamyelocytes) > 1% indicates that a LEFT SHIFT is Present. LAB L100.2620 2.0-7.7 X10 3/uL Low Absolute Neut 1.3 LAB L100.2720 0.83-4.51 X10 3/ul Normal Absolute Lymph 0.89 LAB L100.4500 Normal SMEAR COMMENT COMMENT Result Comment: SLIDE SCANNED - 1+ ANISO. Performed By: #### L100.0100 #### [facility] [address] [place], [place], [id number] COMPREHENSIVE METABOLIC Collected: 04/27/2018 Status: F Source: [place] PACK 8:19 AM [facility] REPOSITORY Order Comment: Reason for Laboratory Test Chemotherapy Reason for Laboratory Test CHEMOTHERAPY TYPE CODE TESTS RESULT OUT OF RANGE REFERENCE UNITS LAB L501.0100 74-106 mg/dL High GLU 130 Result Comment: Fasting Glucose result greater than or equal to 126 mg/dL suggests DIABETES MELLITUS per A.D.A. criteria. Please note revised GLUCOSE reference range effective 2017. LAB L501.1000 7-18 mg/dL High BUN 25 LAB L501.1100 0.70-1.30 mg/dL Normal CREAT,SERUM 1.07 Result Comment: The validity of the calculated GFR AND GFRAA in patients over 70 years has not been determined. Clinical correlation is essential. LAB L501.1110 >60 mL/min Normal EST GFR 71 Result Comment: Non- GFR Calc LAB L501.1115 >60 mL/min Normal EST GFR - AA 86 Result Comment: GFR Calc LAB L501.1255 ml/min Normal Estimated CRCL 54.91 LAB L501.1300 10-20 RATIO High BUN/CRE 23.4 LAB L501.1500 6.4-8. g/dL Normal 2 T PROT 6.9 LAB L501.1800 3.2-5. g/dL Normal 0 ALB 3.5 LAB L501.1950 2.2-4. g/dL Normal 2 GLOB 3.4 LAB L501.2000 0.9-2. RATIO Normal 4 A/G 1.0 LAB L501.2200 8.5-10 mg/dL Low .1 CA 8.4 LAB L501.4100 15-37 U/L Normal AST 25 LAB L501.4305 45-117 U/L Normal ALK P 79 LAB L501.4405 16-61 U/L Normal ALT 44 LAB L501.4600 0.20-1 mg/dL Normal .00 T BILI 0.40 LAB L501.5300 136-14 mmol/L Normal 5 NA 141 LAB L501.5600 3.5-5. mmol/L Normal 1 K 4.0 LAB L501.5900 98-107 mmol/L High CL 109 LAB L501.6100 21.0-3 mmol/L Normal 2.0 CO2 23.0 LAB L501.6200 5-15 Normal GAP 9 Performed By: #### L500.4050, L501.2300, L501.9520 #### [facility] [address] [place], [address] PHOSPHORUS Collected: 04/27/2018 Status: F Source: [place] 8:19 AM [facility] REPOSITORY Order Comment: Reason for Laboratory Test Chemotherapy Reason for Laboratory Test CHEMOTHERAPY TYPE CODE TESTS RESULT OUT OF RANGE REFERENCE UNITS LAB L501.2300 2.5-4.9 mg/dL Low PHOS 2.4 Performed By: #### L500.4050, L501.2300, L501.9520 #### [facility] [address] [place], [address] THYROID STIM HORMONE Collected: 04/27/2018 Status: F Source: [place] (TSH) 8:19 AM [facility] REPOSITORY Order Comment: Reason for Laboratory Test Chemotherapy Reason for Laboratory Test CHEMOTHERAPY TYPE CODE TESTS RESULT OUT OF RANGE REFERENCE UNITS LAB L501.9520 0.358-3.74 uIU/mL Normal TSH 2.44 Performed By: #### L500.4050, L501.2300, L501.9520 #### [facility] [address] [place], [address] PACEMAKER CHECK Observed: 04/15/2018 Status: F Source: [place] 4:33 PM [facility] REPOSITORY [facility] [address] [place] [address] Pacemaker Check Date of Service: 04/15/18 1145 MR#: [id number] Acct: [id number] Name: DOUGLAS MOSLEY Rep #: [id number] : 1940 From: Carine Salmon Age/Sex: 77/M Location[place] [facility] Status: Signed Billing Codes ICD Device Billing: ICD Dev g Yumiko Valderrama 04/15/18 1147 <Electronically signed by Carine Salmon > Date Carine Salmon 04/15/18 1633<Electronically signed by Flash Rodriguez MD> Cosigner Signature: Date (if applicable) Flash Rodriguez MD CC: ONCOLOGY VISIT REPORT Observed: 04/15/2018 Status: F Source: [place] 12:14 PM [facility] [address] [place] [address] OFFICE VISIT Date of Service: 04/15/18 1129 MR#: [id number] Acct: [id number] Name: DOUGLAS MOSLEY Rep #: [id number] : 1940 From: Mariia Benentt CONTAINER SHOP WELDERArcadio Age/Sex: 77/M Location: [facility] Status: Signed Subjective - Date of Service Date of Service:: 04/15/18 - Chief Complaint F/U for chemotherapy-toxicity check. - History of Present Illness Mr. Douglas Mosley is a pleasant 77y.o.man who presented [...] Partial response with decrease in pretracheal node. Received cycle 3 on 03/16/2018. - Interval History Patient is presenting to clinic accompanied by spouse for follow-up. Patient received cycle 4 carboplatin, pemetrexed and pembrolizumab on 04/07/2018. Concerns today include increase in the number of stools yesterday, however denies loose BM. Further denies N/V, abd pain and melena/hematochezia. Has not required any prn antiemetics. Taking folic acid daily and dexamethasone on days 2-4 of cycle as advised. Appetite good, PO fliud intake likely inadequate. - Past Medical/Social History Past Medical History [...] Review of Systems Constitutional:: Reports: Fatigue - mild to moderate. Denies: Fever, Sweats, Weight loss, Appetite change, Chills Cardiovascular:: Reports: Dyspnea on exertion - unchanged. Denies: Chest pain, Palpitations, Orthopnea, PND, Shortness of breath Respiratory: Denies: Cough, Hemoptysis, Shortness of Breath, Wheezing Gastrointestinal:: Denies: Abdominal pain, Nausea, Vomiting, Diarrhea, Constipation, Melena, Hematochezia Genitourinary: Denies: Dysuria, Hematuria, 15, Flank pain Musculoskeletal:: Denies: Back pain, Myalgia, Arthralgia Skin: Denies: Rash, Skin Changes, Wounds Neurological:: Denies: Headache, Dizziness, Numbness, Tingling, Visual changes, Tinnitus, Hearing loss Psychiatric: Denies: Anxiety, Depression, Homicidal Ideations, Suicidal Ideations Vital Signs Height 5 ft 7 in Weight: 207 lb Weight in Pounds 207.0 lbs Pulse Ox 94 - Physical Exam General: Alert, Oriented x3, No apparent distress HEENT: Atraumatic, PERRLA, EOMI, Normocephalic Oropharynx:: Negative for: Dry mucosa, Ulcerated lesions Neck:: Supple, Trachea midline. Negative for: JVD, bilateral Cardiac:: Regular rate, Regular rhythm, Normal S1, Normal S2. Negative for: Murmur Lungs: Diminished, Excusion symmetrical. Negative for: Rhonchi, Wheezes, Tachypneic, Increased respiratory effort Abdomen:: Bowel sounds x 4, Soft, Non-tender, Non-distended. Negative for: Hepatosplenomegaly Extremities:: Negative for: Cyanosis, Edema Neurological: Neuro grossly intact Skin:: - - Port right upper chest accessed with gripper covered with DSD. Negative for: Lesions, Rash, Petechiae, Ecchymosis Psychiatric:: Appropriate affect, Euthymic Lymphatics:: Negative for: Cervical lymphadenopathy, Supraclavicular lymphadenopathy, Axillary lymphadenopathy Laboratory Data: Laboratory Tests WBC 3.4 L (4.4-11.0) K/mm3 RBC 3.94 L (4.6-6.2) M/mm3 Hgb 11.7 L (13.0-16.5) g/dl Hct 37.8 L (40-54) % Diagnostic Data: Diagnostic Data PET, CT Tumor [...] pembrolizumab in the palliative setting on 01/26/18. CTs subsequent to 2 cycles demonstrated partial response. Received cycle 4 carboplatin, pemetrexed, pembrolizumab on 04/07/2018. Overall tolerating regimen well with the exception of fatigue and thrombocytopenia with previous cycles. CBC reviewed, shows WBC 3.4, Hgb 11.7 and platelets 117,000. Renal function preserved. Advised him to continue protein supplementation. 2. Fatigue- likely multifactorial, but in part cancer r/t. Fatigue grade 1. ECOG 1. RTO on 04/27/18 for consideration of cycle 4 carboplatin, pemetrexed and pembrolizumab, sooner if issues arise. Mariia Bennett, MSN, SHOE CUTTER-C, AOCNP Medications: Prescriptions This Visit Medication Instructions Recorded Primary Care Provider: Niko Sampson MD Referring Provider: - Problem List (1) Non-small cell carcinoma of right lung, stage 4 Status: Chronic (2) Chemotherapy-induced thrombocytopenia Status: Acute (3) Fatigue Status: Acute Qualifiers: Fatigue type: due to neoplasm Qualified Code(s): R53.0 - Neoplastic (malignant) related fatigue 04/15/18 1214 <Electronically signed by Mariia DEE> Date Mariia DHALIWALC Cosigner Signature: Date (if applicable) CC: CBC W/DIFF, AUTOMATED Collected: 04/15/2018 Status: F Source: MERT 10:36 AM [facility] REPOSITORY Order Comment: Reason for Laboratory Test . TYPE CODE TESTS RESULT OUT OF RANGE REFERENCE UNITS LAB L100.1000 4.4-11.0 K/mm3 Low WBC 3.4 LAB L100.1200 4.6-6.2 M/mm3 Low RBC 3.94 LAB L100.1300 13.0-16.5 g/dl Low HGB 11.7 LAB L100.1400 40-54 % Low HCT 37.8 LAB L100.1500 80-94 fL High MCV 95.9 LAB L100.1600 27.0-32.0 pg Normal MCH 29.7 LAB L100.1700 32-36 g/gl Low MCHC 31.0 LAB L100.1810 11.6-14.6 % High RDW CV 17.3 LAB L100.1820 35.1-43.9 fl High RDW SD 61.0 LAB L100.1900 150-450 K/mm3 Low PLT 117 LAB L100.2000 6.2-12.0 fl Normal MPV 8.8 LAB L100.2100 47-70 % Normal NEUT% 54.7 LAB L100.2200 19-41 % Normal LY% 22.2 LAB L100.2300 0-10 % High MONO% 22.5 LAB L100.2400 0-5 % Normal EO% 0.0 LAB L100.2500 0-1 % Normal BASO% 0.0 LAB L100.2550 0.0-0.9 % Normal IM GRAN % 0.600 Result Comment: IG% - Immature Granulocytes (promyelocytes, myelocytes and metamyelocytes) > 1% indicates that a LEFT SHIFT is Present. LAB L100.2620 2.0-7.7 X10 3/uL Low Absolute Neut 1.9 LAB L100.2720 0.83-4.51 X10 3/ul Low Absolute Lymph 0.76 Performed By: #### L100.0100 #### [facility] [address] [place], [address] COMPREHENSIVE METABOLIC Collected: 04/15/2018 Status: F Source: [facility] 10:36 AM [facility] REPOSITORY Order Comment: Reason for Laboratory Test . TYPE CODE TESTS RESULT OUT OF RANGE REFERENCE UNITS LAB L501.0100 74-106 mg/dL High GLU 117 Result Comment: Fasting Glucose result from 100 to 125 mg/dL suggests IMPAIRED HOMEOSTASIS per A.D.A. criteria. Please note revised GLUCOSE reference range effective 2017. LAB L501.1000 7-18 mg/dL High BUN 42 LAB L501.1100 0.70-1.30 mg/dL Normal CREAT,SERUM 1.13 Result Comment: The validity of the calculated GFR AND GFRAA in patients over 70 years has not been determined. Clinical correlation is essential. LAB L501.1110 >60 mL/min Normal EST GFR 67 Result Comment: Non- GFR Calc LAB L501.1115 >60 mL/min Normal EST GFR - AA 81 Result Comment: GFR Calc LAB L501.1255 ml/min Normal Estimated CRCL 52.00 LAB L501.1300 10-20 RATIO High BUN/CRE 37.2 LAB L501.1500 6.4-8. g/dL Normal 2 T PROT 6.7 LAB L501.1800 3.2-5. g/dL Normal 0 ALB 3.5 LAB L501.1950 2.2-4. g/dL Normal 2 GLOB 3.2 LAB L501.2000 0.9-2. RATIO Normal 4 A/G 1.1 LAB L501.2200 8.5-10 mg/dL Normal .1 CA 8.6 LAB L501.4100 15-37 U/L Normal AST 18 LAB L501.4305 45-117 U/L Normal ALK P 82 LAB L501.4405 16-61 U/L Normal ALT 41 LAB L501.4600 0.20-1 mg/dL Normal .00 T BILI 0.30 LAB L501.5300 136-14 mmol/L Normal 5 NA 141 LAB L501.5600 3.5-5. mmol/L Normal 1 K 4.9 LAB L501.5900 98-107 mmol/L High CL 109 LAB L501.6100 21.0-3 mmol/L Normal 2.0 CO2 25.0 LAB L501.6200 5-15 Normal GAP 7 Performed By: #### L500.4050 #### [facility] [address] [place], [address] ONCOLOGY VISIT REPORT Observed: 04/07/2018 Status: F Source: [place] 12:44 PM [facility] REPOSITORY [facility] [address] [facility] [place] [address] OFFICE VISIT Date of Service: 04/07/18 1147 MR#: [id number] Acct: [id number] Name: DOUGLAS MOSLEY Rep #: [id number] : 1940 From: Mariia Bennett CONTAINER SHOP WELDERArcadio Age/Sex: 77/M Location: ONC Status: Signed Subjective - Date of Service Date of Service:: 04/07/18 - Chief Complaint F/U for chemotherapy-toxicity check. - History of Present Illness Mr. Douglas Mosley is a pleasant 77y.o.man who presented [...] Partial response with decrease in pretracheal node. Received cycle on 03/16/2018. - Interval History The patient is presenting to clinic accompanied by spouse for an evaluation anticipating he will receive cycle 4 carboplatin/pemetrexed/pembrolizumab. He denies any outstanding concerns r/t today's visit. Specifically denies headaches, vision changes, CP, N/V/D, abd pain, swelling/pain of his extremities and any episodes of overt bleeding/abnormal bruising. Further denies increase in baseline fatigue and exertional dyspnea. - Past Medical/Social History Past Medical History [...] Orthopnea, PND, Shortness of breath Respiratory: Reports: Cough - chronic. Denies: Hemoptysis, Shortness of Breath, Wheezing Gastrointestinal:: Denies: Abdominal pain, Nausea, Vomiting, Diarrhea, Constipation, Melena, Hematochezia Genitourinary: Denies: Dysuria, Hematuria, 15, Flank pain Musculoskeletal:: Denies: Back pain, Myalgia, Arthralgia Skin: Denies: Rash, Skin Changes, Wounds Neurological:: Denies: Headache, Dizziness, Numbness, Tingling, Visual changes, Tinnitus, Hearing loss Psychiatric: Denies: Anxiety, Depression, Homicidal Ideations, Suicidal Ideations Vital Signs Height 5 ft 7 in Weight: 207 lb Weight in Pounds 207.0 lbs Pulse Ox 93 - Physical Exam General: Alert, Oriented x3, No apparent distress HEENT: Atraumatic, Normocephalic Oropharynx:: Negative for: Dry mucosa, Ulcerated lesions Neck:: Supple, Trachea midline. Negative for: JVD, bilateral Cardiac:: Regular rate, Regular rhythm, Normal S1, Normal S2. Negative for: Murmur Lungs: Diminished - throughout, Excusion symmetrical. Negative for: Rhonchi, Wheezes, Tachypneic, Increased respiratory effort Abdomen:: Bowel sounds x 4, Soft, Non-tender, Non-distended. Negative for: Hepatosplenomegaly Extremities:: Negative for: Cyanosis, Edema Neurological: Neuro grossly intact Skin:: - - Port right upper chest accessed with gripper covered with DSD. Negative for: Lesions, Rash, Petechiae, Ecchymosis Psychiatric:: Appropriate affect, Euthymic Lymphatics:: Negative for: Cervical lymphadenopathy, Supraclavicular lymphadenopathy, Axillary lymphadenopathy Laboratory Data: Laboratory Tests WBC 4.0 L (4.4-11.0) K/mm3 RBC 4.06 L (4.6-6.2) M/mm3 Hgb 12.0 L (13.0-16.5) g/dl Diagnostic Data: Diagnostic Data [...] pembrolizumab in the palliative setting on 01/26/18. CTs subsequent to 2 cycles demonstrated partial response. Overall tolerating regimen well with the exception of hematologic toxicity (discussed below). CBC reviewed shows Hgb 12, ANC 2. He is otherwise not endorsing any signs or symptoms of toxicity contraindicating chemotherapy today. Thus, he will proceed with planned cycle 4 carboplatin, pemetrexed, pembrolizumab today. 2. Thrombocytopenia, chemotherapy induced- Platelets recovered, now 143,000. Patient is in agreement with the aforementioned plan. RTO in 10 days for a symptom check with labs and on 04/27/18 for consideration of cycle 4 carboplatin, pemetrexed and pembrolizumab, sooner if issues arise. Case discussed with primary oncologist. Per Dr. Corea, no chemotherapy dose modifications today. Mariia Bennett, MSN, SHOE CUTTER-C, AOCNP Medications: Prescriptions This Visit Medication Instructions Recorded Primary Care Provider: Niko Sampson MD Referring Provider: - Problem List (1) Non-small cell carcinoma of right lung, stage 4 Status: Chronic (2) Chemotherapy-induced thrombocytopenia Status: Acute (3) Chemotherapy management, encounter for Status: Acute 04/07/18 1244 <Electronically signed by Mariia DEE> Date Mariia DEE Cosigner Signature: Date (if applicable) CC: PROTHROMBIN TIME W/INR Collected: 04/07/2018 Status: F Source: [facility] 10:20 AM [facility] REPOSITORY TYPE CODE TESTS RESULT OUT OF RANGE REFERENCE UNITS LAB L300.4150 11.7-14.9 SECONDS High PROTIME 27.4 LAB L300.4200 Normal INR 2.5 Performed By: #### L300.3900 #### [facility] [address] [place], [address] CBC W/DIFF, AUTOMATED Collected: 04/07/2018 Status: F Source: M[facility] 10:14 AM [facility] [place] REPOSITORY TYPE CODE TESTS RESULT OUT OF RANGE REFERENCE UNITS LAB L100.1000 4.4-11.0 K/mm3 Low WBC 4.0 LAB L100.1200 4.6-6.2 M/mm3 Low RBC 4.06 LAB L100.1300 13.0-16.5 g/dl Low HGB 12.0 LAB L100.1400 40-54 % Low HCT 38.6 LAB L100.1500 80-94 fL High MCV 95.1 LAB L100.1600 27.0-32.0 pg Normal MCH 29.6 LAB L100.1700 32-36 g/gl Low MCHC 31.1 LAB L100.1810 11.6-14.6 % High RDW CV 17.8 LAB L100.1820 35.1-43.9 fl High RDW SD 61.3 LAB L100.1900 150-450 K/mm3 Low PLT 143 LAB L100.2000 6.2-12.0 fl Normal MPV 8.6 LAB L100.2100 47-70 % Normal NEUT% 49.2 LAB L100.2200 19-41 % Normal LY% 19.9 LAB L100.2300 0-10 % High MONO% 30.3 LAB L100.2400 0-5 % Normal EO% 0.3 LAB L100.2500 0-1 % Normal BASO% 0.0 LAB L100.2550 0.0-0.9 % Normal IM GRAN % 0.300 Result Comment: IG% - Immature Granulocytes (promyelocytes, myelocytes and metamyelocytes) > 1% indicates that a LEFT SHIFT is Present. LAB L100.2620 2.0-7.7 X10 3/uL Normal Absolute Neut 2.0 LAB L100.2720 0.83-4.51 X10 3/ul Low Absolute Lymph 0.79 Performed By: #### L100.0100 #### [facility] [place], [address] COMPREHENSIVE METABOLIC Collected: 04/07/2018 Status: F Source: MERT PACK 10:14 AM [facility] [place] REPOSITORY Order Comment: Reason for Laboratory Test [...] High BUN 35 LAB L501.1100 0.70-1.30 mg/dL High CREAT,SERUM 1.31 Result Comment: The validity of the calculated GFR AND GFRAA in patients over 70 years has not been determined. Clinical correlation is essential. LAB L501.1110 >60 mL/min Low EST GFR 56 Result Comment: Non- GFR Calc LAB L501.1115 >60 mL/min Normal EST GFR - AA 68 Result Comment: GFR Calc LAB L501.1255 ml/min Normal Estimated CRCL 44.85 LAB L501.1300 10-20 RATIO High BUN/CRE 26.7 LAB L501.1500 6.4-8. g/dL Normal 2 T PROT 7.2 LAB L501.1800 3.2-5. g/dL Normal 0 ALB 3.6 LAB L501.1950 2.2-4. g/dL Normal 2 GLOB 3.6 LAB L501.2000 0.9-2. RATIO Normal 4 A/G 1.0 LAB L501.2200 8.5-10 mg/dL Normal .1 CA 8.8 LAB L501.4100 15-37 U/L Normal AST 22 LAB L501.4305 45-117 U/L Normal ALK P 85 LAB L501.4405 16-61 U/L Normal ALT 46 LAB L501.4600 0.20-1 mg/dL Normal .00 T BILI 0.30 LAB L501.5300 136-14 mmol/L Normal 5 NA 139 LAB L501.5600 3.5-5. mmol/L Normal 1 K 4.1 LAB L501.5900 98-107 mmol/L Normal CL 106 LAB L501.6100 21.0-3 mmol/L Normal 2.0 CO2 23.0 LAB L501.6200 5-15 Normal GAP 10 Performed By: #### L500.4050, L501.2300, L501.9520 #### [facility] [address] [place], [address] PHOSPHORUS Collected: 04/07/2018 Status: F Source: [facility] 10:14 AM [facility] REPOSITORY Order Comment: Reason for Laboratory Test Chemotherapy Reason for Laboratory Test CHEMOTHERAPY TYPE CODE TESTS RESULT OUT OF RANGE REFERENCE UNITS LAB L501.2300 2.5-4.9 mg/dL Normal PHOS 2.5 Performed By: #### L500.4050, L501.2300, L501.9520 #### [facility] [address] [place], [place], [address] THYROID STIM HORMONE Collected: 04/07/2018 Status: F Source: [facility] (TSH) 10:14 AM [facility] REPOSITORY Order Comment: Reason for Laboratory Test Chemotherapy Reason for Laboratory Test CHEMOTHERAPY TYPE CODE TESTS RESULT OUT OF RANGE REFERENCE UNITS LAB L501.9520 0.358-3.74 uIU/mL Normal TSH 2.15 Performed By: #### L500.4050, L501.2300, L501.9520 #### [facility] [address] [place], [address] ONCOLOGY VISIT REPORT Observed: 03/31/2018 Status: F Source: [place] 10:39 AM [facility] REPOSITORY [facility] [address] [facility] [place] [address] OFFICE VISIT Date of Service: 03/31/18 1023 MR#: [id number] Acct: [id number] Name: DOUGLAS MOSLEY #: [id number] : 1940 From: Ian Corea MD Age/Sex: 77/M Location: OMD Status: Signed Subjective - Date of Service Date of Service:: 03/31/18 - Chief Complaint F/U for chemotherapy-toxicity check. - History of Present Illness Mr. Douglas Mosley is a pleasant 77y.o.man who presented [...] Partial response with decrease in pretracheal node. Got 3rd cycle on 03/16/2018, comes for toxicity check. - Past Medical/Social History Past Medical History [...] exertion, Orthopnea, PND, Shortness of breath Respiratory: Reports: - - Pain R side.. Denies: Cough, Hemoptysis, Shortness of Breath, Wheezing [...] Pulse Ox 98 - Physical Exam General: Alert, Oriented x3, No apparent distress, - - port R HEENT: Atraumatic, PERRLA, EOMI, Normocephalic Oropharynx:: Dry mucosa Neck:: Supple, Trachea midline. Negative for: JVD, bilateral Cardiac:: Regular rate, Regular rhythm, Normal S1, Normal S2. Negative for: Murmur Lungs: Clear to auscultation, Excusion symmetrical, - - slight tenderness R lower ribs.. Negative for: Rhonchi, Wheezes Neurological: Neuro grossly intact Lymphatics:: Negative for: Cervical lymphadenopathy, Supraclavicular lymphadenopathy, Axillary lymphadenopathy Laboratory Data: Laboratory Tests WBC 2.9 L (4.4-11.0) K/mm3 RBC 3.99 L (4.6-6.2) M/mm3 Hgb 11.8 L (13.0-16.5) g/dl Hct 37.6 L (40-54) % MCV 94.2 H (80-94) fL Diagnostic Data: Diagnostic Data PET, CT Tumor [...] Assessment and Plan NSCLC adenocarcinoma stage IV, EGFR, ALK/ROS1 negative. Partial Response to 1 cycle of Carboplatin, Alimta and Keytruda so did observation. PET/CT showed progressive disease-mediastinal node. Restarted Carboplatin/Alimta/Keytruda, s/p 3rd cycle, Partial response. Thrombocytopenia. Plan is to do observation for recovery of thrombocytopenia.. 4th cycle is due next week. RTC 1 weeks with CBC/CMP/Mag for C4. Medications: Prescriptions This Visit Medication Instructions Recorded Primary Care Provider: Niko Sampson MD Referring Provider: - Problem List (1) Non-small cell carcinoma of right lung, stage 4 Status: Chronic (2) Chemotherapy management, encounter for Status: Acute Code Visit Office Visits / Consults: [id number] OV L5 Est 03/31/18 1039 <Electronically signed by Ian Corea MD> Date Ian Corea MD Cosigner Signature: Date (if applicable) CC: PROTHROMBIN TIME W/INR Collected: 03/31/2018 Status: F Source: [facility] 10:02 AM [facility] REPOSITORY TYPE CODE TESTS RESULT OUT OF REFERENCE UNITS RANGE LAB L300.4150 11.7-14.9 SECONDS High PROTIME 37.1 LAB L300.4200 High alert INR 3.7 Result Comment: CRITICAL VALUE VERIFIED. CALLED TO [facility] 03/31/18 1023 Latonya Loaiza. RESULTS READ BACK BY SAME . Performed By: #### L300.3900 #### [facility] [address] [place], [address] CBC W/DIFF, AUTOMATED Collected: 03/31/2018 Status: C Source: M[facility] 9:50 AM [facility] REPOSITORY Order Comment: Reason for Laboratory Test . TYPE CODE TESTS RESULT OUT OF RANGE REFERENCE UNITS LAB L100.1000 4.4-11.0 K/mm3 Low WBC 2.9 LAB L100.1200 4.6-6.2 M/mm3 Low RBC 3.99 LAB L100.1300 13.0-16.5 g/dl Low HGB 11.8 LAB L100.1400 40-54 % Low HCT 37.6 LAB L100.1500 80-94 fL High MCV 94.2 LAB L100.1600 27.0-32.0 pg Normal MCH 29.6 LAB L100.1700 32-36 g/gl Low MCHC 31.4 LAB L100.1810 11.6-14.6 % High RDW CV 17.1 LAB L100.1820 35.1-43.9 fl High RDW SD 57.9 LAB L100.1900 150-450 K/mm3 Low alert PLT 38 LAB L100.2000 6.2-12.0 fl Normal MPV 8.9 LAB L100.2100 47-70 % Normal NEUT% 63.1 LAB L100.2200 19-41 % Normal LY% 22.6 LAB L100.2300 0-10 % High MONO% 14.3 LAB L100.2400 0-5 % Normal EO% 0.0 LAB L100.2500 0-1 % Normal BASO% 0.0 LAB L100.2550 0.0-0.9 % Normal IM GRAN % 0.000 Result Comment: IG% - Immature Granulocytes (promyelocytes, myelocytes and metamyelocytes) > 1% indicates that a LEFT SHIFT is Present. LAB L100.2620 2.0-7.7 X10 3/uL Low Absolute Neut 1.8 LAB L100.2720 0.83-4.51 X10 3/ul Low Absolute Lymph 0.65 LAB L100.4500 SMEAR Normal COMMENT S Result Comment: NEUTROPENIA CRITICAL VALUE VERIFIED. CALLED TO MALKA MCLAIN 03/31/18 1049 Subha Claire. RESULTS READ BACK BY SAME . LAB L100.5500 ADEQ Normal MKD PLT DEC EST LAB L100.9900 Normal PATH Reviewed REV Result Comment: Pancytopenia. Leukopenia. Normocytic anemia. Marked Thrombocytopenia. Clinical correlation necessary. Marky Bella D.O. 04/01/18 AMENDED REPORT 04/01/18 1419 PATH REV previously reported as: Tania mittal Performed By: #### L100.0100 #### [facility] [address] [place], [address] COMPREHENSIVE METABOLIC Collected: 03/31/2018 Status: F Source: [facility] 9:50 AM [facility] REPOSITORY Order Comment: Reason for Laboratory Test . TYPE CODE TESTS RESULT OUT OF RANGE REFERENCE UNITS LAB L501.0100 74-106 mg/dL High GLU 142 Result Comment: Fasting Glucose result greater than or equal to 126 mg/dL suggests DIABETES MELLITUS per A.D.A. criteria. Please note revised GLUCOSE reference range effective 2017. LAB L501.1000 7-18 mg/dL High BUN 34 LAB L501.1100 0.70-1.30 mg/dL Normal CREAT,SERUM 1.15 Result Comment: The validity of the calculated GFR AND GFRAA in patients over 70 years has not been determined. Clinical correlation is essential. LAB L501.1110 >60 mL/min Normal EST GFR 66 Result Comment: Non- GFR Calc LAB L501.1115 >60 mL/min Normal EST GFR - AA 79 Result Comment: GFR Calc LAB L501.1255 ml/min Normal Estimated CRCL 51.09 LAB L501.1300 10-20 RATIO High BUN/CRE 29.6 LAB L501.1500 6.4-8. g/dL Normal 2 T PROT 6.8 LAB L501.1800 3.2-5. g/dL Normal 0 ALB 3.7 LAB L501.1950 2.2-4. g/dL Normal 2 GLOB 3.1 LAB L501.2000 0.9-2. RATIO Normal 4 A/G 1.2 LAB L501.2200 8.5-10 mg/dL Normal .1 CA 8.7 LAB L501.4100 15-37 U/L Normal AST 27 LAB L501.4305 45-117 U/L Normal ALK P 74 LAB L501.4405 16-61 U/L Normal ALT 61 LAB L501.4600 0.20-1 mg/dL Normal .00 T BILI 0.30 LAB L501.5300 136-14 mmol/L Normal 5 NA 142 LAB L501.5600 3.5-5. mmol/L Normal 1 K 4.3 LAB L501.5900 98-107 mmol/L High CL 109 LAB L501.6100 21.0-3 mmol/L Normal 2.0 CO2 24.0 LAB L501.6200 5-15 Normal GAP 9 Performed By: #### L500.4050 #### [facility] [address] [facility] [place], [address] ECHO, COMPLETE W/ Observed: 03/24/2018 Status: F Source: [place] CONTRAST 11:21 AM [facility] REPOSITORY [facility] Cardiovascular Services [address] [place] [address] Echo Complete W/ Contrast 03/23/18 1555 MR#: [id number] Acct: [id number] Name: DOUGLAS MOSLEY Rep #: [id number] : 1940 77 From: Flash Rodriguez MD Attending Dr: Flash Rodriguez MD Status: REG CLI Ordering Dr: Flash Rodriguez MD Date: 03/23/18 Location: [facility] Sex: M C Admitted: Reason For Study: CAD Procedure This was a 2D Doppler, Color Flow transthoracic echocardiogram. Optimal images could not be obtained for accurate strain analysis. The study was technically difficult. Contrast injection was performed. Exam performed in department. Left Ventricle Moderately dilated left ventricle. The estimated ejection fraction is 45-50 %. Paced septal motion. There is mild to moderate global hypokinesis of the left ventricle. Right Ventricle Normal size and thickness. ICD or pacer leads identified within the right ventricle. Normal systolic function. Atria Normal left atrium. Normal right atrium. Normal atrial septum. Mitral Valve The mitral valve is structurally normal. No prolapse or stenosis seen. Mild (1+) mitral valve insufficiency. Tricuspid Valve Normal tricuspid valve. Mild (1+) tricuspid valve insufficiency. Right ventricular systolic pressure estimated to be 29 mmHg. Aortic Valve Trisinus/trileaflet aortic valve. Mild diffuse aortic valve thickening. There is no aortic stenosis. Pulmonic Valve The pulmonic valve is not well visualized. Great Vessels Normal aortic root. Normal arch. Normal inferior vena cava. Inferior vena cava collapse with sniff. Pericardium/Pleural No pericardial effusion. Medication Port access was used for Definity administration. Diluted definity 4ml given slow IV push to enhance endocardial definition. MMode/2D Measurements AND Calculations LVIDd: 5.2 cm IVSd: 1.0 cm Ao root diam: 3.3 cm LVIDs: 3.5 cm LVPWd: 0.91 cm FS: 31.4 % LAV(MOD-bp): 64.9 ml LA A4 area: 17.7 cm2 LA dimension(2D): 4.2 cm LAV(MOD-bp) Indexed: 31.1 ml/m2 LAV(MOD-sp2): 83.8 ml LAV(MOD-sp4): 47.0 ml RA A4 area: 20.0 cm2 Time Measurements MV dec time: 0.24 sec Doppler Measurements AND Calculations MV E max elias: 63.5 cm/sec Lat Peak E' Elias: 3.2 cm/sec Med Peak E' Elias: 4.2 cm/sec MV A max elias: 27.2 cm/sec E/E' lat: 19.7 E/E' med: 15.1 MV E/A: 2.3 Ao V2 max: 119.8 cm/sec LV V1 max: 76.1 cm/sec PA V2 max: 106.7 cm/sec Ao max P.8 mmHg LV V1 max P.3 mmHg PI end-d elias: 96.5 cm/sec TR max elias: 242.7 cm/sec TR max P.6 mmHg Interpretation Summary Moderately dilated left ventricle. The estimated ejection fraction is 45-50 %. There is mild to moderate global hypokinesis of the left ventricle. Mild (1+) mitral valve insufficiency. Mild (1+) tricuspid valve insufficiency. Right ventricular systolic pressure estimated to be 29 mmHg. Compared to previous report dated 11/12/2016, LV function has remained the same, and RVSP has decreased from 41 to 29 mm Hg. The study was technically difficult. Contrast injection was performed. Ordering Physician: Flash Rodriguez Referring Physician: Flash Rodriguez Performed By: Asha Story RDCS, RVT 03/24/18 1121 Date Flash Rodriguez MD CC: Flash Rodriguez MD; Niko Sampson MD Date Dictated: 03/23/18 1555 Date Transcribed: 03/24/18 112 Fox Raiser: Signed LIVER PROFILE Collected: 03/19/2018 Status: F Source: [place] 10:55 AM [facility] REPOSITORY TYPE CODE TESTS RESULT OUT OF [...] 0.17 Performed By: #### L500.3400, L500.4100 #### [facility] [address] [place], [place], [address] LIPID PROFILE Collected: 03/19/2018 Status: F Source: [place] 10:55 AM [facility] REPOSITORY TYPE CODE TESTS RESULT OUT OF [...] 19 Performed By: #### L500.3400, L500.4100 #### [facility] [address] [place], [address] ONCOLOGY VISIT REPORT Observed: 03/16/2018 Status: F Source: [place] 9:23 AM [facility] REPOSITORY [facility] [address] [place] [address] OFFICE VISIT Date of Service: 03/16/18912 MR#: [id number] Acct: [id number] Name: DOUGLAS MOSLEY Rep #: [id number] : 1940 From: Ian Corea MD Age/Sex: 77/M Location: OMD Status: Signed Subjective - Date of Service Date of Service:: 03/16/18 - Chief Complaint F/U for chemotherapy. - History of Present Illness Mr. Douglas Mosley is a pleasant 77y.o.man who presented [...] Acute Code Visit Office Visits / Consults: [id number] OV L5 Est 03/16/18 0923 <Electronically signed by Ian Corea MD> Date Ian Corea MD Cosigner Signature: Date (if applicable) CC: CBC W/DIFF, AUTOMATED Collected: 03/16/2018 Status: F Source: [place] 8:22 AM [facility] REPOSITORY TYPE CODE TESTS RESULT OUT OF [...] Lymph 1.02 Performed By: #### L100.0100 #### [facility] [address] [place], [address] COMPREHENSIVE METABOLIC Collected: 03/16/2018 Status: F Source: [facility] 8:22 AM [facility] REPOSITORY Order Comment: Reason for Laboratory Test [...] Performed By: #### L500.4050, L501.2300, L501.9520 #### [facility] [address] [place], [place], [id number] PHOSPHORUS Collected: 03/16/2018 Status: F Source: [place] 8:22 AM [facility] REPOSITORY Order Comment: Reason for Laboratory Test Chemotherapy Reason for Laboratory Test CHEMOTHERAPY TYPE CODE TESTS RESULT OUT OF RANGE REFERENCE UNITS LAB L501.2300 2.5-4.9 mg/dL Normal PHOS 2.8 Performed By: #### L500.4050, L501.2300, L501.9520 #### [facility] [address], [place], [id number] THYROID STIM HORMONE Collected: 03/16/2018 Status: F Source: DALE (TSH) 8:22 AM [facility] REPOSITORY Order Comment: Reason for Laboratory Test Chemotherapy Reason for Laboratory Test CHEMOTHERAPY TYPE CODE TESTS RESULT OUT OF RANGE REFERENCE UNITS LAB L501.9520 0.358-3.74 uIU/mL Normal TSH 3.72 Performed By: #### L500.4050, L501.2300, L501.9520 #### [facility] [address], [place], [id number] CARDIOLOGY VISIT Observed: 03/12/2018 Status: F Source: DALE REPORT 11:23 AM [facility] REPOSITORY [facility] [address] [place] [address] OFFICE VISIT Date of Service: 03/12/18 MR#: [id number] Acct: [id number] Name: DOUGLAS MOSLEY Rep #: [id number] : 1940 Provider: Flash Rodriguez MD Age/Sex: 77/M Location: [facility] Status: Signed HPI HPI Chief Complaint: Routine [...] Pressure 90/60 Intake Visit Reasons: 6 M Spinner Cap Frame Required: No Accompanied by: Is patient in [...] Atrial flutter (Chronic) Atherosclerotic heart disease of [place] coronary artery without angina pectoris (Chronic) Hyperthyroidism (Chronic) Chronic systolic congestive heart failure (Chronic) Pleural effusion (Chronic) PVD (peripheral vascular disease) (Chronic) Chronic atrial fibrillation (Chronic) Cardiomyopathy, ischemic (Chronic) Atrioventricular block, complete (Chronic) Hyperlipidemia (Chronic) Hypertension (Chronic) FPC (current) use of anticoagulants (Chronic) Perforated ulcer [...] AND Plan 1. Atherosclerotic heart disease of [place] coronary artery without angina pectoris I25.10 Plan [...] vis,est,level 3 Diagnoses Atherosclerotic heart disease of [place] coronary artery without angina pectoris I25.10 Hyperlipidemia, unspecified hyperlipidemia type E78.5 Hyperlipidemia type: unspecified Coding Level of Care Code Off vis,est,level 3 Diagnoses Atherosclerotic heart disease of [place] coronary artery without angina pectoris I25.10 Hyperlipidemia, unspecified hyperlipidemia type E78.5 Hyperlipidemia type: unspecified 03/12/18 1123 <Electronically signed by Flash Rodriguez MD> Date Flash Rodriguez MD [facility] Signature: Date (if applicable) CC: Niko Sampson MD ONCOLOGY VISIT REPORT Observed: 03/08/2018 Status: F Source: MERT 5:20 PM [facility] REPOSITORY [facility] [address] [place], [place] [address] [place] [address] OFFICE VISIT Date of Service: 03/08/18 1135 MR#: [id number] Acct: [id number] Name: DOUGLAS MOSLEY Rep #: [id number] : 1940 From: Ian Corea MD Age/Sex: 77/M Location: O[facility] Status: Signed Subjective - Date of Service Date of Service:: 03/08/18 - Chief Complaint F/U for toxicity check and CT results. - History of Present Illness Mr. Douglas Mosley is a pleasant 77y.o.man who presented [...] Acute Code Visit Office Visits / Consults: 16741 OV L5 Est 03/08/18 1720 <Electronically signed by Ian Corea MD> Date Ian Corea MD Cosigner Signature: Date (if applicable) CC: PROTHROMBIN TIME W/INR Collected: 03/08/2018 Status: F Source: DALE 9:52 AM [facility] REPOSITORY TYPE CODE TESTS RESULT OUT OF RANGE REFERENCE UNITS LAB L300.4150 11.7-14.9 SECONDS High PROTIME 29.9 LAB L300.4200 Normal INR 2.8 Performed By: #### L300.3900 #### [facility] [address] [place], [address] CBC W/DIFF, AUTOMATED Collected: 03/08/2018 Status: F Source: MERT 9:51 AM [facility] REPOSITORY Order Comment: Reason for Laboratory Test [...] Lymph 0.66 Performed By: #### L100.0100 #### [facility] [address] [place], [place], [address] COMPREHENSIVE METABOLIC Collected: 03/08/2018 Status: F Source: [facility] 9:51 AM [facility] REPOSITORY Order Comment: Reason for Laboratory Test [...] GAP 7 Performed By: #### L500.4050 #### [facility] [address] [place], [place], [address] CHEST WITH CONTRAST Observed: 03/03/2018 Status: F Source: DALE 7:53 AM [facility] REPOSITORY [facility] Imaging Services [address] [place] [address] Chest WITH Contrast MR#: [id number] Acct: [id number] Name: DOUGLAS MOSLEY Rep #: [id number] : 1940 M 77 From: Mono Hercules MD PCP: Niko Sampson MD Status: REG CLI Study: Chest WITH Contrast Date of Exam: 03/03/18 Exam# [id number] Ordering Dr: Ian Corea MD STUDY: CT [...] CC: Ian Corea MD; Niko Sampson MD Fox Raiser: Signed ONCOLOGY VISIT REPORT Observed: 02/23/2018 Status: F Source: MERT 9:36 AM [facility] REPOSITORY [facility] [place] [address] OFFICE VISIT Date of Service: 02/23/18 0932 MR#: [id number] Acct: [id number] Name: DOUGLAS MOSLEY Rep #: [id number] : 1940 From: Ian Corea MD Age/Sex: 77/M Location: OMD Status: Signed Subjective - Date of Service Date of Service:: 02/23/18 - Chief Complaint F/U for Carboplatin/pemetrexed/pembrolizumab - History of Present Illness Mr. Douglas Mosley is a pleasant 77y.o.man who presented [...] Acute Code Visit Office Visits / Consults: 16396 OV L5 Est 02/23/18 0936 <Electronically signed by Ian Corea MD> Date Ian Corea MD Cosigner Signature: Date (if applicable) CC: CBC W/DIFF, AUTOMATED Collected: 02/23/2018 Status: F Source: MERT 8:30 AM [facility] REPOSITORY TYPE CODE TESTS RESULT OUT OF [...] Lymph 2.08 Performed By: #### L100.0100 #### [facility] [address] [place], [address] COMPREHENSIVE METABOLIC Collected: 02/23/2018 Status: F Source: [facility] 8:30 AM [facility] REPOSITORY Order Comment: Reason for Laboratory Test [...] Performed By: #### L500.4050, L501.2300, L501.9520 #### [facility] [address] [place], [place], [address] PHOSPHORUS Collected: 02/23/2018 Status: F Source: MERT 8:30 AM [facility] REPOSITORY Order Comment: Reason for Laboratory Test Chemotherapy Reason for Laboratory Test CHEMOTHERAPY TYPE CODE TESTS RESULT OUT OF RANGE REFERENCE UNITS LAB L501.2300 2.5-4.9 mg/dL Low PHOS 2.4 Performed By: #### L500.4050, L501.2300, L501.9520 #### [facility] [address] [place], [address] THYROID STIM HORMONE Collected: 02/23/2018 Status: F Source: DALE (TSH) 8:30 AM [facility] REPOSITORY Order Comment: Reason for Laboratory Test Chemotherapy Reason for Laboratory Test CHEMOTHERAPY TYPE CODE TESTS RESULT OUT OF RANGE REFERENCE UNITS LAB L501.9520 0.358-3.74 uIU/mL Normal TSH 3.17 Performed By: #### L500.4050, L501.2300, L501.9520 #### [facility] [address] [place], [address] ONCOLOGY VISIT REPORT Observed: 02/16/2018 Status: F Source: DALE 9:13 AM [facility] REPOSITORY [facility] [place] [address] OFFICE VISIT Date of Service: 02/16/18 0905 MR#: [id number] Acct: [id number] Name: DOUGLAS MOSLEY Rep #: [id number] : 1940 From: Ian Corea MD Age/Sex: 77/M Location: OMD Status: Signed Subjective - Date of Service Date of Service:: 02/16/18 - Chief Complaint F/U for Carboplatin/pemetrexed/pembrolizumab - History of Present Illness Mr. Douglas Mosley is a pleasant 77y.o.man who presented [...] Acute Code Visit Office Visits / Consults: 34512 OV L5 Est 02/16/18 0913 <Electronically signed by Ian Corea MD> Date Ian Corea MD Cosigner Signature: Date (if applicable) CC: CBC W/DIFF, AUTOMATED Collected: 02/16/2018 Status: F Source: MERT 8:34 AM [facility] REPOSITORY Order Comment: Reason for Laboratory Test [...] Lymph 0.79 Performed By: #### L100.0100 #### [facility] [address] [place], [address] COMPREHENSIVE METABOLIC Collected: 02/16/2018 Status: F Source: [facility] 8:34 AM [facility] REPOSITORY Order Comment: Reason for Laboratory Test [...] GAP 7 Performed By: #### L500.4050 #### [facility] [address] [place], [address] CBC W/DIFF, AUTOMATED Collected: 02/11/2018 Status: F Source: MERT 7:59 AM [facility] REPOSITORY Order Comment: Reason for Laboratory Test [...] Lymph 0.64 Performed By: #### L100.0100 #### [facility] [address] [place], [address] ONCOLOGY VISIT REPORT Observed: 02/10/2018 Status: F Source: DALE 1:29 PM [facility] REPOSITORY [facility] [place] [address] OFFICE VISIT Date of Service: 02/09/18 1119 MR#: [id number] Acct: [id number] Name: DOUGLAS MOSLEY Rep #: [id number] : 1940 From: Mariia DEE Age/Sex: 77/M Location: D Status: Signed Subjective - Date of Service Date of Service:: 02/09/18 - Chief Complaint Toxicity assessment Carboplatin/pemetrexed/pembrolizumab - History of Present Illness Mr. Douglas Mosley is a pleasant 77y.o.man who presented [...] groin last week which prompted presentation to [facility] ED. 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 (Angle et al, Chest 122:1918, 2002). 4. Facilitated [...] and warfarin and recheck platelets on 02/11/18. Computer Sciences Professor, Dr. Rodriguez made aware. Discussed with Dr Corea dose attenuation of carboplatin with cycle 2 and subsequent cycles. Patient is in agreement with the aforementioned plan. RTO on 02/16/18 for consideration of cycle 2 carboplatin, pemetrexed and pembrolizumab, sooner if issues arise. Mariia Bennett, MSN, SHOE CUTTER-C, AOCNP Medications: Prescriptions This Visit Medication Instructions Recorded Dexamethasone [Decadron] 4 mg PO BIDCM #30 tablet 01/21/18 Primary Care Provider: Niko Sampson MD Referring Provider: - Problem List (1) Non-small cell carcinoma of right lung, stage 4 Status: Chronic (2) Chemotherapy-induced thrombocytopenia Status: Acute 02/10/18 1329 <Electronically signed by Mariia Bennett CONTAINER SHOP WELDER-C> Date Mariia HenrySabrina CONTAINER SHOP WELDER-C Cosigner Signature: Date (if applicable) CC: PROTHROMBIN TIME W/INR Collected: 02/09/2018 Status: F Source: DALE 9:47 AM [facility] REPOSITORY TYPE CODE TESTS RESULT OUT OF RANGE REFERENCE UNITS LAB L300.4150 11.7-14.9 SECONDS High PROTIME 28.5 LAB L300.4200 Normal INR 2.7 Performed By: #### L300.3900 #### [facility] [address] [place], [address] COMPREHENSIVE METABOLIC Collected: 02/09/2018 Status: F [facility] AM [facility] REPOSITORY Order Comment: Reason for Laboratory Test [...] GAP 8 Performed By: #### L500.4050 #### [facility] [address] [place], [address] CBC W/DIFF, AUTOMATED Collected: 02/09/2018 Status: C Source: DALE 9:37 AM [facility] REPOSITORY Order Comment: Reason for Laboratory Test [...] VALUE VERIFIED. CALLED TO MALKA TILLEY AT [facility] 02/09/18 1038 Anat Ramirez. RESULTS READ BACK [...] August daxa Performed By: #### L100.0100 #### [facility] [address] [facility] [place], [address] EMERGENCY DEPARTMENT Observed: 02/01/2018 Status: F Source: DALE SUMMARY 4:11 PM [facility] REPOSITORY [facility] Medical Records Department [address] [facility] [place] [address] Emergency Department Summary 02/01/18 1610 MR#: [id number] Acct: [id number] Name: WAYNELULYDOUGLAS D Rep #: [id number] : 1940 77 From: Brendan Love MD PCP: Niko Sampson MD Status: REG ER - ER Visit Summary Date of Service: 02/01/18 Chief Complaint: [] History of Present Illness: The patient is a 77 M [] Physical Examination: [] Test Results: [] Emergency Department Course and Treatment: [] Treatment Plan: [] Disposition: [] Impression: [] This note was generated with Help/Systemsation software. It may contain incorrect words, spelling, [...] your Primary Care Provider. Call [facility] ([phone]) or report to the closest Emergency Room. Call 911 if necessary. 02/01/18 1611 <Electronically signed by Brendan Love MD> Date Brendan Love MD Cosigner Signature (If Indicated): Date CC: Niko Sampson MD EMERGENCY DEPARTMENT Observed: 02/01/2018 Status: F Source: DALE SUMMARY 4:04 PM [facility] REPOSITORY [facility] Medical Records Department [address] [place] [address] Emergency Department Summary 02/01/18 1602 MR#: [id number] Acct: [id number] Name: DOUGLAS MOSLEY Rep #: [id number] : 1940 77 From: Brendan Love MD [...] candidal dermatitis This note was generated with [employer] dictation software. It may contain incorrect words, [...] problems, contact your Primary Care Provider. Call [employer] [facility] ([phone]) or report to the closest Emergency Room. Call 911 if necessary. 02/01/18 1604 <Electronically signed by Brendan Love MD> Date Brendan Love MD Cosigner Signature (If Indicated): Date CC: Niko Sampson MD ONCOLOGY VISIT REPORT Observed: 01/25/2018 Status: F Source: MERT 1:57 PM [facility] REPOSITORY [facility] [place] [address] OFFICE VISIT Date of Service: 01/25/18 1212 MR#: [id number] Acct: [id number] Name: DOUGLAS MOSLEY Rep #: [id number] : 1940 From: Mariia DEE Age/Sex: 77/M Location: ONC Status: Signed Subjective - Date of Service Date of Service:: 01/25/18 - Chief Complaint Chemotherapy education-Carboplatin/Alimta/Keytruda - History of Present Illness Mr. Douglas Mosley is a pleasant 77y.o.man who presented [...] pleural interface hypermetabolic foci. Electronic Signature Heber Black, D.O. Electronically Signed: Heber BardalesDO at 13:49 EDT Tel , Service support [...] and reassess with CT. Mariia Bennett, MSN, SHOE CUTTER-C, AOCNP Medications: Prescriptions This Visit Medication Instructions Recorded Furosemide [Lasix] 40 mg PO DAILY 11/11/16 Dexamethasone [Decadron] 4 mg PO BIDCM #30 tablet 01/21/18 Primary Care Provider: Niko Sampson MD Referring Provider: - Problem List (1) Non-small cell carcinoma of right lung, stage 4 Status: Chronic (2) Educational circumstance Status: Acute 01/25/18 0807 <Electronically signed by Mariia DHALIWALC> Date Mariia DHALIWALC Cosigner Signature: Date (if applicable) CC: ONCOLOGY VISIT REPORT Observed: 01/21/2018 Status: F Source: DALE 4:52 PM [facility] REPOSITORY [facility] [place] [address] OFFICE VISIT Date of Service: 01/21/18 1639 MR#: [id number] Acct: [id number] Name: DOUGLAS MOSLEY Rep #: [id number] : 1940 From: Ian Corea MD Age/Sex: 77/M Location: OMD Status: Signed Subjective - Date of Service Date of Service:: 01/21/18 - Chief Complaint F/u for NSCLC management. - History of Present Illness Mr. Douglas Mosley is a pleasant 77y.o.man who presented [...] Chronic Code Visit Office Visits / Consults: 63530 OV L5 Est 01/21/18 1652 <Electronically signed by Ian Corea MD> Date Ian Corea MD Cosigner Signature: Date (if applicable) CC: PROTHROMBIN TIME W/INR Collected: 01/21/2018 Status: F Source: MERT 9:53 AM [facility] REPOSITORY TYPE CODE TESTS RESULT OUT OF RANGE REFERENCE UNITS LAB L300.4150 11.7-14.9 SECONDS High PROTIME 32.9 LAB L300.4200 Normal INR 3.2 Performed By: #### L300.3900 #### [facility] [address] [place], [address] CBC W/DIFF, AUTOMATED Collected: 01/21/2018 Status: F Source: DALE 9:50 AM [facility] REPOSITORY Order Comment: Reason for Laboratory Test [...] 0.96 Performed By: #### L100.0100, L500.4050 #### [facility] [address] [place], [address] COMPREHENSIVE METABOLIC Collected: 01/21/2018 Status: F [facility] AM [facility] REPOSITORY Order Comment: Reason for Laboratory Test [...] GAP Performed By: #### L100.0100, L500.4050 #### [facility] [address] [place], [address] PET/CT TUMOR BASE Observed: 01/18/2018 Status: F Source: MERT -THIGH SUBS 10:48 AM [facility] REPOSITORY [facility] Imaging Services [address] [place] [address] PET/CT Tumor Base -Thigh Subs MR#: [id number] Acct: [id number] Name: DOUGLAS MOSLEY Rep #: [id number] : 1940 M 77 From: Heber Bardales DO PCP: Niko Sampson MD Status: REG RCR Study: PET/CT Tumor Base -Thigh Subs Date of Exam: 01/18/18 Exam# [id number] Ordering Dr: Ian Corea MD EXAMINATION: FDG [...] CC: Ian Corea MD; Niko Sampson MD Fox Raiser: Signed PACEMAKER CHECK Observed: 01/07/2018 Status: F Source: DALE 3:32 PM [facility] REPOSITORY [facility] [address] [place] [address] Pacemaker Check Date of Service: 01/07/18 1134 MR#: [id number] Acct: [id number] Name: DOUGLAS MOSLEY Rep #: [id number] : 1940 From: Carine Salmon Age/Sex: 77/M [place] [facility] [place]: Signed Billing Codes PM Device Codes: PM Dev Prog Eval, Single 01/07/18 1136 <Electronically signed by Carine Salmon > Date Carine Salmon 01/07/18 1532<Electronically signed by Flash Rodriguez MD> Cosigner Signature: Date (if applicable) Flash Rodriguez MD CC: ONCOLOGY VISIT REPORT Observed: 12/29/2017 Status: F Source: MERT 1:29 PM [facility] REPOSITORY [facility] [place] [address] OFFICE VISIT Date of Service: 12/29/17 1319 MR#: [id number] Acct: [id number] Name: DOUGLAS MOSLEY Rep #: [id number] : 1940 From: Ian Corea MD Age/Sex: 77/M Location: OMD Status: Signed Subjective - Date of Service Date of Service:: 12/29/17 - Chief Complaint F/u for NSCLC - History of Present Illness Mr. Douglas Mosley is a pleasant 77y.o.man who presented [...] Chronic Code Visit Office Visits / Consults: 51885 OV L4 Est 12/29/17 1329 <Electronically signed by Ian Corea MD> Date Ian Corea MD Cosigner Signature: Date (if applicable) CC: PROTHROMBIN TIME W/INR Collected: 12/29/2017 Status: F Source: MERT 12:38 PM [facility] REPOSITORY TYPE CODE TESTS RESULT OUT OF RANGE REFERENCE UNITS LAB L300.4150 11.7-14.9 SECONDS High PROTIME 32.2 LAB L300.4200 Normal INR 3.1 Performed By: #### L300.3900 #### [facility] [place], [address] CBC W/DIFF, AUTOMATED Collected: 12/29/2017 Status: F Source: DALE 12:34 PM [facility] REPOSITORY Order Comment: Reason for Laboratory Test [...] Lymph 1.16 Performed By: #### L100.0100 #### [facility] [address] [place], [address] COMPREHENSIVE METABOLIC Collected: 12/29/2017 Status: F Source: MERT PACK 12:34 PM [facility] REPOSITORY Order Comment: Reason for Laboratory Test [...] GAP 7 Performed By: #### L500.4050 #### [facility] [address] [place], [address] CREATININE FINGERSTICK Collected: 12/24/2017 Status: F Source: DALE 12:41 PM [facility] REPOSITORY TYPE CODE TESTS RESULT OUT OF RANGE REFERENCE UNITS LAB L9100.0210 0.70-1.30 mg/dL Normal CREATININE WB 0.9 LAB L9100.0220 >60 mL/min EGFR WB Normal > 60.0000 Performed By: #### L9100.0200 #### [facility] Point of Care [address] [place] [address] CHEST WITH CONTRAST Observed: 12/24/2017 Status: F Source: DALE 12:11 PM [facility] REPOSITORY [facility] Imaging Services [address] [place] [address] Chest WITH Contrast MR#: [id number] Acct: [id number] Name: WAYNELULYDOUGLAS D Rep #: [id number] : 1940 M 77 From: Heber Ordonez MD PCP: Niko Sampson MD Status: REG CLI Study: Chest WITH Contrast Date of Exam: 12/24/17 Exam# [id number] Ordering Dr: Ian Corea MD STUDY: CT [...] malignancy at this time. Electronically Signed: Heber Mery, at 13:01 EDT Tel , Service support , CC: Ian Corea MD; Niko Sampson MD Fox Raiser: Signed PROTHROMBIN TIME W/INR Collected: 12/10/2017 Status: F Source: DALE 10:49 AM [facility] REPOSITORY TYPE CODE TESTS RESULT OUT OF RANGE REFERENCE UNITS LAB L300.4150 11.7-14.9 SECONDS High PROTIME 27.0 LAB L300.4200 Normal INR 2.5 Performed By: #### L300.3900 #### [facility] [place], [address] PROTHROMBIN TIME W/INR Collected: 11/19/2017 Status: F Source: MERT 11:47 AM [facility] REPOSITORY TYPE CODE TESTS RESULT OUT OF RANGE REFERENCE UNITS LAB L300.4150 11.7-14.9 SECONDS High PROTIME 30.7 LAB L300.4200 Normal INR 2.9 Performed By: #### L300.3900 #### [facility] [address] [place], [address] PROTHROMBIN TIME W/INR Collected: 10/29/2017 Status: F Source: MERT 10:48 AM [facility] REPOSITORY Order Comment: Result obtained is for confirmation testing of Fingerstick PT/INR Specimen # [id number] . 10/29/17 1049 [email or web address] THIS CONFIRMATION SPECIMEN RESULT IS FROM VENOUS BLOOD. TYPE CODE TESTS RESULT OUT OF RANGE REFERENCE UNITS LAB L300.4150 11.7-14.9 SECONDS High PROTIME 32.3 LAB L300.4200 Normal INR 3.1 Performed By: #### L300.3900 #### [facility] [place], [address] PROTIME W/INR Collected: 10/29/2017 Status: F Source: MERT FINGERSTICK 10:34 AM [facility] REPOSITORY Order Comment: This critical result is preliminary and not confirmed. Venous sample sent to main laboratory for confirmation. A call with confirmation result will follow. See specimen #:[CG] for confirmation result. Preliminary critical result Call to/Read back by []. 10/29/17 1047 [email or web address]. TYPE CODE TESTS RESULT OUT OF REFERENCE UNITS RANGE LAB L9200.1001 11.9-14.4 SEC High PROTIME ISTAT 39.9 Result Comment: Reference Range 11.9 - 14.4 LAB L9200.2000 Normal INR ISTAT 3.50 Result Comment: Critical Value > 3.5 Performed By: #### L9200.0000 #### [facility] Point of Care [address] [place] [address] PACEMAKER CHECK Observed: 10/08/2017 Status: F Source: MERT 3:51 PM [facility] REPOSITORY [facility] [place] [address] Pacemaker Check Date of Service: 10/08/17 1015 MR#: [id number] Acct: [id number] Name: DOUGLAS MOSLEY Rep #: [id number] : 1940 From: Carine Salmon Age/Sex: 77/M [place] [facility] Status: Signed Billing Codes PM Device Codes: PM Dev Prog Aleksandraal, Single 10/08/17 1017 <Electronically signed by Carine Salmon > Date Carine Salmon 10/08/17 1551<Electronically signed by Flash Rodriguez MD> Cosigner Signature: Date (if applicable) Flash Rodriguez MD CC: PROTIME W/INR Collected: 09/30/2017 Status: F Source: MERT FINGERSTICK 9:42 AM [facility] REPOSITORY TYPE CODE TESTS RESULT OUT OF REFERENCE UNITS RANGE LAB L9200.1001 11.9-14.4 SEC High PROTIME ISTAT 34.9 Result Comment: Reference Range 11.9 - 14.4 LAB L9200.2000 Normal INR ISTAT 3.10 Result Comment: Critical Value > 3.5 Performed By: #### L9200.0000 #### [facility] Laboratory Point of Care [address] [place] [address] DOWNTIME REPORT Observed: 09/24/2017 Status: F Source: MERT 1:20 PM [facility] REPOSITORY [facility] Medical Records Department [address] [place] [address] Downtime Report MR#: [id number] Acct: [id number] Name: DOUGLAS MOSLEY Rep #: [id number] : 1940 77 From: Kaz Szymanski PCP: Niko Sampson MD Status: REG CLI This patient was seen during an EMR downtime September 07, 2017 - September 14, 2017. This patient may have a combination of paper and electronic documentation or all paper documentation. All documentation is viewable within the e-chart portion of [employer] for each patient visit. PROTIME W/INR Collected: 09/09/2017 Status: F Source: MERT FINGERSTICK 11:06 AM [facility] REPOSITORY TYPE CODE TESTS RESULT OUT OF REFERENCE UNITS RANGE LAB L9200.1001 11.9-14.4 SEC High PROTIME ISTAT 34.1 Result Comment: Reference Range 11.9 - 14.4 LAB L9200.2000 Normal INR ISTAT 3.00 Result Comment: Critical Value > 3.5 Performed By: #### L9200.0000 #### [facility] Laboratory Point of Care [address] [place] [address] PROTIME W/INR Collected: 08/21/2017 Status: F Source: MERT FINGERSTICK 12:13 PM [facility] REPOSITORY TYPE CODE TESTS RESULT OUT OF REFERENCE UNITS RANGE LAB L9200.1001 11.9-14.4 SEC High PROTIME ISTAT 29.8 Result Comment: Reference Range 11.9 - 14.4 LAB L9200.2000 Normal INR ISTAT 2.60 Result Comment: Critical Value > 3.5 Performed By: #### L9200.0000 #### [facility] Laboratory Point of Care [address] [place] [address] CARDIOLOGY VISIT Observed: 08/17/2017 Status: F Source: MERT REPORT 11:19 AM [facility] REPOSITORY [facility] [place] [address] OFFICE VISIT Date of Service: 08/17/17 MR#: [id number] Acct: [id number] Name: DOUGLAS MOSLEY Rep #: [id number] : 1940 Provider: Flash Rodriguez MD Age/Sex: 77/M [place] [facility] [place]: Signed HPI HPI Chief Complaint: Routine [...] 08/17/17] Nitroglycerin [Nitro-Dur] 0.1 mg TRANSDERM. DAILY 08/12/15 [History Confirmed 08/17/17] Furosemide [Lasix] 40 mg [...] PO QHS tab 08/17/17 [History Confirmed 08/17/17] [facility] Medical History Secondary pulmonary arterial hypertension (Chronic) AAA (abdominal aortic aneurysm) (Chronic) Atrial flutter (Chronic) Atherosclerotic heart disease of [place] coronary artery without angina pectoris (Chronic) Hyperthyroidism (Chronic) Chronic systolic congestive heart failure (Chronic) Pleural effusion (Chronic) PVD (peripheral vascular disease) (Chronic) Chronic atrial fibrillation (Chronic) Cardiomyopathy, ischemic (Chronic) Atrioventricular block, complete (Chronic) Hyperlipidemia (Chronic) Hypertension (Chronic) 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 Atherosclerotic heart disease of [place] coronary artery without angina pectoris I25.10 Plan [...] Orders: Other Medications New: Follow Up +6M (Michael) Coding Level of Care Code Off vis,est,level 3 Diagnoses Atherosclerotic heart disease of [place] coronary artery without angina pectoris I25.10 Hyperlipidemia, unspecified hyperlipidemia type E78.5 Hyperlipidemia type: unspecified Coding Level of Care Code Off vis,est,level 3 Diagnoses Atherosclerotic heart disease of [place] coronary artery without angina pectoris I25.10 Hyperlipidemia, unspecified hyperlipidemia type E78.5 Hyperlipidemia type: unspecified 08/17/17 1119 <Electronically signed by Flash Rodriguez MD> Date Flash Rodriguez MD Cosigner Signature: Date (if applicable) CC: Niko Sampson PROTHROMBIN TIME W/INR Collected: 08/10/2017 Status: F Source: MERT 1:49 PM [facility] REPOSITORY TYPE CODE TESTS RESULT OUT OF RANGE REFERENCE UNITS LAB L300.4150 11.7-14.9 SECONDS High PROTIME 31.8 LAB L300.4200 Normal INR 3.1 Performed By: #### L300.3900 #### [facility] Laboratory [address] [place], [address] PROTHROMBIN TIME W/INR Collected: 07/13/2017 Status: F Source: MERT 1:02 PM [facility] REPOSITORY TYPE CODE TESTS RESULT OUT OF RANGE REFERENCE UNITS LAB L300.4150 11.7-14.9 SECONDS High PROTIME 29.6 LAB L300.4200 Normal INR 2.8 Performed By: #### L300.3900 #### [facility] Laboratory [address] [place], [address] ONCOLOGY VISIT REPORT Observed: 06/22/2017 Status: F Source: MERT 2:45 PM [facility] REPOSITORY [facility] [address] [place] [address] OFFICE VISIT Date of Service: 06/22/17 1413 MR#: [id number] Acct: [id number] Name: DOUGLAS MOSLEY Rep #: [id number] : 1940 From: Ian Corea MD Age/Sex: 76/M Location: [place] Status: Signed Subjective - Date of Service Date of Service:: 06/22/17 - Chief Complaint F/u for NSCLC - History of Present Illness Mr. Douglas Mosley is a pleasant 76y.o.man who presented [...] Chronic Code Visit Office Visits / Consults: 89912 OV L4 Est 06/22/17 1445 <Electronically signed by Ian Corea MD> Date Ian Corea MD Cosigner Signature: Date (if applicable) CC: Niko Sampson PROTHROMBIN TIME W/INR Collected: 06/15/2017 Status: F Source: MERT 12:47 PM [facility] REPOSITORY TYPE CODE TESTS RESULT OUT OF RANGE REFERENCE UNITS LAB L300.4150 11.7-14.9 SECONDS High PROTIME 29.9 LAB L300.4200 Normal INR 2.8 Performed By: #### L300.3900 #### [facility] Laboratory [address] [place], [place], [address] CBC W/DIFF, AUTOMATED Collected: 06/15/2017 Status: F Source: MERT 12:46 PM [facility] REPOSITORY Order Comment: Reason for Laboratory Test [...] 0.94 Performed By: #### L100.0100, L500.4050 #### [facility] [place], [address] COMPREHENSIVE METABOLIC Collected: 06/15/2017 Status: F Source: MERT PACK 12:46 PM [facility] REPOSITORY Order Comment: Reason for Laboratory Test [...] 10 Performed By: #### L100.0100, L500.4050 #### [facility] [address] [place], [address] CREATININE FINGERSTICK Collected: 06/10/2017 Status: F Source: DALE 4:38 PM [facility] REPOSITORY TYPE CODE TESTS RESULT OUT OF RANGE REFERENCE UNITS LAB L9100.0210 0.70-1.30 mg/dL Normal CREATININE WB 1.3 Performed By: #### L9100.0200 #### [facility] Laboratory Point of Care [address] [place] [address] CHEST WITH CONTRAST Observed: 06/10/2017 Status: F Source: DALE 4:33 PM [facility] REPOSITORY [facility] Imaging Services [address] [place] [address] Chest WITH Contrast MR#: [id number] Acct: [id number] Name: DOUGLAS MOSLEY Rep #: [id number] : 1940 M 76 From: Jed Morfin MD PCP: Niko Sampson Status: REG CLI Study: Chest WITH Contrast Date of Exam: 06/10/17 Exam# [id number] Ordering Dr: Ian Corea MD STUDY: CT [...] , CC: Ian Corea MD; Niko Sampson Fox Raiser: Signed OFFICE VISIT REPORT Observed: 06/09/2017 Status: F Source: MERT 1:[address] [place] [address] OFFICE VISIT Date of Service: 05/22/17 MR#: [id number] Acct: [id number] Patient: DOUGLAS MOSLEY Rep #: [id number] : 1940 Provider: Carine Salmon Age/Sex: 76/M [place] [facility] Status: Signed Comments Summary Comments: Single Chamber Pacemaker Evaluation: Interrogation shows no VHR episode since last check 02/12/2017. Left pectoral pocket/incision w/o s/s of infection or erosion. Pt offers no cardiac complaints. Presenting rhythm shows Ventricular paced @ 70 ppm. 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 Battery longevity approx 9.5 yrs. Lead impedances and pace/sense threshold remain stable. Unable to check ventricular sensing d/t no intrinsic R waves with rate decrease. No parameter changes made. Counters cleared. Next f/u appt scheduled for in 3 mos. Device Device Date Interviewed: 05/22/17 Follow-up Location: in office Interview Reason: routine follow up Recruitment Director: Makara Name: Essentio SR IS-1 Model: L100 Serial #: [id number] Implant Date: 07/09/15 Year(s): 1 Implant Physician: Dr. 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 Pacemaker Dependent: Yes (No intrinsic R waves) Device Characteristics Device: Single Chamber Type: Pacemaker Remote Follow-Up: No Device Physical Exam Yes Incision well healed Leads Lead #1 Recruitment Director Lead 1: Guidant Model Lead 1: 4469 Serial# Lead 1: [id number] Date Implanted Lead 1: 09/24/04 Position Lead 1: RA Lead #2 Recruitment Director Lead 2: Guidant Model Lead 2: 4470 Serial# Lead 2: [id number] Date Implanted Lead 2: 09/24/04 Position Lead [...] Carine Salmon 06/08/17 1017<Electronically signed by Flash Rodriguez MD> [place] Signature: Date (if applicable) Flash Rodriguez MD CC: PROTHROMBIN TIME W/INR Collected: 06/03/2017 Status: F Source: MERT 9:51 AM [facility] REPOSITORY Order Comment: CRITICAL VALUE VERIFIED. CALLED TO CINDY 06/03/17 1029 Nuzhat Monroe. RESULTS READ BACK BY CINDY . TYPE CODE TESTS RESULT OUT OF REFERENCE UNITS RANGE LAB L300.4150 11.7-14.9 SECONDS High PROTIME 37.3 LAB L300.4200 High alert INR 3.7 Performed By: #### L300.3900 #### [facility] [address] [place], [address] PROTHROMBIN TIME W/INR Collected: 05/20/2017 Status: F Source: DALE 10:03 AM [facility] REPOSITORY TYPE CODE TESTS RESULT OUT OF RANGE REFERENCE UNITS LAB L300.4150 11.7-14.9 SECONDS High PROTIME 29.9 LAB L300.4200 Normal INR 3.0 Performed By: #### L300.3900 #### [facility] [address] [place], [address] PROTHROMBIN TIME W/INR Collected: 05/06/2017 Status: F Source: DALE 9:35 AM [facility] REPOSITORY Order Comment: MEDOUT/PORT TYPE CODE TESTS RESULT OUT OF RANGE REFERENCE UNITS LAB L300.4150 11.7-14.9 SECONDS High PROTIME 20.5 LAB L300.4200 Normal INR 1.8 Performed By: #### L300.3900 #### [facility] [address] [place], [address] PROTHROMBIN TIME W/INR Collected: 04/29/2017 Status: F Source: DALE 10:10 AM [facility] REPOSITORY TYPE CODE TESTS RESULT OUT OF RANGE REFERENCE UNITS LAB L300.4150 11.7-14.9 SECONDS High PROTIME 19.4 LAB L300.4200 Normal INR 1.7 Performed By: #### L300.3900 #### [facility] [address] [place], [address] ALLERGIES ALLERGIES DATE TYPE / CODE NAME / CODE REACTION SEVERITY SOURCE 04/27/2018 Drug morphine/F00 hallucinations [place] Allergy/690 5532235(RXNO [facility] 004960([facility] ED CT) Repository 04/27/2018 Drug amiodarone/F Unknown Unknown M[place] Allergy/416 259458472(RX Community 672924([facility]) [facility] ED CT) Repository 03/08/2018 Drug folic Rash [place] Allergy/416 acid/J429890 Community 417053([facility] 049(RXNO) [facility] ED CT) Repository ENCOUNTERS ENCOUNTERS ADMIT/DISCHARGE ACCOUNT ADMITTING ENCOUNTER LOCATION SOURCE NUMBER CLASS 04/27/2018 [id number] Ambulatory BMSBuilding:B [place] 9 [facility] Repository 04/27/2018 [id number] Ambulatory [place] [address] [facility] Hospital ing:OMD Repository 04/15/2018 [id number] Ambulatory BMSBuilding:B [place] 5 [facility] Repository 04/15/2018/ [id number] Ambulatory BMSBuilding:B [place] 9 9 [facility] Repository 04/07/2018 [id number] Ambulatory BMSBuilding:B [place] 6 [facility] Repository 03/31/2018 [id number] Ambulatory BMSBuilding:B [place] 3 [facility] Repository 03/23/2018 [id number] Ambulatory Mert [place] [address] [facility] Hospital ing:CVS Repository 03/23/2018 [id number] Ambulatory BMSBuilding:W [place] 3 [facility] Repository 03/19/2018 [id number] Ambulatory [place] [address] [facility] Hospital ing:LAB Repository 03/16/2018 [id number] Ambulatory BMSBuilding:B [place] 7 [facility] Repository 03/12/2018/ [id number] Ambulatory BMSBuilding:B [place] 8 2 [facility] Repository 03/08/2018 [id number] Ambulatory BMSBuilding:B [place] 9 [facility] Repository 03/03/2018 [id number] Ambulatory [place] [address] [facility] ing:CT Repository 02/23/2018 [id number] Ambulatory BMSBuilding:B [place] 7 [facility] Repository 02/16/2018 [id number] Ambulatory BMSBuilding:B [place] 0 [facility] Repository 02/09/2018 [id number] Ambulatory BMSBuilding:B [place] 6 [facility] Repository 02/01/2018/ [id number] Emergency [place] [address] [facility] Hospital ing:ED Repository 01/25/2018 [id number] Ambulatory BMSBuilding:B [place] 2 [facility] Repository 01/21/2018 [id number] Ambulatory BMSBuilding:B [place] 6 [facility] Repository 01/14/2018 [id number] Ambulatory [place] 1 [facility] ing:LAB Repository 01/07/2018/ [id number] Ambulatory BMSBuilding:B [place] 8 9 [facility] Repository 12/29/2017 [id number] Ambulatory BMSBuilding:B [place] 6 [facility] Repository 12/24/2017 [id number] Ambulatory [place] [address] [facility] Hospital ing:CT Repository 12/10/2017/ [id number] Ambulatory [place] 8 8 [facility] ing:LAB Repository 11/19/2017/ [id number] Ambulatory [place] 8 1 [facility]LAB Repository 10/29/2017/ [id number] Ambulatory [place] 8 3 [facility] ing:LAB Repository 10/14/2017 [id number] Ambulatory M[place] 8 [facility] ing:WC Repository 09/30/2017/ [id number] Ambulatory [place] 8 2 [facility] ing:WC Repository 09/30/2017/ [id number] Ambulatory [place] Mert 8 6 [facility] ing:LAB Repository 09/30/2017/ [id number] Ambulatory BMSBuilding:B [place] 8 2 [facility] Repository 09/09/2017 [id number] Ambulatory [place] 8 [facility] ing:LAB Repository 09/02/2017/ [id number] Ambulatory [place] 8 8 [facility] ing:WC Repository 08/21/2017 [id number] Ambulatory Mert [place] 5 [facility] ing:LAB Repository 08/17/2017/ [id number] Ambulatory BMSBuilding:B [place] 8 9 [facility] Repository 08/14/2017 [id number] Ambulatory BMSBuilding:B [place] 0 [facility] Repository 07/22/2017/ [id number] Ambulatory [place] 8 8 [facility] ing:WC Repository 07/01/2017/ [id number] Ambulatory Mert M[place] 8 5 [facility] ing:WC Repository 06/22/2017 [id number] Ambulatory BMSBuilding:B [place] 3 [facility] Repository 06/10/2017 [id number] Ambulatory [place] 7 [facility] ing:CT Repository 05/22/2017/ [id number] Ambulatory BMSBuilding:B [place] 8 8 [facility] Repository 05/20/2017/ [id number] Ambulatory Mert Mert 8 7 [facility] ing:WC Repository 05/06/2017 [id number] Ambulatory [place] 8 [facility] ing:MEDOUTP Repository 05/06/2017/ [id number] Ambulatory [place] Mert 8 5 [facility] ing:WC Repository 04/29/2017 [id number] Ambulatory [place]ert [place] 0 [facility] ing:MEDOUTP Repository PAYERS PAYERS ENCOUNTER GUARANTOR PAYER SUBSCRIBER SOURCE 04/27/2018 DOUGLAS D Primary DOUGLAS D [place] [id number] Insurance:HUMANA GREEGORDOB: Community SILVER MEDICARE PP[place]olicy [id number] Number[place] Repository [address]Rzw: [phone]) [id number] [phone] () Date:2046-66-20Uu [address] [place] [address]EJ: 04/27/2018 Secondary NOT GIVENUNK [place] Insurance:SELF PAY Community [facility] Number: Effective Repository Date:2018-04-27 04/27/2018 DOUGLAS D Primary DOUGLAS D [place] [id number] Insurance:HUMANA GREEGORDOB: Community SILVER MEDICARE [id number] [place] Number: Repository [address]Vxr: 330 [id number] [phone] (HP) Date:8923-93-11[address] [address]EO: 04/27/2018 Secondary NOT GIVENUNK [place] Insurance:SELF PAY [facility] Number: Effective Repository Date:2016-09-17 04/15/2018 DOUGLAS D Primary DOUGLAS D [place] [id number] Insurance:HUMANA GREEGORDOB: Community SILVER MEDICARE [facility] [id number] [facility] Med[facility] [place] Number: Repository [address]Uyu: 330 [id number] [phone] (HP) Date:7850[place]68[place] [address]WP: 04/15/2018 Secondary NOT GIVENUNK [place] Insurance:SELF PAY [facility] Number: Effective Repository Date:2018-04-15 04/15/2018 DOUGLAS D Primary DOUGLAS D [place] [id number] Insurance:HUMANA GREEGORDOB: Community SILVER MEDICARE [facility] [id number] Regional MedCenter [place] Number: Repository [address]Mlk: (330 [id number] [phone] (HP) Date:9071-33-60He [address] [address]LU: 04/15/2018 Secondary NOT GIVENUNK [place] Insurance:SELF PAY [facility] Number: Effective Repository Date:2018-04-15 04/07/2018 DOUGLAS D Primary DOUGLAS D [place] [id number] Insurance:HUMANA GREEGORDOB: Community SILVER MEDICARE [facility] [id number] Regional MedCenter [place] Number: Repository [address]Gsg: (330 [id number] [phone] (HP) Date:3694-89-08Qc [address] [address]NF: 04/07/2018 Secondary NOT GIVENUNK [place] Insurance:SELF PAY [facility] Number: Effective Repository Date:2018-04-07 03/31/2018 DOUGLAS D Primary DOUGLAS D [place] [id number] Insurance:HUMANA GREEGORDOB: Community SILVER MEDICARE [facility] [id number] Number: Repository [address]Szs: 330 [id number] [phone] (HP) Date:8565-39-41Wi [address] [address]FG: 03/31/2018 Secondary NOT GIVENUNK [place] Insurance:SELF PAY [facility] Number: Effective Repository Date:2018-03-31 03/23/2018 DOUGLAS D Primary DOUGLAS D [place] [id number] Insurance:HUMANA GREEGORDOB: Community SILVER MEDICARE [facility] [id number] Number: Repository [address]Ene: 330 [id number] [phone] () Date:8580-20-19Ud[address] [address]YG: 03/23/2018 Secondary NOT GIVENUNK [place] Insurance:SELF PAY [facility] Number: Effective Repository Date:2018-03-12 03/23/2018 DOUGLAS D Primary DOUGLAS D [place] [id number] Insurance:HUMANA GREEGORDOB: Community SILVER MEDICARE [facility] [id number] Number: Repository [address]Ybn: 330 [id number] [phone] () Date:7171-06-55Mk [address] [address]AX: 03/23/2018 Secondary NOT GIVENUNK [place] Insurance:SELF PAY [facility] Number: Effective Repository Date:2018-03-23 03/19/2018 DOUGLAS D Primary DOUGLAS D [place] [id number] Insurance:HUMANA GREEGORDOB: Community SILVER MEDICARE [facility] [id number] Number: Repository [address]Vme: 330 [id number] [phone] (HP) Date:9095-65-73Gb [address] [address]GM: 03/19/2018 Secondary NOT GIVENUNK [place] Insurance:SELF PAY [facility] Number: Effective Repository Date:2018-03-19 03/16/2018 DOUGLAS D Primary DOUGLAS D [place] [id number] Insurance:HUMANA GREEGORDOB: Community PHILIPPI MEDICARE [facility] [id number] Regional MedCenter [place] Number: Repository [address]Wvq: 330 [id number] [phone] () Date:9206-81-31Pw [address] [address]NB: 03/16/2018 Secondary NOT GIVENUNK [place] Insurance:SELF PAY [facility] Number: Effective Repository Date:2018-03-16 03/12/2018 DOUGLAS D Primary DOUGLAS D [place] [id number] Insurance:HUMANA GREEGORDOB: Community SILVER MEDICARE PPOPolicy [id number] Number: Repository [address]Egu: 330 [id number] [phone] () Date:4140-63-43Jk [address] [address]VO: 03/12/2018 Secondary NOT GIVENUNK [place] Insurance:SELF PAY [facility] Number: Effective Repository Date:2018-03-12 03/08/2018 DOUGLAS D Primary DOUGLAS D [place] [id number] Insurance:HUMANA GREEGORDOB: [facility] MEDICARE [facility] [id number] Number: Repository [address]Piy: 330 [id number] (HP) Date:6095-69-59Wf [address] [address]OC: 03/08/2018 Secondary NOT GIVENUNK [place] Insurance:SELF PAY [facility] Number: Effective Repository Date:2018-03-08 03/03/2018 DOUGLAS D Primary DOUGLAS D [place] [id number] Insurance:HUMANA GREEGORDOB: Community SILVER MEDICARE PPOPolicy [id number] [place] Number: Repository [address]Tje: 330 [id number] [phone] () Date:3119-27-18Qu [address] [address]CQ: 03/03/2018 Secondary NOT GIVENUNK [place] Insurance:SELF PAY [facility] Number: Effective Repository Date:2018-02-23 02/23/2018 DOUGLAS D Primary DOUGLAS D [place] [id number] Insurance:HUMANA GREEGORDOB: Community SILVER MEDICARE PPOPolicy [id number] [place] Number: Repository [address]Zhn: 330 [id number] [phone] () Date:0287-11-26Qg[address] [address]EY: 02/23/2018 Secondary NOT GIVENUNK [place] Insurance:SELF PAY [facility] Number: Effective Repository Date:2018-02-23 02/16/2018 DOUGLAS D Primary DOUGLAS D [place] [id number] Insurance:HUMANA GREEGORDOB: Community SILVER MEDICARE PPOPolicy [id number] Number: Repository [address]Zjm: 330 [id number] [phone] () Date:8824-69-75Nh[address] [address]RD: 02/16/2018 Secondary NOT GIVENUNK [place] Insurance:SELF PAY [facility] Number: Effective Repository Date:2018-02-16 02/09/2018 DOUGLAS D Primary DOUGLAS D [place] [id number] Insurance:HUMANA GREEGORDOB: Community SILVER MEDICARE PPOPolicy [id number] Number: Repository [address]Jay: (330 [id number] [phone] () Date:1559-66-92Zt [address] [address]SG: 02/09/2018 Secondary NOT GIVENUNK [place] Insurance:SELF PAY [facility] Number: Effective Repository Date:2018-02-09 02/01/2018 DOUGLAS D Primary DOUGLAS D [place] [id number] Insurance:HUMANA GREEGORDOB: Community SILVER MEDICARE [facility] [id number] Number: Repository [address]Kfv: 330 [id number] [phone] () Date:0269-71-90Dx [address] [address]UL: 02/01/2018 Secondary NOT GIVENUNK [place] Insurance:SELF PAY [facility] Number: Effective Repository Date:2018-02-01 01/25/2018 DOUGLAS D Primary DOUGLAS D [place] [id number] Insurance:HUMANA GREEGORDOB: Community SILVER MEDICARE [facility] [id number] [place] Number: Repository [address]Wqj: 330 [id number] [phone] () Date:8324-31-02Hf [address] [address]EK: 01/25/2018 Secondary NOT GIVENUNK [place] Insurance:SELF PAY [facility] Number: Effective Repository Date:2018-01-25 01/21/2018 DOUGLAS D Primary DOUGLAS D [place] [id number] Insurance:HUMANA GREEGORDOB: Community SILVER MEDICARE [facility] [id number] Number[place] Repository [id number]: 330 [id number] [phone] () Date:8237-97-37If [address] [address]QU: 01/21/2018 Secondary NOT GIVENUNK [place] Insurance:SELF PAY [facility] Number: Effective Repository Date:2018-01-21 01/14/2018 DOUGLAS D Primary DOUGLAS D [place] [id number] Insurance:HUMANA GREEGORDOB: Community SILVER MEDICARE [facility] [id number] Number[place] Repository [id number]: (330 [id number] [phone] (HP) Date:2731-91-88Bu [address] [address]MX: 01/14/2018 Secondary NOT GIVENUNK [place] Insurance:SELF PAY [facility] Number: Effective Repository Date:2018-01-06 01/07/2018 DOUGLAS D Primary DOUGLAS D [place] [id number] Insurance:HUMANA GREEGORDOB: Community SILVER MEDICARE [facility] [id number] Number[place] Repository [id number]: 330 [id number] [phone] (HP) Date:1226-90-67Tb [address]46[address]WP: 01/07/2018 Secondary NOT GIVENUNK [place] Insurance:SELF PAY [facility] Number: Effective Repository Date:2018-01-07 12/29/2017 DOUGLAS D Primary DOUGLAS D [place] [id number] Insurance:HUMANA GREEGORDOB: Community SILVER MEDICARE [facility] [id number] [place] Number[place] Repository [id number]: 330 [id number] [phone] (HP) Date:8329-52-05[place] [address]WP: 12/29/2017 Secondary NOT GIVENUNK [place] Insurance:SELF PAY [facility] Number: Effective Repository Date:2017-12-29 12/24/2017 DOUGLAS D Primary DOUGLAS D [place] [id number] Insurance:HUMANA GREEGORDOB: Community SILVER MEDICARE [facility] [id number] Number[place] Repository [address]Yls: 330 [id number] [phone] (HP) Date:3322-59-64[place] [address]WP: 12/24/2017 Secondary NOT GIVENUNK [place] Insurance:SELF PAY [facility] Number: Effective Repository Date:2017-06-22 12/10/2017 DOUGLAS D Primary DOUGLAS D [place] [id number] Insurance:HUMANA GREEGORDOB: Community SILVER MEDICARE [facility] [id number] [address]Oee: 330 [id number] [phone] () Date:8986-72-63Tw [address] [place] [address]KO: 12/10/2017 Secondary NOT GIVENUNK [place] Insurance:SELF PAY [facility] Number: Effective Repository Date:2017-12-08 11/19/2017 DOUGLAS D Primary DOUGLAS D [place] [id number] Insurance:HUMANA GREEGORDOB: Community SILVER MEDICARE [facility] [id number] Number[place] Repository [address]Cdx: 330 [id number] [phone] () Date:4808-36-86Eq[address] [address]FI: 11/19/2017 Secondary NOT GIVENUNK [place] Insurance:SELF PAY [facility] Number: Effective Repository Date:2017-11-05 10/29/2017 DOUGLAS D Primary DOUGLAS D [place] [id number] Insurance:HUMANA GREEGORDOB: Community PHILIPPI MEDICARE [facility] [id number] Number[place] Repository [id number]: 330 [id number] [phone] () Date:8829-27-42Zi [address] [address]EX: 10/29/2017 Secondary NOT GIVENUNK [place] Insurance:SELF PAY [facility] Number: Effective Repository Date:2017-10-02 10/14/2017 DOUGLAS D Primary DOUGLAS D [place] [id number] Insurance:HUMANA GREEGORDOB: Community SILVER MEDICARE [facility] [id number] [id number]: 330 [id number] [phone] (HP) Date:3789-11-83Bw [address] [address]SV: 10/14/2017 Secondary NOT GIVENUNK [place] Insurance:SELF PAY [facility] Effective Rep[facility] Date:2017-10-04 09/30/2017 DOUGLAS D Primary DOUGLAS D [place] [id number] Insurance:HUMANA GREEGORDOB: Community SILVER MEDICARE PPOPolicy [id number] Number[place] Repository [address]Ibj: 330 [id number] [phone] () Date:6296-34-67Sb [address] [address]VT: 09/30/2017 Secondary NOT GIVENUNK [place] Insurance:SELF PAY [facility] Number: Effective Repository Date:2017-09-04 09/30/2017 DOUGLAS D Primary DOUGLAS D [place] [id number] Insurance:HUMANA GREEGORDOB: Community SILVER MEDICARE [facility] [id number] Number[place] Repository [id number]: (330 [id number] [phone] (HP) Date:9928-08-76Xj [address] [address]FU: 09/30/2017 Secondary NOT GIVENUNK [place] Insurance:[facility]LF [facility] Number: Effective Repository Date:2017-09-30 09/30/2017 DOUGLAS D Primary DOUGLAS D [place] [id number] Insurance:HUMANA GREEGORDOB: Community SILVER MEDICARE OPolic [id number] Number[place] Repository [phone]: (330 [id number] [phone] (HP) Date:6375-30-14Ft [address] [address]ZN: 09/30/2017 Secondary NOT GIVENUNK [place] Insurance:SELF PAY [facility] Number: Effective Repository Date:2017-08-19 09/09/2017 DOUGLAS D Primary DOUGLAS D [place] [id number] Insurance:HUMANA GREEGORDOB: Community SILVER MEDICARE [facility] [id number] [place] Number: Repository [address]Vvm: 330 [id number] [phone] (HP) Date:1499-14-37Ug [address] [address]EX: 09/09/2017 Secondary NOT GIVENUNK [place] Insurance:SELF PAY [facility] Number: Effective Repository Date:2017-09-09 09/02/2017 DOUGLAS D Primary DOUGLAS D [place] [id number] Insurance:HUMANA GREEGORDOB: Community SILVER MEDICARE [id number] [place] Number: Repository [id number]: 330 [id number] [phone] (HP) Date:9353-42-55Yh [place] [address]WP: 09/02/2017 Secondary NOT GIVENUNK [place] Insurance:SELF PAY [facility] Number: Effective Repository Date:2017-08-04 08/21/2017 DOUGLAS D Primary DOUGLAS D [place] [id number] Insurance:HUMANA GREEGORDOB: Community SILVER MEDICARE [facility] [id number] Regional Med[facility] [place] Number: Repository [id number]: 330 [id number] [phone] (HP) Date:3081-44-02Uc [address] [address]VE: 08/21/2017 Secondary NOT GIVENUNK [place] Insurance:SELF PAY [facility] Number: Effective Repository Date:2017-08-21 08/17/2017 DOUGLAS D Primary DOUGLAS D [place] [id number] Insurance:HUMANA GREEGORDOB: Community SILVER MEDICARE [facility] [id number] [place] Number: Repository [address]Rhb: 330 [id number] [phone] (HP) Date:0610-72-76Rd [address] [address]OI: 08/17/2017 Secondary NOT GIVENUNK [place] Insurance:SELF PAY [facility] Number: Effective Repository Date:2017-08-17 08/14/2017 DOUGLAS D Primary DOUGLAS D [place] [id number] Insurance:HUMANA GREEGORDOB: Community SILVER MEDICARE [facility] [id number] [place]ository [id number]: (330 [id number] [phone] (HP) Date:1851-66-49Zj [address] [address]LT: 08/14/2017 Secondary NOT GIVENUNK [place] Insurance:SELF PAY [facility] Number: Effective Repository Date:2017-08-14 07/22/2017 DOUGLAS D Primary DOUGLAS D [place] [id number] Insurance:HUMANA GREEGORDOB: Community SILVER MEDICARE [facility] [id number] Number[place] Repository [id number]: 330 [id number] [phone] () Date:3447-76-48Wp [address] [address]LI: 07/22/2017 Secondary NOT GIVENUNK [place] Insurance:SELF PAY [facility] Number: Effective Repository Date:2017-07-05 07/01/2017 DOUGLAS D Primary DOUGLAS D [place] [id number] Insurance:HUMANA GREEGORDOB: Community SILVER MEDICARE [facility] [id number] [place] Number: Repository [address]Vqa: 330 [id number] [phone] (HP) Date:2720-90-29Vx [address] [address]AW: 07/01/2017 Secondary NOT GIVENUNK [place] Insurance:SELF PAY [facility] Number: Effective Repository Date:2017-06-04 06/22/2017 DOUGLAS D Primary DOUGLAS D [place] [id number] Insurance:HUMANA GREEGORDOB: Community SILVER MEDICARE [facility] [id number] [place] Number: Repository [address]Bch: 330 [id number] [phone] () Date:0834-36-13Dp [address] [address]WT: 06/22/2017 Secondary NOT GIVENUNK [place] Insurance:SELF PAY [facility] Number: Effective Repository Date:2017-06-22 06/10/2017 DOUGLAS D Primary DOUGLAS D [place] [id number] Insurance:HUMANA GREEGORDOB: Community SILVER MEDICARE [facility] [id number] [place] Number: Repository [id number]: 330 [id number] [phone] () Date:9987-33-50Td [address] [address]JX: 06/10/2017 Secondary NOT GIVENUNK [place] Insurance:SELF PAY [facility] Number: Effective Repository Date:2017-04-14 05/22/2017 DOUGLAS D Primary DOUGLAS D [place] [id number] Insurance:HUMANA GREEGORDOB: Community SILVER MEDICARE [facility] [id number] Number[place] [address]Lie: 330 [id number] [phone] () Date:8021-67-27Ad [address] [address]YD: 05/22/2017 Secondary NOT GIVENUNK [place] Insurance:SELF PAY [facility] Number: Effective Repository Date:2017-03-11 05/20/2017 DOUGLAS D Primary DOUGLAS D [place] [id number] Insurance:HUMANA GREEGORDOB: Community SILVER MEDICARE [facility] [id number] [place] Number: Repository [address]Vgg: 330 [id number] [phone] (HP) Date:6903-27-60Uk [address] [address]CM: 05/20/2017 Secondary NOT GIVENUNK [place] Insurance:SELF PAY [facility] Number: Effective Repository Date:2017-05-07 05/06/2017 DOUGLAS D Primary DOUGLAS D [place] [id number] Insurance:HUMANA GREEGORDOB: Community SILVER MEDICARE [facility] [id number] Number: Repository [address]Pzx: 330 [id number] [phone] () Date:8533-80-52Bc [address] [address]MN: 05/06/2017 Secondary NOT GIVENUNK [place] Insurance:SELF PAY [facility] Number: Effective Repository Date:2017-05-04 05/06/2017 DOUGLAS D Primary DOUGLAS D [place] [id number] Insurance:HUMANA GREEGORDOB: Community SILVER MEDICARE [facility] [id number] Regional MedCenter [place] Number: Repository [id number]: 330 [id number] [phone] () Date:0443-48-44KI [address] [address]OE: 05/06/2017 Secondary NOT GIVENUNK [place] Insurance:SELF PAY [facility] Number: Effective Repository Date:2017-04-06 04/29/2017 DOUGLAS D Primary DOUGLAS D [place] [id number] Insurance:HUMANA GREEGORDOB: Community SILVER MEDICARE [facility] [id number] [facility] [place] Number[place] Repository [address]Aro: 330 [id number] [phone] () Date:6175-26-29Ul [address] [address]MD: 04/29/2017 Secondary NOT GIVENUNK [place] Insurance:SELF PAY [facility] Number: Effective Repository Date:2017-04-27
== END ==
PROVIDERS: Family Provider Family Medicine; PCP Family Medicine; Referring Provider Internal Medicine Cardiovascular Disease; Visit Provider Internal Medicine Cardiovascular Disease
DX: E78.5 Hyperlipidemia, unspecified (principal); I25.10 Atherosclerotic heart disease of native coronary artery without angina pectoris
CPT/HCPCS: 36415; 80061; 80076

== ENCOUNTER → 2018-03-23 15:33 | Outpatient (CLI) | payer MEDICARE, SELFPAY ==
[2018-03-12 11:22] VITALS: BMI 32.1
[2018-03-16 08:59] VITALS: BMI 31.8
--- NOTE | 2018-03-23 15:35 | ECHOCS_ITS ---
Reason For Study: CAD Procedure This was a 2D Doppler, Color Flow transthoracic echocardiogram. Optimal images could not be obtained for accurate strain analysis. The study was technically difficult. Contrast injection was performed. Exam performed in department. Left Ventricle Moderately dilated left ventricle. The estimated ejection fraction is 45-50 %. Paced septal motion. There is mild to moderate global hypokinesis of the left ventricle. Right Ventricle Normal size and thickness. ICD or pacer leads identified within the right ventricle. Normal systolic function. Atria Normal left atrium. Normal right atrium. Normal atrial septum. Mitral Valve The mitral valve is structurally normal. No prolapse or stenosis seen. Mild (1+) mitral valve insufficiency. Tricuspid Valve Normal tricuspid valve. Mild (1+) tricuspid valve insufficiency. Right ventricular systolic pressure estimated to be 29 mmHg. Aortic Valve Trisinus/trileaflet aortic valve. Mild diffuse aortic valve thickening. There is no aortic stenosis. Pulmonic Valve The pulmonic valve is not well visualized. Great Vessels Normal aortic root. Normal arch. Normal inferior vena cava. Inferior vena cava collapse with sniff. Pericardium/Pleural No pericardial effusion. Medication Port access was used for Definity administration. Diluted definity 4ml given slow IV push to enhance endocardial definition. MMode/2D Measurements & Calculations LVIDd: 5.2 cm IVSd: 1.0 cm Ao root diam: 3.3 cm LVIDs: 3.5 cm LVPWd: 0.91 cm FS: 31.4 % LAV(MOD-bp): 64.9 ml LA A4 area: 17.7 cm2 LA dimension(2D): 4.2 cm LAV(MOD-bp) Indexed: 31.1 ml/m2 LAV(MOD-sp2): 83.8 ml LAV(MOD-sp4): 47.0 ml RA A4 area: 20.0 cm2 Time Measurements MV dec time: 0.24 sec Doppler Measurements & Calculations MV E max elias: 63.5 cm/sec Lat Peak E' Elias: 3.2 cm/sec Med Peak E' Elias: 4.2 cm/sec MV A max elias: 27.2 cm/sec E/E' lat: 19.7 E/E' med: 15.1 MV E/A: 2.3 Ao V2 max: 119.8 cm/sec LV V1 max: 76.1 cm/sec PA V2 max: 106.7 cm/sec Ao max P.8 mmHg LV V1 max P.3 mmHg PI end-d elias: 96.5 cm/sec TR max elias: 242.7 cm/sec TR max P.6 mmHg Interpretation Summary Moderately dilated left ventricle. The estimated ejection fraction is 45-50 %. There is mild to moderate global hypokinesis of the left ventricle. Mild (1+) mitral valve insufficiency. Mild (1+) tricuspid valve insufficiency. Right ventricular systolic pressure estimated to be 29 mmHg. Compared to previous report dated 11/12/2016, LV function has remained the same, and RVSP has decreased from 41 to 29 mm Hg. The study was technically difficult. Contrast injection was performed. Ordering Physician: Flash Rodriguez Referring Physician: Flash Rodriguez Performed By: Asha Sotry, RODGER, RVT
--- OUTSIDE RECORDS SUMMARY | 2018-06-25 04:32 | XMS RPT_ITS ---
:1940 Author Organization OHIP Support Name Relationship Address Phone JULIO MOSLEY Unavailable [address] + [place] [address] R Unavailable Unavailable Unavailable DIMPLE, SOFIA Unavailable Unavailable + JULIO MOSLEY Unavailable [address] + [place] [address] R Unavailable Unavailable Unavailable DIMPLE, SOFIA Unavailable Unavailable + JULIO MOSLEY Unavailable [address] + [place] [address] R Unavailable Unavailable Unavailable DIMPLE, SOFIA Unavailable UNKNOWN + [place] [address] GREEGPETE MAURICIOA Unavailable [address] + [place] [address] R Unavailable Unavailable Unavailable DIMPLE, SOFIA Unavailable UNKNOWN + [place] [address] JULIO MOSLEY Unavailable [address] + [place] [address] R Unavailable Unavailable Unavailable DIMPLE, SOFIA Unavailable Unavailable + [place] [address] JULIO MOSLEY Unavailable [address] + [place] [address] R Unavailable Unavailable Unavailable DIMPLE, SOFIA Unavailable Unavailable + [place] [address] JULIO MOSLEY Unavailable [address] + [place] [address] R Unavailable Unavailable Unavailable DIMPLE, SOFIA Unavailable Unavailable + [place] [address] GREEGLULY JULIO Unavailable [address] + [place] [address] R Unavailable Unavailable Unavailable DIMPLE, SOFIA Unavailable UNKNOWN + [place] [address] GREEGOR JULIO Unavailable [address] + [place] [address] R Unavailable Unavailable Unavailable DIMPLE, SOFIA Unavailable Unavailable + [place] [address] GREEGOR JULIO Unavailable [address] + [place] [address] R Unavailable Unavailable Unavailable DIMPLE, SOFIA Unavailable . + [place] [address] GREEGOR, JULIO Unavailable [address] + [place] [address] R Unavailable Unavailable Unavailable DIMPLE, SOFIA Unavailable . + [place] [address] GREEGOR, JULIO Unavailable [address] + [place] [address] R Unavailable Unavailable Unavailable DIMPLE, SOFIA Unavailable Unavailable + [place] [address] GREEGOR, JULIO Unavailable [address] + [place] [address] R Unavailable Unavailable Unavailable DIMPLE, SOFIA Unavailable Unavailable + [place] [address] GREEGOR, JULIO Unavailable [address] + [place] [address] R Unavailable Unavailable Unavailable DIMPLE, SOFIA Unavailable Unavailable + GREEGOR JULIO Unavailable [address] + [place] [address] R Unavailable Unavailable Unavailable DIMPLE, SOFIA Unavailable Unavailable + GREEGOR JULIO Unavailable [address] + [place] [address] R Unavailable Unavailable Unavailable DIMPLE, SOFIA Unavailable Unavailable + GREEGOR JULIO Unavailable [address] + [place] [address] R Unavailable Unavailable Unavailable DIMPLE, SOFIA Unavailable Unavailable + GREEGOR JULIO Unavailable [address] + [place] [address] R Unavailable Unavailable Unavailable DIMPLE, SOFIA Unavailable Unavailable + GREEGOR JULIO Unavailable [address] + [place] [address] R Unavailable Unavailable Unavailable DIMPLE, SOFIA Unavailable Unavailable + GREEGOR, JULIO Unavailable [address] + [place] [address] R Unavailable Unavailable Unavailable DIMPLE, SOFIA Unavailable Unavailable + [place] [address] GREEGOR, JULIO Unavailable [address] + [place] [address] R Unavailable Unavailable Unavailable DIMPLE, SOFIA Unavailable 1 + [place] [address] GREEGOR, JULIO Unavailable [address] + [place] [address] R Unavailable Unavailable Unavailable DIMPLE, SOFIA Unavailable Unavailable + [place] [address] GREEGOR, JULIO Unavailable [address] + [place] [address] R Unavailable Unavailable Unavailable DIMPLE, SOFIA Unavailable Unavailable + [place] [address] GREEGOR, JULIO Unavailable [address] + [place] [address] R Unavailable Unavailable Unavailable DIMPLE, SOFIA Unavailable Unavailable + [place] [address] GREEGOR, JULIO Unavailable [address] + [place] [address] R Unavailable Unavailable Unavailable DIMPLE, SOFIA Unavailable Unavailable + [place] [address] GREEGOR, JULIO Unavailable [address] + [place] [address] R Unavailable Unavailable Unavailable DIMPLE, SOFIA Unavailable Unavailable + [place] [address] GREEGOR, JULIO Unavailable [address] + [place] [address] R Unavailable Unavailable Unavailable DIMPLE, SOFIA Unavailable Unavailable + [place] [address] GREEGOR, JULIO Unavailable [address] + [place] [address] R Unavailable Unavailable Unavailable DIMPLE, SOFIA Unavailable Unavailable + [place] [address] GREEGOR, JULIO Unavailable [address] + [place] [address] R Unavailable Unavailable Unavailable DIMPLE, SOFIA Unavailable Unavailable + [place] [address] GREEGOR, JULIO Unavailable [address] + [place] [address] R Unavailable Unavailable Unavailable DIMPLE, SOFIA Unavailable . + [place] [address] GREEGOR, JULIO Unavailable [address] + [place] [address] R Unavailable Unavailable Unavailable DIMPLE, SOFIA Unavailable Unavailable + [place] [address] GREEGOR, JULIO Unavailable [address] + [place] [address] R Unavailable Unavailable Unavailable DIMPLE, SOFIA Unavailable . + [place] [address] GREEGOR, JULIO Unavailable [address] + [place] [address] R Unavailable Unavailable Unavailable DIMPLE, SOFIA Unavailable . + [place] [address] GREEGOR, JULIO Unavailable [address] + [place] [address] R Unavailable Unavailable Unavailable DIMPLE, SOFIA Unavailable . + [place] [address] GREEGOR, JULIO Unavailable [address] + [place] [address] R Unavailable Unavailable Unavailable DIMPLE, SOFIA Unavailable Unavailable + GREEGOR, JULIO Unavailable [address] + [place] [address] R Unavailable Unavailable Unavailable Andrews, Sofia Unavailable . + [place] [address] GREEGOR, JULIO Unavailable [address] + [place] [address] R Unavailable Unavailable Unavailable Dimple, Sofia Unavailable . + [place] [address] GREEGOR, JULIO Unavailable [address] + [place] [address] R Unavailable Unavailable Unavailable Andrews, Sofia Unavailable . + [place] [address] GREEGOR JULIO Unavailable [address] + [place] [address] R Unavailable Unavailable Unavailable Andrews, Sofia Unavailable . + [place] [address] GREEGOR JULIO Unavailable [address] + [place] [address] R Unavailable Unavailable Unavailable Dimple, Sofia Unavailable . + [place] [address] GREEGOR, JULIO Unavailable [address] + [place] [address] R Unavailable Unavailable Unavailable Andrews, Sofia Unavailable . + [place] [address] GREEGOR JULIO Unavailable [address] + [place] [address] R Unavailable Unavailable Unavailable Andrews, Sofia Unavailable . + [place] [address] GREEGOR JULIO Unavailable [address] + [place] [address] R Unavailable Unavailable Unavailable Andrews, Sofia Unavailable . + [place] [address] GREEGOR JULIO Unavailable [address] + [place] [address] R Unavailable Unavailable Unavailable Andrews, Sofia Unavailable . 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 Repository / C34.91(ICD-10) 04/15/2018 Unknown Z79.899 - Other long Sabrina, Active [place] term (current) drug [place] Community therapy / Hospital Z79.899(ICD-10) Repository 04/16/2018 Unknown I25.5 - Ischemic Carine Salmon Active [place] cardiomyopathy / Community I25.5(ICD-10) Hospital Repository 04/16/2018 Unknown I44.2 - Luis AntonioCarine taylor Active [facility] Atrioventricular Community block, complete / Hospital I44.2(ICD-10) Repository 04/16/2018 Unknown I48.2 - Chronic atrial Carine Salmon Active [place] fibrillation / Community I48.2(ICD-10) Hospital Repository 04/16/2018 Unknown I50.22 - Chronic Luis AntonioCarine taylor Active [place] systolic (congestive) Community heart failure / Hospital I50.22(ICD-10) Repository 04/16/2018 Unknown 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 / Community Z95.0(ICD-10) Hospital Repository 03/19/2018 Unknown 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 [facility] Atherosclerotic heart Community disease of [place] Hospital coronary artery Repository without angina pectoris / I25.10(ICD-10) 03/19/2018 Unknown E78.5 - Flash Rodriguez Active [place] Hyperlipidemia, Community unspecified / Hospital E78.5(ICD-10) Repository 03/12/2018 Unknown 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 / Hospital I27.21(ICD-10) Repository 02/10/2018 Unknown 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, 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, right bronchus Hospital or lung / Repository C34.11(ICD-10) 01/21/2018 Unknown Z95.828 - Presence of Ian Corea Active [facility] other vascular Community implants and grafts / Hospital Z95.828(ICD-10) Repository 12/29/2017 Unknown C34.2 - Malignant PraIan hunter Active [facility]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 Community lobe, bronchus or lung Hospital / C34.2(ICD-10) Repository 11/05/2017 Unknown I48.1 - Persistent Flash Rodriguez Active [facility] atrial fibrillation / Community I48.1(ICD-10) Hospital Repository 10/04/2017 Unknown I73.89 - Other Fascione, Active [place] specified peripheral Allison Community vascular diseases / Hospital I73.89(ICD-10) Repository 09/30/2017 Unknown I48.91 - Unspecified Flash Rodriguez Active [facility] atrial fibrillation / Community I48.91(ICD-10) Hospital Repository PROCEDURES PROCEDURES No Procedure Records FoundRESULTS RESULTS ONCOLOGY VISIT REPORT Observed: 04/27/2018 Status: F Source: [place] 9:45 AM [facility] REPOSITORY [facility] [address] [address] OFFICE VISIT Date of Service: 04/27/18 0935 MR#: [id number] Acct: [id number] Name: DOUGLAS MOSLEY Rep #: [id number] : 1940 From: Ian Corea MD Age/Sex: [...] Acute Code Visit Office Visits / Consults: 11792 OV L5 Est 04/27/18 0943 <Electronically signed by Ian Corea MD> Date Ian Corea MD Cosigner Signature: Date (if applicable) CC: CBC W/DIFF, AUTOMATED Collected: 04/27/2018 Status: F Source: [place] 8:19 AM [facility] REPOSITORY TYPE CODE TESTS RESULT OUT OF [...] 1+ ANISO. Performed By: #### L100.0100 #### [facility] [address] [place], [place], [id number] COMPREHENSIVE METABOLIC Collected: 04/27/2018 Status: F Source: [place] PACK 8:19 AM [facility] REPOSITORY Order Comment: Reason for Laboratory Test [...] Performed By: #### L500.4050, L501.2300, L501.9520 #### [facility] [address] [place], [address] PHOSPHORUS Collected: 04/27/2018 Status: F Source: [place] 8:19 AM [facility] REPOSITORY Order Comment: Reason for Laboratory Test Chemotherapy Reason for Laboratory Test CHEMOTHERAPY TYPE CODE TESTS RESULT OUT OF RANGE REFERENCE UNITS LAB L501.2300 2.5-4.9 mg/dL Low PHOS 2.4 Performed By: #### L500.4050, L501.2300, L501.9520 #### [facility] [address] [place], [address] THYROID STIM HORMONE Collected: 04/27/2018 Status: F Source: [place] (TSH) 8:19 AM [facility] REPOSITORY Order Comment: Reason for Laboratory Test Chemotherapy Reason for Laboratory Test CHEMOTHERAPY TYPE CODE TESTS RESULT OUT OF RANGE REFERENCE UNITS LAB L501.9520 0.358-3.74 uIU/mL Normal TSH 2.44 Performed By: #### L500.4050, L501.2300, L501.9520 #### [facility] [address] [place], [address] PACEMAKER CHECK Observed: 04/15/2018 Status: F Source: [place] 4:33 PM [facility] REPOSITORY [facility] [address] [place] [address] Pacemaker Check Date of Service: 04/15/18 1145 MR#: [id number] Acct: [id number] Name: DOUGLAS MOLSEY Rep #: [id number] : 1940 From: Carine Salmon Age/Sex: 77/M Location: [facility] Status: Signed Billing Codes ICD Device Billing: ICD Dev g Yumiko Valderrama 04/15/18 1147 <Electronically signed by Carine Salmon > Date Carine Salmon 04/15/18 1633<Electronically signed by Flash Rodriguez MD> Cosigner Signature: Date (if applicable) Flash Rodriguez MD CC: ONCOLOGY VISIT REPORT Observed: 04/15/2018 Status: F Source: [place] 12:14 PM [facility] [address] [place] [address] OFFICE VISIT Date of Service: 04/15/18 1129 MR#: [id number] Acct: [id number] Name: DOUGLAS MOSLEY Rep #: [id number] : 1940 From: Mariia Bennett REAL ESTATE TEACHERArcadio Age/Sex: 77/M Location: OMD Status: Signed Subjective [...] sooner if issues arise. Mariia Bennett, MSN, EDGE BURNISHER-C, AOCNP Medications: Prescriptions This Visit Medication Instructions [...] 04/15/2018 Status: F Source: [place] 10:36 AM [facility] REPOSITORY Order Comment: Reason for Laboratory Test [...] Lymph 0.76 Performed By: #### L100.0100 #### [facility] [address] [place], [address] COMPREHENSIVE METABOLIC Collected: 04/15/2018 Status: F Source: [place] [facility] 10:36 AM [facility] REPOSITORY Order Comment: Reason for Laboratory Test [...] GAP 7 Performed By: #### L500.4050 #### [facility] [address] [place], [address] ONCOLOGY VISIT REPORT Observed: 04/07/2018 Status: F Source: [place] 12:44 PM [facility] REPOSITORY [facility] [address] [facility] [place] [address] OFFICE VISIT Date of Service: 04/07/18 1147 MR#: [id number] Acct: [id number] Name: DOUGLAS MOSLEY Rep #: [id number] : 1940 From: Mariia Bennett REAL ESTATE TEACHERArcadio Age/Sex: 77/M Location: ONC Status: Signed Subjective [...] chemotherapy dose modifications today. Mariia Bennett, MSN, EDGE BURNISHER-C, AOCNP Medications: Prescriptions This Visit Medication Instructions [...] 04/07/2018 Status: F Source: [place] 10:20 AM [facility] REPOSITORY TYPE CODE TESTS RESULT OUT OF RANGE REFERENCE UNITS LAB L300.4150 11.7-14.9 SECONDS High PROTIME 27.4 LAB L300.4200 Normal INR 2.5 Performed By: #### L300.3900 #### [facility] [address] [place], [address] CBC W/DIFF, AUTOMATED Collected: 04/07/2018 Status: F Source: [place] 10:14 AM [facility] REPOSITORY TYPE CODE TESTS RESULT OUT OF [...] Lymph 0.79 Performed By: #### L100.0100 #### [facility] [place], [address] COMPREHENSIVE METABOLIC Collected: 04/07/2018 Status: F Source: [place] PACK 10:14 AM [facility] REPOSITORY Order Comment: Reason for Laboratory Test [...] Performed By: #### L500.4050, L501.2300, L501.9520 #### [facility] [address] [place], [address] PHOSPHORUS Collected: 04/07/2018 Status: F Source: [place] 10:14 AM [facility] REPOSITORY Order Comment: Reason for Laboratory Test Chemotherapy Reason for Laboratory Test CHEMOTHERAPY TYPE CODE TESTS RESULT OUT OF RANGE REFERENCE UNITS LAB L501.2300 2.5-4.9 mg/dL Normal PHOS 2.5 Performed By: #### L500.4050, L501.2300, L501.9520 #### [facility] [address] [place], [place], [address] THYROID STIM HORMONE Collected: 04/07/2018 Status: F Source: [place] (TSH) 10:14 AM [facility] REPOSITORY Order Comment: Reason for Laboratory Test Chemotherapy Reason for Laboratory Test CHEMOTHERAPY TYPE CODE TESTS RESULT OUT OF RANGE REFERENCE UNITS LAB L501.9520 0.358-3.74 uIU/mL Normal TSH 2.15 Performed By: #### L500.4050, L501.2300, L501.9520 #### [facility] [address] [place], [address] ONCOLOGY VISIT REPORT Observed: 03/31/2018 Status: F Source: [place] 10:39 AM [facility] REPOSITORY [facility] [address] [facility] [place] [address] OFFICE VISIT Date of Service: 03/31/18 1023 MR#: [id number] Acct: [id number] Name: DOUGLAS MOSLEY #: [id number] : 1940 From: Ian Corea MD Age/Sex: [...] Acute Code Visit Office Visits / Consults: 27109 OV L5 Est 03/31/18 1039 <Electronically signed by Ian Corea MD> Date Ian Corea MD Cosigner Signature: Date (if applicable) CC: PROTHROMBIN TIME W/INR Collected: 03/31/2018 Status: F Source: [place] 10:02 AM [facility] REPOSITORY TYPE CODE TESTS RESULT OUT OF REFERENCE UNITS RANGE LAB L300.4150 11.7-14.9 SECONDS High PROTIME 37.1 LAB L300.4200 High alert INR 3.7 Result Comment: CRITICAL VALUE VERIFIED. [facility] 03/31/18 1023 Latonya Loaiza. RESULTS READ BACK BY SAME . Performed By: #### L300.3900 #### [facility] [address] [place], [address] CBC W/DIFF, AUTOMATED Collected: 03/31/2018 Status: C Source: [place] 9:50 AM [facility] REPOSITORY Order Comment: Reason for Laboratory Test [...] Tania mittal Performed By: #### L100.0100 #### [facility] [address] [place], [address] COMPREHENSIVE METABOLIC Collected: 03/31/2018 Status: F Source: [facility] 9:50 AM [facility] REPOSITORY Order Comment: Reason for Laboratory Test [...] GAP 9 Performed By: #### L500.4050 #### [facility] [address] [facility] [place], [address] ECHO, COMPLETE W/ Observed: 03/24/2018 Status: F Source: [place] CONTRAST 11:21 AM [facility] REPOSITORY [facility] Cardiovascular Services [address] [place] [address] Echo Complete W/ Contrast 03/23/18 1555 MR#: [id number] Acct: [id number] Name: DOUGLAS MOSLEY Rep #: [id number] : 1940 77 From: Flash Rodriguez MD Attending Dr: Flash Rodriguez MD Status: REG CLI Ordering Dr: Flash Rodriguez MD Date: 03/23/18 Location: [facility] Sex: M C Admitted: Reason For Study: [...] Dictated: 03/23/18 1555 Date Transcribed: 03/24/18 112 Hammer Runner: Signed LIVER PROFILE Collected: 03/19/2018 Status: F Source: [place] 10:55 AM [facility] REPOSITORY TYPE CODE TESTS RESULT OUT OF [...] 0.17 Performed By: #### L500.3400, L500.4100 #### [facility] [address] [place], [place], [address] LIPID PROFILE Collected: 03/19/2018 Status: F Source: [place] 10:55 AM [facility] REPOSITORY TYPE CODE TESTS RESULT OUT OF [...] 19 Performed By: #### L500.3400, L500.4100 #### [facility] [address] [place], [address] ONCOLOGY VISIT REPORT Observed: 03/16/2018 Status: F Source: [place] 9:23 AM [facility] REPOSITORY [facility] [address] [place] [address] OFFICE VISIT Date of Service: 03/16/18912 MR#: [id number] Acct: [id number] Name: DOUGLAS MOSLEY Rep #: [id number] : 1940 From: Ian Corea MD Age/Sex: [...] Acute Code Visit Office Visits / Consults: 67237 OV L5 Est 03/16/18 0923 <Electronically signed by Ian Corea MD> Date Ian Corea MD Cosigner Signature: Date (if applicable) CC: CBC W/DIFF, AUTOMATED Collected: 03/16/2018 Status: F Source: [place] 8:22 AM [facility] REPOSITORY TYPE CODE TESTS RESULT OUT OF [...] Lymph 1.02 Performed By: #### L100.0100 #### [facility] [address] [place], [address] COMPREHENSIVE METABOLIC Collected: 03/16/2018 Status: F Source: [facility] 8:22 AM [facility] REPOSITORY Order Comment: Reason for Laboratory Test [...] Performed By: #### L500.4050, L501.2300, L501.9520 #### [facility] [address] [place], [place], [address] PHOSPHORUS Collected: 03/16/2018 Status: F Source: [place] 8:22 AM [facility] REPOSITORY Order Comment: Reason for Laboratory Test Chemotherapy Reason for Laboratory Test CHEMOTHERAPY TYPE CODE TESTS RESULT OUT OF RANGE REFERENCE UNITS LAB L501.2300 2.5-4.9 mg/dL Normal PHOS 2.8 Performed By: #### L500.4050, L501.2300, L501.9520 #### [facility] [address] [place], [place], [address] THYROID STIM HORMONE Collected: 03/16/2018 Status: F Source: [place] (TSH) 8:22 AM [facility] REPOSITORY Order Comment: Reason for Laboratory Test Chemotherapy Reason for Laboratory Test CHEMOTHERAPY TYPE CODE TESTS RESULT OUT OF RANGE REFERENCE UNITS LAB L501.9520 0.358-3.74 uIU/mL Normal TSH 3.72 Performed By: #### L500.4050, L501.2300, L501.9520 #### [facility] [address] [place], [place], [address] CARDIOLOGY VISIT Observed: 03/12/2018 Status: F Source: [place] REPORT 11:23 AM [facility] REPOSITORY [facility] 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 Atherosclerotic heart disease of [place] coronary artery without angina pectoris I25.10 Plan [...] vis,est,level 3 Diagnoses Atherosclerotic heart disease of [place] coronary artery without angina pectoris I25.10 Hyperlipidemia, unspecified hyperlipidemia type E78.5 Hyperlipidemia type: unspecified Coding Level of Care Code Off vis,est,level 3 Diagnoses Atherosclerotic heart disease of [place] coronary artery without angina pectoris I25.10 Hyperlipidemia, unspecified hyperlipidemia type E78.5 Hyperlipidemia type: unspecified 03/12/18 1123 <Electronically signed by Flash Rodriguez MD> Date [facility] Signature: Date (if applicable) CC: Niko Sampson MD ONCOLOGY VISIT REPORT Observed: 03/08/2018 Status: F Source: [place] 5:20 PM [facility] REPOSITORY [facility] [address] [place], [place] [address] [address] OFFICE VISIT Date of Service: 03/08/18 1135 MR#: [id number] Acct: [id number] Name: DOUGLAS MOSLEY Rep #: [id number] : 1940 From: Ian Corea MD Age/Sex: [...] Acute Code Visit Office Visits / Consults: 74576 OV L5 Est 03/08/18 1720 <Electronically signed by Ian Corea MD> Date Ian Corea MD Cosigner Signature: Date (if applicable) CC: PROTHROMBIN TIME W/INR Collected: 03/08/2018 Status: F Source: [place] 9:52 AM [facility] REPOSITORY TYPE CODE TESTS RESULT OUT OF RANGE REFERENCE UNITS LAB L300.4150 11.7-14.9 SECONDS High PROTIME 29.9 LAB L300.4200 Normal INR 2.8 Performed By: #### L300.3900 #### [facility] [address] [place], [address] CBC W/DIFF, AUTOMATED Collected: 03/08/2018 Status: F Source: [place] 9:51 AM [facility] REPOSITORY Order Comment: Reason for Laboratory Test [...] Lymph 0.66 Performed By: #### L100.0100 #### [facility] [address] [place], [place], [address] COMPREHENSIVE METABOLIC Collected: 03/08/2018 Status: F Source: [facility] 9:51 AM [facility] REPOSITORY Order Comment: Reason for Laboratory Test [...] GAP 7 Performed By: #### L500.4050 #### [facility] [address] [place], [place], [address] CHEST WITH CONTRAST Observed: 03/03/2018 Status: F Source: [place] 7:53 AM [facility] REPOSITORY [facility] Imaging Services [address] [place] [address] Chest WITH Contrast MR#: [id number] Acct: [id number] Name: DOUGLAS MOSLEY Rep #: [id number] : 1940 M 77 From: Mono Hercules MD PCP: Niko Sampson MD Status: REG CLI Study: Chest WITH Contrast Date of Exam: 03/03/18 Exam# [id number] Ordering Dr: Ian Corea MD STUDY: CT [...] CC: Ian Corea MD; Niko Sampson MD Hammer Runner: Signed ONCOLOGY VISIT REPORT Observed: 02/23/2018 Status: F Source: [facility] 9:36 AM [facility] REPOSITORY [facility] [place] [address] OFFICE VISIT Date of Service: 02/23/18 0932 MR#: [id number] Acct: [id number] Name: DOUGLAS MOSLEY Rep #: [id number] : 1940 From: Ian Corea MD Age/Sex: [...] Acute Code Visit Office Visits / Consults: [id number] OV L5 Est 02/23/18 0936 <Electronically signed by Ian Corea MD> Date Ian Corea MD Cosigner Signature: Date (if applicable) CC: CBC W/DIFF, AUTOMATED Collected: 02/23/2018 Status: F Source: [facility] 8:30 AM [facility] REPOSITORY TYPE CODE TESTS RESULT OUT OF [...] Lymph 2.08 Performed By: #### L100.0100 #### [facility] [address] [place], [address] COMPREHENSIVE METABOLIC Collected: 02/23/2018 Status: F Source: [facility] 8:30 AM [facility] REPOSITORY Order Comment: Reason for Laboratory Test [...] Performed By: #### L500.4050, L501.2300, L501.9520 #### [facility] [address] [place], [place], [address] PHOSPHORUS Collected: 02/23/2018 Status: F Source: [facility] 8:30 AM [facility] REPOSITORY Order Comment: Reason for Laboratory Test Chemotherapy Reason for Laboratory Test CHEMOTHERAPY TYPE CODE TESTS RESULT OUT OF RANGE REFERENCE UNITS LAB L501.2300 2.5-4.9 mg/dL Low PHOS 2.4 Performed By: #### L500.4050, L501.2300, L501.9520 #### [facility] [address] [place], [address] THYROID STIM HORMONE Collected: 02/23/2018 Status: F Source: [facility] ([facility]) 8:30 AM [facility] REPOSITORY Order Comment: Reason for Laboratory Test Chemotherapy Reason for Laboratory Test CHEMOTHERAPY TYPE CODE TESTS RESULT OUT OF RANGE REFERENCE UNITS LAB L501.9520 0.358-3.74 uIU/mL Normal TSH 3.17 Performed By: #### L500.4050, L501.2300, L501.9520 #### [facility] [address] [place], [address] ONCOLOGY VISIT REPORT Observed: 02/16/2018 Status: F Source: [facility] 9:13 AM [facility] REPOSITORY [facility] [place] [address] OFFICE VISIT Date of Service: 02/16/18 0905 MR#: [id number] Acct: [id number] Name: DOUGLAS MOSLEY Rep #: [id number] : 1940 From: Ian Corea MD Age/Sex: [...] Acute Code Visit Office Visits / Consults: 31474 OV L5 Est 02/16/18 0913 <Electronically signed by Ian Corea MD> Date Ian Corea MD Cosigner Signature: Date (if applicable) CC: CBC W/DIFF, AUTOMATED Collected: 02/16/2018 Status: F Source: [facility] 8:34 AM [facility] REPOSITORY Order Comment: Reason for Laboratory Test [...] Lymph 0.79 Performed By: #### L100.0100 #### [facility] [address] [place], [address] COMPREHENSIVE METABOLIC Collected: 02/16/2018 Status: F Source: [facility] 8:34 AM [facility] REPOSITORY Order Comment: Reason for Laboratory Test [...] GAP 7 Performed By: #### L500.4050 #### [facility] [address] [place], [address] CBC W/DIFF, AUTOMATED Collected: 02/11/2018 Status: F Source: [facility] 7:59 AM [facility] REPOSITORY Order Comment: Reason for Laboratory Test [...] Lymph 0.64 Performed By: #### L100.0100 #### [facility] [address] [place], [address] ONCOLOGY VISIT REPORT Observed: 02/10/2018 Status: F Source: [facility] 1:29 PM [facility] REPOSITORY [facility] [place] [address] OFFICE VISIT Date of Service: 02/09/18 1119 MR#: [id number] Acct: [id number] Name: DOUGLAS MOSLEY Rep #: [id number] : 1940 From: Mariia DEE Age/Sex: 77/M [...] week which prompted presentation to [facility] ED. Treated for candidiasis, states rash has [...] and warfarin and recheck platelets on 02/11/18. Dehydration Plant Operator, Dr. Rodriguez made aware. Discussed with Dr Corea dose attenuation of carboplatin with cycle 2 and subsequent cycles. Patient is in agreement with the aforementioned plan. RTO on 02/16/18 for consideration of cycle 2 carboplatin, pemetrexed and pembrolizumab, sooner if issues arise. Mariia Bennett, MSN, EDGE BURNISHER-C, AOCNP Medications: Prescriptions This Visit Medication Instructions Recorded Dexamethasone [Decadron] 4 mg PO BIDCM #30 tablet 01/21/18 Primary Care Provider: Niko Sampson MD Referring Provider: - Problem List (1) Non-small cell carcinoma of right lung, stage 4 Status: Chronic (2) Chemotherapy-induced thrombocytopenia Status: Acute 02/10/18 1329 <Electronically signed by Mariia Bennett REAL ESTATE TEACHER-C> Date Mariia HenrySabrina REAL ESTATE TEACHER-C Cosigner Signature: Date (if applicable) CC: PROTHROMBIN TIME W/INR Collected: 02/09/2018 Status: F Source: [facility] 9:47 AM [facility] REPOSITORY TYPE CODE TESTS RESULT OUT OF RANGE REFERENCE UNITS LAB L300.4150 11.7-14.9 SECONDS High PROTIME 28.5 LAB L300.4200 Normal INR 2.7 Performed By: #### L300.3900 #### [facility] [address], [address] COMPREHENSIVE METABOLIC Collected: 02/09/2018 Status: F [facility] AM [facility] REPOSITORY Order Comment: Reason for Laboratory Test [...] GAP 8 Performed By: #### L500.4050 #### [facility] [address] [place], [address] CBC W/DIFF, AUTOMATED Collected: 02/09/2018 Status: C Source: [facility] 9:37 AM [facility] REPOSITORY Order Comment: Reason for Laboratory Test [...] VALUE VERIFIED. CALLED TO MALKA TILLEY AT [facility] 02/09/18 1038 Anat Ramirez. RESULTS READ BACK [...] August daxa Performed By: #### L100.0100 #### [facility] [address] [facility] [place], [address] EMERGENCY DEPARTMENT Observed: 02/01/2018 Status: F Source: [facility] SUMMARY 4:11 PM [facility] REPOSITORY [facility] Medical Records Department [address] [place] [address] Emergency Department Summary 02/01/18 1610 MR#: [id number] Acct: [id number] Name: WAYNELULYDOUGLAS D Rep #: [id number] : 1940 77 From: Brendan Love MD PCP: Niko Sampson MD Status: REG ER - ER Visit Summary Date of Service: 02/01/18 Chief Complaint: [] History of Present Illness: The patient is a 77 M [] Physical Examination: [] Test Results: [] Emergency Department Course and Treatment: [] Treatment Plan: [] Disposition: [] Impression: [] This note was generated with 5o9ation software. It may contain incorrect words, spelling, [...] your Primary Care Provider. Call [facility] ([phone]) or report to the closest Emergency Room. Call 911 if necessary. 02/01/18 1611 <Electronically signed by Brendan Love MD> Date Brendan Love MD Cosigner Signature (If Indicated): Date CC: Niko Sampson MD EMERGENCY DEPARTMENT Observed: 02/01/2018 Status: F Source: [facility] SUMMARY 4:04 PM [facility] REPOSITORY [facility] Medical Records Department [address] [place] [address] Emergency Department Summary 02/01/18 1602 MR#: [id number] Acct: [id number] Name: DOUGLAS MOSLEY Rep #: [id number] : 1940 77 From: Brendan Love MD [...] candidal dermatitis This note was generated with Shopear dictation software. It may contain incorrect words, [...] problems, contact your Primary Care Provider. Call [facility] ([phone]) or report to the closest Emergency Room. Call 911 if necessary. 02/01/18 1604 <Electronically signed by Brendan Love MD> Date Brendan Love MD Cosigner Signature (If Indicated): Date CC: Niko Sampson MD ONCOLOGY VISIT REPORT Observed: 01/25/2018 Status: F Source: [facility] 1:57 PM [facility] REPOSITORY [facility] [address] [place] [address] OFFICE VISIT Date of Service: 01/25/18 1212 MR#: [id number] Acct: [id number] Name: DOUGLAS MOSLEY Rep #: [id number] : 1940 From: Mariia DEE Age/Sex: 77/M [...] and reassess with CT. Mariia Bennett, MSN, EDGE BURNISHER-C, AOCNP Medications: Prescriptions This Visit Medication Instructions Recorded Furosemide [Lasix] 40 mg PO DAILY 11/11/16 Dexamethasone [Decadron] 4 mg PO BIDCM #30 tablet 01/21/18 Primary Care Provider: Niko Sampson MD Referring Provider: - Problem List (1) Non-small cell carcinoma of right lung, stage 4 Status: Chronic (2) Educational circumstance Status: Acute 01/25/18 7757 <Electronically signed by Mariia DHALIWALC> Date Mariia DHALIWALC Cosigner Signature: Date (if applicable) CC: ONCOLOGY VISIT REPORT Observed: 01/21/2018 Status: F Source: [facility] 4:52 PM [facility] REPOSITORY [facility] [address] [place] [address] OFFICE VISIT Date of Service: 01/21/18 1639 MR#: [id number] Acct: [id number] Name: DOUGLAS MOSLEY Rep #: [id number] : 1940 From: Ian Corea MD Age/Sex: [...] Chronic Code Visit Office Visits / Consults: 29940 OV L5 Est 01/21/18 1652 <Electronically signed by Ian Corea MD> Date Ian Corea MD Cosigner Signature: Date (if applicable) CC: PROTHROMBIN TIME W/INR Collected: 01/21/2018 Status: F Source: [facility] 9:53 AM [facility] REPOSITORY TYPE CODE TESTS RESULT OUT OF RANGE REFERENCE UNITS LAB L300.4150 11.7-14.9 SECONDS High PROTIME 32.9 LAB L300.4200 Normal INR 3.2 Performed By: #### L300.3900 #### [facility] [address] [place], [address] CBC W/DIFF, AUTOMATED Collected: 01/21/2018 Status: F Source: [facility] 9:50 AM [facility] REPOSITORY Order Comment: Reason for Laboratory Test [...] 0.96 Performed By: #### L100.0100, L500.4050 #### [facility] [address] [place], [address] COMPREHENSIVE METABOLIC Collected: 01/21/2018 Status: F [facility] AM [facility] REPOSITORY Order Comment: Reason for Laboratory Test [...] GAP Performed By: #### L100.0100, L500.4050 #### [facility] [address] [place], [address] PET/CT TUMOR BASE Observed: 01/18/2018 Status: F Source: [facility] -THIGH SUBS 10:48 AM [facility] REPOSITORY [facility] Imaging Services [address] [place] [address] PET/CT Tumor Base -Thigh Subs MR#: [id number] Acct: [id number] Name: DOUGLAS MOSLEY Rep #: [id number] : 1940 M 77 From: Heber Bardales DO PCP: Niko Sampson MD Status: REG RCR Study: PET/CT Tumor Base -Thigh Subs Date of Exam: 01/18/18 Exam# [id number] Ordering Dr: Ian Corea MD EXAMINATION: FDG [...] CC: Ian Corea MD; Niko Sampson MD Hammer Runner: Signed PACEMAKER CHECK Observed: 01/07/2018 Status: F Source: [facility] 3:32 PM [facility] REPOSITORY [facility] [address] [place] [address] Pacemaker Check Date of Service: 01/07/18 1134 MR#: [id number] Acct: [id number] Name: DOUGLAS MOSLEY Rep #: [id number] : 1940 From: Carine Salmon Age/Sex: 77/M Location: [facility] Status: Signed Billing Codes PM Device Codes: PM Dev Prog Eval, Single 01/07/18 1136 <Electronically signed by Carine Salmon > Date Carine Salmon 01/07/18 1532<Electronically signed by Flash Rodriguez MD> Cosigner Signature: Date (if applicable) Flash Rodriguez MD CC: ONCOLOGY VISIT REPORT Observed: 12/29/2017 Status: F Source: [facility] 1:29 PM [facility] REPOSITORY [facility] [place] [address] OFFICE VISIT Date of Service: 12/29/17 1319 MR#: [id number] Acct: [id number] Name: DOUGLAS MOSLEY Rep #: [id number] : 1940 From: Ian Corea MD Age/Sex: [...] Chronic Code Visit Office Visits / Consults: 67129 OV L4 Est 12/29/17 1329 <Electronically signed by Ian Corea MD> Date Ian Corea MD Cosigner Signature: Date (if applicable) CC: PROTHROMBIN TIME W/INR Collected: 12/29/2017 Status: F Source: [facility] 12:38 PM [facility] REPOSITORY TYPE CODE TESTS RESULT OUT OF RANGE REFERENCE UNITS LAB L300.4150 11.7-14.9 SECONDS High PROTIME 32.2 LAB L300.4200 Normal INR 3.1 Performed By: #### L300.3900 #### [facility] [address] [place], [address] CBC W/DIFF, AUTOMATED Collected: 12/29/2017 Status: F Source: [facility] 12:34 PM [facility] REPOSITORY Order Comment: Reason for Laboratory Test [...] Lymph 1.16 Performed By: #### L100.0100 #### [facility] [address] [place], [address] COMPREHENSIVE METABOLIC Collected: 12/29/2017 Status: F Source: [facility] PACK 12:34 PM [facility] REPOSITORY Order Comment: Reason for Laboratory Test [...] GAP 7 Performed By: #### L500.4050 #### [facility] [address] [place], [address] CREATININE FINGERSTICK Collected: 12/24/2017 Status: F Source: [facility] 12:41 PM [facility] REPOSITORY TYPE CODE TESTS RESULT OUT OF RANGE REFERENCE UNITS LAB L9100.0210 0.70-1.30 mg/dL Normal CREATININE WB 0.9 LAB L9100.0220 >60 mL/min EGFR WB Normal > 60.0000 Performed By: #### L9100.0200 #### [facility] Point of Care [address] [place] [address] CHEST WITH CONTRAST Observed: 12/24/2017 Status: F Source: [facility] 12:11 PM [facility] REPOSITORY [facility] Imaging Services [address] [place] [address] Chest WITH Contrast MR#: [id number] Acct: [id number] Name: WAYNELULYDOUGLAS D Rep #: [id number] : 1940 M 77 From: Heber Ordonez MD PCP: Niko Sampson MD Status: REG CLI Study: Chest WITH Contrast Date of Exam: 12/24/17 Exam# [id number] Ordering Dr: Ian Corea MD STUDY: CT [...] CC: Ian Corea MD; Niko Sampson MD Hammer Runner: Signed PROTHROMBIN TIME W/INR Collected: 12/10/2017 Status: F Source: [facility] 10:49 AM [facility] REPOSITORY TYPE CODE TESTS RESULT OUT OF RANGE REFERENCE UNITS LAB L300.4150 11.7-14.9 SECONDS High PROTIME 27.0 LAB L300.4200 Normal INR 2.5 Performed By: #### L300.3900 #### [facility] [address] [place], [address] PROTHROMBIN TIME W/INR Collected: 11/19/2017 Status: F Source: [facility] 11:47 AM [facility] REPOSITORY TYPE CODE TESTS RESULT OUT OF RANGE REFERENCE UNITS LAB L300.4150 11.7-14.9 SECONDS High PROTIME 30.7 LAB L300.4200 Normal INR 2.9 Performed By: #### L300.3900 #### [facility] [address] [place], [address] PROTHROMBIN TIME W/INR Collected: 10/29/2017 Status: F Source: [facility] 10:48 AM [facility] REPOSITORY Order Comment: Result obtained is for confirmation testing of Fingerstick PT/INR Specimen # [id number] . 10/29/17 1049 [id number] THIS CONFIRMATION SPECIMEN RESULT IS FROM VENOUS BLOOD. TYPE CODE TESTS RESULT OUT OF RANGE REFERENCE UNITS LAB L300.4150 11.7-14.9 SECONDS High PROTIME 32.3 LAB L300.4200 Normal INR 3.1 Performed By: #### L300.3900 #### [facility] [place], [address] PROTIME W/INR Collected: 10/29/2017 Status: F Source: [facility] FINGERSTICK 10:34 AM [facility] REPOSITORY Order Comment: This critical result is [...] > 3.5 Performed By: #### L9200.0000 #### [facility] Point of Care [address] [place] [address] PACEMAKER CHECK Observed: 10/08/2017 Status: F Source: [facility] 3:51 PM [facility] REPOSITORY [facility] [place] [address] Pacemaker Check Date of Service: 10/08/17 1015 MR#: [id number] Acct: [id number] Name: DOUGLAS MOSLEY Rep #: [id number] : 1940 From: Carine Salmon Age/Sex: 77/M Location: [facility] Status: Signed Billing Codes PM Device Codes: PM Dev Prog Aleksandraal, Single 10/08/17 1017 <Electronically signed by Carine Salmon > Date Carine Salmon 10/08/17 1551<Electronically signed by Flash Rodriguez MD> Cosigner Signature: Date (if applicable) Flash Rodriguez MD CC: PROTIME W/INR Collected: 09/30/2017 Status: F Source: [facility]ING[place]ICK 9:42 AM [facility] REPOSITORY TYPE CODE TESTS RESULT OUT OF REFERENCE UNITS RANGE LAB L9200.1001 11.9-14.4 SEC High PROTIME ISTAT 34.9 Result Comment: Reference Range 11.9 - 14.4 LAB L9200.2000 Normal INR ISTAT 3.10 Result Comment: Critical Value > 3.5 Performed By: #### L9200.0000 #### [facility] Point of Care [address] [place] [address] DOWNTIME REPORT Observed: 09/24/2017 Status: F Source: [facility] 1:20 PM [facility] REPOSITORY [facility] Medical Records Department [address] [place] [address] Downtime Report MR#: [id number] Acct: [id number] Name: DOUGLAS MOSLEY Rep #: [id number] : 1940 77 From: Kaz Szymanski PCP: Niko Sampson MD Status: REG CLI This patient was seen during an EMR downtime September 07, 2017 - September 14, 2017. This patient may have a combination of paper and electronic documentation or all paper documentation. All documentation is viewable within the e-chart portion of [facility] for each patient visit. PROTIME W/INR Collected: 09/09/2017 Status: F Source: [facility]ING[facility]ICK 11:06 AM [facility] REPOSITORY TYPE CODE TESTS RESULT OUT OF REFERENCE UNITS RANGE LAB L9200.1001 11.9-14.4 SEC High PROTIME ISTAT 34.1 Result Comment: Reference Range 11.9 - 14.4 LAB L9200.2000 Normal INR ISTAT 3.00 Result Comment: Critical Value > 3.5 Performed By: #### L9200.0000 #### [facility] Point of Care [address] [place] [address] PROTIME W/INR Collected: 08/21/2017 Status: F Source: [facility] [place] 12:13 PM [facility] REPOSITORY TYPE CODE TESTS RESULT OUT OF REFERENCE UNITS RANGE LAB L9200.1001 11.9-14.4 SEC High PROTIME ISTAT 29.8 Result Comment: Reference Range 11.9 - 14.4 LAB L9200.2000 Normal INR ISTAT 2.60 Result Comment: Critical Value > 3.5 Performed By: #### L9200.0000 #### [facility] Point of Care [address] [place] [address] CARDIOLOGY VISIT Observed: 08/17/2017 Status: F Source: [facility] REPORT 11:19 AM [facility] REPOSITORY [facility] [place] [address] OFFICE VISIT Date of Service: 08/17/17 MR#: [id number] Acct: [id number] Name: DOUGLAS MOSLEY Rep #: [id number] : 1940 Provider: Flash Rodriguez MD Age/Sex: 77/M Location: [facility] Status: Signed HPI HPI Chief Complaint: Routine [...] PO QHS tab 08/17/17 [History Confirmed 08/17/17] [facility] Medical History Secondary pulmonary arterial hypertension (Chronic) AAA (abdominal aortic aneurysm) (Chronic) Atrial flutter (Chronic) Atherosclerotic heart disease of [place] coronary artery without angina pectoris (Chronic) Hyperthyroidism (Chronic) Chronic systolic congestive heart failure (Chronic) Pleural effusion (Chronic) PVD (peripheral vascular disease) (Chronic) Chronic atrial fibrillation (Chronic) Cardiomyopathy, ischemic (Chronic) Atrioventricular block, complete (Chronic) Hyperlipidemia (Chronic) Hypertension (Chronic) 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 Atherosclerotic heart disease of [place] coronary artery without angina pectoris I25.10 Plan [...] vis,est,level 3 Diagnoses Atherosclerotic heart disease of [place] coronary artery without angina pectoris I25.10 Hyperlipidemia, unspecified hyperlipidemia type E78.5 Hyperlipidemia type: unspecified Coding Level of Care Code Off vis,est,level 3 Diagnoses Atherosclerotic heart disease of [place] coronary artery without angina pectoris I25.10 Hyperlipidemia, unspecified hyperlipidemia type E78.5 Hyperlipidemia type: unspecified 08/17/17 1119 <Electronically signed by Flash Rodriguez MD> Date Flash Rodriguez MD Cosigner Signature: Date (if applicable) CC: Niko Sampson PROTHROMBIN TIME W/INR Collected: 08/10/2017 Status: F Source: [facility] 1:49 PM [facility] REPOSITORY TYPE CODE TESTS RESULT OUT OF RANGE REFERENCE UNITS LAB L300.4150 11.7-14.9 SECONDS High PROTIME 31.8 LAB L300.4200 Normal INR 3.1 Performed By: #### L300.3900 #### [facility] [address] [place], [address] PROTHROMBIN TIME W/INR Collected: 07/13/2017 Status: F Source: [facility] 1:02 PM [facility] REPOSITORY TYPE CODE TESTS RESULT OUT OF RANGE REFERENCE UNITS LAB L300.4150 11.7-14.9 SECONDS High PROTIME 29.6 LAB L300.4200 Normal INR 2.8 Performed By: #### L300.3900 #### [facility] [address] [place], [address] ONCOLOGY VISIT REPORT Observed: 06/22/2017 Status: F Source: [facility] 2:45 PM [facility] REPOSITORY [facility] [address] [place] [address] OFFICE VISIT Date of Service: 06/22/17 1413 MR#: [id number] Acct: [id number] Name: DOUGLAS MOSLEY Rep #: [id number] : 1940 From: Ian Corea MD Age/Sex: [...] Chronic Code Visit Office Visits / Consults: 36531 OV L4 Est 06/22/17 1445 <Electronically signed by Ian Corea MD> Date Ian Corea MD Cosigner Signature: Date (if applicable) CC: Niko Sampson PROTHROMBIN TIME W/INR Collected: 06/15/2017 Status: F Source: [facility] 12:47 PM [facility] REPOSITORY TYPE CODE TESTS RESULT OUT OF RANGE REFERENCE UNITS LAB L300.4150 11.7-14.9 SECONDS High PROTIME 29.9 LAB L300.4200 Normal INR 2.8 Performed By: #### L300.3900 #### [facility] [address] [place], [place], [address] CBC W/DIFF, AUTOMATED Collected: 06/15/2017 Status: F Source: [facility] 12:46 PM [facility] REPOSITORY Order Comment: Reason for Laboratory Test [...] 0.94 Performed By: #### L100.0100, L500.4050 #### [facility] [address] [place], [address] COMPREHENSIVE METABOLIC Collected: 06/15/2017 Status: F Source: [facility] PACK 12:46 PM [facility] REPOSITORY Order Comment: Reason for Laboratory Test [...] 10 Performed By: #### L100.0100, L500.4050 #### [facility] [address] [place], [address] CREATININE FINGERSTICK Collected: 06/10/2017 Status: F Source: [facility] 4:38 PM [facility] REPOSITORY TYPE CODE TESTS RESULT OUT OF RANGE REFERENCE UNITS LAB L9100.0210 0.70-1.30 mg/dL Normal CREATININE WB 1.3 Performed By: #### L9100.0200 #### [facility] Point of Care [address] [place] [address] CHEST WITH CONTRAST Observed: 06/10/2017 Status: F Source: [facility] 4:33 PM [facility] REPOSITORY [facility] Imaging Services [address] [place] [address] Chest WITH Contrast MR#: [id number] Acct: [id number] Name: DOUGLAS MOSLEY Rep #: [id number] : 1940 M 76 From: Jed Morfin MD PCP: Niko Sampson Status: REG CLI Study: Chest WITH Contrast Date of Exam: 06/10/17 Exam# [id number] Ordering Dr: Ian Corea MD STUDY: CT [...] , CC: Ian Corea MD; Niko Sampson Hammer Runner: Signed OFFICE VISIT REPORT Observed: 06/09/2017 Status: F Source: [facility] 1:[address] [place] [address] OFFICE VISIT Date of Service: 05/22/17 MR#: [id number] Acct: [id number] Patient: DOUGLAS MOSLEY Rep #: [id number] : 1940 Provider: Carine Salmon Age/Sex: 76/M Location: [facility] Status: Signed Comments Summary Comments: Single Chamber Pacemaker Evaluation: Interrogation shows no VHR episode since last check 02/12/2017. Left pectoral pocket/incision w/o s/s of infection or erosion. Pt offers no cardiac complaints. Presenting rhythm shows Ventricular paced @ 70 ppm. STOCKROOM WORKER=90%. Battery longevity approx 9.5 yrs. Lead impedances and pace/sense threshold remain stable. Unable to check ventricular sensing d/t no intrinsic R waves with rate decrease. No parameter changes made. Counters cleared. Next f/u appt scheduled for in 3 mos. Device Device Date Interviewed: 05/22/17 Follow-up Location: in office Interview Reason: routine follow up Handle Turner: [employer] Name: Essentio SR IS-1 Model: L100 Serial #: [id number] Implant Date: 07/09/15 Year(s): 1 Implant Physician: Dr. Obdulio Briones/[facility] Patient Characteristics Atrial Indication: Permanent atrial fibrillation AV/Node Indication: Catheter ablation induced complete heart Ejection fraction %: 50 to 54 (11/12/2016) By: Echo Underlying rhythm: Atrial fibrillation with complete heart block Pacemaker Dependent: Yes (No intrinsic R waves) Device Characteristics Device: Single Chamber Type: Pacemaker Remote Follow-Up: No Device Physical Exam Yes Incision well healed Leads Lead #1 Handle Turner Lead 1: Guidant Model Lead 1: 4469 Serial# Lead 1: [id number] Date Implanted Lead 1: 09/24/04 Position Lead 1: RA Lead #2 Handle Turner Lead 2: Guidant Model Lead 2: 4470 Serial# Lead 2: [id number] Date Implanted Lead 2: 09/24/04 Position Lead [...] 06/03/2017 Status: F Source: MERT 9:51 AM [facility] REPOSITORY Order Comment: CRITICAL VALUE VERIFIED. CALLED TO CINDY 06/03/17 1029 Nuzhat Monroe. RESULTS READ BACK BY CINDY . TYPE CODE TESTS RESULT OUT OF REFERENCE UNITS RANGE LAB L300.4150 11.7-14.9 SECONDS High PROTIME 37.3 LAB L300.4200 High alert INR 3.7 Performed By: #### L300.3900 #### [facility] [address] [place], [address] PROTHROMBIN TIME W/INR Collected: 05/20/2017 Status: F Source: MORGAN 10:03 AM [facility] REPOSITORY TYPE CODE TESTS RESULT OUT OF RANGE REFERENCE UNITS LAB L300.4150 11.7-14.9 SECONDS High PROTIME 29.9 LAB L300.4200 Normal INR 3.0 Performed By: #### L300.3900 #### [facility] [address] [place], [address] PROTHROMBIN TIME W/INR Collected: 05/06/2017 Status: F Source: MORGAN 9:35 AM [facility] REPOSITORY Order Comment: MEDOUT/PORT TYPE CODE TESTS RESULT OUT OF RANGE REFERENCE UNITS LAB L300.4150 11.7-14.9 SECONDS High PROTIME 20.5 LAB L300.4200 Normal INR 1.8 Performed By: #### L300.3900 #### [facility] [address] [place], [address] PROTHROMBIN TIME W/INR Collected: 04/29/2017 Status: F Source: MORGAN 10:10 AM [facility] REPOSITORY TYPE CODE TESTS RESULT OUT OF RANGE REFERENCE UNITS LAB L300.4150 11.7-14.9 SECONDS High PROTIME 19.4 LAB L300.4200 Normal INR 1.7 Performed By: #### L300.3900 #### [facility] [address] [place], [address] ALLERGIES ALLERGIES DATE TYPE / CODE NAME / CODE REACTION SEVERITY SOURCE 04/27/2018 Drug morphine/F00 hallucinations [place] Allergy/793 2024579(RXNO [facility] 877494([facility] ED CT) Repository 04/27/2018 Drug amiodarone/F Unknown Unknown [place] Allergy/416 [id number](RX Community 845394([facility] ED CT) Repository 03/08/2018 Drug folic Rash [place] Allergy/416 acid/S994989 Community 050471([facility] 049(RXNO) [facility] ED CT) Repository ENCOUNTERS ENCOUNTERS ADMIT/DISCHARGE ACCOUNT ADMITTING ENCOUNTER LOCATION SOURCE NUMBER CLASS 04/27/2018 [id number] Ambulatory BMSBuilding:B [place] 9 [facility] Repository 04/27/2018 [id number] Ambulatory [place] 6 [facility] Hospital ing:OMD Repository 04/15/2018 [id number] Ambulatory BMSBuilding:B [place] 5 [facility] Repository 04/15/2018/ [id number] Ambulatory BMSBuilding:B [place] 9 9 [facility] Repository 04/07/2018 [id number] Ambulatory BMSBuilding:B [place] 6 [facility] Repository 03/31/2018 [id number] Ambulatory BMSBuilding:B [place] 3 [place] Repository 03/23/2018 [id number] Ambulatory [place] 0 [facility] Hospital ing:CVS Repository 03/23/2018 [id number] Ambulatory BMSBuilding:W [place] 3 [facility] Repository 03/19/2018 [id number] Ambulatory [place] 9 [facility] ing:LAB Repository 03/16/2018 [id number] Ambulatory BMSBuilding:B [place] 7 [facility] Repository 03/12/2018/ [id number] Ambulatory BMSBuilding:B [place] 8 2 [facility] Repository 03/08/2018 [id number] Ambulatory BMSBuilding:B [place] 9 [facility] Repository 03/03/2018 [id number] Ambulatory [place] Mert 7 [facility] ing:CT Repository 02/23/2018 [id number] Ambulatory BMSBuilding:B [place] 7 [facility] Repository 02/16/2018 [id number] Ambulatory BMSBuilding:B [place] 0 [place] Repository 02/09/2018 [id number] Ambulatory BMSBuilding:B [place] 6 [facility] Repository 02/01/2018/ [id number] Emergency [place] 8 1 [facility] Hospital ing:ED Repository 01/25/2018 [id number] Ambulatory BMSBuilding:B [place] 2 [facility] Repository 01/21/2018 [id number] Ambulatory BMSBuilding:B [place] 6 [facility] Repository 01/14/2018 [id number] Ambulatory [place] [facility] 1 [facility] ing:LAB Repository 01/07/2018/ [id number] Ambulatory BMSBuilding:B [place] 8 9 [facility] Repository 12/29/2017 [id number] Ambulatory BMSBuilding:B [place] 6 [facility] Repository 12/24/2017 [id number] Ambulatory [place] 5 [facility] Hospital ing:CT Repository 12/10/2017/ [id number] Ambulatory [place] 8 8 [facility] ing:LAB Repository 11/19/2017/ [id number] Ambulatory [place] 8 1 [facility] Repository 10/29/2017/ [id number] Ambulatory [place] 8 3 [facility] ing:LAB Repository 10/14/2017 [id number] Ambulatory Mert [place] 8 [facility] ing:WC Repository 09/30/2017/ [id number] Ambulatory [place] 8 2 [facility] ing:WC Repository 09/30/2017/ [id number] Ambulatory [place] Mert 8 6 [facility] ing:LAB Repository 09/30/2017/ [id number] Ambulatory BMSBuilding:B [place] 8 2 [facility] Repository 09/09/2017 [id number] Ambulatory [place] 8 [facility] ing[facility]LAB Repository 09/02/2017/ [id number] Ambulatory [place] M[place] 8 8 [facility] ing:WC Repository 08/21/2017 [id number] Ambulatory Mert Mert 5 [facility] ing:LAB Repository 08/17/2017/ [id number] Ambulatory BMSBuilding:B [place] 8 9 [facility] Repository 08/14/2017 [id number] Ambulatory BMSBuilding:B [place] 0 [facility] Repository 07/22/2017/ [id number] Ambulatory [place] 8 8 [facility] ing:WC Repository 07/01/2017/ [id number] Ambulatory Mert [place] 8 5 [facility] ing:WC Repository 06/22/2017 [id number] Ambulatory BMSBuilding:B [place] 3 [facility] Repository 06/10/2017 [id number] Ambulatory [place] 7 [facility] ing:CT Repository 05/22/2017/ [id number] Ambulatory BMSBuilding:B [place] 8 8 [facility] Repository 05/20/2017/ [id number] Ambulatory Metr [place] 8 7 [facility] ing:WC Repository 05/06/2017 [id number] Ambulatory [place]ert 8 [facility] ing:MEDOUTP Repository 05/06/2017/ [id number] Ambulatory [place]ert 8 5 [facility] ing:WC Repository 04/29/2017 [id number] Ambulatory Mert Mert 0 [facility] ing:MEDOUTP Repository PAYERS PAYERS ENCOUNTER GUARANTOR PAYER SUBSCRIBER SOURCE 04/27/2018 DOUGLAS D Primary DOUGLAS D [place] [id number] Insurance:HUMANA GREEGORDOB: Community SILVER MEDICARE PPOPolicy [id number] Number: Repository [address]Swc: (994) [id number] [phone] () Date:9391-92-12[address] [place] [address]AJ: 04/27/2018 Secondary NOT GIVENUNK [place] Insurance:SELF PAY Community [facility] Number: Effective Repository Date:2018-04-27 04/27/2018 DOUGLAS D Primary DOUGLAS D [place] [id number] Insurance:HUMANA GREEGORDOB: Community SILVER MEDICARE [facility] [id number] [facility] [place] Number: Repository [address]Yvn: 330 [id number] [phone] (HP) Date:1997-83-67Hd[address] [address]KI: 04/27/2018 Secondary NOT GIVENUNK [place] Insurance:SELF PAY [facility] Number: Effective Repository Date:2016-09-17 04/15/2018 DOUGLAS D Primary DOUGLAS D [place] [id number] Insurance:HUMANA GREEGORDOB: Community SILVER MEDICARE [facility] [id number] Memorial Hospital [place] Number: Repository [address]Lue: 330 [id number] [phone] (HP) Date:0557-06[place]88[place] [address]WP: 04/15/2018 Secondary NOT GIVENUNK [place] Insurance:SELF PAY [facility] Number: Effective Repository Date:2018-04-15 04/15/2018 DOUGLAS D Primary DOUGLAS D [place] [id number] Insurance:HUMANA GREEGORDOB: Community SILVER MEDICARE [facility] [id number] Memorial Hospital [place] Number: Repository [address]Vzx: (330 [id number] [phone] (HP) Date:3995-38-67Ol [address] [address]RK: 04/15/2018 Secondary NOT GIVENUNK [place] Insurance:SELF PAY [facility] Number: Effective Repository Date:2018-04-15 04/07/2018 DOUGLAS D Primary DOUGLAS D [place] [id number] Insurance:HUMANA GREEGORDOB: Community SILVER MEDICARE [facility] [id number] Memorial Hospital [place] Number: Repository [address]Sza: (330 [id number] [phone] (HP) Date:1566-75-76Hf [address] [address]YP: 04/07/2018 Secondary NOT GIVENUNK [place] Insurance:SELF PAY [facility] Number: Effective Repository Date:2018-04-07 03/31/2018 DOUGLAS D Primary DOUGLAS D [place] [id number] Insurance:HUMANA GREEGORDOB: Community S[employer]VER MEDICARE [facility] [id number] Number: Repository [address]Djr: 330 [id number] [phone] (HP) Date:1178-78-54Ci [address] [address]HT: 03/31/2018 Secondary NOT GIVENUNK [place] Insurance:SELF PAY [facility] Number: Effective Repository Date:2018-03-31 03/23/2018 DOUGLAS D Primary DOUGLAS D [place] [id number] Insurance:HUMANA GREEGORDOB: Community SILVER MEDICARE [facility] [id number] [place] Number: Repository [address]Zkg: 330 [id number] [phone] () Date:6337-05-31Ua[address] [address]OM: 03/23/2018 Secondary NOT GIVENUNK [place] Insurance:SELF PAY [facility] Number: Effective Repository Date:2018-03-12 03/23/2018 DOUGLAS D Primary DOUGLAS D [place] [id number] Insurance:HUMANA GREEGORDOB: Community SILVER MEDICARE [facility] [id number] [place] Number: Repository [address]Iin: 330 [id number] [phone] () Date:5063-80-65Ef [address] [address]HD: 03/23/2018 Secondary NOT GIVENUNK [place] Insurance:SELF PAY [facility] Number: Effective Repository Date:2018-03-23 03/19/2018 DOUGLAS D Primary DOUGLAS D [place] [id number] Insurance:HUMANA GREEGORDOB: Community SILVER MEDICARE [facility] [id number] [place] Number: Repository [address]Onf: 330 [id number] [phone] (HP) Date:9675-03-84Mn [address] [address]GG: 03/19/2018 Secondary NOT GIVENUNK [place] Insurance:SELF PAY [facility] Number: Effective Repository Date:2018-03-19 03/16/2018 DOUGLAS D Primary DOUGLAS D [place] [id number] Insurance:HUMANA GREEGORDOB: Community [place] MEDICARE [facility] [id number] Memorial Hospital [place] Number: Repository [address]Wzt: 330 [id number] [phone] () Date:7909-81-22Hk [address] [address]RA: 03/16/2018 Secondary NOT GIVENUNK [place] Insurance:SELF PAY [facility] Number: Effective Repository Date:2018-03-16 03/12/2018 DOUGLAS D Primary DOUGLAS D [place] [id number] Insurance:HUMANA GREEGORDOB: Community SILVER MEDICARE PPOPolicy [id number] [place] Number: Repository [address]Rjr: 330 [id number] [phone] () Date:4077-33-69Im [address] [address]CJ: 03/12/2018 Secondary NOT GIVENUNK [place] Insurance:SELF PAY [facility] Number: Effective Repository Date:2018-03-12 03/08/2018 DOUGLAS D Primary DOUGLAS D [place] [id number] Insurance:HUMANA GREEGORDOB: [facility] MEDICARE [facility] [id number] [place] Number: Repository [address]Poz: 330 [id number] [phone] (HP) Date:4690-08-38Lk [address] [address]OI: 03/08/2018 Secondary NOT GIVENUNK [place] Insurance:SELF PAY [facility] Number: Effective Repository Date:2018-03-08 03/03/2018 DOUGLAS D Primary DOUGLAS D [place] [id number] Insurance:HUMANA GREEGORDOB: Community SILVER MEDICARE PPOPolicy [id number] [place] Number: Repository [address]Vyg: 330 [id number] [phone] () Date:2130-78-92Gy [address] [address]IC: 03/03/2018 Secondary NOT GIVENUNK [place] Insurance:SELF PAY [facility] Number: Effective Repository Date:2018-02-23 02/23/2018 DOUGLAS D Primary DOUGLAS D [place] [id number] Insurance:HUMANA GREEGORDOB: Community SIL[place] MEDICARE PPOPolicy [id number] [place], [place] Number: Repository [address]Oqe: 330 [id number] [phone] () Date:3910-64-97Jn[address] [address]VQ: 02/23/2018 Secondary NOT GIVENUNK [place] Insurance:SELF PAY [facility] Number: Effective Repository Date:2018-02-23 02/16/2018 DOUGLAS D Primary DOUGLAS D [place] [id number] Insurance:HUMANA GREEGORDOB: Community SILVER MEDICARE PPOPolicy [id number] [place] Number: Repository [address]Wey: 330 [id number] [phone] () Date:3849-23-65Sj[address] [address]SN: 02/16/2018 Secondary NOT GIVENUNK [place] Insurance:SELF PAY [facility] Number: Effective Repository Date:2018-02-16 02/09/2018 DOUGLAS D Primary DOUGLAS D [place] [id number] Insurance:HUMANA GREEGORDOB: Community [employer] MEDICARE PPOPolicy [id number] Number: Repository [address]Dgh: (330 [id number] [phone] () Date:2854-24-94Dz [address] [address]LA: 02/09/2018 Secondary NOT GIVENUNK [place] Insurance:SELF PAY [facility] Number: Effective Repository Date:2018-02-09 02/01/2018 DOUGLAS D Primary DOUGLAS D [place] [id number] Insurance:HUMANA GREEGORDOB: Community [place] MEDICARE [facility] [id number] [place] Number: Repository [address]Ksr: 330 [id number] [phone] () Date:6043-21-08Us [address] [address]MS: 02/01/2018 Secondary NOT GIVENUNK [place] Insurance:SELF PAY [facility] Number: Effective Repository Date:2018-02-01 01/25/2018 DOUGLAS D Primary DOUGLAS D [place] [id number] Insurance:HUMANA GREEGORDOB: Community S[employer] MEDICARE [facility] [id number] [place] Number: Repository [address]Gal: 330 [id number] [phone] () Date:9606-12-68Fh [address] [address]WI: 01/25/2018 Secondary NOT GIVENUNK [place] Insurance:SELF PAY [facility] Number: Effective Repository Date:2018-01-25 01/21/2018 DOUGLAS D Primary DOGULAS D [place] [id number] Insurance:HUMANA GREEGORDOB: Community [employer] MEDICARE [facility] [id number] Number: Repository [id number]: 330 [id number] [phone] () Date:8095-41-28Az [address] [address]MH: 01/21/2018 Secondary NOT GIVENUNK [place] Insurance:SELF PAY [facility] Number: Effective Repository Date:2018-01-21 01/14/2018 DOUGLAS D Primary DOUGLAS D [place] [id number] Insurance:HUMANA GREEGORDOB: Community S[place] MEDICARE [facility] [id number] [place] Number: Repository [id number]: (330 [id number] [phone] (HP) Date:1338-11-88Qp [address] [address]TY: 01/14/2018 Secondary NOT GIVENUNK [place] Insurance:SELF PAY [facility] Number: Effective Repository Date:2018-01-06 01/07/2018 DOUGLAS D Primary DOUGLAS D [place] [id number] Insurance:HUMANA GREEGORDOB: Community [employer] MEDICARE [facility] [id number] [place] Number: Repository [address]Pfu: 330 [id number] [phone] (HP) Date:0091-55-01Yc [address]46[address]WP: 01/07/2018 Secondary NOT GIVENUNK [place] Insurance:SELF PAY [facility] Number: Effective Repository Date:2018-01-07 12/29/2017 DOUGLAS D Primary DOUGLAS D [place] [id number] Insurance:HUMANA GREEGORDOB: Community [place] MEDICARE [facility] [id number] [place], [place] Number: Repository [address]Nhi: 330 [id number] [phone] (HP) Date:8282-87-33[place] [address]WP: 12/29/2017 Secondary NOT GIVENUNK [place] Insurance:SELF PAY [facility] Number: Effective Repository Date:2017-12-29 12/24/2017 DOUGLAS D Primary DUOGLAS D [place] [id number] Insurance:HUMANA GREEGORDOB: Community [place] MEDICARE [facility] [id number] [place], [place] Number: Repository [address]Lal: 330 [id number] [phone] (HP) Date:1447-18-70[place] [address]WP: 12/24/2017 Secondary NOT GIVENUNK [place] Insurance:SELF PAY [facility] Number: Effective Repository Date:2017-06-22 12/10/2017 DOUGLAS D Primary DOUGLAS D [place] [id number] Insurance:HUMANA GREEGORDOB: Community SILVER MEDICARE OPoly [id number] [place], [place] Number: Repository [address]Sup: 330 [id number] [phone] () Date:8158-76-29Ek [address] [place] [address]AS: 12/10/2017 Secondary NOT GIVENUNK [place] Insurance:SELF PAY [facility] Number: Effective Repository Date:2017-12-08 11/19/2017 DOUGLAS D Primary DOUGLAS D [place] [id number] Insurance:HUMANA GREEGORDOB: Community S[place] MEDICARE [facility] [id number] Number: Repository 194[address]Vkl: 330 [id number] [phone] () Date:4267-20-66Lp[address] [address]YY: 11/19/2017 Secondary NOT GIVENUNK [place] Insurance:SELF PAY [facility] Number: Effective Repository Date:2017-11-05 10/29/2017 DOUGLAS D Primary DOUGLAS D [place] [id number] Insurance:HUMANA GREEGORDOB: Community [place] MEDICARE [facility] [id number] Number: Repository [address]Soe: 330 [id number] [phone] () Date:7039-13-50Vt [address] [address]LP: 10/29/2017 Secondary NOT GIVENUNK [place] Insurance:SELF PAY [facility] Number: Effective Repository Date:2017-10-02 10/14/2017 DOUGLAS D Primary DOU[place]AS D [place] [id number] Insurance:HUMANA GREEGORDOB: Community S[place] MEDICARE [facility] [id number] [place] Number: Repository [address]Sds: 330 [id number] [phone] (HP) Date:5554-85-44Vy [address] [address]GQ: 10/14/2017 Secondary NOT GIVENUNK [place] Insurance:SELF PAY [facility] Effective Repository Date:2017-10-04 09/30/2017 DOUGLAS D Primary DOUGLAS D [place] [id number] Insurance:HUMANA GREEGORDOB: Community SILVER MEDICARE PPOPolicy [id number] [place] Number: Repository [address]Nsm: 330 [id number] [phone] () Date:3130-36-76Ix [address] [address]IX: 09/30/2017 Secondary NOT GIVENUNK [place] Insurance:SELF PAY [facility] Number: Effective Repository Date:2017-09-04 09/30/2017 DOUGLAS D Primary DOUGLAS D [place] [id number] Insurance:HUMANA GREEGORDOB: Community SILVER MEDICARE [facility] [id number] [place], [place] Number: Repository [address]Cqw: (330 [id number] [phone] (HP) Date:0147-38-29Zc [address] [address]PJ: 09/30/2017 Secondary NOT GIVENUNK [place] Insurance:SELF PAY [facility] Number: Effective Repository Date:2017-09-30 09/30/2017 DOUGLAS D Primary DOUGLAS D [place] [id number] Insurance:HUMANA GREEGORDOB: Community SILVER MEDICARE OPolic [id number] [place], [place] Number: Repository [address]Viq: (330 [id number] [phone] (HP) Date:0548-04-33Ul [address] [address]BV: 09/30/2017 Secondary NOT GIVENUNK [place] Insurance:SELF PAY [facility] Number: Effective Repository Date:2017-08-19 09/09/2017 DOUGLAS D Primary DOUGLAS D [place] [id number] Insurance:HUMANA GREEGORDOB: Community SILVER MEDICARE [facility] [id number] [place] Number: Repository [address]Fpc: 330 [id number] [phone] (HP) Date:3911-87-46Yz [address] [address]OA: 09/09/2017 Secondary NOT GIVENUNK [place] Insurance:SELF PAY [facility] Number: Effective Repository Date:2017-09-09 09/02/2017 DOUGLAS D Primary DOUGLAS D [place] [id number] Insurance:HUMANA GREEGORDOB: Community S[place] MEDICARE [facility] [id number] Memorial Hospital [place] Number: Repository [address]Cbp: 330 [id number] [phone] (HP) Date:9042-64-30Qd [place] 500[address]WP: 09/02/2017 Secondary NOT GIVENUNK [place] Insurance:SELF PAY [facility] Number: Effective Repository Date:2017-08-04 08/21/2017 DOUGLAS D Primary DOUGLAS D [place] [id number] Insurance:HUMANA GREEGORDOB: Community S[place] MEDICARE [facility] [id number] Memorial Hospital [place] Number: Repository [address]Dun: 330 [id number] [phone] (HP) Date:2575-99-21Ue [address] [address]LP: 08/21/2017 Secondary NOT GIVENUNK [place] Insurance:SELF PAY [facility] Number: Effective Repository Date:2017-08-21 08/17/2017 DOUGLAS D Primary DOUGLAS D [place] [id number] Insurance:HUMANA GREEGORDOB: Community [employer] MEDICARE [facility] [id number] Valley Medical [facility] [place] Number: Repository [address]Mln: 330 [id number] [phone] (HP) Date:0477-50-28Ha [address] [address]KQ: 08/17/2017 Secondary NOT GIVENUNK [place] Insurance:SELF PAY [facility] Number: Effective Repository Date:2017-08-17 08/14/2017 DOUGLAS D Primary DOUGLAS D [place] [id number] Insurance:HUMANA GREEGORDOB: Community [employer] MEDICARE [facility] [id number] Number: Repository [address]Dyu: (330 [id number] [phone] (HP) Date:7715-96-29As [address] [address]MR: 08/14/2017 Secondary NOT GIVENUNK [place] Insurance:SELF PAY [facility] Number: Effective Repository Date:2017-08-14 07/22/2017 DOUGLAS D Primary DOUGLAS D [place] [id number] Insurance:HUMANA GREEGORDOB: Community [employer] MEDICARE [facility] [id number] Number: Repository [id number]: 330 [id number] [phone] () Date:2207-45-50Lg [address] [address]FT: 07/22/2017 Secondary NOT GIVENUNK [place] Insurance:SELF PAY [facility] Number: Effective Repository Date:2017-07-05 07/01/2017 DOUGLAS D Primary DOUGLAS D [place] [id number] Insurance:HUMANA GREEGORDOB: Community [employer] MEDICARE [facility] [id number] Number: Repository [address]Fts: 330 [id number] [phone] (HP) Date:4135-71-58Wb [address] [address]BI: 07/01/2017 Secondary NOT GIVENUNK [place] Insurance:SELF PAY [facility] Campus Number: Effective Repository Date:2017-06-04 06/22/2017 DOUGLAS D Primary DOUGLAS D Mert [id number] Insurance:HUMANA GREEGORDOB: Community SILVER MEDICARE [facility] [id number] Number: Repository [id number]: 330 [id number] [phone] () Date:[id number] [address] [address]TU: 06/22/2017 Secondary NOT GIVENUNK Mert Insurance:SELF PAY [facility] Number: Effective Repository Date:2017-06-22 06/10/2017 DOUGLAS D Primary DOUGLAS D [place] [id number] Insurance:HUMANA GREEGORDOB: Community SILVER MEDICARE [facility] [id number] Number: Repository [phone]: 330 [id number] () Date:[id number] [address] [address]DJ: 06/10/2017 Secondary NOT GIVENUNK [place] Insurance:SELF PAY [facility] Number: Effective Repository Date:2017-04-14 05/22/2017 DOUGLAS D Primary DOUGLAS D Mert [id number] Insurance:HUMANA GREEGORDOB: Community SILVER MEDICARE [facility] [id number] Number: Repository [address]Cie: 330 [id number] [phone] () Date:[id number] [address] [address]JU: 05/22/2017 Secondary NOT GIVENUNK [place] Insurance:SELF PAY [facility] Number: Effective Repository Date:2017-03-11 05/20/2017 DOUGLAS D Primary DOUGLAS D [place] [id number] Insurance:HUMANA GREEGORDOB: Community SILVER MEDICARE [facility] [id number] Number: Repository [phone]: 330 [id number] (HP) Date:7982-15-28Td [address] [address]LP: 05/20/2017 Secondary NOT GIVENUNK [place] Insurance:SELF PAY [facility] Rep[facility] Date:2017-05-07 05/06/2017 DOUGLAS D Primary DOUGLAS D [place] [id number] Insurance:HUMANA GREEGORDOB: Community SILVER MEDICARE [facility] [id number] Number: Repository [id number]: 330 [id number] () Date:[id number] [address] [address]RG: 05/06/2017 Secondary NOT GIVENUNK Mert Insurance:SELF PAY [facility] Number: Effective Repository Date:2017-05-04 05/06/2017 DOUGLAS D Primary DOUGLAS D [place] [id number] Insurance:HUMANA GREEGORDOB: Community SILVER MEDICARE [id number] [place] Number[facility] Repository [phone]: 330 [id number] () Date:6577-33-05CQ [address] [address]RW: 05/06/2017 Secondary NOT GIVENUNK Mert Insurance:SELF PAY [facility] Number: Effective Repository Date:2017-04-06 04/29/2017 DOUGLAS D Primary DOUGLAS D [place] [id number] Insurance:HUMANA GREEGORDOB: Community SILVER MEDICARE [id number] [place] Number: Repository [id number]: 330 [id number] () Date:[id number] [address] [address]RT: 04/29/2017 Secondary NOT GIVENUNK [place] Insurance:SELF PAY [facility] Number: Effective Repository Date:2017-04-27
== END ==
PROVIDERS: Family Provider Family Medicine; PCP Family Medicine; Referring Provider Internal Medicine Cardiovascular Disease; Visit Provider Internal Medicine Cardiovascular Disease
DX: I25.10 Atherosclerotic heart disease of native coronary artery without angina pectoris (principal); I27.21 Secondary pulmonary arterial hypertension
CPT/HCPCS: 93306; Q9957; A4216; C8929

== ENCOUNTER → 2018-04-30 06:57 | Outpatient (CLI) | payer MEDICARE, SELFPAY ==
[2018-04-27 08:56] VITALS: BMI 32.4
--- NOTE | 2018-04-30 06:58 | CT_ITS ---
STUDY: CT CHEST WITH CONTRAST REASON FOR EXAM: Male, 77 years old. Lung cancer, status post chemotherapy, restaging RADIATION DOSAGE (If Supplied By Facility): CTDIvol = ( 16.18 ) mGy, DLP = ( 654.15 ) mGycm TECHNIQUE: Transaxial imaging was performed following intravenous administration of 100mL ml of Isovue 300 contrast material. Multiplanar coronal and sagittal images were reformatted. Individualized dose optimization techniques were used for this CT. COMPARISON: 03/03/[address] and 01/18/2018 PET scan FINDINGS: Dual-lead cardiac conduction device is stable. Right chest port is stable. Calcified pulmonary granulomata are stable. There are subpleural emphysematous blebs in the posterolateral right upper lobe. Stable scarring in the lateral lingula and left lower lobe. There is no demonstrated pleural abnormality. Normal heart and pericardium. There are calcifications of the coronary arteries. Precarinal soft tissue mass evident on prior CT (and PET scan) currently measures 1.7 x 1.7 cm (previously measured 2.0 x 2.0 cm). A few other nonspecific, subcentimeter mediastinal lymph nodes are also present. Normal hilar regions. Normal enhanced pulmonary arteries. There is atherosclerotic calcification of the aortic arch, proximal brachiocephalic arteries, and descending thoracic aorta. There are multi-level degenerative changes of the thoracic spine. Stable multilevel thoracic spine compression fractures most conspicuous at T7 and T8. There are old bilateral rib fractures. Right renal cyst is grossly similar. Focal hyperdensity along the left lateral border of the left hepatic lobe on image 108 is new since the prior study, measuring [address]/Chest WITH Contrast IMPRESSION: 1. Since 03/03/2018, favorable change. Decreased size of precarinal mass, currently measuring 1.7 cm 2. 8 mm focal enhancement of the left hepatic lobe, not evident on prior CT. Possibility of enhancing nodule is possible versus artifact of variation and bolus timing. Recommend initial evaluation with ultrasound. 3. Stable chronic changes, as above. Electronically Signed: Jose Rico, MD at 9:30 EST , Service support ,
== END ==
PROVIDERS: Family Provider Family Medicine; PCP Family Medicine; Referring Provider Internal Medicine Medical Oncology; Visit Provider Internal Medicine Medical Oncology
DX: C34.2 Malignant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 lobe, bronchus or lung (principal)
CPT/HCPCS: 71260; Q9967

== ENCOUNTER → 2018-08-12 07:45 | Outpatient (CLI) | payer MEDICARE, SELFPAY ==
[2018-07-27 09:03] VITALS: BMI 33.2
--- NOTE | 2018-08-12 07:47 | CT_ITS ---
STUDY: CT CHEST WITH CONTRAST REASON FOR EXAM: Male, 78 years old. Lung cancer follow-up. Patient was given chemotherapy every 3 weeks. No new problems. RADIATION DOSAGE (If Supplied By Facility): CTDIvol = ( 15.99 ) mGy, DLP = ( 679.17 ) mGycm TECHNIQUE: Transaxial imaging was performed following intravenous administration of 75 mL of Isovue 300. Multiplanar coronal and sagittal images were reformatted. Individualized dose optimization techniques were used for this CT. COMPARISON: CT of the chest dated April 30, 2018. FINDINGS: Patient has left-sided intracardiac pacemaker. There is hyperinflation of the lungs consistent with chronic obstructive lung disease (COPD). There are small lucencies at the lung apices probably related to paraseptal emphysema. There is a densely calcified right middle lobe pulmonary nodule that probably represents a granuloma. There is a left lower lobe pulmonary nodule best seen on axial image #72 measuring approximately 7.8 mm in size. This is new since the previous study. There is no demonstrated pleural abnormality. There is mild cardiac enlargement. There are calcifications of the coronary arteries. There is a larger precarinal lymph node measuring approximately 1.9 cm in greatest dimension. Normal hilar regions. Normal enhanced pulmonary arteries. There is atherosclerotic calcification of the aortic arch with tortuosity and elongation of the aortic arch and descending thoracic aorta. Maximum transverse dimension of the ascending thoracic aorta measures approximately 3.5 cm. There is increased thoracic kyphosis. There are multiple severe compression fractures involving T6 and T7 with vertebral plana appearance. There are moderate compression fractures of T4, T3, T8 and T7. There is deformity of several right-sided ribs apparently related to old rib fractures. There are also old left-sided rib fractures. There are multiple bilateral renal cysts. CT/Chest WITH Contrast IMPRESSION: 1. No CT evidence of acute cardiopulmonary disease. 2. A small left lower lobe pulmonary nodule appears new since the previous study. Unfortunately, metastasis cannot be excluded. 3. Unchanged appearance to mediastinal lymph node. 4. Osteoporosis and multiple compression fractures of thoracic spine and old bilateral rib fractures. Electronically Signed: Autumn Szymanski MD at 11:10 EDT , Service support ,
[2018-08-12] MEDS: 0.9% Saline Lock 10 ML Syringe IV (08:10)
== END ==
PROVIDERS: Family Provider Family Medicine; PCP Family Medicine; Referring Provider Internal Medicine Medical Oncology; Visit Provider Internal Medicine Medical Oncology
DX: C34.2 Malignant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 lobe, bronchus or lung (principal)
CPT/HCPCS: 71260; Q9967; A4216

== ENCOUNTER → 2018-09-17 | Outpatient (CLI) | payer MEDICARE, SELFPAY ==
[2018-09-07 10:36] VITALS: BMI 33.5
--- NOTE | 2018-09-17 08:04 | NM_ITS ---
CLINICAL: 78-year-old male with reported history of primary lung carcinoma with history of bilateral rib pain. WHOLE BODY 99m Tc MDP RADIONUCLIDE BONE SCINTIGRAPHY COMPARISON: CT of the chest report 08/12/2018 FINDINGS: Following the intravenous administration of 26.3 mCi of 99m Tc MDP, whole body bone images reveal: 1. Increased radiopharmaceutical concentration is defined in the right anterolateral sixth-10th ribs, linear in presentation defined in the longitudinal plane. 2. Facilitated tracer concentration is noted in the sixth-eighth thoracic vertebra. 3. An increase in uptake is visualized in the acromioclavicular and sternoclavicular compartments of both shoulders, the bilateral knees, left wrist and right hand. 4. The remaining skeletal structures are scintigraphically unremarkable with normal-appearing renal images and urinary bladder activity identified. Enhanced radiotracer distribution is visualized in the right frontal calvarium and proximity to the frontozygomatic suture most consistent with a normal variant. NM/Bone Scan Whole Body IMPRESSION: 1. The increase in radiopharmaceutical concentration visualized in the right anterolateral sixth-10th ribs and sixth-eighth thoracic vertebra commensurate with trauma-fracture. 2. 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 Electronically Signed: Heber Bardales DO at 23:14 EDT Tel , Service support ,
== END | disposition home or self-care (01) ==
LOC: NM 08:03
PROVIDERS: Family Provider Family Medicine; PCP Family Medicine; Referring Provider Internal Medicine Medical Oncology; Visit Provider Internal Medicine Medical Oncology
DX: C34.2 Malignant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 lobe, bronchus or lung (principal); R07.81 Pleurodynia
CPT/HCPCS: 78306

== ENCOUNTER 2018-10-01 15:58 | Outpatient (RCR) | payer MEDICARE, SELFPAY ==
[2018-09-21 08:56] VITALS: BMI 33.7
[2018-10-01 16:35] LABS: Prothrombin Time (Protime)PT. 22.7 SECONDS (11.7-14.9)
== END 2018-10-01 16:00 | disposition home or self-care (01) ==
LOC: LAB 15:58
PROVIDERS: Family Provider Family Medicine; PCP Family Medicine; Referring Provider Nurse Practitioner Family; Visit Provider Nurse Practitioner Family
DX: Z79.01 Long term (current) use of anticoagulants (principal)
CPT/HCPCS: 36415; 85610

== ENCOUNTER → 2018-10-27 | Outpatient (CLI) | payer MEDICARE, SELFPAY ==
[2018-10-12 08:28] VITALS: BMI 33.6
--- NOTE | 2018-10-27 06:49 | CT_ITS ---
STUDY: CT CHEST WITH CONTRAST REASON FOR EXAM: Male, 78 years old. RADIATION DOSAGE (If Supplied By Facility): CTDIvol = ( 16.57 ) mGy, DLP = ( 745.89 ) mGycm TECHNIQUE: Transaxial imaging was performed following intravenous administration of 75 IV Isovue 300. Individualized dose optimization techniques were used for this CT. COMPARISON: 08/12/2018 FINDINGS: Patient has left-sided intracardiac pacemaker. There is hyperinflation of the lungs consistent with chronic obstructive lung disease (COPD). There are small lucencies at the lung apices probably related to paraseptal emphysema. There is a densely calcified right middle lobe pulmonary nodule that probably represents a granuloma. Previously noted 7.8 mm nodule in the left lower lobe not seen on current study, it likely represented inflammation. Stable diffuse nonspecific bilateral pleural thickening There is mild cardiac enlargement. There are calcifications of the coronary arteries. There is a stable right precarinal lymph node measuring approximately 1.9 cm in greatest dimension. Normal hilar regions. Normal enhanced pulmonary arteries. There is atherosclerotic calcification of the aortic arch with tortuosity and elongation of the aortic arch and descending thoracic aorta. Maximum transverse dimension of the ascending thoracic aorta measures approximately 3.5 cm. There is increased thoracic kyphosis. There are multiple severe compression fractures involving T6 and T7 with vertebral plana appearance. There are moderate compression fractures of T4, T3, T8 and T7. There is deformity of several right-sided ribs apparently related to old rib fractures. There are also old left-sided rib fractures. There are multiple bilateral renal cysts. CT/Chest WITH Contrast IMPRESSION: No significant interval change. There remains underlying emphysema with diffuse interstitial fibrotic changes in both lung deras and nonspecific pleural thickening. Stable calcified granuloma in the right lung base. Previously noted 8 mm noncalcified nodule in the left lower lobe not seen on current study, it likely represented inflammation. Stable 1.9 cm right pretracheal lymph node Extensive degenerative bony changes with multiple old healed rib fractures and multiple stable thoracic compression fractures Electronically Signed: Maxime Loredo MD at 7:48 EDT , Service support ,
[2018-10-27] MEDS: 0.9% Saline Lock 10 ML Syringe IV (07:17)
== END | disposition home or self-care (01) ==
LOC: CT 06:48
PROVIDERS: Family Provider Family Medicine; PCP Family Medicine; Referring Provider Internal Medicine Medical Oncology; Visit Provider Internal Medicine Medical Oncology
DX: C34.2 Malignant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 lobe, bronchus or lung (principal)
CPT/HCPCS: 71260; Q9967; A4216

== ENCOUNTER 2018-11-12 13:54 | Outpatient (RCR) | payer MEDICARE, SELFPAY ==
[2018-09-21 08:56] VITALS: BMI 33.7
[2018-11-02 09:26] VITALS: BMI 33.8
[2018-11-12 14:51] LABS: International Normalized Ratio 2.3
== END 2018-11-12 16:00 | disposition home or self-care (01) ==
LOC: LAB 13:54
PROVIDERS: Family Provider Family Medicine; PCP Family Medicine; Referring Provider Nurse Practitioner Family; Visit Provider Nurse Practitioner Family
DX: Z79.01 Long term (current) use of anticoagulants (principal)
CPT/HCPCS: 36415; 85610

== ENCOUNTER → 2019-01-11 | Outpatient (CLI) | payer MEDICARE, SELFPAY ==
[2018-12-14 09:22] VITALS: BMI 34.9
[2019-01-11 12:25] VITALS: BMI 35.4
--- NOTE | 2019-01-11 13:40 | CT_ITS ---
STUDY: CT CHEST WITH CONTRAST REASON FOR EXAM: Male, 78 years old. Status post treatment for lung cancer. RADIATION DOSAGE (If Supplied By Facility): CTDIvol = ( 16.68 ) mGy, DLP = ( 753.39 ) mGycm TECHNIQUE: Transaxial imaging was performed following intravenous administration of IV Isovue 300 100ml. Individualized dose optimization techniques were used for this CT. COMPARISON: 10/27/2018. FINDINGS: No definite change and no evidence for acute cardiopulmonary disease or malignancy. Again seen is severe COPD with hyperexpansion of the chest and diffuse interstitial septal thickening. Again seen is a calcified granuloma in the right middle lobe. No infiltrates. No effusions. No masses. Normal heart and pericardium. There are calcifications of the coronary arteries. Pacemaker is seen with leads terminating in the right atrium and right ventricle. Stable 1.8 cm precarinal lymph node and no other evidence for adenopathy or mediastinal mass. Normal hilar regions. Normal enhanced pulmonary arteries. There is atherosclerotic calcification of the aortic arch with tortuosity and elongation of the aortic arch and descending thoracic aorta. Degenerative changes throughout the bones. Stable multiple thoracic compression fractures and wedge deformities resulting in focal kyphosis of the midthoracic spine. There is no acute abnormality of the visualized upper abdomen. CT/Chest WITH Contrast IMPRESSION: No change. Continued evidence for COPD. No evidence of acute chest disease or malignancy. Electronically Signed: Wayne Kauffman MD at 22:01 EDT , Service support ,
== END | disposition home or self-care (01) ==
LOC: CT 13:38
PROVIDERS: Family Provider Family Medicine; PCP Family Medicine; Referring Provider Internal Medicine Medical Oncology; Visit Provider Internal Medicine Medical Oncology
DX: C34.91 Malignant neoplasm of unspecified part of right bronchus or lung (principal)
CPT/HCPCS: 71260; Q9967; A4216

== ENCOUNTER 2019-02-21 13:36 | Outpatient (RCR) | payer MEDICARE, SELFPAY ==
[2018-11-23 09:15] VITALS: BMI 34.9
[2019-01-25 09:36] VITALS: BMI 34.9
[2019-02-09 15:26] LABS: International Normalized Ratio 3.7
[2019-02-21 14:54] LABS: International Normalized Ratio 2.7; Prothrombin Time (Protime)PT. 28.5 SECONDS (11.7-14.9)
== END 2019-02-21 18:00 | disposition home or self-care (01) ==
LOC: LAB 13:36
PROVIDERS: Family Provider Family Medicine; PCP Family Medicine; Referring Provider Nurse Practitioner Family; Visit Provider Nurse Practitioner Family
DX: Z79.01 Long term (current) use of anticoagulants (principal)
CPT/HCPCS: 36415; 85610

== ENCOUNTER 2019-04-01 14:19 | Outpatient (RCR) | payer MEDICARE, SELFPAY ==
[2019-02-15 09:26] VITALS: BMI 34.7
[2019-03-08 09:41] VITALS: BMI 34.9
[2019-04-01 15:52] LABS: International Normalized Ratio 3.1
== END 2019-04-01 18:00 | disposition home or self-care (01) ==
LOC: LAB 14:19
PROVIDERS: Family Provider Family Medicine; PCP Family Medicine; Referring Provider Nurse Practitioner Family; Visit Provider Nurse Practitioner Family
DX: Z79.01 Long term (current) use of anticoagulants (principal)
CPT/HCPCS: 36415; 85610

== ENCOUNTER → 2019-04-28 07:45 | Outpatient (CLI) | payer MEDICARE, SELFPAY ==
[2019-04-12 09:35] VITALS: BMI 34.7
--- NOTE | 2019-04-28 07:45 | CT_ITS ---
STUDY: CT CHEST WITH CONTRAST REASON FOR EXAM: Male, 78 years old. Non-small cell lung cancer restaging RADIATION DOSAGE (If Supplied By Facility): CTDIvol = ( 16.59 ) mGy, DLP = ( 672.24 ) mGycm TECHNIQUE: Transaxial imaging was performed following intravenous administration of IV 100mL Isovue-300. Multiplanar coronal and sagittal images were reformatted. Individualized dose optimization techniques were used for this CT. COMPARISON: Comparison is made with prior study dated January 11, 2019. FINDINGS: A left-sided pacemaker is seen. A right-sided portacatheter is present. Hyperinflation. Mild degree of emphysematous changes. Scarring at the right lung apex. Stable increased markings at the lung bases suggest mild scarring. Stable granuloma in the anterior aspect of the right middle lobe. There is no demonstrated pleural abnormality. There are calcifications of the coronary arteries. There are multiple small lymph nodes within the mediastinum, which are normal in size and morphology most compatible with reactive lymph hyperplasia. There is a dominant lymph node in the precarinal space measuring 1.7 cm by 1.4 cm. This is essentially unchanged. Normal hilar regions. Normal enhanced pulmonary arteries. There is atherosclerotic calcification of the aortic arch with tortuosity and elongation of the aortic arch and descending thoracic aorta. There are multi-level degenerative changes of the thoracic spine. Stable compression fractures involving 2 mid dorsal vertebrae. Increased kyphosis. There is no demonstrated abnormality of the visualized upper abdomen. CT/Chest WITH Contrast IMPRESSION: Stable examination. No Amount is seen. Electronically Signed: Michael Hutchins, at 9:04 EST , Service support ,
[2019-04-28 08:46] LABS: Prothrombin Time (Protime)PT. 39.7 SECONDS (11.7-14.9)
== END ==
PROVIDERS: Nurse Practitioner Family; Family Provider Family Medicine; PCP Family Medicine; Referring Provider Internal Medicine Medical Oncology; Visit Provider Internal Medicine Medical Oncology
DX: C34.91 Malignant neoplasm of unspecified part of right bronchus or lung (principal); Z79.01 Long term (current) use of anticoagulants
CPT/HCPCS: 36591; 71260; 85610; Q9967; A4216

== ENCOUNTER 2019-06-02 13:53 | Outpatient (RCR) | payer MEDICARE, SELFPAY ==
[2019-03-08 09:41] VITALS: BMI 34.9
[2019-05-06 12:59] VITALS: BMI 35.5
[2019-05-18 11:11] LABS: International Normalized Ratio 3.2; Prothrombin Time (Protime)PT. 32.9 SECONDS (11.7-14.9)
[2019-05-18 11:34] LABS: AST(SGOT) 17 U/L (15-37); Alanine Aminotransfer ALT/SGPT 31 U/L (16-61); Alkaline Phosphatase 84 U/L (45-117); Cholesterol 122 mg/dL (200); Globulin 3.5 g/dL (2.2-4.2); High Density Lipoprotein 52 mg/dL; Protein, Total 7.5 g/dL (6.4-8.2); Triglycerides 131 mg/dL; Very Low Density Lipoprotein 26 mg/dL (5-40)
[2019-06-02 14:50] LABS: International Normalized Ratio 2.9; Prothrombin Time (Protime)PT. 30.8 SECONDS (11.7-14.9)
== END 2019-06-02 18:00 | disposition home or self-care (01) ==
LOC: LAB 13:53
PROVIDERS: Internal Medicine Cardiovascular Disease; Family Provider Family Medicine; PCP Family Medicine; Referring Provider Nurse Practitioner Family; Visit Provider Nurse Practitioner Family
DX: Z79.01 Long term (current) use of anticoagulants (principal); E78.5 Hyperlipidemia, unspecified
CPT/HCPCS: 36415; 80061; 80076; 85610

== ENCOUNTER 2019-06-23 12:40 | Outpatient (RCR) | payer MEDICARE, SELFPAY ==
[2019-05-24 08:34] VITALS: BMI 35.4
[2019-06-14 08:59] VITALS: BMI 35.0
[2019-06-23 13:28] LABS: International Normalized Ratio 2.7
== END 2019-07-05 08:05 | disposition home or self-care (01) ==
LOC: LAB 12:40
PROVIDERS: Family Provider Family Medicine; PCP Family Medicine; Referring Provider Nurse Practitioner Family; Visit Provider Nurse Practitioner Family
DX: Z79.01 Long term (current) use of anticoagulants (principal)
CPT/HCPCS: 36415; 85610

== ENCOUNTER → 2019-07-21 | Outpatient (CLI) | payer MEDICARE, SELFPAY ==
[2019-07-05 08:35] VITALS: BMI 35.2
--- NOTE | 2019-07-21 07:45 | CT_ITS ---
STUDY: CT CHEST WITH CONTRAST REASON FOR EXAM: Male, 78 years old. LUNG CA CHEMO CHECK, CHEMO EVERY 3 WEEKS, HTN, pacemaker, Power Port, aortic stents, AAA RADIATION DOSAGE (If Supplied By Facility): CTDIvol = ( 17.72 ) mGy, DLP = ( 619.61 ) mGycm TECHNIQUE: Transaxial imaging was performed following intravenous administration of IV 100mL Isovue-300. Individualized dose optimization techniques were used for this CT. COMPARISON: 04/28/2019 FINDINGS: A left-sided pacemaker is seen. A right-sided portacatheter is present. Hyperinflation. Mild degree of emphysematous changes. Scarring at the right lung apex. Stable increased markings at the lung bases suggest mild scarring. Stable granuloma in the anterior aspect of the right middle lobe. There is no demonstrated pleural abnormality. There are calcifications of the coronary arteries. There are multiple small lymph nodes within the mediastinum, which are normal in size and morphology most compatible with reactive lymph hyperplasia. There is a dominant lymph node in the precarinal space measuring 1.7 cm by 1.4 cm. This is essentially unchanged. Normal hilar regions. Normal enhanced pulmonary arteries. There is atherosclerotic calcification of the aortic arch with tortuosity and elongation of the aortic arch and descending thoracic aorta. Mild old compression fractures are noted at T4, T8, T9. Severe compression fractures are noted at T6 and T7 are unchanged since the prior study. Old healed left seventh, eighth, ninth rib fractures. Old healed fractures of the right fourth, fifth, sixth, seventh, eighth, ninth ribs. There is a right renal cyst measures 2.[address]/Chest WITH Contrast IMPRESSION: There is no evidence of metastatic disease or recurrent neoplasm. Electronically Signed: Jose Regan, at 10:33 EDT Tel , Service support ,
[2019-07-21] MEDS: 0.9% Saline Lock 10 ML Syringe IV (08:43)
[2019-07-21 09:10] LABS: International Normalized Ratio 2.5; Prothrombin Time (Protime)PT. 26.7 SECONDS (11.7-14.9)
[2019-07-21 09:35] LABS: AST(SGOT) 15 U/L (15-37); Alanine Aminotransfer ALT/SGPT 21 U/L (16-61); Albumin, Serum 3.6 g/dL (3.2-5.0); Alkaline Phosphatase 76 U/L (45-117); Bilirubin, Direct 0.11 mg/dL (0.00-0.30); Cholesterol 99 mg/dL (200); High Density Lipoprotein 45 mg/dL; Protein, Total 6.6 g/dL (6.4-8.2); Triglycerides 96 mg/dL; Very Low Density Lipoprotein 19 mg/dL (5-40)
== END | disposition home or self-care (01) ==
PROVIDERS: Internal Medicine Cardiovascular Disease; PCP Family Medicine; Referring Provider Internal Medicine Medical Oncology; Visit Provider Internal Medicine Medical Oncology
DX: C34.90 Malignant neoplasm of unspecified part of unspecified bronchus or lung (principal); E78.5 Hyperlipidemia, unspecified; Z79.01 Long term (current) use of anticoagulants
CPT/HCPCS: 36591; 71260; 80061; 80076; 85610; Q9967

== ENCOUNTER 2019-09-16 12:49 | Outpatient (RCR) | payer MEDICARE, SELFPAY ==
[2019-07-05 08:35] VITALS: BMI 35.2
[2019-09-06 09:24] VITALS: BMI 35.6
[2019-09-16 13:43] LABS: International Normalized Ratio 2.4
[2019-09-16 14:03] LABS: Vitamin D,25 Hydroxy 45.2 ng/mL
== END 2019-09-16 18:00 | disposition home or self-care (01) ==
LOC: LAB 12:49
PROVIDERS: Internal Medicine Endocrinology, Diabetes & Metabolism; Family Provider Family Medicine; PCP Family Medicine; Referring Provider Nurse Practitioner Family; Visit Provider Nurse Practitioner Family
DX: I48.20 Chronic atrial fibrillation, unspecified (principal); Z79.01 Long term (current) use of anticoagulants; E55.9 Vitamin D deficiency, unspecified
CPT/HCPCS: 36415; 82306; 85610

== ENCOUNTER → 2019-11-01 | Outpatient (CLI) | payer MEDICARE, SELFPAY ==
[2019-10-18 09:41] VITALS: BMI 35.9
--- NOTE | 2019-11-01 13:08 | CT_ITS ---
STUDY: CT CHEST WITH CONTRAST REASON FOR EXAM: Male, 79 years old. LUNG CANCER F/U, CHEMO THERAPY RADIATION DOSAGE (If Supplied By Facility): CTDIvol = ( 10.85 ) mGy, DLP = ( 722.88 ) mGycm TECHNIQUE: Transaxial imaging was performed following intravenous administration of IV 100ML ISOVUE 300. Multiplanar coronal and sagittal images were reformatted. Individualized dose optimization techniques were used for this CT. COMPARISON: Including July 21, 2019 FINDINGS: Port on the right extends to the superior vena cava. There is dual-chamber pacemaker device on the left. There is mild to moderate diffuse interstitial accentuation of the lungs. There is granuloma in the right middle lobe. There is right pleural thickening. There are calcifications of the coronary arteries. There is mild cardiac enlargement. Stable mediastinal lymph nodes measuring 2.0 cm in the right lower paratracheal region and 1.0 cm in the upper mediastinum. Normal hilar regions. Normal enhanced pulmonary arteries. There is atherosclerotic calcification of the aortic arch with tortuosity and elongation of the aortic arch and descending thoracic aorta. There is an increased kyphosis of the thoracic spine. There is degenerative change of the thoracic spine with compression fractures of T6 and T7. There are healed bilateral rib fractures. There is no demonstrated abnormality of the visualized upper abdomen. CT/Chest WITH Contrast IMPRESSION: Fibrotic densities. Right middle lobe granuloma. Stable mediastinal lymph nodes. No new mass. Electronically Signed: Mohamud Milian MD at 21:06 EDT , Service support ,
== END | disposition home or self-care (01) ==
LOC: CT 13:08
PROVIDERS: PCP Family Medicine; Referring Provider Internal Medicine Medical Oncology; Visit Provider Internal Medicine Medical Oncology
DX: C34.91 Malignant neoplasm of unspecified part of right bronchus or lung (principal)
CPT/HCPCS: 71260; Q9967

== ENCOUNTER → 2019-12-02 | Outpatient (CLI) | payer MEDICARE, SELFPAY ==
[2019-11-17 14:00] VITALS: BMI 35.5
[2019-11-29 09:30] VITALS: BMI 35.5
--- NOTE | 2019-12-02 09:47 | ECHOCS_ITS ---
Reason For Study: PHTN Procedure This was a 2D Doppler, Color Flow transthoracic echocardiogram. Technicaly difficult study due to patients body habitus. Contrast injection performed. Exam performed in department. Left Ventricle Mildly dilated left ventricle. Moderate eccentric left ventricular hypertrophy. The estimated ejection fraction is 45-50 %. Unable to assess diastolic dysfunction due to arrhythmia. Paced septal motion. Mid-Anterior : Mildly hypokinetic. Mid-anteroseptal : Mildly hypokinetic. Anterior [place] : Akinetic. Right Ventricle Normal size and thickness. ICD or pacer leads identified within the right ventricle. Normal systolic function. Atria The left atrium is moderately enlarged. The right atrium is mildly enlarged. Normal atrial septum. Mitral Valve The mitral valve is structurally normal. No prolapse or stenosis seen. Trivial mitral valve insufficiency. Tricuspid Valve Normal tricuspid valve. Trivial tricuspid valve insufficiency. Right ventricular systolic pressure estimated to be 33 mmHg. Aortic Valve Trisinus/trileaflet aortic valve. Pulmonic Valve The pulmonic valve is not well visualized. Great Vessels Normal aortic root. Normal arch. Normal inferior vena cava. Inferior vena cava collapse with sniff. Pericardium/Pleural No pericardial effusion. Medication 22 gauge I.V. with prn adaptor inserted into right arm. Diluted definity 3ml given slow IV push to enhance endocardial definition. MMode/2D Measurements & Calculations LVIDd: 5.1 cm IVSd: 1.6 cm Ao root diam: 3.2 cm LVIDs: 3.6 cm LVPWd: 1.3 cm LA dimension: 3.9 cm FS: 28.9 % LAV(MOD-sp4): 82.7 ml LA A4 area: 25.5 cm2 RA A4 area: 20.6 cm2 Time Measurements MV dec time: 0.21 sec Doppler Measurements & Calculations MV E max elias: 87.9 cm/sec Lat Peak E' Elias: 9.0 cm/sec Med Peak E' Elias: 6.8 cm/sec MV A max elias: 25.3 cm/sec E/E' lat: 9.7 E/E' med: 13.0 MV E/A: 3.5 MV V2 max: 107.2 cm/sec MV P1/2t max elias: 104.9 cm/sec Ao V2 max: 132.0 cm/sec MV max P.6 mmHg MV P1/2t: 96.6 msec Ao max P.0 mmHg MV V2 mean: 54.8 cm/sec MV dec slope: 318.3 cm/sec2 Ao V2 mean: 84.1 cm/sec MV mean P.5 mmHg Ao mean P.3 mmHg MV V2 VTI: 28.4 cm MVA(P1/2t): 2.3 cm2 Ao V2 VTI: 22.8 cm LV V1 max: 89.8 cm/sec MR max elias: 519.2 cm/sec PA V2 max: 88.6 cm/sec LV V1 max P.2 mmHg MR max P.8 mmHg LV V1 mean P.5 mmHg MR mean elias: 382.1 cm/sec LV V1 mean: 56.6 cm/sec MR mean P.2 mmHg LV V1 VTI: 16.1 cm MR VTI: 169.9 cm TR max elias: 265.8 cm/sec TR max P.3 mmHg Interpretation Summary Mildly dilated left ventricle. Moderate eccentric left ventricular hypertrophy. The estimated ejection fraction is 45-50 %. Unable to assess diastolic dysfunction due to arrhythmia. The left atrium is moderately enlarged. Trivial mitral valve insufficiency. Trivial tricuspid valve insufficiency. Right ventricular systolic pressure estimated to be 33 mmHg. Compared to echo report dated 03/23/2018, no appreciable changes noted. The study was technically difficult. Contrast injection was performed. Ordering Physician: Flash Rodriguez Referring Physician: Niko Sampson Performed By: Dane Jaffe RCS
[2019-12-02 12:19] LABS: AST(SGOT) 16 U/L (15-37); Alanine Aminotransfer ALT/SGPT 25 U/L (16-61); Albumin, Serum 3.9 g/dL (3.2-5.0); Alkaline Phosphatase 75 U/L (45-117); Bilirubin, Direct 0.21 mg/dL (0.00-0.30); Cholesterol 107 mg/dL (200); Globulin 3.3 g/dL (2.2-4.2); High Density Lipoprotein 50 mg/dL; Protein, Total 7.2 g/dL (6.4-8.2); Triglycerides 129 mg/dL; Very Low Density Lipoprotein 26 mg/dL (5-40)
== END | disposition home or self-care (01) ==
PROVIDERS: PCP Family Medicine; Referring Provider Internal Medicine Cardiovascular Disease; Visit Provider Internal Medicine Cardiovascular Disease
DX: E78.5 Hyperlipidemia, unspecified (principal); I27.20 Pulmonary hypertension, unspecified; R60.0 Localized edema
CPT/HCPCS: 36415; 80061; 80076; 93306; Q9957; A4216; C8929

== ENCOUNTER 2019-12-28 12:06 | Outpatient (RCR) | payer MEDICARE, SELFPAY ==
[2019-09-27 09:27] VITALS: BMI 35.6
[2019-12-20 12:43] VITALS: BMI 35.3
[2019-12-28 12:57] LABS: International Normalized Ratio 4.2
== END 2019-12-28 18:00 | disposition home or self-care (01) ==
LOC: LAB 12:06
PROVIDERS: Internal Medicine Cardiovascular Disease; Family Provider Family Medicine; PCP Family Medicine; Referring Provider Nurse Practitioner Family; Visit Provider Nurse Practitioner Family
DX: I48.20 Chronic atrial fibrillation, unspecified (principal); Z79.01 Long term (current) use of anticoagulants
CPT/HCPCS: 36415; 85610

== ENCOUNTER 2020-01-05 14:12 | Outpatient (RCR) | payer MEDICARE, SELFPAY ==
[2019-12-20 12:43] VITALS: BMI 35.3
[2020-01-05 17:15] LABS: International Normalized Ratio 2.3; Prothrombin Time (Protime)PT. 24.7 SECONDS (11.7-14.9)
== END 2020-01-05 18:00 | disposition home or self-care (01) ==
LOC: LAB 14:12
PROVIDERS: Family Provider Family Medicine; PCP Family Medicine; Referring Provider Nurse Practitioner Family; Visit Provider Nurse Practitioner Family
DX: I48.20 Chronic atrial fibrillation, unspecified (principal); Z79.01 Long term (current) use of anticoagulants
CPT/HCPCS: 36415; 85610

== ENCOUNTER → 2020-02-16 07:56 | Outpatient (CLI) | payer MEDICARE, SELFPAY ==
[2020-01-31 09:37] VITALS: BMI 34.9
--- NOTE | 2020-02-16 07:56 | CT_ITS ---
STUDY: CT ABDOMEN WITH CONTRAST REASON FOR EXAM: Male, 79 years old. LUNG CANCER FOLLOW UP RADIATION DOSAGE (If Supplied By Facility): CTDIvol = ( 22.28 ) mGy, DLP = ( 1681.42 ) mGycm TECHNIQUE: Transaxial images were obtained post I.V. administration of IV 100mL Isovue-370, and without oral contrast. Sagittal and coronal images were reconstructed. Individualized dose optimization techniques were used for this CT. COMPARISON: Comparison is made with prior study dated 08/11/2016. FINDINGS: Stable mild degree of pleural thickening at the right lung base with mild scarring. Calcified granuloma in the anterior aspect of the right lower lobe. A dual-chamber pacemaker is seen. Normal liver. Normal gallbladder and extrahepatic biliary system. There is a benign calcified granuloma of the spleen. Normal pancreas. There is a small, circumscribed, smooth, low attenuation left adrenal mass, consistent with an adrenal adenoma. This is unchanged. Normal right adrenal gland. Multiple bilateral renal cysts. The largest cyst is in the lower pole of the left kidney and measures 4.5 cm x 4.2 cm. Diffuse bilateral cortical thinning. Normal visualized stomach. Normal small intestine. Normal colon. The appendix is visualized and appears normal. There is diffuse atherosclerotic calcification of the abdominal aorta. Infrarenal abdominal aortic aneurysm with a transverse dimension of 4.5 cm. An endoluminal stent graft is seen within the aneurysm. The distal limbs of the graft are within the common iliac arteries bilaterally.Normal inferior vena cava. Normal retroperitoneum. There is a small umbilical hernia containing fat. Demineralization of the lumbar vertebrae. CT/Abdomen WITH IV Contrast IMPRESSION: Stable examination. Electronically Signed: Michael Hutchins, at 9:19 EST , Service support ,
--- NOTE | 2020-02-16 07:56 | CT_ITS ---
STUDY: CT CHEST WITH CONTRAST REASON FOR EXAM: Male, 79 years old. LUNG CANCER FOLLOW UP FOR TREATMENT RADIATION DOSAGE (If Supplied By Facility): CTDIvol = ( 22.28 ) mGy, DLP = ( 1681.42 ) mGycm TECHNIQUE: Transaxial imaging was performed following intravenous administration of IV 100mL Isovue-370. Multiplanar coronal and sagittal images were reformatted. Individualized dose optimization techniques were used for this CT. COMPARISON: Comparison is made with prior study dated 11/01/2019. FINDINGS: A left-sided portacatheter is seen with the tip in the superior vena cava. Stable mild thickening of the right major fissure. Stable mild increased linear markings at the lung bases suggestive of scarring. Stable calcified granuloma in the anterior aspect of the right middle lobe. There is no demonstrated pleural abnormality. There are calcifications of the coronary arteries. There are multiple small lymph nodes within the mediastinum, which are normal in size and morphology most compatible with reactive lymph hyperplasia. Stable 1.9 cm lymph node in the lower right paratracheal region. Normal hilar regions. Normal enhanced pulmonary arteries. Normal aorta arch and descending thoracic aorta. There is an increased kyphosis of the thoracic spine. Stable almost complete collapse of the T6 and T7 vertebrae. There is no demonstrated abnormality of the visualized upper abdomen. CT/Chest WITH Contrast IMPRESSION: Stable examination. Electronically Signed: Michael Hutchins, at 9:35 EST , Service support ,
[2020-02-16] MEDS: 0.9% Saline Lock 10 ML Syringe IV (08:20)
== END ==
PROVIDERS: PCP Family Medicine; Referring Provider Internal Medicine Medical Oncology; Visit Provider Internal Medicine Medical Oncology
DX: C34.91 Malignant neoplasm of unspecified part of right bronchus or lung (principal)
CPT/HCPCS: 71260; 74160; Q9967; A4216

== ENCOUNTER 2020-03-02 12:29 | Outpatient (RCR) | payer MEDICARE, SELFPAY ==
[2020-01-31 09:37] VITALS: BMI 34.9
[2020-02-21 09:27] VITALS: BMI 34.6
[2020-03-02 14:30] LABS: International Normalized Ratio 2.5; Prothrombin Time (Protime)PT. 26.8 SECONDS (11.7-14.9)
== END 2020-03-02 18:00 | disposition home or self-care (01) ==
LOC: LAB 12:29
PROVIDERS: Family Provider Family Medicine; PCP Family Medicine; Referring Provider Nurse Practitioner Family; Visit Provider Nurse Practitioner Family
DX: I48.20 Chronic atrial fibrillation, unspecified (principal); Z79.01 Long term (current) use of anticoagulants
CPT/HCPCS: 36415; 85610

== ENCOUNTER 2020-03-13 13:43 | Inpatient (IN) | payer MEDICARE, SELFPAY ==
[2020-02-21 09:27] VITALS: BMI 34.6
[2020-03-13] VITALS (13 sets, daily range): BP systolic 96–169; BP diastolic 62–100; PULSE 67–80; RESP 20–25; TEMP 36.3–37; O2SAT 85–96; BMI 34.9; BMI 33.3; BMI 33.4
--- NOTE | 2020-03-13 14:06 | EKG12_ITS ---
Test Reason : SOB Blood Pressure : / mmHG Vent. Rate : 070 BPM Atrial Rate : 041 BPM P-R Int : 000 ms QRS Dur : 174 ms QT Int : 480 ms P-R-T Axes : 000 -62 098 degrees QTc Int : 518 ms Poor data quality, interpretation may be adversely affected Ventricular-paced rhythm Abnormal ECG Confirmed by SILVANA KIDD, TOMASZ ([id number]), newspaper copy editor RUFINO STEINBERG ([id number]) on 03/26/2020 8:35:19 AM Referred By: MAGGIE Confirmed By:PABLITO PINA MD
--- NOTE | 2020-03-13 14:07 | VDLE_ITS ---
Reason For Study: SOB, Swelling RIGHT CFV, FV, POP V, T/P Trunk, PTV, Peroneal V, and GSV are all compressible. Procedure This is a venous duplex using B-mode, color flow and spectral Doppler. Exam performed portable in ED. The exam was abbreviated due to the COVID 19 protocol. The exam was diagnostic. A preliminary report was called and/or faxed to Dr. Bruce. Interpretation Summary There is no evidence of right lower extremity deep vein thrombosis. Right great saphenous vein appears patent and compressible segmentally. Abbreviated COVID-19 protocol Ordering Physician: Nelson Bruce Performed By: Harry Moore RVT
--- NOTE | 2020-03-13 14:08 | ED.VIS.GEN ---
History of Present Illness Chief Complaint: Shortness of Breath Informant: Patient, Family Limited by: Coma Narrative: 79-year-old male with history of non-small cell carcinoma stage IV, systolic heart failure, peripheral vascular disease, hyperlipidemia presenting with unilateral leg swelling which is new. He states he went to Dr. Sam[facility] oncologist and was told to come to the ER due to the swelling and he felt that he was in heart failure. He states he is on Keytruda for his cancer Patient states he has no chest pain. He is stating that he is short of breath and this is worse with exertion. Patient also states that he had bilateral conjunctivitis and was on polymyxin and he started to get resolution however he notes he still has some slight eye drainage bilaterally. Prior similar symptoms: Yes Recent Illness/Hospitalization: No - Past Medical History (1) Non-small cell carcinoma of right lung, stage 4 Status: Chronic (2) Toxic encephalopathy Status: Inactive (3) Bilateral lower extremity edema Status: Chronic Past Medical History - Allergies and Home Meds Allergies/Adverse Reactions: Allergies morphine Adverse Reaction (Severe, Verified 02/21/20 09:27) HALLUCINATIONS amiodarone Adverse Reaction (Unknown, Verified 02/21/20 09:27) Unknown cannot remember Prior records reviewed: Yes Past Medical History: - - Reviewed in problem list Surgical History: - Lives: Spouse/ Significant Other Smoking Status: Former smoker Alcohol: None Drugs: None - Family History Maternal Family History: Family History (Last Reviewed 03/13/20 @ 20:[address] Ian Muñoz MD) Mother Hypertension CAD (coronary artery disease) Myocardial infarction Brother Sudden cardiac Brother Sudden cardiac CAD (coronary artery disease) Family History: Reports: No pertinent history Additional Family History: Unable to obtain family history as the patient is confused at this time. Review of Systems General: Denies: Chills, Fever, Sweats Eyes: Reports: - - Drainage in bilateral lower eyelids Cardiovascular: Denies: Chest pain, Palpitations Respiratory: Reports: Dyspnea, Dyspnea on exertion. Denies: Cough Gastrointestinal: Denies: Abdominal pain, Nausea, Vomiting Genitourinary: Denies: Dysuria, Hematuria Musculoskeletal: Reports: Swelling - Right lower extremity. Denies: Myalgias, Arthralgias Skin: Denies: Rash, Abscess Neurological: Denies: Headache Psych: Denies: Depression, Anxiety Physical Exam Vital Signs/Narrative: Vital Signs Temp Pulse Resp BP Pulse Ox 03/13/20 13:43 98.6 F 67 22 H 161/62 H 89 Inital Vital Signs reviewed: Yes General: Well nourished, No Acute Distress, - - Patient hypoxic at rest to 85% and slightly tachypneic Eyes: Perrl, EOMI, - - Drainage of the bilateral lower eyelids. ENT: Moist mucous membranes, No rhinorrhea Cardiovascular: Regular rate, Regular rhythm Respiratory: No distress, CTA bilaterally, Chest nontender Abdomen: Soft, Nontender Extremities: Edema - Right lower extremity, Calf Tenderness - Right lower extremity, - Skin: Negative for: Normal color, No rash, Cyanosis Neurological: Alert, Oriented x3 Psychological: Normal affect, Normal Mood Diagnostic/Tx/Re-eval Clinical Impression(s) from Imaging Studies Chest X-Ray 03/13/20 15:05 IMPRESSION: Cardiomegaly and a mild degree of CHF. Electronically Signed: Michael Cuong, at 15:17 EST , Service support , Laboratory Data 03/13/20 03/13/20 03/13/20 14:10 14:10 14:10 WBC 9.5 RBC 3.98 L Hgb 9.6 L Hct 34.6 L MCV 86.9 MCH 24.1 L MCHC 27.7 L RDW Std Deviation 59.2 H RDW Coeff of Óscar 18.7 H Plt Count 247 MPV 8.5 Immature Gran % (Auto) 0.800 Neut % (Auto) 85.7 H Lymph % (Auto) 3.3 L [place] % (Auto) 9.9 Eos % (Auto) 0.1 Baso % (Auto) 0.2 Absolute Neuts (auto) 8.2 H Absolute Lymphs (auto) 0.31 L Nucleated RBC % 0 Sodium 144 Potassium 3.2 L Chloride 109 H Carbon Dioxide 26.0 Anion Gap 9 BUN 21 H Creatinine 1.20 Estim Creat Clear Calc 47.43 Est GFR (MDRD) Af Amer 75 Est GFR (MDRD) Non-Af 62 BUN/Creatinine Ratio 17.5 Glucose 94 Lactic Acid Calcium 9.2 Total Bilirubin 0.90 AST 11 L ALT 19 Alkaline Phosphatase 89 Troponin I 0.052 H B-Natriuretic Peptide 265.9 H Total Protein 6.9 Albumin 3.6 Globulin 3.3 Albumin/Globulin Ratio 1.1 Procalcitonin 03/13/20 03/13/20 14:10 14:55 WBC RBC Hgb Hct MCV MCH MCHC RDW Std Deviation RDW Coeff of Óscar Plt Count MPV Immature Gran % (Auto) Neut % (Auto) Lymph % (Auto) [place] % (Auto) Eos % (Auto) Baso % (Auto) Absolute Neuts (auto) Absolute Lymphs (auto) Nucleated RBC % Sodium Potassium Chloride Carbon Dioxide Anion Gap BUN Creatinine Estim Creat Clear Calc Est GFR (MDRD) Af Amer Est GFR (MDRD) Non-Af BUN/Creatinine Ratio Glucose Lactic Acid 2.3 H* Calcium Total Bilirubin AST ALT Alkaline Phosphatase Troponin I B-Natriuretic Peptide Total Protein Albumin Globulin Albumin/Globulin Ratio Procalcitonin 0.14 H - EKG Initial EKG Interpretation: Paced - 70 bpm - Medical Decision Making 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 He has hypoxic at 85% on room air and required 4 L to maintain sats in the 90s. He denies any chest pain but does admit to shortness of breath especially on exertion. Patient also admits to some eye drainage and believes he needs more antibiotics for his Raynaud's although his conjunctiva and sclera appear clear he does have some white drainage in the bilateral eyes. EKG is paced at 70 bpm without signs of ischemic change. Troponin is 0.052. BNP 265. Chest x-ray consistent with CHF with cardiomegaly. Patient was given 40 mg of Lasix. In addition to this it was noted that the patient's hemoglobin had slightly trended down. Looking through the medical record he does appear to take Coumadin although on initial evaluation he states he did not take any blood thinners. His NR is above 4. I did do a Hemoccult stool which is positive in his stool was brown. Likely just need to hold his Coumadin at this point. Type and screen was ordered. Patient last was 2.3. Patient was tested for Covid and this is negative. Given patient's hypoxia and findings of CHF he will be admitted treatment. Impression: 1. Hypoxia 2. CHF 3. Coumadin coagulopathy 4. GI bleed ED Disposition - Plan for ED Patient: Disposition: [facility]
[2020-03-13 14:32] LABS: Absolute Lymphocyte Count 0.31 X10^3/uL (0.83-4.51); Absolute Neutrophil Count 8.2 X10^3/uL (2.0-7.7); Basophil# 0.02 X10^3/uL; Basophil% 0.2 % (0-1); Eosinophil# 0.01 X10^3/uL; Eosinophils% 0.1 % (0-5); Hematocrit 34.6 % (40-54); Hemoglobin 9.6 g/dL (13.0-16.5); Lymphocyte # 0.31 X10^3/ul (4.0); Lymphocyte % 3.3 % (19-41); Mean Corp Hgb Conc 27.7 g/dL (32-36); Mean Corpuscular Hgb 24.1 pg (27.0-32.0); Mean Corpuscular Volume 86.9 fL (80-94); Mean Platelet Vol. 8.5 fl (6.2-12.0); Monocyte# 0.94 X10^3/uL; Monocyte% 9.9 % (0-10); NRBC Flagged by Analyzer 0 % (0-5); Neutrophil # 8.15 X10^3/uL (2.7-7.7); Neutrophil % 85.7 % (47-70); POSITIVE DIFFERENTIAL YES; Platelet Count 247 K/mm3 (150-450); RBC Distribution Width CV 18.7 % (11.6-14.6); RBC Distribution Width SD 59.2 fl (35.1-43.9); Red Blood Count 3.98 M/mm3 (4.6-6.2); White Blood Count 9.5 K/mm3 (4.4-11.0)
[2020-03-13 14:42] LABS: Differential Indicated SCAN CRITERIA MET
[2020-03-13 14:57] LABS: Procalcitonin 0.14 ng/mL (0.00-0.09)
[2020-03-13 14:58] LABS: BNP,B-Type NATRIURETIC PEPTIDE 265.9 pg/mL (0-100)
[2020-03-13 15:01] LABS: ALB/GLOB Ratio 1.1 RATIO (0.9-2.4); AST(SGOT) 11 U/L (15-37); Alanine Aminotransfer ALT/SGPT 19 U/L (16-61); Albumin, Serum 3.6 g/dL (3.2-5.0); Alkaline Phosphatase 89 U/L (45-117); Anion Gap 9 (5-15); BUN 21 mg/dL (7-18); BUN/Creat Ratio 17.5 RATIO (10-20); Calcium,Total 9.2 mg/dL (8.5-10.1); Chloride 109 mmol/L (98-107); EST Glomerular Filtration Rate 62 mL/min (>60); Est Glom Filt Rate - Afr Amer 75 mL/min (>60); Estimated Creatinine Clearance 47.43 ml/min; Globulin 3.3 g/dL (2.2-4.2); Glucose 94 mg/dL (74-106); Potassium 3.2 mmol/L (3.5-5.1); Protein, Total 6.9 g/dL (6.4-8.2); Sodium Level 144 mmol/L (136-145)
--- NOTE | 2020-03-13 15:05 | RAD_ITS ---
STUDY: X-RAY CHEST REASON FOR EXAM: Male, 79 years old. INCREASED SOB, LOWER EXTREMITY EDEMA. TECHNIQUE: Single AP portable view of the chest. COMPARISON: Comparison is made with prior study dated 12/01/2016. FINDINGS: EKG electrodes are seen. A right-sided portacatheter is seen with the tip in the proximal portion of the superior vena cava. There is evidence of vascular congestion and mild degree of CHF. There is no demonstrated pleural abnormality. There is mild cardiac enlargement. A left-sided dual-chamber pacemaker is seen. Normal mediastinum and su. Normal visualized pulmonary arteries. There is atherosclerotic calcification of the aortic arch with tortuosity. Normal visualized thoracic spine. Normal visualized ribs, clavicles, and shoulders. There is no demonstrated abnormality of the visualized soft tissue structures of the upper abdomen. RAD/Chest 1 View (Portable) IMPRESSION: Cardiomegaly and a mild degree of CHF. Electronically Signed: Michael Hutchins, at 15:17 EST , Service support ,
[2020-03-13 16:16] LABS: Lactic Acid 2.3 mmol/L (0.4-1.9)
[2020-03-13 17:38] LABS: Prothrombin Time (Protime)PT. 44.6 SECONDS (11.7-14.9)
[2020-03-13 18:04] LABS: International Normalized Ratio 4.8
[2020-03-13] MEDS: Furosemide 40 MG/4 ML Vial IV (18:42)
[2020-03-13 19:19] LABS: Reflex Lactate? Y
--- NOTE | 2020-03-13 20:24 | PCM.HP.STD ---
Problem List (1) Non-small cell carcinoma of right lung, stage 4 Status: Chronic (2) Adenocarcinoma of lung, stage 3 Status: Chronic Comment: stage 3b (3) Bilateral lower extremity edema Status: Chronic (4) Hypoalbuminemia due to protein-calorie malnutrition Status: Chronic (5) Other specified peripheral vascular diseases Status: Chronic (6) Venous insufficiency Status: Chronic (7) Malnutrition Status: Chronic (8) Ischemic ulcer of leg Status: Chronic (9) Pressure ulcer of left foot, unstageable Status: Chronic (10) Chronic ulcer of left foot with fat layer exposed Status: Chronic (11) Hyperparathyroidism Status: Chronic (12) Secondary pulmonary arterial hypertension Status: Chronic (13) H/O endovascular stent graft for abdominal aortic aneurysm Status: Chronic Comment: Infrarenal abdominal aortic stent graft repair (14) History of coronary artery stent placement Status: Chronic Comment: cutting balloon-assisted stenting of the proximal left anterior descending w/ 3.0 x 12 mm w/ POBA-D1 (15) AAA (abdominal aortic aneurysm) Status: Chronic (16) Atrial flutter Status: Chronic (17) Atherosclerotic heart disease of [place] coronary artery without angina pectoris Status: Chronic (18) Hyperthyroidism Status: Chronic (19) Chronic systolic congestive heart failure Status: Chronic (20) Pleural effusion Status: Chronic (21) PVD (peripheral vascular disease) Status: Chronic (22) Chronic atrial fibrillation Status: Chronic (23) Cardiomyopathy, ischemic Status: Chronic (24) Atrioventricular block, complete Status: Chronic (25) Presence of cardiac pacemaker Status: Chronic Comment: AV junctional ablation 09/08 with subsequent pacemaker placement; gen change 07/09/2015 (26) Hyperlipidemia Status: Chronic Qualifiers: Hyperlipidemia type: unspecified Qualified Code(s): E78.5 - Hyperlipidemia, unspecified (27) Hypertension Status: Chronic Qualifiers: Hypertension type: essential hypertension Qualified Code(s): I10 - Essential (primary) hypertension (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 The patient is a 79 year old M with a significant history of heart failure with reduced ejection fraction syncopal asthma A. fib; permanent pacemaker; non-small cell lung cancer who presents emergency department with shortness of breath. He shortness of breath has been going on for 1 week. Is been getting progressively worse. Associated with symptoms is orthopnea. Failure patient has right leg swelling. On the day of presentation patient actually went to see his PCP because of bilateral conjunctivitis that was not going away even though he has been on polymyxin. However his PCP was more concerned that patient may be in heart failure so patient was sent to the emergency department. His Covid screen at emergency department was negative. Also labwork at the ED showed anemia at the emergency department. Per ED doc patient had brown stool at the emergency department which was positive for occult stools. Patient reports recent black stool that he attributes to taking Pepto-Bismol. Past Medical History Past Medical History (Chronic Problems): Chronic Problems (Last Reviewed 03/13/20 @ 23:[address] 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) Hyperparathyroidism (Chronic) Secondary pulmonary arterial hypertension (Chronic) H/O endovascular stent graft for abdominal aortic aneurysm (Chronic) Infrarenal abdominal aortic stent graft repair History of coronary artery stent placement (Chronic 03/01/01) cutting balloon-assisted stenting of the proximal left anterior descending w/ 3.0 x 12 mm w/ POBA-D1 AAA (abdominal aortic aneurysm) (Chronic) Atrial flutter (Chronic) Atherosclerotic heart disease of [place] coronary artery without angina pectoris (Chronic) Hyperthyroidism (Chronic) Chronic systolic congestive heart failure (Chronic) Pleural effusion (Chronic) PVD (peripheral vascular disease) (Chronic) Chronic atrial fibrillation (Chronic) Cardiomyopathy, ischemic (Chronic) Atrioventricular block, 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) AV junctional ablation 09/08 with subsequent pacemaker placement; gen change 07/09/2015 Hyperlipidemia (Chronic) Hypertension (Chronic) 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 Ian Muñoz MD) Fatigue (Inactive) R53.83 Diarrhea (Inactive) R19.7 Cough (Inactive) R05 Secondary pulmonary arterial hypertension (Chronic) I27.21 AAA (abdominal aortic aneurysm) (Chronic) I71.4 Atrial flutter (Chronic) I48.92 Atherosclerotic heart disease of [place] coronary artery without angina pectoris (Chronic) I25.10 Hyperthyroidism (Chronic) E05.90 Chronic systolic congestive heart failure (Chronic) I50.22 Pleural effusion (Chronic) J90 PVD (peripheral vascular disease) (Chronic) I73.9 Chronic atrial fibrillation (Chronic) I48.2 Cardiomyopathy, ischemic (Chronic) I25.5 Atrioventricular block, complete (Chronic) I44.2 Hyperlipidemia (Chronic) E78.5 Hypertension (Chronic) I10 rodent exterminator (current) use of anticoagulants (Chronic) Z79.01 Idiopathic parathyroidism E20.9 Perforated ulcer K27.5 RIGHT FOOT ULCER DEBRIDEMENT DR RUBIO 01/16/17 s/p apll Onset Date: 03/10/17 Allergies morphine Adverse Reaction (Severe, Verified 02/21/20 09:27) HALLUCINATIONS amiodarone Adverse Reaction (Unknown, Verified 02/21/20 09:27) Unknown cannot remember Home Medications: Ambulatory Orders Medication Instructions Recorded Aspirin E.C. [Ecotrin] 81 mg PO DAILY@0800 08 mecobalamin (vitamin B12) 1,000 1,000 mcg PO DAILY 08/23/19 mcg chewable tablet Cholecalciferol (Vitamin D3) 50,000 units PO WE 03/13/20 [Dialyvite Vitamin D3 Max] Lactobacillus Rhamnosus GG 1 cap PO DAILY 03/13/20 [Culturelle] Lisinopril [Prinivil] 10 mg PO BID 03/13/20 Metoprolol(XL)Succ [Toprol Xl 50 mg PO DAILY 03/13/20 (Beta Jake)] Nitroglycerin [Nitro-Dur] 0.1 mg TD DAILY 03/13/20 Polymyxin B Sulf/Trimethoprim 1 drp OP 4X/DAY 03/13/20 [Polymyxin B-Tmp Eye Drops] Rosuvastatin Calcium 40 mg PO DAILY 03/13/20 Sod Phos Di, Day/K Phos Day 250 mg PO DAILY 03/13/20 [K-Phos Neutral Tablet] Warfarin Sodium 3 mg PO WETHFRSA 03/13/20 Warfarin Sodium 6 mg PO SUMOTU 03/13/20 Surgical History: Surgical History (Last Reviewed 03/13/20 @ 23:[address] Ian Muñoz MD) H/O endovascular stent graft for abdominal aortic aneurysm (Chronic) Z95.828 Infrarenal abdominal aortic stent graft repair History of coronary artery stent placement (Chronic) Onset Date: 03/01/01 Z95.5 cutting balloon-assisted stenting of the proximal left anterior descending w/ 3.0 x 12 mm w/ POBA-D1 Presence of cardiac pacemaker (Chronic) Z95.0 AV junctional ablation 09/08 with subsequent pacemaker placement; gen change 07/09/2015 H/O angioplasty Z98.62 05/06/12 José external iliac and common iliac angioplasty History of appendectomy Z98.890, Z90.49 Hx of cardiac cath Z98.890 Cardiac cath (left) October 2001, [facility] with PTCA/STENT LAD and dilated the dx via stent strut 03/01/01;cardiac cath (left) September 2003 MED PORT PLACEMENT STENT FEMORAL ARTERY DR DAILY DEC 2016 Surgical History: - Lives: Spouse/ Significant Other Smoking Status: Former smoker Tobacco Use: Non-smoker Alcohol: None Drugs: None - *Family History Maternal Family History: Family History (Last Reviewed 03/13/20 @ 20:[address] Ian Muñoz MD) Mother Hypertension CAD (coronary artery disease) Myocardial infarction Brother Sudden cardiac Brother Sudden cardiac CAD (coronary artery disease) Review of Systems Constitutional: Reports: Fatigue. Denies: Chills, Fever, Weight Change Eyes: Reports: Conjunctivae Inflammation, Drainage HEENT: Denies: Head Aches, Sinus Congestion, Sinus Drainage Cardiovascular: Reports: Edema, Orthopnea. Denies: Chest Pain, Palpitations Respiratory: Reports: Shortness of breath upon exertion. Denies: Cough, Sputum production Gastrointestinal: Denies: Abdominal Pain, Nausea, Vomiting Genitourinary: Denies: Dysuria Musculoskeletal: Denies: Joint Pain, Joint Tenderness Skin: Denies: Rash, Wounds Neurological: Denies: Numbness, Tingling, Focal weakness Psychiatric: Denies: Anxiety, Depression, Homicidal Ideations, Suicidal Ideations Hematologic/ Lymphatic: Denies: Easy Bruising, Easy Bleeding VTE Information - Inpt Only VTE Present on Admission: No VTE Mechan Device Prophylaxis: SCD's, None Patient Problems: Active and Suspected Problems (Last Reviewed 03/13/20 @ 23:[address] Ian Muñoz MD) Heart failure (Acute) - Physical Exam Vitals/I&O's: Vital Signs Temp Pulse Resp BP Pulse Ox 98 F 70 24 H 134/100 H 92 03/13/20 19:00 03/13/20 19:00 03/13/20 19:00 03/13/20 19:00 03/13/20 19:00 Oxygen Flow Rate (L/min) 4 Oxygen Delivery Method Nasal Cannula Weight: 101.2 kg Body Mass Index (BMI) 34.9 Intake and Output for Last 24 Hours 03/11/20 03/12/20 03/13/20 23:59 23:59 23:59 Output Total 800 / 800 Balance -800 / -800 General: Alert, Oriented x3, Cooperative HEENT: Atraumatic, PERRLA, EOMI, Normocephalic Neck: Supple, Trachea Midline Lungs: Rales, Tachypneic Cardiovascular: Regular rate, Normal S1, Normal S2, No murmurs Abdomen: Bowel Sounds Present, Soft, Non Tender Extremities: Capillary Refill Less than 3 Seconds, Edema - Mild bilateral leg edema; right worse than left. Skin: No rashes, No breakdown Musculoskeletal: No Tenderness to Palpation of Joints or Extremities Neurological: Cranial nerves II-XII grossly intact Psych/Mental Status: Normal Affect, Appropriate Microbiology Past 72 Hours 03/13/20 18:30 Stool Stool Occult Blood (ESHA) - Final Occult Blood Positive 03/13/20 14:10 Mucosa - Nose SARS-CoV-2 Antigen (Rapid) - Final Laboratory Results 03/13/20 14:10: WBC 9.5, RBC 3.98 L, Hgb 9.6 L, Hct 34.6 L, MCV 86.9, MCH 24.1 L, MCHC 27.7 L, RDW Std Deviation 59.2 H, RDW Coeff of Óscar 18.7 H, Plt Count 247, MPV 8.5, Immature Gran % (Auto) 0.800, Neut % (Auto) 85.7 H, Lymph % (Auto) 3.3 L, Day % (Auto) 9.9, Eos % (Auto) 0.1, Baso % (Auto) 0.2, Absolute Neuts (auto) 8.2 H, Absolute Lymphs (auto) 0.31 L, Nucleated RBC % 0 03/13/20 14:10: Sodium 144, Potassium 3.2 L, Chloride 109 H, Carbon Dioxide 26.0, Anion Gap 9, BUN 21 H, Creatinine 1.20, Estim Creat Clear Calc 47.43, Est GFR (MDRD) Af Amer 75, Est GFR (MDRD) Non-Af 62, BUN/Creatinine Ratio 17.5, Glucose 94, Calcium 9.2, Total Bilirubin 0.90, AST 11 L, ALT 19, Alkaline Phosphatase 89, Troponin I 0.052 H, Total Protein 6.9, Albumin 3.6, Globulin 3.3, Albumin/Globulin Ratio 1.1 03/13/20 14:10: B-Natriuretic Peptide 265.9 H 03/13/20 14:10: Procalcitonin 0.14 H 03/13/20 14:10: PT 44.6 H, INR 4.8 H* 03/13/20 14:55: Lactic Acid 2.3 H* 03/13/20 17:41: COVID-19 ([facility]ETTA) Negative 03/13/20 19:50: Blood Type Pending, Antibody Screen Pending 03/13/20 19:50: Lactic Acid Pending Assessment/Plan All Active Problems (Last Reviewed 03/13/20 @ 23:[address] Ian Muñoz MD) Heart failure (Acute) Chronic ulcer of left foot with fat layer exposed (Resolved) Wound, open, foot (Resolved) Heart failure with reduced ejection fraction Echocardiogram on 12/02/2019: Estimated ejection fraction 45 to 50%. Right ventricle systolic pressure was 33 mmHg. Patient received Lasix 40 mg IV at emergency department. Lasix 40 mg IV twice daily ordered. Supplement potassium. Place on monitored bed at the PCU Weight on admission to the floor; and then daily Strict I&O's Chest x-ray was interpreted by radiologist as cardiomegaly and a mild degree of CHF. Actual CXR image was independently interpreted. I agree radiologist interpretation. EKG independently reviewed confirms paced rhythm Emergency department labs reviewed showed mildly elevated BNP of 265.9. Monitor electrolytes and renal function Trend blood pressure Elevate bilateral lower extremities Fluid restriction of 1500 mls daily Cardiac diet Supratherapeutic INR INR 4.8 on presentation. Hold Coumadin Trend PT/INR. Lactic acidosis Acid of 2.3 on presentation likely secondary to heart failure. Trend Hypokalemia Replaced. Trend BMP. Elevated troponin Likely secondary to heart failure Trend. Bilateral conjunctivitis Home polymyxin which patient is now working. His conjunctiva look normal sclerae. He has some mild discharge at the corner of his eye. Continue polymyxin for now. Warm compress to clean the eyes as needed Acute normocytic anemia His hemoglobin presentation was 9.6. Iron studies Protonix IV ordered. Consider GI referral upon discharge. Because of his history of coronary stents and stent in his leg vessels aspirin continued. DVT Prophylaxis SCD ordered. Inpatient E&M: 17397 Init Hosp L3
[2020-03-13 20:39] LABS: Lactic Acid 1.9 mmol/L (0.4-1.9)
[2020-03-13] MEDS: Atorvastatin Calcium 80 MG Tablet PO (22:26)
[2020-03-13] MEDS: Lisinopril 10 MG Tablet PO (22:27)
[2020-03-14] VITALS (12 sets, daily range): BP systolic 139–157; BP diastolic 61–73; PULSE 66–77; RESP 16–20; TEMP 36.7–36.9; O2SAT 92–93
[2020-03-14] MEDS: Neomycin/Bacitracin/Polymyxin Opth. Ointment 1 APPLIC OPHTHALMIC ×3 (06:13→21:21)
[2020-03-14] MEDS: Acetaminophen 325 MG Tablet 650 MG PO (06:15)
[2020-03-14 06:54] LABS: Absolute Lymphocyte Count 0.48 X10^3/uL (0.83-4.51); Absolute Neutrophil Count 8.7 X10^3/uL (2.0-7.7); Basophil# 0.02 X10^3/uL; Basophil% 0.2 % (0-1); Eosinophil# 0.01 X10^3/uL; Eosinophils% 0.1 % (0-5); Hemoglobin 9.2 g/dL (13.0-16.5); Lymphocyte # 0.48 X10^3/ul (4.0); Lymphocyte % 4.6 % (19-41); Mean Corp Hgb Conc 27.9 g/dL (32-36); Mean Corpuscular Volume 86.2 fL (80-94); Mean Platelet Vol. 9.4 fl (6.2-12.0); Monocyte# 1.15 X10^3/uL; NRBC Flagged by Analyzer 0 % (0-5); Neutrophil # 8.71 X10^3/uL (2.7-7.7); Neutrophil % 83.5 % (47-70); POSITIVE DIFFERENTIAL YES; Platelet Count 256 K/mm3 (150-450); RBC Distribution Width CV 18.7 % (11.6-14.6); RBC Distribution Width SD 58.3 fl (35.1-43.9); Red Blood Count 3.83 M/mm3 (4.6-6.2); White Blood Count 10.4 K/mm3 (4.4-11.0)
[2020-03-14 07:02] LABS: Prothrombin Time (Protime)PT. 39.2 SECONDS (11.7-14.9)
[2020-03-14 07:03] LABS: International Normalized Ratio 4.1
[2020-03-14 07:14] LABS: Differential Indicated SCAN CRITERIA MET
[2020-03-14 07:15] LABS: Differential Comment SCANNED
[2020-03-14 07:16] LABS: Hypochromasia RARE; Ovalocyte RARE; Polychromasia 1+
[2020-03-14 07:17] LABS: Macrocytosis RARE
[2020-03-14 07:20] LABS: Anion Gap 8 (5-15); BUN 20 mg/dL (7-18); BUN/Creat Ratio 17.5 RATIO (10-20); Chloride 109 mmol/L (98-107); Creatinine, Serum 1.14 mg/dL (0.70-1.30); EST Glomerular Filtration Rate 66 mL/min (>60); Est Glom Filt Rate - Afr Amer 80 mL/min (>60); Estimated Creatinine Clearance 49.93 ml/min; Ferritin 40 ng/mL (26-388); Glucose 96 mg/dL (74-106); Iron 25 ug/dL (65-175); Iron Binding Capacity,Total 427 ug/dL (250-450); PERCENT IRON SATURATION 5.9 % (15.0-55.0); Phosphorus 1.7 mg/dL (2.5-4.9); Potassium 3.7 mmol/L (3.5-5.1); Sodium Level 142 mmol/L (136-145)
[2020-03-14] MEDS: Furosemide 40 MG/4 ML Vial IV ×2 (08:40→17:50)
[2020-03-14] MEDS: Metoprolol(XL)Succ 50 MG Tablet PO (08:40)
[2020-03-14] MEDS: Lisinopril 10 MG Tablet PO ×2 (08:40→21:18)
[2020-03-14] MEDS: Cyanocobalamin 500 MCG Tablet PO (08:41)
[2020-03-14] MEDS: Nitroglycerin 0.1 MG Patch TD (08:42)
[2020-03-14] MEDS: 0.9% Saline Lock 10 ML Syringe IV ×2 (08:45→17:51)
--- NOTE | 2020-03-14 14:45 | CASEMGMT ---
SHELIA WHITE SHEET METAL SUPERINTENDENT CINDY to room to meet with patient for initial transition planning/care coordination assessment. SHELIA WHITE introduced self and role at [facility]. Pt voices understanding and consents to assessment at this time. Pt resting in bed in no distress at this time. Pt is A/O at this time and answers all questions appropriately. Care providers, pharmacy, and demographics verified/updated at this time. PCP: Dr Niko Sampson Specialists: Dr Corea--oncology, Dr Briones-cardiology Preferred Pharmacy: [facility] [place] Insurance: [employer] Prescription Benefit: Yes Living Will/HPOA: Has LW and thinks he has a Heathcare POA also, but he is not sure. Says POA would be either his or his oldest daughter. LNOK: , Yaima. 2 daughters: Lexus and Sofia Living Arrangements: Lives w/his , Yaima, in one-story home w/basement. No steps to enter. Independent w/ADL's. does home mgmt tasks, med mgmt, and appts. Transportation: DME: [facility] has the following DME: cane, grab bars, lift chair. Has a walker but does not use. Does not have home O2. No preference on DME co. Provided list. Agreeable to [employer]. HHC/SNF: No hx of SNF. Has had [facility] HHC in the past. Is interested in having [facility] HHC again @ d/c. Also discussed [facility] and pt is interested in this as well. Pt states, though, that he would like CM to call his re: HHC and CCN for her to make a decision. Call placed to at this time. No answer. VM left for pt to return call to this SHELIA WHITE today or Deanna Vora tomorrow. Phone numbers provided. Pt wishes to return home and states has no concerns with going home at time of discharge. CM to follow for home oxygen needs and any further discharge planning/needs. Pt voices no further concerns/needs at this time. Advised pt to ask for CM if any further questions/concerns/needs arise. Voices understanding. PLAN: Home w/ and HHC. Follow for Home O2 needs at d/c. Oren SOLIS RN, CM
--- NOTE | 2020-03-14 15:03 | PCM.PN.HOSP ---
Patient Problems: Active and Suspected Problems (Last Reviewed 03/13/20 @ 23:[address] Ian Muñoz MD) Heart failure (Acute) Reason for Visit: CHF Subjective: Breathing well. no issues overnight. Vitals/I&O's: Vital Signs Temp Pulse Resp BP Pulse Ox 36.8 C 70 16 157/65 H 93 03/14/20 08:34 03/14/20 08:42 03/14/20 08:34 03/14/20 08:42 03/14/20 08:34 Oxygen Flow Rate (L/min) 2 Oxygen Delivery Method Nasal Cannula Weight: 96.4 kg Body Mass Index (BMI) 33.3 Intake and Output for Last 24 Hours 03/12/20 03/13/20 03/14/20 23:59 23:59 23:59 Intake Total 110 / 230 980 / 980 Output Total 800 / 975 350 / 350 Balance -690 / -745 630 / 630 General: Alert, No apparent distress HEENT: Atraumatic, Normocephalic Oral: Moist Mucosa, No Gingival or Mucosal Lesions/ Ulcerations Neck: No Nodes, Thyroid Normal Size and Texture Lungs: Normal air movement, - - bibasilar crackles. Cardiovascular: Regular rate, Regular Rhythm, Normal S1, Normal S2 Abdomen: Bowel Sounds Present, Soft, Non Tender, Non-Distended, No Hepato-splenomegaly Extremities: No edema, No Calf Tenderness Skin: No rashes, No breakdown Psych/Mental Status: Normal Affect, Appropriate Microbiology Past 72 Hours 03/13/20 18:30 Stool Stool Occult Blood (ESHA) - Final Occult Blood Positive 03/13/20 14:10 Mucosa - Nose SARS-CoV-2 Antigen (Rapid) - Final Laboratory Results 03/13/20 14:10: PT 44.6 H, INR 4.8 H* 03/13/20 14:55: Lactic Acid 2.3 H* 03/13/20 17:41: COVID-19 (RENETTA) Negative 03/13/20 19:50: Blood Type AB POSITIVE, Antibody Screen NEGATIVE 03/13/20 19:50: Lactic Acid 1.9 03/14/20 00:25: Troponin I 0.050 H 03/14/20 03:24: Troponin I 0.051 H 03/14/20 06:24: WBC 10.4, RBC 3.83 L, Hgb 9.2 L, Hct 33.0 L, MCV 86.2, MCH 24.0 L, MCHC 27.9 L, RDW Std Deviation 58.3 H, RDW Coeff of Óscar 18.7 H, Plt Count 256, MPV 9.4, Immature Gran % (Auto) 0.600, Neut % (Auto) 83.5 H, Lymph % (Auto) 4.6 L, Kinney % (Auto) 11.0 H, Eos % (Auto) 0.1, Baso % (Auto) 0.2, Absolute Neuts (auto) 8.7 H, Absolute Lymphs (auto) 0.48 L, Nucleated RBC % 0, Differential Comment SCANNED, Polychromasia 1+, Hypochromasia RARE, Macrocytosis RARE, Ovalocytes RARE 03/14/20 06:24: PT 39.2 H, INR 4.1 H* 03/14/20 06:24: Sodium 142, Potassium 3.7, Chloride 109 H, Carbon Dioxide 25.0, Anion Gap 8, BUN 20 H, Creatinine 1.14, Estim Creat Clear Calc 49.93, Est GFR (MDRD) Af Amer 80, Est GFR (MDRD) Non-Af 66, BUN/Creatinine Ratio 17.5, Glucose 96, Calcium 9.0, Phosphorus 1.7 L, Iron 25 L, TIBC 427, Iron Saturation 5.9 L, Ferritin 40, Troponin I 0.060 H Current Medications Acetaminophen (Acetaminophen 325 Mg Tablet) 650 mg PO Q6H PRN PRN PRN Reason: Pain Score 1-10/Temp > 100.7 F Last Admin: 03/14/20 06:15 Dose: 650 mg Documented by: Atorvastatin Calcium (Atorvastatin Calcium 80 Mg Tablet) 80 mg PO QHS [facility] Last Admin: 03/13/20 22:26 Dose: 80 mg Documented by: Cyanocobalamin (Cyanocobalamin 500 Mcg Tablet) 500 mcg PO DAILY [facility] Last Admin: 03/14/20 08:41 Dose: 500 mcg Documented by: Ergocalciferol (Ergocalciferol 50,000 Unit Capsule) 50,000 unit PO QWEEK [facility] Last Admin: 03/14/20 08:41 Dose: 50,000 unit Documented by: Furosemide (Furosemide 40 Mg/4 Ml Vial) 40 mg IV BID@1000,1800 [facility] Last Admin: 03/14/20 08:40 Dose: 40 mg Documented by: Sodium Chloride () 250 mls @ 15 mls/hr IV .[id number] PRN PRN Reason: Saline Flush Sodium Chloride () 250 mls @ 15 mls/hr IV .[id number] PRN PRN Reason: Additional IVPB Infusion Lactobacillus Acidophilus (Lactobacillus Acidophilus) 1 tablet PO DAILY [facility] Last Admin: 03/14/20 08:39 Dose: 1 tablet Documented by: Lidocaine/Prilocaine (Lidocaine/Prilocaine Hcl 5 Gm Tube) 5 gm TOPICAL DAILY [facility] Last Admin: 03/14/20 08:40 Dose: Not Given Documented by: Lisinopril (Lisinopril 10 Mg Tablet) 10 mg PO BID [facility] Last Admin: 03/14/20 08:40 Dose: 10 mg Documented by: Melatonin (Melatonin 3 Mg Tablet) 3 mg PO QHS PRN PRN PRN Reason: INSOMNIA Metoprolol Succinate (Metoprolol(Xl)Succ 50 Mg Tablet) 50 mg PO DAILY [facility] Last Admin: 03/14/20 08:40 Dose: 50 mg Documented by: Neomycin/Polymyxin/Bacitracin (Neomycin/Bacitracin/Polymyxin Opth. Ointment) 1 applic OPHTHALMIC TID [facility] Last Admin: 03/14/20 14:54 Dose: 1 applicatio Documented by: Nitroglycerin (Nitroglycerin 0.1 Mg Patch) 0.1 mg TD DAILY [facility] Last Admin: 03/14/20 08:42 Dose: 0.1 mg Documented by: Ondansetron HCl (Ondansetron 4 Mg/2 Ml Vial) 4 mg IV Q8H PRN PRN PRN Reason: NAUSEA/VOMITING Pantoprazole Sodium (Pantoprazole Sodium 40 Mg Tablet) 40 mg PO BID [facility] Potassium Chloride (Potassium Chloride 20 Meq Tablet) 40 meq PO BIDCM [facility] Last Admin: 03/14/20 08:39 Dose: 40 meq Documented by: Senna/Docusate Sodium (Senna/Docusate Sodium 1 Tablet) 2 tablet PO BID PRN PRN PRN Reason: Constipation Sodium Chloride (0.9% Saline Lock 10 Ml Syringe) 10 - 40 ml IV UD PRN PRN Reason: SALINE FLUSH Last Admin: 03/14/20 08:45 Dose: 20 ml Documented by: Medical Necessity - Tobacco Use Smoking Status: Former smoker Tobacco Use: Non-smoker Assessment/Plan All Active Problems (Last Reviewed 03/13/20 @ 23:[address] Ian Muñoz MD) Heart failure (Acute) Chronic ulcer of left foot with fat layer exposed (Resolved) Wound, open, foot (Resolved) 1. acute HFrEF EF 45-50% from echo on 12/01 continue IV furosemide continue lisinopril 2. Anemia stable monitor check anemia work up 3. Heme + stools exacerbated by supratheraputic INR outpt follow with GI/GS 4. NSCLC currently being observed by Dr. Corea follow with Dr. Corea as outpt 5. supratherputic INR hold warfarin 6. aflutter continue metoprolol succ Inpatient E&M: 17563 Subs Hosp L2
[2020-03-14] MEDS: Pantoprazole Sodium 40 MG Tablet PO (21:18)
[2020-03-14] MEDS: Atorvastatin Calcium 80 MG Tablet PO (21:19)
[2020-03-15] VITALS (11 sets, daily range): BP systolic 114–142; BP diastolic 52–70; PULSE 62–79; RESP 16–20; TEMP 36.6–36.8; O2SAT 79–95
[2020-03-15] MEDS: Neomycin/Bacitracin/Polymyxin Opth. Ointment 1 APPLIC OPHTHALMIC ×3 (05:50→21:10)
[2020-03-15 06:34] LABS: Absolute Lymphocyte Count 0.55 X10^3/uL (0.83-4.51); Absolute Neutrophil Count 7.2 X10^3/uL (2.0-7.7); Basophil# 0.02 X10^3/uL; Basophil% 0.2 % (0-1); Eosinophil# 0.02 X10^3/uL; Eosinophils% 0.2 % (0-5); Hematocrit 32.7 % (40-54); Hemoglobin 8.6 g/dL (13.0-16.5); Lymphocyte # 0.55 X10^3/ul (4.0); Lymphocyte % 6.1 % (19-41); Mean Corp Hgb Conc 26.3 g/dL (32-36); Mean Corpuscular Hgb 23.2 pg (27.0-32.0); Mean Corpuscular Volume 88.1 fL (80-94); Mean Platelet Vol. 8.7 fl (6.2-12.0); Monocyte# 1.25 X10^3/uL; Monocyte% 13.8 % (0-10); NRBC Flagged by Analyzer 0 % (0-5); Neutrophil # 7.16 X10^3/uL (2.7-7.7); Neutrophil % 79.1 % (47-70); POSITIVE DIFFERENTIAL YES; Platelet Count 236 K/mm3 (150-450); RBC Distribution Width CV 18.8 % (11.6-14.6); RBC Distribution Width SD 60.5 fl (35.1-43.9); Red Blood Count 3.71 M/mm3 (4.6-6.2); White Blood Count 9.1 K/mm3 (4.4-11.0)
[2020-03-15 06:38] LABS: Differential Indicated SCAN CRITERIA MET
[2020-03-15 06:42] LABS: International Normalized Ratio 2.8; Prothrombin Time (Protime)PT. 28.8 SECONDS (11.7-14.9)
[2020-03-15 06:50] LABS: Differential Comment SCANNED; Hypochromasia 1+; Polychromasia RARE
[2020-03-15 07:18] LABS: Anion Gap 4 (5-15); BUN 28 mg/dL (7-18); BUN/Creat Ratio 21.9 RATIO (10-20); Calcium,Total 8.9 mg/dL (8.5-10.1); Chloride 111 mmol/L (98-107); Creatinine, Serum 1.28 mg/dL (0.70-1.30); EST Glomerular Filtration Rate 58 mL/min (>60); Est Glom Filt Rate - Afr Amer 70 mL/min (>60); Estimated Creatinine Clearance 44.47 ml/min; Ferritin 39 ng/mL (26-388); Glucose 97 mg/dL (74-106); Iron 18 ug/dL (65-175); Iron Binding Capacity,Total 357 ug/dL (250-450); Potassium 3.8 mmol/L (3.5-5.1); Sodium Level 145 mmol/L (136-145); Thyroid Stim Hormone (TSH) 1.26 uIU/mL (0.358-3.74)
[2020-03-15 08:24] LABS: Vitamin B12 794 pg/mL (211-911)
[2020-03-15] MEDS: Nitroglycerin 0.1 MG Patch TD (08:49)
[2020-03-15] MEDS: Furosemide 40 MG/4 ML Vial IV ×2 (08:49→16:46)
[2020-03-15] MEDS: Cyanocobalamin 500 MCG Tablet PO (08:50)
[2020-03-15] MEDS: Pantoprazole Sodium 40 MG Tablet PO ×2 (08:50→21:10)
[2020-03-15] MEDS: Metoprolol(XL)Succ 50 MG Tablet PO (08:50)
[2020-03-15] MEDS: Lisinopril 10 MG Tablet PO ×2 (08:51→21:10)
[2020-03-15] MEDS: Sodium Ferric Gluconat 250 MG in 0.9% Normal Saline 250 ML 135 MG IV (09:06)
--- NOTE | 2020-03-15 13:39 | PCM.PN.HOSP ---
<Mir Cisneros - Last Filed: 03/15/20 13:39> Patient Problems: Active and Suspected Problems (Last Reviewed 03/13/20 @ 23:[address] Ian Muñoz MD) Heart failure (Acute) Reason for Visit: CHF Subjective: Pt reports improved SOB. Ongoing productive cough. Pt remains on O2. He does not normally use o2 at home. No fever/chills, CP, presure. No LE edema. Vitals/I&O's: Vital Signs Temp Pulse Resp BP Pulse Ox 97.8 F 72 20 H 131/62 H 95 03/15/20 09:05 03/15/20 09:05 03/15/20 09:05 03/15/20 09:05 03/15/20 09:05 Oxygen Flow Rate (L/min) 3 Oxygen Delivery Method Nasal Cannula Weight: 211 lb 10.3 oz Body Mass Index (BMI) 33.3 Intake and Output for Last 24 Hours 03/13/20 03/14/20 03/15/20 23:59 23:59 23:59 Intake Total 110 / 230 1600 / 1840 860 / 860 Output Total 800 / 975 350 / 350 375 / 375 Balance -690 / -745 1250 / 1490 485 / 485 General: Alert, Oriented x3, Cooperative HEENT: Atraumatic, PERRLA, EOMI, Normocephalic Neck: Supple, No JVD, Negative Carotid Bruits Lungs: Clear to auscultation, Normal air movement Cardiovascular: Regular rate, No murmurs Abdomen: Bowel Sounds Present, Soft, Non Tender Extremities: No edema, Capillary Refill Less than 3 Seconds Skin: No rashes, No breakdown Musculoskeletal: No Tenderness to Palpation of Joints or Extremities Neurological: Cranial nerves II-XII grossly intact Psych/Mental Status: Normal Affect, Appropriate Microbiology Past 72 Hours 03/13/20 14:55 Blood Culture (Wb) - Port Blood Culture - Preliminary No growth in 48 hours. 03/13/20 14:10 Blood Culture (Wb) - Anticubital Right Blood Culture - Preliminary No growth in 48 hours. 03/13/20 18:30 Stool Stool Occult Blood (ESHA) - Final Occult Blood Positive 03/13/20 14:10 Mucosa - Nose SARS-CoV-2 Antigen (Rapid) - Final Laboratory Results 03/15/20 06:15: PT 28.8 H, INR 2.8 03/15/20 06:15: WBC 9.1, RBC 3.71 L, Hgb 8.6 L, Hct 32.7 L, MCV 88.1, MCH 23.2 L, MCHC 26.3 L D, RDW Std Deviation 60.5 H, RDW Coeff of Óscar 18.8 H, Plt Count 236, MPV 8.7, Immature Gran % (Auto) 0.600, Neut % (Auto) 79.1 H, Lymph % (Auto) 6.1 L, Coffey % (Auto) 13.8 H, Eos % (Auto) 0.2, Baso % (Auto) 0.2, Absolute Neuts (auto) 7.2, Absolute Lymphs (auto) 0.55 L, Nucleated RBC % 0, Differential Comment SCANNED, Polychromasia RARE, Hypochromasia 1+ 03/15/20 06:15: Sodium 145, Potassium 3.8, Chloride 111 H, Carbon Dioxide 30.0, Anion Gap 4 L, BUN 28 H, Creatinine 1.28, Estim Creat Clear Calc 44.47, Est GFR (MDRD) Af Amer 70, Est GFR (MDRD) Non-Af 58 L, BUN/Creatinine Ratio 21.9 H, Glucose 97, Calcium 8.9, Iron 18 L, TIBC 357, Iron Saturation 5.0 L, Ferritin 39, Folate 10.60, TSH 1.26 03/15/20 06:15: Vitamin B12 794 Current Medications Acetaminophen (Acetaminophen 325 Mg Tablet) 650 mg PO Q6H PRN PRN PRN Reason: Pain Score 1-10/Temp > 100.7 F Last Admin: 03/14/20 06:15 Dose: 650 mg Documented by: Atorvastatin Calcium (Atorvastatin Calcium 80 Mg Tablet) 80 mg PO QHS [facility] Last Admin: 03/14/20 21:19 Dose: 80 mg Documented by: Cyanocobalamin (Cyanocobalamin 500 Mcg Tablet) 500 mcg PO DAILY [facility] Last Admin: 03/15/20 08:50 Dose: 500 mcg Documented by: Ergocalciferol (Ergocalciferol 50,000 Unit Capsule) 50,000 unit PO QWEEK [facility] Last Admin: 03/14/20 08:41 Dose: 50,000 unit Documented by: Furosemide (Furosemide 40 Mg/4 Ml Vial) 40 mg IV BID@1000,1800 [facility] Last Admin: 03/15/20 08:49 Dose: 40 mg Documented by: Sodium Chloride () 250 mls @ 15 mls/hr IV .[id number] PRN PRN Reason: Saline Flush Sodium Chloride () 250 mls @ 15 mls/hr IV .[id number] PRN PRN Reason: Additional IVPB Infusion Lactobacillus Acidophilus (Lactobacillus Acidophilus) 1 tablet PO DAILY [facility] Last Admin: 03/15/20 08:48 Dose: 1 tablet Documented by: Lidocaine/Prilocaine (Lidocaine/Prilocaine Hcl 5 Gm Tube) 5 gm TOPICAL DAILY [facility] Last Admin: 03/15/20 08:48 Dose: Not Given Documented by: Lisinopril (Lisinopril 10 Mg Tablet) 10 mg PO BID [facility] Last Admin: 03/15/20 08:51 Dose: 10 mg Documented by: Melatonin (Melatonin 3 Mg Tablet) 3 mg PO QHS PRN PRN PRN Reason: INSOMNIA Metoprolol Succinate (Metoprolol(Xl)Succ 50 Mg Tablet) 50 mg PO DAILY [facility] Last Admin: 03/15/20 08:50 Dose: 50 mg Documented by: Neomycin/Polymyxin/Bacitracin (Neomycin/Bacitracin/Polymyxin Opth. Ointment) 1 applic OPHTHALMIC TID [facility] Last Admin: 03/15/20 05:50 Dose: 1 applicatio Documented by: Nitroglycerin (Nitroglycerin 0.1 Mg Patch) 0.1 mg TD DAILY [facility] Last Admin: 03/15/20 08:49 Dose: 0.1 mg Documented by: Ondansetron HCl (Ondansetron 4 Mg/2 Ml Vial) 4 mg IV Q8H PRN PRN PRN Reason: NAUSEA/VOMITING Pantoprazole Sodium (Pantoprazole Sodium 40 Mg Tablet) 40 mg PO BID [facility] Last Admin: 03/15/20 08:50 Dose: 40 mg Documented by: Potassium Chloride (Potassium Chloride 20 Meq Tablet) 40 meq PO BIDCM [facility] Last Admin: 03/15/20 08:48 Dose: 40 meq Documented by: Senna/Docusate Sodium (Senna/Docusate Sodium 1 Tablet) 2 tablet PO BID PRN PRN PRN Reason: Constipation Sodium Chloride (0.9% Saline Lock 10 Ml Syringe) 10 - 40 ml IV UD PRN PRN Reason: SALINE FLUSH Last Admin: 03/14/20 17:51 Dose: 20 ml Documented by: Medical Necessity - Tobacco Use Smoking Status: Former smoker Tobacco Use: Non-smoker Assessment/Plan All Active Problems (Last Reviewed 03/13/20 @ 23:[address] Ian Muñoz MD) Heart failure (Acute) Chronic ulcer of left foot with fat layer exposed (Resolved) Wound, open, foot (Resolved) 1. Acute on chronic systolic CHF - EF 45-50%. Continue IV lasix. Still requiring o2. No significant LE edema. Pt does not feel SOB. TSH normal. 2. Chronic blood loss anemia 2/2 GI bleedm with iron deficiency - + Hemoccult. INR was supratherapeutic. Pt denies bloody stool. States he sometimes has black stools but this is when he takes pepto. hold warfarin. monitor H/H. Referral to Gen surg when stable. b12 and folate normal. Pt received IV iron. 3. Hx Aflutter - rate stable. continue metoprolol. 4. Indeterminate trop - no cp, no significant rise/fall pattern. Likely due to CHF and hypoxia at presentation. 5. NSCLC - follow up with primary onc - Dr. Corea DVT ppx: SCDs. DC planning: wean o2. This patient was seen by Mir Cisneros PA-C under the supervision of Dr. Tarango <Landry Tarango - Last Filed: 03/15/20 14:38> Vitals/I&O's: Vital Signs Temp Pulse Resp BP Pulse Ox 36.6 C 72 20 H 131/62 H 79 03/15/20 09:05 03/15/20 09:05 03/15/20 09:05 03/15/20 09:05 03/15/20 13:53 Oxygen Flow Rate (L/min) 3 Oxygen Delivery Method Nasal Cannula Weight: 96 kg Body Mass Index (BMI) 33.3 Intake and Output for Last 24 Hours 03/13/20 03/14/20 03/15/20 23:59 23:59 23:59 Intake Total 110 / 230 1600 / 1840 860 / 860 Output Total 800 / 975 350 / 350 375 / 375 Balance -690 / -745 1250 / 1490 485 / 485 General: Alert, Cooperative HEENT: Atraumatic, Normocephalic Lungs: Clear to auscultation, Normal air movement Cardiovascular: Regular rate, No murmurs Abdomen: Bowel Sounds Present, Soft, Non Tender Skin: No rashes, No breakdown Microbiology Past 72 Hours 03/13/20 14:55 Blood Culture (Wb) - Port Blood Culture - Preliminary No growth in 48 hours. 03/13/20 14:10 Blood Culture (Wb) - Anticubital Right Blood Culture - Preliminary No growth in 48 hours. 03/13/20 18:30 Stool Stool Occult Blood (ESHA) - Final Occult Blood Positive 03/13/20 14:10 Mucosa - Nose SARS-CoV-2 Antigen (Rapid) - Final Laboratory Results 03/15/20 06:15: PT 28.8 H, INR 2.8 03/15/20 06:15: WBC 9.1, RBC 3.71 L, Hgb 8.6 L, Hct 32.7 L, MCV 88.1, MCH 23.2 L, MCHC 26.3 L D, RDW Std Deviation 60.5 H, RDW Coeff of Óscar 18.8 H, Plt Count 236, MPV 8.7, Immature Gran % (Auto) 0.600, Neut % (Auto) 79.1 H, Lymph % (Auto) 6.1 L, Coffey % (Auto) 13.8 H, Eos % (Auto) 0.2, Baso % (Auto) 0.2, Absolute Neuts (auto) 7.2, Absolute Lymphs (auto) 0.55 L, Nucleated RBC % 0, Differential Comment SCANNED, Polychromasia RARE, Hypochromasia 1+ 03/15/20 06:15: Sodium 145, Potassium 3.8, Chloride 111 H, Carbon Dioxide 30.0, Anion Gap 4 L, BUN 28 H, Creatinine 1.28, Estim Creat Clear Calc 44.47, Est GFR (MDRD) Af Amer 70, Est GFR (MDRD) Non-Af 58 L, BUN/Creatinine Ratio 21.9 H, Glucose 97, Calcium 8.9, Iron 18 L, TIBC 357, Iron Saturation 5.0 L, Ferritin 39, Folate 10.60, TSH 1.26 03/15/20 06:15: Vitamin B12 794 Current Medications Acetaminophen (Acetaminophen 325 Mg Tablet) 650 mg PO Q6H PRN PRN PRN Reason: Pain Score 1-10/Temp > 100.7 F Last Admin: 03/14/20 06:15 Dose: 650 mg Documented by: Atorvastatin Calcium (Atorvastatin Calcium 80 Mg Tablet) 80 mg PO QHS [facility] Last Admin: 03/14/20 21:19 Dose: 80 mg Documented by: Cyanocobalamin (Cyanocobalamin 500 Mcg Tablet) 500 mcg PO DAILY [facility] Last Admin: 03/15/20 08:50 Dose: 500 mcg Documented by: Ergocalciferol (Ergocalciferol 50,000 Unit Capsule) 50,000 unit PO QWEEK [facility] Last Admin: 03/14/20 08:41 Dose: 50,000 unit Documented by: Furosemide (Furosemide 40 Mg/4 Ml Vial) 40 mg IV BID@1000,1800 [facility] Last Admin: 03/15/20 08:49 Dose: 40 mg Documented by: Sodium Chloride () 250 mls @ 15 mls/hr IV .[id number] PRN PRN Reason: Saline Flush Sodium Chloride () 250 mls @ 15 mls/hr IV .[id number] PRN PRN Reason: Additional IVPB Infusion Lactobacillus Acidophilus (Lactobacillus Acidophilus) 1 tablet PO DAILY [facility] Last Admin: 03/15/20 08:48 Dose: 1 tablet Documented by: Lidocaine/Prilocaine (Lidocaine/Prilocaine Hcl 5 Gm Tube) 5 gm TOPICAL DAILY [facility] Last Admin: 03/15/20 08:48 Dose: Not Given Documented by: Lisinopril (Lisinopril 10 Mg Tablet) 10 mg PO BID [facility] Last Admin: 03/15/20 08:51 Dose: 10 mg Documented by: Melatonin (Melatonin 3 Mg Tablet) 3 mg PO QHS PRN PRN PRN Reason: INSOMNIA Metoprolol Succinate (Metoprolol(Xl)Succ 50 Mg Tablet) 50 mg PO DAILY [facility] Last Admin: 03/15/20 08:50 Dose: 50 mg Documented by: Neomycin/Polymyxin/Bacitracin (Neomycin/Bacitracin/Polymyxin Opth. Ointment) 1 applic OPHTHALMIC TID [facility] Last Admin: 03/15/20 13:56 Dose: 1 applicatio Documented by: Nitroglycerin (Nitroglycerin 0.1 Mg Patch) 0.1 mg TD DAILY [facility] Last Admin: 03/15/20 08:49 Dose: 0.1 mg Documented by: Ondansetron HCl (Ondansetron 4 Mg/2 Ml Vial) 4 mg IV Q8H PRN PRN PRN Reason: NAUSEA/VOMITING Pantoprazole Sodium (Pantoprazole Sodium 40 Mg Tablet) 40 mg PO BID [facility] Last Admin: 03/15/20 08:50 Dose: 40 mg Documented by: Potassium Chloride ([facility]assium Ch[facility]ide 20 [facility]eq [facility]t) [facility] Last Admin: 03/15/20 08:48 Dose: 40 meq Documented by: Senna/Docusate Sodium (Senna/Docusate Sodium 1 Tablet) 2 tablet PO BID PRN PRN PRN Reason: Constipation Sodium Chloride (0.9% Saline Lock 10 Ml Syringe) 10 - 40 ml IV UD PRN PRN Reason: SALINE FLUSH Last Admin: 03/14/20 17:51 Dose: 20 ml Documented by: STROKE Vital Signs/Narrative: Vital Signs Pulse Ox 03/15/20 13:53 79 Assessment/Plan Patient seen and examined independently. Data reviewed. I agree with the above note by the physician shampoo assistant. 1. acute HFrEF EF 45-50% from echo on 12/01 continue IV furosemide continue lisinopril 2. Anemia stable monitor check anemia work up iron-deficient. Received IV iron x 1 3. Heme + stools exacerbated by supratheraputic INR outpt follow with GI/GS 4. NSCLC currently being observed by Dr. Corea follow with Dr. Corea as outpt 5. supratherputic INR resume warfarin 6. aflutter continue metoprolol succ Inpatient E&M: 89596 Subs Hosp L2
[2020-03-15] MEDS: Atorvastatin Calcium 80 MG Tablet PO (21:10)
--- NOTE | 2020-03-15 22:34 | PCS.PANDOC ---
PANDEMIC DOCUMENTATION INITIATED: Date: 03/13/20 Time: 2124
[2020-03-16] VITALS (9 sets, daily range): BP systolic 129–132; BP diastolic 53–76; PULSE 71–77; RESP 18–20; TEMP 36.7–36.8; O2SAT 82–96
[2020-03-16 06:17] LABS: Absolute Lymphocyte Count 0.44 X10^3/uL (0.83-4.51); Basophil# 0.04 X10^3/uL; Basophil% 0.4 % (0-1); Eosinophil# 0.02 X10^3/uL; Eosinophils% 0.2 % (0-5); Hematocrit 34.2 % (40-54); Lymphocyte # 0.44 X10^3/ul (4.0); Lymphocyte % 4.9 % (19-41); Mean Corp Hgb Conc 26.3 g/dL (32-36); Mean Corpuscular Hgb 23.7 pg (27.0-32.0); Mean Platelet Vol. 9.5 fl (6.2-12.0); Monocyte# 1.38 X10^3/uL; Monocyte% 15.4 % (0-10); NRBC Flagged by Analyzer 0.2 % (0-5); Neutrophil # 7.01 X10^3/uL (2.7-7.7); Neutrophil % 78.4 % (47-70); POSITIVE DIFFERENTIAL YES; Platelet Count 251 K/mm3 (150-450); RBC Distribution Width CV 18.9 % (11.6-14.6); RBC Distribution Width SD 61.2 fl (35.1-43.9)
[2020-03-16 06:21] LABS: Differential Indicated SCAN CRITERIA MET
[2020-03-16 06:26] LABS: International Normalized Ratio 2.4; Prothrombin Time (Protime)PT. 25.3 SECONDS (11.7-14.9)
[2020-03-16] MEDS: Neomycin/Bacitracin/Polymyxin Opth. Ointment 1 APPLIC OPHTHALMIC ×2 (06:26→13:19)
[2020-03-16 06:36] LABS: Differential Comment SCANNED; Hypochromasia 1+; Microcytosis RARE; Polychromasia RARE
[2020-03-16 06:41] LABS: Anion Gap 4 (5-15); BUN 29 mg/dL (7-18); BUN/Creat Ratio 27.4 RATIO (10-20); Calcium,Total 9.7 mg/dL (8.5-10.1); Chloride 110 mmol/L (98-107); Creatinine, Serum 1.06 mg/dL (0.70-1.30); EST Glomerular Filtration Rate 72 mL/min (>60); Est Glom Filt Rate - Afr Amer 87 mL/min (>60); Glucose 97 mg/dL (74-106); Sodium Level 144 mmol/L (136-145)
[2020-03-16] MEDS: Metoprolol(XL)Succ 50 MG Tablet PO (09:33)
[2020-03-16] MEDS: Pantoprazole Sodium 40 MG Tablet PO (09:33)
[2020-03-16] MEDS: Lisinopril 10 MG Tablet PO (09:33)
[2020-03-16] MEDS: Nitroglycerin 0.1 MG Patch TD (09:34)
[2020-03-16] MEDS: Cyanocobalamin 500 MCG Tablet PO (09:34)
[2020-03-16] MEDS: Furosemide 40 MG/4 ML Vial IV (09:34)
--- NOTE | 2020-03-16 09:58 | CASEMGMT ---
Addendum entered by Deanna Greenberg 03/16/20 14:14: Order placed for CCN after HHC and Kadeem at [facility] already aware of pt. Wendy RN CM Addendum entered by Deanna Greenberg 03/16/20 11:50: Per Lola at [facility], they will do start of care on Thursday. Pt does qualify for 4 liters continuous home oxygen at this time. Referral faxed to [facility] at this time. Call to to update on HHC/home oxygen at this time, voices understanding. Pt states she has been trying to get ahold of nurse, doctor and pt without success at this time. Marco RN updated at this time, voices understanding. voice no further questions/concerns/needs at this time. Call to Chanel at [facility] to notify of referral/discharge at this time, voices understanding. Wendy RN CM Addendum entered by Deanna Greenberg 03/16/20 10:58: Call back from Lola at [facility] and she states they can take pt at this time. Awaiting home oxygen testing to get order sent. Wendy RN CINDY Original Note: This RN CM received a message from pt's asking for a return call. Per CM note, pt wanted to make decision on HHC and CCN. Call back to at this time and states she would like [facility] at this time and is agreeable to [facility] after HHC. is updated that pt will most likely need home oxygen at discharge and that pt was agreeable to [facility] previously. is aware that pt is currently on 4liters nc, voices understanding. states she is awaiting call back from pt's nurse and this RN CM updated her that his nurse is Marco and that this RN CM will notify him that she is awaiting his call. voice no further questions/concerns/need for this RN CM at this time. Call to Lola at [facility] with referral for SN, PT/OT at this time and she states she will call this RN CM back to notify if they can accept pt. This RN CM is still awaiting home oxygen testing for pt at this time. Wendy BASS CM
--- NOTE | 2020-03-16 10:15 | DCINST_ITS ---
- Discharge Diagnoses Current Active Problems: Current Active and Chronic Problems (Last Reviewed 03/13/20 @ 23:[address] Ian Muñoz MD) Heart failure (Acute) Non-small cell carcinoma of right lung, stage 4 (Chronic) Adenocarcinoma of lung, stage 3 (Chronic) stage 3b Bilateral lower extremity edema (Chronic) Hypoalbuminemia due to protein-calorie malnutrition (Chronic) Other specified peripheral vascular diseases (Chronic) Venous insufficiency (Chronic) Malnutrition (Chronic) Ischemic ulcer of leg (Chronic) Pressure ulcer of left foot, unstageable (Chronic) Chronic ulcer of left foot with fat layer exposed (Chronic) Hyperparathyroidism (Chronic) Secondary pulmonary arterial hypertension (Chronic) H/O endovascular stent graft for abdominal aortic aneurysm (Chronic) Infrarenal abdominal aortic stent graft repair History of coronary artery stent placement (Chronic 03/01/01) cutting balloon-assisted stenting of the proximal left anterior descending w/ 3.0 x 12 mm w/ POBA-D1 AAA (abdominal aortic aneurysm) (Chronic) Atrial flutter (Chronic) Atherosclerotic heart disease of [place] coronary artery without angina pectoris (Chronic) Hyperthyroidism (Chronic) Chronic systolic congestive heart failure (Chronic) Pleural effusion (Chronic) PVD (peripheral vascular disease) (Chronic) Chronic atrial fibrillation (Chronic) Cardiomyopathy, ischemic (Chronic) Atrioventricular block, 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) AV junctional ablation 09/08 with subsequent pacemaker placement; gen change 07/09/2015 Hyperlipidemia (Chronic) Hypertension (Chronic) [employer] truck driver (current) use of anticoagulants (Chronic) You will use the following diet at home:: Cardiac, Fluid restricted (specify 2000 mls, 1500 mls) - 1500 cc/day Call your doctor if you observe: Fever of 101 or Higher Allergies/Adverse Reactions: Allergies morphine Adverse Reaction (Severe, Verified 02/21/20 09:27) HALLUCINATIONS amiodarone Adverse Reaction (Unknown, Verified 02/21/20 09:27) Unknown cannot remember Medications to take at Discharge Aspirin E.C. [Ecotrin] 81 mg PO DAILY@0800 11/15/14 mecobalamin (vitamin B12) 1,000 mcg chewable tablet 1,000 mcg PO DAILY 08/23/19 Cholecalciferol (Vitamin D3) [Dialyvite Vitamin D3 Max] 50,000 units PO WE 03/13/20 Lactobacillus Rhamnosus GG [Culturelle] 1 cap PO DAILY 03/13/20 Lisinopril [Prinivil] 10 mg PO BID 03/13/20 Metoprolol(XL)Succ [Toprol Xl (Beta Jake)] 50 mg PO DAILY 03/13/20 Nitroglycerin [Nitro-Dur] 0.1 mg TD DAILY 03/13/20 Polymyxin B Sulf/Trimethoprim [Polymyxin B-Tmp Eye Drops] 1 drp OP 4X/DAY 03/13/20 Rosuvastatin Calcium 40 mg PO DAILY 03/13/20 Sod Phos Di, Lassen/K Phos Lassen [K-Phos Neutral Tablet] 250 mg PO DAILY 03/13/20 Furosemide [Lasix] 40 mg PO DAILY #30 tab 03/16/20 Potassium Chloride [K-Dur] 10 meq PO DAILY #30 tab 03/16/20 Warfarin Sodium 3 mg PO DAILY #0 03/16/20 The following prescriptions were given: Potassium Chloride [K-Dur] 10 meq PO DAILY #30 tab Transmission Status: Pending to [employer] [facility] #30 Furosemide [Lasix] 40 mg PO DAILY #30 tab Transmission Status: Pending to [employer] [facility] #30 Primary Care Physician: Niko Sampson MD [Primary Care Provider] - Within 2 Weeks Test Results: Test results from this visit will be discussed in further detail at your follow- up appointment, if applicable. Please Follow Up With: Marco Noel NP, AUTOMOBILE [employer]UCK RENTAL DISPATCHER-C When: 05/18/2019, already scheduled Please Follow Up With: Ian Corea MD When: call for appointment Proposed Discharge Date: 03/16/20
--- NOTE | 2020-03-16 10:19 | PCM.DC.SUM ---
Discharge Date and Diagnosis - Problem List Patient Problems: Active and Suspected Problems (Last Reviewed 03/13/20 @ 23:[address] Ian Muñoz MD) Heart failure (Acute) Date of Admission: 03/13/20 Date of Discharge: 03/16/20 - Primary Discharge Diagnosis Acute Problems: Active Problems (Last Reviewed 03/13/20 @ 23:[address] Ian Muñoz MD) Heart failure (Acute) 1. acute HFrEF EF 45-50% from echo on 12/01 change to PO furosemide 40 continue lisinopril 2. Anemia stable monitor iron-deficient. Received IV iron x 1 ferrous sulfate 325 every other day 3. Heme + stools exacerbated by supratheraputic INR outpt follow with GI/GS 4. NSCLC currently being observed by Dr. Corea follow with Dr. Corea as outpt 5. supratherputic INR resolved resume warfarin 6. aflutter continue metoprolol succ warfarin 3mg/d - Secondary Discharge Diagnosis Chronic Problems: Chronic Problems (Last Reviewed 03/13/20 @ 23:[address] 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) Hyperparathyroidism (Chronic) Secondary pulmonary arterial hypertension (Chronic) H/O endovascular stent graft for abdominal aortic aneurysm (Chronic) Infrarenal abdominal aortic stent graft repair History of coronary artery stent placement (Chronic 03/01/01) cutting balloon-assisted stenting of the proximal left anterior descending w/ 3.0 x 12 mm w/ POBA-D1 AAA (abdominal aortic aneurysm) (Chronic) Atrial flutter (Chronic) Atherosclerotic heart disease of [place] coronary artery without angina pectoris (Chronic) Hyperthyroidism (Chronic) Chronic systolic congestive heart failure (Chronic) Pleural effusion (Chronic) PVD (peripheral vascular disease) (Chronic) Chronic atrial fibrillation (Chronic) Cardiomyopathy, ischemic (Chronic) Atrioventricular block, 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) AV junctional ablation 09/08 with subsequent pacemaker placement; gen change 07/09/2015 Hyperlipidemia (Chronic) Hypertension (Chronic) senior care (current) use of anticoagulants (Chronic) Hospital Course and Treatment Imaging Results: Clinical Impression(s) from Imaging Studies Chest X-Ray 03/13/20 15:05 IMPRESSION: Cardiomegaly and a mild degree of CHF. Electronically Signed: Michael Hutchins, at 15:17 EST , Service support , Operations: None Procedures: None Summary of Care Provided: The patient is a 79 year old M for not looking well at home. Patient was brought in the hospital and found to have heart failure. Patient was started on furosemide and did improve. Patient was not hypoxic and was 89% on room air and then was put on 4 L of oxygen. Patient will be transitioned over to oral furosemide and then have an amatory pulse ox prior to discharge. Patient will follow up with cardiology for further adjustments. Patient did have a supratherapeutic INR while he was here and his warfarin was held that improved. Patient did have heme positive stools and did have microcytic anemia. Patient did receive one-time dose of IV iron. Patient will continue with ferrous sulfate every other day upon discharge. Patient can follow-up with his oncologist and then also follow-up with gastroenterology or general surgery for possible endoscopy for heme positive stools. [] Patient Problems: Active and Suspected Problems (Last Reviewed 03/13/20 @ 23:[address] Ina Muñoz MD) Heart failure (Acute) - Physical Exam Vitals/I&O's: Vital Signs Temp Pulse Resp BP Pulse Ox 36.8 C 75 18 129/53 H 96 03/16/20 09:28 03/16/20 09:34 03/16/20 09:28 03/16/20 09:34 03/16/20 09:28 Oxygen Flow Rate (L/min) 4 Oxygen Delivery Method Nasal Cannula Weight: 96 kg Body Mass Index (BMI) 33.3 Intake and Output for Last 24 Hours 03/14/20 03/15/20 03/16/20 23:59 23:59 23:59 Intake Total 1600 / 1840 1360 / 1660 420 / 420 Output Total 350 / 350 375 / 675 300 / 300 Balance 1250 / 1490 985 / 985 120 / 120 General: Alert, No apparent distress HEENT: Atraumatic, Normocephalic Oral: Moist Mucosa, No Gingival or Mucosal Lesions/ Ulcerations Neck: No Nodes, Thyroid Normal Size and Texture Lungs: Clear to auscultation, Normal air movement, No rhonchi, No wheeze, No rales Cardiovascular: Regular rate, Regular Rhythm, Normal S1, Normal S2, No murmurs Abdomen: Bowel Sounds Present, Soft, Non Tender, Non-Distended, No Hepato-splenomegaly Extremities: Edema - trace Microbiology Past 72 Hours 03/13/20 14:55 Blood Culture (Wb) - Port Blood Culture - Preliminary No growth in 48 hours. 03/13/20 14:10 Blood Culture (Wb) - Anticubital Right Blood Culture - Preliminary No growth in 48 hours. 03/13/20 18:30 Stool Stool Occult Blood (ESHA) - Final Occult Blood Positive 03/13/20 14:10 Mucosa - Nose SARS-CoV-2 Antigen (Rapid) - Final Laboratory Results 03/16/20 05:20: PT 25.3 H, INR 2.4 03/16/20 05:20: WBC 9.0, RBC 3.80 L, Hgb 9.0 L, Hct 34.2 L, MCV 90.0, MCH 23.7 L, MCHC 26.3 L, RDW Std Deviation 61.2 H, RDW Coeff of Óscar 18.9 H, Plt Count 251, MPV 9.5, Immature Gran % (Auto) 0.700, Neut % (Auto) 78.4 H, Lymph % (Auto) 4.9 L, [place] % (Auto) 15.4 H, Eos % (Auto) 0.2, Baso % (Auto) 0.4, Absolute Neuts (auto) 7.0, Absolute Lymphs (auto) 0.44 L, Nucleated RBC % 0.2, Differential Comment SCANNED, Polychromasia RARE, Hypochromasia 1+, Microcytosis RARE 03/16/20 05:20: Sodium 144, Potassium 4.0, Chloride 110 H, Carbon Dioxide 30.0, Anion Gap 4 L, BUN 29 H, Creatinine 1.06, Estim Creat Clear Calc 53.70, Est GFR (MDRD) Af Amer 87, Est GFR (MDRD) Non-Af 72, BUN/Creatinine Ratio 27.4 H, Glucose 97, Calcium 9.7 Current Medications Acetaminophen (Acetaminophen 325 Mg Tablet) 650 mg PO Q6H PRN PRN PRN Reason: Pain Score 1-10/Temp > 100.7 F Last Admin: 03/14/20 06:15 Dose: 650 mg Documented by: Atorvastatin Calcium (Atorvastatin Calcium 80 Mg Tablet) 80 mg PO QHS [facility] Last Admin: 03/15/20 21:10 Dose: 80 mg Documented by: Cyanocobalamin (Cyanocobalamin 500 Mcg Tablet) 500 mcg PO DAILY [facility] Last Admin: 03/16/20 09:34 Dose: 500 mcg Documented by: Ergocalciferol (Ergocalciferol 50,000 Unit Capsule) 50,000 unit PO QWEEK [facility] Last Admin: 03/14/20 08:41 Dose: 50,000 unit Documented by: Furosemide (Furosemide 40 Mg/4 Ml Vial) 40 mg IV BID@1000,1800 [facility] Last Admin: 03/16/20 09:34 Dose: 40 mg Documented by: Sodium Chloride () 250 mls @ 15 mls/hr IV .[id number] PRN PRN Reason: Saline Flush Sodium Chloride () 250 mls @ 15 mls/hr IV .[id number] PRN PRN Reason: Additional IVPB Infusion Lactobacillus Acidophilus (Lactobacillus Acidophilus) 1 tablet PO DAILY [facility] Last Admin: 03/16/20 09:33 Dose: 1 tablet Documented by: Lidocaine/Prilocaine (Lidocaine/Prilocaine Hcl 5 Gm Tube) 5 gm TOPICAL DAILY [facility] Last Admin: 03/16/20 09:35 Dose: Not Given Documented by: Lisinopril (Lisinopril 10 Mg Tablet) 10 mg PO BID [facility] Last Admin: 03/16/20 09:33 Dose: 10 mg Documented by: Melatonin (Melatonin 3 Mg Tablet) 3 mg PO QHS PRN PRN PRN Reason: INSOMNIA Metoprolol Succinate (Metoprolol(Xl)Succ 50 Mg Tablet) 50 mg PO DAILY [facility] Last Admin: 03/16/20 09:33 Dose: 50 mg Documented by: Neomycin/Polymyxin/Bacitracin (Neomycin/Bacitracin/Polymyxin Opth. Ointment) 1 applic OPHTHALMIC TID [facility] Last Admin: 03/16/20 06:26 Dose: 1 applicatio Documented by: Nitroglycerin (Nitroglycerin 0.1 Mg Patch) 0.1 mg TD DAILY [facility] Last Admin: 03/16/20 09:34 Dose: 0.1 mg Documented by: Ondansetron HCl (Ondansetron 4 Mg/2 Ml Vial) 4 mg IV Q8H PRN PRN PRN Reason: NAUSEA/VOMITING Pantoprazole Sodium (Pantoprazole Sodium 40 Mg Tablet) 40 mg PO BID [facility] Last Admin: 03/16/20 09:33 Dose: 40 mg Documented by: Potassium Chloride (Potassium Chloride 20 Meq Tablet) [facility] Last Admin: 03/16/20 09:33 Dose: 40 meq Documented by: Senna/Docusate Sodium (Senna/Docusate Sodium 1 Tablet) 2 tablet PO BID PRN PRN PRN Reason: Constipation Sodium Chloride (0.9% Saline Lock 10 Ml Syringe) 10 - 40 ml IV UD PRN PRN Reason: SALINE FLUSH Last Admin: 03/14/20 17:51 Dose: 20 ml Documented by: Warfarin Sodium (Warfarin 3 Mg Tablet) 3 mg PO DAILY@1700 [facility] Last Admin: 03/15/20 16:45 Dose: 3 mg Documented by: Discharge Diet: 6 Cup Fluid Restriction, 2000 mg Sodium Diet Call your doctor if you observe: Fever of 101 or Higher Home Medications: Medications to take at Discharge Aspirin E.C. [Ecotrin] 81 mg PO DAILY@0800 11/15/14 mecobalamin (vitamin B12) 1,000 mcg chewable tablet 1,000 mcg PO DAILY 08/23/19 Cholecalciferol (Vitamin D3) [Dialyvite Vitamin D3 Max] 50,000 units PO WE 03/13/20 Lactobacillus Rhamnosus GG [Culturelle] 1 cap PO DAILY 03/13/20 Lisinopril [Prinivil] 10 mg PO BID 03/13/20 Metoprolol(XL)Succ [Toprol Xl (Beta Jake)] 50 mg PO DAILY 03/13/20 Nitroglycerin [Nitro-Dur] 0.1 mg TD DAILY 03/13/20 Polymyxin B Sulf/Trimethoprim [Polymyxin B-Tmp Eye Drops] 1 drp OP 4X/DAY 03/13/20 Rosuvastatin Calcium 40 mg PO DAILY 03/13/20 Sod Phos Di, [place]/K Phos [place] [K-Phos Neutral Tablet] 250 mg PO DAILY 03/13/20 Furosemide [Lasix] 40 mg PO DAILY #30 tab 03/16/20 Potassium Chloride [K-Dur] 10 meq PO DAILY #30 tab 03/16/20 Warfarin Sodium 3 mg PO DAILY #0 03/16/20 Following Prescriptions Were Given to Patient: Potassium Chloride [K-Dur] 10 meq PO DAILY #30 tab Transmission Status: Pending to [facility] #30 Furosemide [Lasix] 40 mg PO DAILY #30 tab Transmission Status: Pending to [facility] #30 Primary Care Physician: Niko Sampson MD [Primary Care Provider] - Within 2 Weeks Please Follow Up With: Marco Noel NP, RADIO TECHNICIAN-C When: 05/18/2019, already scheduled Please Follow Up With: Ian Corea MD When: call for appointment Patient Instructions: Taking Medication to Control Heart Failure, What Is Heart Failure?, Heart Failure: Warning Signs of a Flare-Up, Heart Failure: Tracking Your Weight, Heart Failure: Being Active, Taking Medications for Your Heart, Heart Failure: Procedures That May Help, Coping with Heart Failure, Heart Failure: Making Changes to Your Diet Disposition: Home Minutes spent on discharge:: 40 Patient Condition:: Good Medical Necessity - Tobacco Use Smoking Status: Former smoker Tobacco Use: Non-smoker Meaningful Use Info Meaningful Use Diagnoses (Choose all that apply): CHF - CHF LUIS/ARB ordered at discharge?: Yes Documented LVEF (%): 40 Inpatient E&M: 44735 Disch Hosp
--- NOTE | 2020-03-16 11:45 | PHA.DC.MC ---
Pharmacy Service has performed discharge medication reconciliation and counseling for this patient. 1. FERROUS SULFATE 325MG PO QOD 2. FUROSEMIDE 40MG PO DAILY 3. POTASSIUM CHLORIDE 10MEQ PO DAILY The patient's discharge medication list was reviewed for discrepancies and discrepancies were resolved. Home Medications Aspirin E.C. [Ecotrin] 81 mg PO DAILY@0800 11/15/14 mecobalamin (vitamin B12) 1,000 mcg chewable tablet 1,000 mcg PO DAILY 08/23/19 Cholecalciferol (Vitamin D3) [Dialyvite Vitamin D3 Max] 50,000 units PO WE 03/13/20 Lactobacillus Rhamnosus GG [Culturelle] 1 cap PO DAILY 03/13/20 Lisinopril [Prinivil] 10 mg PO BID 03/13/20 Metoprolol(XL)Succ [Toprol Xl (Beta Jake)] 50 mg PO DAILY 03/13/20 Nitroglycerin [Nitro-Dur] 0.1 mg TD DAILY 03/13/20 Polymyxin B Sulf/Trimethoprim [Polymyxin B-Tmp Eye Drops] 1 drp OP 4X/DAY 03/13/20 Rosuvastatin Calcium 40 mg PO DAILY 03/13/20 Sod Phos Di, [place]/K Phos [place] [K-Phos Neutral Tablet] 250 mg PO DAILY 03/13/20 Ferrous Sulfate 325 mg PO QODAY #30 tab 03/16/20 Furosemide [Lasix] 40 mg PO DAILY #30 tab 03/16/20 Potassium Chloride [K-Dur] 10 meq PO DAILY #30 tab 03/16/20 Warfarin Sodium 3 mg PO DAILY #0 03/16/20 The patient was counseled on the following discharge medications and changes in medications for homegoing were reviewed. The Reason for Use, instructions for use, and potential side effects were reviewed for all new medications. The patient's questions regarding all of their medications were answered. The patient was able to verbally demonstrate an understanding of their discharge medications.
[2020-03-16] MEDS: 0.9% Saline Lock 10 ML Syringe IV (15:23)
--- NOTE | 2020-03-19 10:54 | CCN.REFER ---
Agrees to CCN. CCN to start when HH discharges.
== END 2020-03-16 16:50 | disposition home or self-care (01) | DRG 292 ==
LOC: ED 14:25 → PCU 20:51
PROVIDERS: Physician Assistant; Admitting Provider Hospitalist; Emergency Provider Student in an Organized Health Care Education/Training Program; PCP Family Medicine
DX: I11.0 Hypertensive heart disease with heart failure (principal); I48.92 Unspecified atrial flutter; C34.91 Malignant neoplasm of unspecified part of right bronchus or lung; E87.2 Acidosis; I50.23 Acute on chronic systolic (congestive) heart failure; Z79.01 Long term (current) use of anticoagulants; R19.5 Other fecal abnormalities; R79.1 Abnormal coagulation profile; I73.9 Peripheral vascular disease, unspecified; E78.5 Hyperlipidemia, unspecified; Z87.891 Personal history of nicotine dependence; Z79.899 Other long term (current) drug therapy; E87.6 Hypokalemia; H10.9 Unspecified conjunctivitis; Z95.5 Presence of coronary angioplasty implant and graft; D50.0 Iron deficiency anemia secondary to blood loss (chronic)
CPT/HCPCS: 36415; 36591; 71045; 80048; 80053; 82274; 82607; 82728; 82746; 83540; 83550; 83605; 83880; 84100; 84145; 84443; 84484; 85025; 85610; 86850; 86900; 86901; 87040; 87426; 87635; 93005; 93971; 97110; 97162; 97165; 97530; 97535; 99285; J7050; A4216; J1940; J2916; U0002

== ENCOUNTER 2020-03-29 09:21 | Outpatient (RCR) | payer MEDICARE, SELFPAY ==
[2020-03-13 21:36] VITALS: BMI 33.3
[2020-03-22 15:01] LABS: International Normalized Ratio 2.4; Prothrombin Time (Protime)PT. 25.9 SECONDS (11.7-14.9)
[2020-03-29 09:39] LABS: International Normalized Ratio 2.9; Prothrombin Time (Protime)PT. 29.6 SECONDS (11.7-14.9)
== END 2020-03-29 18:00 | disposition home or self-care (01) ==
LOC: HHLAB 09:21
PROVIDERS: PCP Family Medicine; Referring Provider Physician Assistant Medical; Visit Provider Physician Assistant Medical
DX: Z79.01 Long term (current) use of anticoagulants (principal)
CPT/HCPCS: 85610

== ENCOUNTER → 2020-04-17 16:08 | Outpatient (CLI) | payer MEDICARE, SELFPAY ==
[2020-04-02 11:52] VITALS: BMI 33.6
[2020-04-17 17:34] LABS: Absolute Lymphocyte Count 0.63 X10^3/uL (0.83-4.51); Absolute Neutrophil Count 5.4 X10^3/uL (2.0-7.7); Basophil# 0.04 X10^3/uL; Basophil% 0.5 % (0-1); Eosinophil# 0.04 X10^3/uL; Eosinophils% 0.5 % (0-5); Hematocrit 32.6 % (40-54); Hemoglobin 9.2 g/dL (13.0-16.5); Lymphocyte # 0.63 X10^3/ul (4.0); Lymphocyte % 8.6 % (19-41); Mean Corp Hgb Conc 28.2 g/dL (32-36); Mean Corpuscular Hgb 27.8 pg (27.0-32.0); Mean Corpuscular Volume 98.5 fL (80-94); Monocyte# 1.12 X10^3/uL; Monocyte% 15.3 % (0-10); NRBC Flagged by Analyzer 0 % (0-5); Neutrophil # 5.41 X10^3/uL (2.7-7.7); Neutrophil % 74.3 % (47-70); POSITIVE MORPHOLOGY YES; Platelet Count 249 K/mm3 (150-450); Red Blood Count 3.31 M/mm3 (4.6-6.2); White Blood Count 7.3 K/mm3 (4.4-11.0)
[2020-04-17 17:50] LABS: Anion Gap 6 (5-15); BUN 26 mg/dL (7-18); BUN/Creat Ratio 21.7 RATIO (10-20); Calcium,Total 9.3 mg/dL (8.5-10.1); Chloride 105 mmol/L (98-107); EST Glomerular Filtration Rate 62 mL/min (>60); Est Glom Filt Rate - Afr Amer 75 mL/min (>60); Ferritin 78 ng/mL (26-388); Glucose 87 mg/dL (74-106); Iron 29 ug/dL (65-175); Magnesium 2.2 mg/dL (1.6-2.6); Potassium 4.5 mmol/L (3.5-5.1); Sodium Level 137 mmol/L (136-145)
[2020-04-17 18:10] LABS: Anisocytosis 1+; Differential Comment SCANNED; Differential Indicated SCAN CRITERIA MET
== END ==
PROVIDERS: PCP Family Medicine; Visit Provider Family Medicine
DX: D50.9 Iron deficiency anemia, unspecified (principal); I48.91 Unspecified atrial fibrillation; N18.9 Chronic kidney disease, unspecified; D63.1 Anemia in chronic kidney disease
CPT/HCPCS: 36415; 80048; 82728; 83540; 83735; 85025

== ENCOUNTER 2020-04-24 11:00 | Outpatient (RCR) | payer MEDICARE, SELFPAY ==
[2020-04-02 11:52] VITALS: BMI 33.6
[2020-04-24 11:29] LABS: International Normalized Ratio 1.8; Prothrombin Time (Protime)PT. 20.5 SECONDS (11.7-14.9)
== END 2020-04-24 18:00 | disposition home or self-care (01) ==
LOC: HHLAB 11:00
PROVIDERS: PCP Family Medicine; Referring Provider Internal Medicine Cardiovascular Disease; Visit Provider Internal Medicine Cardiovascular Disease
DX: Z79.01 Long term (current) use of anticoagulants (principal)
CPT/HCPCS: 85610

== ENCOUNTER → 2020-05-17 10:03 | Outpatient (CLI) | payer MEDICARE, SELFPAY ==
[2020-04-02 11:52] VITALS: BMI 33.6
[2020-05-17 12:46] LABS: International Normalized Ratio 2.7; Prothrombin Time (Protime)PT. 28.1 SECONDS (11.7-14.9)
[2020-05-17 12:54] LABS: Absolute Lymphocyte Count 0.49 X10^3/uL (0.83-4.51); Absolute Neutrophil Count 5.3 X10^3/uL (2.0-7.7); Basophil# 0.02 X10^3/uL; Basophil% 0.3 % (0-1); Eosinophil# 0.03 X10^3/uL; Eosinophils% 0.4 % (0-5); Hematocrit 35.8 % (40-54); Hemoglobin 10.2 g/dL (13.0-16.5); Lymphocyte # 0.49 X10^3/ul (4.0); Mean Corp Hgb Conc 28.5 g/dL (32-36); Mean Corpuscular Hgb 27.7 pg (27.0-32.0); Mean Corpuscular Volume 97.3 fL (80-94); Mean Platelet Vol. 9.3 fl (6.2-12.0); Monocyte# 1.09 X10^3/uL; Monocyte% 15.6 % (0-10); NRBC Flagged by Analyzer 0 % (0-5); Neutrophil # 5.32 X10^3/uL (2.7-7.7); Neutrophil % 76.1 % (47-70); POSITIVE DIFFERENTIAL YES; Platelet Count 244 K/mm3 (150-450); RBC Distribution Width CV 16.4 % (11.6-14.6); Red Blood Count 3.68 M/mm3 (4.6-6.2)
[2020-05-17 12:58] LABS: Differential Indicated SCAN CRITERIA MET
[2020-05-17 13:20] LABS: AST(SGOT) 16 U/L (15-37); Alanine Aminotransfer ALT/SGPT 26 U/L (16-61); Albumin, Serum 3.9 g/dL (3.2-5.0); Alkaline Phosphatase 84 U/L (45-117); Anion Gap 5 (5-15); BUN 38 mg/dL (7-18); BUN/Creat Ratio 25.9 RATIO (10-20); Bilirubin, Direct < 0.05 mg/dL (0.00-0.30); Calcium,Total 9.2 mg/dL (8.5-10.1); Chloride 108 mmol/L (98-107); Cholesterol 110 mg/dL (200); Creatinine, Serum 1.47 mg/dL (0.70-1.30); EST Glomerular Filtration Rate 49 mL/min (>60); Est Glom Filt Rate - Afr Amer 60 mL/min (>60); Ferritin 52 ng/mL (26-388); Globulin 3.2 g/dL (2.2-4.2); Glucose 94 mg/dL (74-106); High Density Lipoprotein 44 mg/dL; Iron 34 ug/dL (65-175); Potassium 4.3 mmol/L (3.5-5.1); Protein, Total 7.1 g/dL (6.4-8.2); Sodium Level 138 mmol/L (136-145); Triglycerides 166 mg/dL; Very Low Density Lipoprotein 33 mg/dL (5-40)
[2020-05-17 13:23] LABS: Differential Comment SCANNED
== END ==
PROVIDERS: PCP Family Medicine; Visit Provider Internal Medicine Cardiovascular Disease
DX: D50.9 Iron deficiency anemia, unspecified (principal); N18.9 Chronic kidney disease, unspecified; D63.1 Anemia in chronic kidney disease; E78.00 Pure hypercholesterolemia, unspecified; E78.5 Hyperlipidemia, unspecified; I48.92 Unspecified atrial flutter; Z79.01 Long term (current) use of anticoagulants
CPT/HCPCS: 36415; 80048; 80061; 80076; 82728; 83540; 85025; 85610

== ENCOUNTER → 2020-05-30 10:05 | Outpatient (CLI) | payer MEDICARE, SELFPAY ==
[2020-05-18 13:05] VITALS: BMI 34.4
[2020-05-30 11:02] LABS: International Normalized Ratio 3.3; Prothrombin Time (Protime)PT. 33.1 SECONDS (11.7-14.9)
[2020-05-30 11:12] LABS: Vitamin D,25 Hydroxy 99.1 ng/mL
[2020-05-30 11:17] LABS: ALB/GLOB Ratio 1.2 RATIO (0.9-2.4); AST(SGOT) 32 U/L (15-37); Alanine Aminotransfer ALT/SGPT 35 U/L (16-61); Albumin, Serum 3.6 g/dL (3.2-5.0); Alkaline Phosphatase 86 U/L (45-117); Anion Gap 7 (5-15); BUN 25 mg/dL (7-18); BUN/Creat Ratio 19.4 RATIO (10-20); Calcium,Total 8.9 mg/dL (8.5-10.1); Chloride 107 mmol/L (98-107); Creatinine, Serum 1.29 mg/dL (0.70-1.30); EST Glomerular Filtration Rate 57 mL/min (>60); Est Glom Filt Rate - Afr Amer 69 mL/min (>60); Glucose 114 mg/dL (74-106); Protein, Total 6.6 g/dL (6.4-8.2); Sodium Level 142 mmol/L (136-145)
== END ==
PROVIDERS: Internal Medicine Endocrinology, Diabetes & Metabolism; PCP Family Medicine; Referring Provider Internal Medicine Cardiovascular Disease; Visit Provider Internal Medicine Cardiovascular Disease
DX: E21.3 Hyperparathyroidism, unspecified (principal); E55.9 Vitamin D deficiency, unspecified; I48.92 Unspecified atrial flutter; Z79.01 Long term (current) use of anticoagulants; I48.20 Chronic atrial fibrillation, unspecified
CPT/HCPCS: 80053; 82306; 85610

== ENCOUNTER 2020-06-07 17:20 | Outpatient (RCR) | payer MEDICARE, SELFPAY ==
[2020-05-18 13:05] VITALS: BMI 34.4
[2020-06-07] MEDS: COVID-19 VACC, MRNA(PFIZER)/PF 30 MCG/0.3 ML SYRINGE IM (16:13)
[2020-06-28] MEDS: COVID-19 VACC, MRNA(PFIZER)/PF 30 MCG/0.3 ML SYRINGE IM (15:47)
== END 2020-09-11 23:59 ==
LOC: IMMUN 17:20
PROVIDERS: PCP Family Medicine; Visit Provider Family Medicine
DX: Z23 Encounter for immunization (principal)
CPT/HCPCS: 0001A; 0002A; 91300

== ENCOUNTER 2020-06-12 12:34 | Emergency (ER) | payer MEDICARE, SELFPAY ==
[2020-05-18 13:05] VITALS: BMI 34.4
[2020-06-12] VITALS (11 sets, daily range): BP systolic 87–128; BP diastolic 47–78; PULSE 66–88; RESP 16–25; TEMP 36.3–36.9; O2SAT 94–98; BMI 34.6
--- NOTE | 2020-06-12 14:05 | EKG12_ITS ---
Test Reason : Blood Pressure : / mmHG Vent. Rate : 070 BPM Atrial Rate : 070 BPM P-R Int : 000 ms QRS Dur : 160 ms QT Int : 484 ms P-R-T Axes : 000 -70 088 degrees QTc Int : 522 ms Ventricular-paced rhythm Abnormal ECG Confirmed by SILVANA KIDD, TOMASZ ([id number]), continuity editor KEVIN PIMENTEL ([id number]) on 06/18/2020 10:17:27 A M Referred By: GARY Confirmed By:PABLITO PINA MD
--- NOTE | 2020-06-12 14:06 | CT_ITS ---
STUDY: CT ABDOMEN AND PELVIS WITHOUT CONTRAST REASON FOR EXAM: Male, 79 years old. Abdominal pain. RADIATION DOSAGE (If Supplied By Facility): CTDIvol = ( 15.82 ) mGy, DLP = ( 814.42 ) mGycm TECHNIQUE: Transaxial images were obtained from the dome of the diaphragm to the symphysis pubis with oral contrast, and without intravenous contrast. Sagittal and coronal images were reconstructed. Individualized dose optimization techniques were used for this CT. COMPARISON: CT of the abdomen, 02/16/2020. FINDINGS: The visualized lung bases are unremarkable. There is slight deformity of the rib cage suggesting old fractures. There is increased AP diameter of the chest. Heart is normal in size. Pacer leads are seen in the right heart. There is evidence of coronary artery calcifications. Normal liver. Normal gallbladder and extrahepatic biliary system. Normal spleen. Normal pancreas. Normal bilateral adrenal glands. The right kidney is of normal size cortical thickness. There are multiple renal cysts. These are unchanged from the prior study. There is no renal calculi. Mild stranding of the perinephric fat. No hydronephrosis. Normal right ureter. The left kidney is of normal size and cortical thickness. Multiple stable renal cysts. There is mild stranding of the perinephric fat. Again seen is a small cortical calcification in an area of cortical loss in the mid kidney. No hydronephrosis. Normal left ureter. Normal visualized stomach. Normal small intestine. There is distention of the proximal colon with interposition of the hepatic flexure between the abdominal wall and liver.. In the mid to distal transverse colon there is a short segment area of luminal narrowing and marked wall thickening suggestive of a malignancy. This is best seen on image 104 of series 2 and on image 34 of series 601. The colon distal to this area appears normal in size and appearance. There is non-visualization of the appendix. Atherosclerotic changes of the abdominal aorta. There is evidence of an aorto by iliac stent graft with an abdominal aortic aneurysm. This appears stable. Normal inferior vena cava. Normal retroperitoneum. Urinary bladder is poorly distended. The prostate is enlarged and invaginates into the bladder floor. There is no pelvic lymphadenopathy. No free air is seen within the peritoneal cavity. Femoral free fluid is seen in the right subphrenic space. Small umbilical hernia of omental fat. The abdominal wall is otherwise unremarkable. There are diffuse degenerative changes of the visualized lumbar spine. CT/Abdomen/Pel W ORAL Cont Only IMPRESSION: 1. A short segment lesion in the mid to distal transverse colon with proximal obstruction. The findings suggest a malignancy. This was not present on the previous examination. 2. Minimal ascites seen in the right subphrenic space. 3. No other major interval change when compared to 02/16/2020. N.B. : The above information has been verbally conveyed by Chepe Kaur DO to Josefina Riggins MD, on 06/12/2020 17:10:49 (ET). Electronically Signed: Chepe Kaur DO at 17:11 EST Tel [phone], Service support ,
--- NOTE | 2020-06-12 14:07 | NURSING ---
Amanda WALLIS DVT, FAILURE TO THRIVE
[2020-06-12] MEDS: Ondansetron 4 MG/2 ML Vial IV (14:30)
--- NOTE | 2020-06-12 14:33 | ED.VISSUMM ---
- ER Visit Summary Date of Service: 06/12/20 Chief Complaint: Not feeling well History of Present Illness: The patient is a 79 M presenting stating that he has not been feeling well since . Patient had his Covid shot on and since then has not been feeling well. He initially had myalgias and nausea. He is now complaining of lower abdominal pain. He has had vomiting and diarrhea. He has a history of non-small cell lung cancer and is on home O2. He denies chest pain or shortness of breath. Denies fever. Physical Examination: Vitals are stable. Initial blood pressure 87/63. Patient is afebrile. Alert no acute distress. HEENT exam is unremarkable. Neck is supple. Lungs are clear and equal bilaterally. Heart is regular rate and rhythm. Abdomen is soft diffuse tenderness, no rebound, distention Extremities are unremarkable. Skin is warm and dry. No focal neurologic deficit. Remainder of exam is unremarkable. Emergency Department Course and Treatment: EKG is paced at a rate of 70. CBC shows white count 20.6, hemoglobin 11.3. Chemistries show BUN 32, creatinine 2.2. Lipase 69. Troponin is negative. Lactic acid is 3.0. Blood cultures were sent. Chest x-ray read by myself and radiology shows cardiomegaly without acute pulmonary disease. There is resolution of the mild pulmonary edema suspected on the prior study. CT abdomen shows a short segment lesion in the mid to distal transverse colon with proximal obstruction. The findings suggest a malignancy. This was not present on the previous examination. Minimal ascites seen in the right subphrenic space. No other major interval change when compared to 02/16/2020. Discussed with hospitalist and Dr. Louis. Dr. Louis recommends tertiary care transfer. D[facility]ed with [facility] for transfer. Disposition: Transfer Impression: Leukocytosis, lactic acidosis, new colon mass, colonic obstruction This note was generated with [employer] dictation software. It may contain incorrect words, spelling, and punctuation that were not noted in review of the chart prior to signing ED Disposition - Plan for ED Patient: Referrals: Niko Sampson MD [Primary Care Provider] -
[2020-06-12 14:36] LABS: Basophil# 0.03 X10^3/uL; Basophil% 0.1 % (0-1); Eosinophil# 0.01 X10^3/uL; Hematocrit 39.3 % (40-54); Hemoglobin 11.3 g/dL (13.0-16.5); Lymphocyte % 1.9 % (19-41); Mean Corp Hgb Conc 28.8 g/dL (32-36); Mean Corpuscular Hgb 28.4 pg (27.0-32.0); Mean Corpuscular Volume 98.7 fL (80-94); Mean Platelet Vol. 8.7 fl (6.2-12.0); Monocyte# 2.92 X10^3/uL; Monocyte% 14.2 % (0-10); NRBC Flagged by Analyzer 0 % (0-5); Neutrophil # 17.01 X10^3/uL (2.7-7.7); Neutrophil % 82.9 % (47-70); POSITIVE DIFFERENTIAL YES; Platelet Count 260 K/mm3 (150-450); RBC Distribution Width CV 16.6 % (11.6-14.6); Red Blood Count 3.98 M/mm3 (4.6-6.2); White Blood Count 20.6 K/mm3 (4.4-11.0)
[2020-06-12 14:38] LABS: Differential Indicated SCAN CRITERIA MET
[2020-06-12 14:53] LABS: AST(SGOT) 18 U/L (15-37); Alanine Aminotransfer ALT/SGPT 33 U/L (16-61); Albumin, Serum 3.5 g/dL (3.2-5.0); Alkaline Phosphatase 118 U/L (45-117); Anion Gap 8 (5-15); BUN 32 mg/dL (7-18); BUN/Creat Ratio 14.5 RATIO (10-20); Calcium,Total 9.3 mg/dL (8.5-10.1); Chloride 99 mmol/L (98-107); EST Glomerular Filtration Rate 31 mL/min (>60); Est Glom Filt Rate - Afr Amer 37 mL/min (>60); Estimated Creatinine Clearance 25.87 ml/min; Globulin 3.6 g/dL (2.2-4.2); Glucose 118 mg/dL (74-106); Lipase 69 U/L (73-393); Potassium 4.1 mmol/L (3.5-5.1); Protein, Total 7.1 g/dL (6.4-8.2); Sodium Level 135 mmol/L (136-145)
[2020-06-12 15:05] LABS: Differential Comment SCANNED
--- NOTE | 2020-06-12 15:26 | ED.RN ---
1532--sepsis alert triggered by pt. dr rodriguez aware. no new orders
--- NOTE | 2020-06-12 16:38 | RAD_ITS ---
STUDY: X-RAY CHEST REASON FOR EXAM: Male, 79 years old. Shortness of breath. TECHNIQUE: Single AP portable view of the chest. COMPARISON: 03/13/2020. FINDINGS: Stable right jugular Port-A-Cath. Stable left-sided cardiac pacemaker. The lungs are unchanged in appearance from prior study. There is chronic interstitial changes without new mass or infiltrate. Again seen is a small nodular density at the right lung base possibly calcified granuloma. There is no demonstrated pleural abnormality. The common Normal mediastinum and su. Normal visualized pulmonary arteries. There is atherosclerotic calcification of the aortic arch with tortuosity. The thoracic spine is obscured by the mediastinum. There is degenerative osteoarthritis of the bilateral shoulders. There is no demonstrated abnormality of the visualized soft tissue structures of the upper abdomen. RAD/Chest 1 View (Portable) IMPRESSION: Portable Cardiomegaly without acute pulmonary disease. There is resolution of the mild pulmonary edema suspected on the prior study. Electronically Signed: Chepe Kaur DO at 17:13 EST Tel [phone], Service support ,
[2020-06-12 17:43] LABS: Mucous, Urine 0 SEEN /hpf (<or=2+); Red Blood Cells-Urine 0 SEEN /hpf (0-5); Squamous Epithelial Cells - UA 0 SEEN /hpf (0-5)
[2020-06-12 17:48] LABS: Color, Urine Amber (Yellow); Glucose, Dipstick Normal (Normal); Ketone-Dipstick 5 mg/dl (Negative); Leukocyte Esterase-Dipstick 25 /ul (Negative); Nitrite-Dipstick Negative (Negative); Occult Blood-Urine 10 /ul (Negative); Protein-Dipstick 30 mg/dl (Negative); Specific Gravity, Urine 1.025 (1.002-1.030); Urine Clarity Clear (Clear); Urine Urobilinogen 1 mg/dl (Normal)
[2020-06-12 17:50] LABS: Urine Bilirubin Dipstick 1 mg/dL (Negative)
[2020-06-12 18:14] LABS: Bacteria 1+ /hpf (None Seen); Hyaline Cast 0-5 SEEN /lpf (0-5); White Blood Cells 0-5 SEEN /hpf (0-5)
[2020-06-12 18:31] LABS: Reflex Lactate? Y
[2020-06-12] MEDS: 0.9% Normal Saline 1,000 ML 999 ML IV (19:02)
[2020-06-12 19:26] LABS: Prothrombin Time (Protime)PT. 34.5 SECONDS (11.7-14.9)
[2020-06-12 19:29] LABS: International Normalized Ratio 3.5
[2020-06-12 19:40] LABS: Lactic Acid 1.6 mmol/L (0.4-1.9)
[2020-06-13 11:49] LABS: Pathologist Review Reviewed
== END 2020-06-12 20:53 | disposition short-term general hospital (02) ==
LOC: ED 14:32
PROVIDERS: Emergency Provider Emergency Medicine; PCP Family Medicine
DX: K56.609 Unspecified intestinal obstruction, unspecified as to partial versus complete obstruction (principal); K63.89 Other specified diseases of intestine; D72.829 Elevated white blood cell count, unspecified; E87.2 Acidosis; C34.90 Malignant neoplasm of unspecified part of unspecified bronchus or lung; N17.9 Acute kidney failure, unspecified; I10 Essential (primary) hypertension; Z99.81 Dependence on supplemental oxygen; Z87.891 Personal history of nicotine dependence
CPT/HCPCS: 71045; 74176; 80053; 81001; 83605; 83690; 84484; 85025; 85610; 87040; 87426; 93005; 96365; 96375; 99285; J7030; P9612; A4216; J2405

== ENCOUNTER → 2020-08-13 08:52 | Outpatient (CLI) | payer MEDICARE, SELFPAY ==
[2020-07-12 13:09] VITALS: BMI 30.4
[2020-08-13 12:25] LABS: Absolute Lymphocyte Count 0.48 X10^3/uL (0.83-4.51); Absolute Neutrophil Count 5.7 X10^3/uL (2.0-7.7); Basophil# 0.02 X10^3/uL; Basophil% 0.3 % (0-1); Eosinophil# 0.09 X10^3/uL; Eosinophils% 1.2 % (0-5); Hematocrit 43.2 % (40-54); Hemoglobin 12.3 g/dL (13.0-16.5); Lymphocyte # 0.48 X10^3/ul (0.83-4.51); Lymphocyte % 6.5 % (19-41); Mean Corp Hgb Conc 28.5 g/dL (32-36); Mean Corpuscular Hgb 26.3 pg (27.0-32.0); Mean Corpuscular Volume 92.5 fL (80-94); Mean Platelet Vol. 9.7 fl (6.2-12.0); Monocyte# 1.05 X10^3/uL; Monocyte% 14.2 % (0-10); NRBC Flagged by Analyzer 0 % (0-5); POSITIVE DIFFERENTIAL YES; Platelet Count 252 K/mm3 (150-450); RBC Distribution Width CV 15.2 % (11.6-14.6); RBC Distribution Width SD 51.9 fl (35.1-43.9); Red Blood Count 4.67 M/mm3 (4.6-6.2); White Blood Count 7.4 K/mm3 (4.4-11.0)
[2020-08-13 12:27] LABS: Differential Indicated SCAN CRITERIA MET
[2020-08-13 12:38] LABS: International Normalized Ratio 2.7; Prothrombin Time (Protime)PT. 27.9 SECONDS (11.7-14.9)
[2020-08-13 12:48] LABS: ALB/GLOB Ratio 0.9 RATIO (0.9-2.4); AST(SGOT) 50 U/L (15-37); Alanine Aminotransfer ALT/SGPT 58 U/L (16-61); Albumin, Serum 3.2 g/dL (3.2-5.0); Alkaline Phosphatase 343 U/L (45-117); Anion Gap 5 (5-15); BUN 15 mg/dL (7-18); BUN/Creat Ratio 15.5 RATIO (10-20); Calcium,Total 9.4 mg/dL (8.5-10.1); Chloride 107 mmol/L (98-107); Creatinine, Serum 0.97 mg/dL (0.70-1.30); EST Glomerular Filtration Rate 80 mL/min (>60); Est Glom Filt Rate - Afr Amer 96 mL/min (>60); Globulin 3.6 g/dL (2.2-4.2); Glucose 118 mg/dL (74-106); LDH 311 U/L (87-241); Protein, Total 6.8 g/dL (6.4-8.2); Sodium Level 138 mmol/L (136-145)
[2020-08-13 20:14] LABS: Xtra Tube EP Lab EXTRA TUBE
[2020-08-14 15:36] LABS: Carcinoembryonic Antigen 42.6 ng/mL (0.0-4.7)
[2020-08-14 16:09] LABS: Alkaline Phosphatase, Serum 344 IU/L (39-117); Bone Fraction 27 % (12-68); Liver Fraction 73 % (13-88)
[2020-08-15 13:02] LABS: Intestinal Fraction 1 % (0-18)
== END ==
PROVIDERS: Internal Medicine Medical Oncology; PCP Family Medicine; Visit Provider Internal Medicine Cardiovascular Disease
DX: R74.8 Abnormal levels of other serum enzymes (principal)
CPT/HCPCS: 80053; 82378; 83615; 84075; 84080; 85025; 85610

== ENCOUNTER → 2020-08-13 13:04 | Outpatient (CLI) | payer MEDICARE, SELFPAY ==
[2020-06-12 12:35] VITALS: BMI 34.6
[2020-07-12 13:09] VITALS: BMI 30.4
--- NOTE | 2020-08-13 13:06 | CT_ITS ---
STUDY: CT CHEST T ABDOMEN WITH CONTRAST REASON FOR EXAM: Male, 80 years old. MONITORING LUNG CANCER. Patient had chemotherapy. RADIATION DOSAGE (If Supplied By Facility): CTDIvol = ( 19.8 ) mGy, DLP = ( 1306.24 ) mGycm TECHNIQUE: Transaxial imaging was performed following intravenous administration of IV 100mL Isovue-300. Individualized dose optimization techniques were used for this CT. COMPARISON: Comparison is made with prior examination dated 02/16/2020. FINDINGS: A right-sided portacatheter is seen with the tip in the superior vena cava. CHEST Stable 9.1 mm calcified granuloma in the anterior aspect of the right middle lobe. Stable linear scarring at the lung bases more prominent at right lung base. There is no demonstrated pleural abnormality. There are calcifications of the coronary arteries. A left-sided pacemaker is seen. There is a 1.7 cm lymph node in the precarinal space. This is unchanged. Stable 1 cm lymph node in the pretracheal space. This is unchanged. Normal hilar regions. Normal unenhanced pulmonary arteries. There is atherosclerotic calcification of the aortic arch with tortuosity and elongation of the aortic arch and descending thoracic aorta. Almost complete collapse of 2 lower dorsal vertebra with kyphotic deformity. ABDOMEN. Multiple hypodense lesions are seen throughout the liver. This is in keeping with diffuse hepatic metastasis. Normal gallbladder and extrahepatic biliary system. Normal spleen. Normal pancreas. Normal bilateral adrenal glands. Stable bilateral renal cysts more prominent on the left side with cortical thinning and possible old infarct in the lateral aspect of the midportion of the left kidney. Normal visualized stomach. Normal small intestine. Normal colon. There is non-visualization of the appendix. Abdominal aortic aneurysm with a transverse dimension of 4.4 cm. A covered stent graft is seen within the aorta and right and left common iliac arteries bilaterally. Normal inferior vena cava. Normal retroperitoneum. Small amount of fluid is seen in the left paracolic gutter. Mild increased markings are seen within the peritoneum more prominent in the peritoneal fat in the left upper quadrant. Deposits cannot be excluded. Stable postoperative changes are seen in the anterior abdominal wall with an ostomy in the left lower quadrant. Almost complete collapse of 2 adjacent lower dorsal vertebrae. CT/CT Chest AND Abd W/ Contrast IMPRESSION: Multiple hypodense lesions seen in the liver in keeping with the diffuse hepatic metastasis. Small amount of fluid is seen in the left paracolic gutter with increased markings in the peritoneal fat. Metastatic deposits cannot be excluded. Ostomy is seen in the right mid abdomen and left lower quadrant. Electronically Signed: Michael Hutchins MD at 15:28 EDT , Service support ,
== END ==
PROVIDERS: PCP Family Medicine; Referring Provider Internal Medicine Medical Oncology; Visit Provider Internal Medicine Medical Oncology
DX: C34.91 Malignant neoplasm of unspecified part of right bronchus or lung (principal); C18.9 Malignant neoplasm of colon, unspecified; C78.7 Secondary malignant neoplasm of liver and intrahepatic bile duct; I48.20 Chronic atrial fibrillation, unspecified; R74.8 Abnormal levels of other serum enzymes; Z79.01 Long term (current) use of anticoagulants
CPT/HCPCS: 36415; 71260; 74160; 80053; 82378; 83615; 84075; 84080; 85025; 85610; Q9967; A4216

== ENCOUNTER → 2020-08-20 10:18 | Outpatient (CLI) | payer MEDICARE, SELFPAY ==
[2020-07-12 13:09] VITALS: BMI 30.4
--- NOTE | 2020-08-20 10:19 | EKG12_ITS ---
Test Reason : CHEMO Blood Pressure : / mmHG Vent. Rate : 070 BPM Atrial Rate : 061 BPM P-R Int : 000 ms QRS Dur : 140 ms QT Int : 448 ms P-R-T Axes : 000 -75 093 degrees QTc Int : 483 ms Atrial fibrillation with pacing Left axis deviation Non-specific intra-ventricular conduction block Inferior infarct , age undetermined Anterolateral infarct , age undetermined Abnormal ECG Confirmed by FILOMENA KIDD, IDALIA ([id number]), art editor KEVIN PIMENTEL ([id number]) on 08/21/2020 9:38:22 AM Referred By: Ian Corea Confirmed By:IDALIA BUTT MD
== END ==
PROVIDERS: PCP Family Medicine; Referring Provider Internal Medicine Medical Oncology; Visit Provider Internal Medicine Medical Oncology
DX: Z01.818 Encounter for other preprocedural examination (principal); C34.90 Malignant neoplasm of unspecified part of unspecified bronchus or lung; C78.7 Secondary malignant neoplasm of liver and intrahepatic bile duct
CPT/HCPCS: 93005

== ENCOUNTER 2020-08-27 12:01 | Outpatient (RCR) | payer MEDICARE, SELFPAY ==
[2020-04-02 11:52] VITALS: BMI 33.6
[2020-08-23 09:02] VITALS: BMI 30.5
[2020-08-27 12:53] LABS: International Normalized Ratio 3.1; Prothrombin Time (Protime)PT. 30.9 SECONDS (11.7-14.9)
== END 2020-08-27 18:00 | disposition home or self-care (01) ==
LOC: LAB 12:01
PROVIDERS: PCP Family Medicine; Referring Provider Internal Medicine Cardiovascular Disease; Visit Provider Internal Medicine Cardiovascular Disease
DX: I48.20 Chronic atrial fibrillation, unspecified (principal); I48.92 Unspecified atrial flutter; Z79.01 Long term (current) use of anticoagulants
CPT/HCPCS: 36415; 85610

== ENCOUNTER 2020-09-10 14:52 | Outpatient (RCR) | payer MEDICARE, SELFPAY ==
[2020-08-31 13:07] VITALS: BMI 29.9
[2020-09-05 14:25] VITALS: BMI 29.9
[2020-09-10 15:33] LABS: Prothrombin Time (Protime)PT. 57.7 SECONDS (11.7-14.9)
[2020-09-10 15:39] LABS: International Normalized Ratio 6.7
== END 2020-09-10 18:00 | disposition home or self-care (01) ==
LOC: HHLAB 14:52
PROVIDERS: PCP Family Medicine; Referring Provider Internal Medicine Cardiovascular Disease; Visit Provider Internal Medicine Cardiovascular Disease
DX: I48.20 Chronic atrial fibrillation, unspecified (principal); Z79.01 Long term (current) use of anticoagulants
CPT/HCPCS: 85610

== ENCOUNTER → 2020-09-13 08:54 | Outpatient (CLI) | payer MEDICARE, SELFPAY ==
[2020-09-05 14:25] VITALS: BMI 29.9
[2020-09-13 10:16] LABS: INR Fingerstick 3.9; Prothrombin Time Fingerstick 41.9 SEC (11.9-14.4)
== END ==
PROVIDERS: PCP Family Medicine; Referring Provider Internal Medicine Cardiovascular Disease; Visit Provider Internal Medicine Cardiovascular Disease
DX: I48.20 Chronic atrial fibrillation, unspecified (principal); Z79.01 Long term (current) use of anticoagulants
CPT/HCPCS: 36416; 85610

== ENCOUNTER → 2020-09-17 09:36 | Outpatient (CLI) | payer MEDICARE, SELFPAY ==
[2020-09-05 14:25] VITALS: BMI 29.9
[2020-09-17 10:51] LABS: INR Fingerstick 4.4; Prothrombin Time Fingerstick 46.7 SEC (11.9-14.4)
[2020-09-17 11:08] LABS: International Normalized Ratio 3.6; Prothrombin Time (Protime)PT. 35.4 SECONDS (11.7-14.9)
== END ==
PROVIDERS: PCP Family Medicine; Referring Provider Internal Medicine Cardiovascular Disease; Visit Provider Internal Medicine Cardiovascular Disease
DX: I48.20 Chronic atrial fibrillation, unspecified (principal); Z79.01 Long term (current) use of anticoagulants
CPT/HCPCS: 36416; 85610

== ENCOUNTER → 2020-09-21 08:49 | Outpatient (CLI) | payer MEDICARE, SELFPAY ==
[2020-09-05 14:25] VITALS: BMI 29.9
[2020-09-21 10:13] LABS: International Normalized Ratio 2.9; Prothrombin Time (Protime)PT. 29.5 SECONDS (11.7-14.9)
== END ==
PROVIDERS: PCP Family Medicine; Visit Provider Internal Medicine Cardiovascular Disease
DX: Z79.01 Long term (current) use of anticoagulants (principal); I48.20 Chronic atrial fibrillation, unspecified
CPT/HCPCS: 36415; 85610

== ENCOUNTER → 2020-09-26 09:18 | Emergency (ER) | payer MEDICARE, SELFPAY ==
[2020-09-26 08:40] VITALS: BMI 31.1
[2020-09-26 09:21] VITALS: BP 130/77; PULSE 41; RESP 12; TEMP 35.1; O2SAT 91; BMI 32.2
--- NOTE | 2020-09-26 10:09 | EX.ED.DYSGE1 ---
HPI History of Present Illness Chief Complaint: Abn Labs Detail of Chief Complaint: Elevated potassium and creatinine Informant: patient Onset/Context/Timing Onset: Today Context: Sudden Onset Timing: Continuous Quality: Aching Location: Mid thoracic Worsened by: Nothing Relieved by: Nothing Narrative Narrative: Patient presents for abnormal labs that were drawn today. Patient was scheduled to have chemotherapy done today. Patient had labs drawn prior to this which showed a potassium of 7.0 and a creatinine of 7.7. Patient is not on dialysis. Patient complains of pain in his mid thoracic area. Patient describes as aching. Patient denies any chest pain. Patient admits to some shortness of breath. Patient admits to nausea but denies any vomiting. 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 Metatarsalgia, left foot Perforated ulcer Pleural effusion PVD (peripheral vascular disease) RIGHT FOOT ULCER DEBRIDEMENT s/p apll (03/10/17) Secondary pulmonary arterial hypertension Skin ulcer of left foot, limited to breakdown of skin Ulcer of right foot with fat layer exposed Home Medications aspirin 81 mg PO DAILY@0800 11/15/14 [History Last Taken 03/13/20] mecobalamin (vitamin B12) 1,000 mcg chewable tablet 1,000 mcg PO DAILY 08/23/19 [History Last Taken 03/13/20] nitroglycerin 0.1 mg TD DAILY 03/13/20 [History Last Taken 03/13/20] sod phos di, mono-K phos mono 250 mg PO DAILY 03/13/20 [History Last Taken 03/13/20] ferrous sulfate 325 mg (65 mg iron) tablet 325 mg PO QODAY #30 tab 05/18/20 [Rx Last Taken Unknown] warfarin 6 mg tablet 3 mg PO DAILY #0 07/23/20 [Rx Last Taken Unknown] lisinopril 10 mg tablet 10 mg PO BID #180 tab 08/10/20 [Rx Last Taken Unknown] metoprolol succinate 50 mg tablet,extended release 24 hr 50 mg PO DAILY #90 tab 08/10/20 [Rx Last Taken Unknown] rosuvastatin 40 mg tablet 40 mg PO DAILY #90 tab 08/10/20 [Rx Last Taken Unknown] loperamide 2 mg capsule 4 mg PO TID PRN cap 08/14/20 [History Last Taken Unknown] pantoprazole 20 mg tablet,delayed release 20 mg PO DAILY 08/14/20 [History Last Taken Unknown] warfarin 1 mg tablet 1 mg PO .COMPLEX #30 tab 09/17/20 [Rx Last Taken Unknown] Allergy/AdvReac Type Severity Reaction Status Date / Time morphine AdvReac Severe HALLUCINATI Verified 09/26/20 09:21 ONS amiodarone AdvReac Unknown Unknown Verified 09/26/20 09:21 Family History Mother Hypertension CAD (coronary artery disease) Myocardial infarction Brother Sudden cardiac Brother Sudden cardiac CAD (coronary artery disease) CABG Surgical History H/O angioplasty H/O endovascular stent graft for abdominal aortic aneurysm History of appendectomy History of coronary artery stent placement (03/01/01) Hx of cardiac cath MED PORT PLACEMENT Presence of cardiac pacemaker (07/2015) STENT FEMORAL ARTERY Social History Smoking Status: Former smoker Tobacco: How many years used: 50 second hand exposure: No alcohol intake: never substance use type: does not use seatbelt use: always do you feel safe at home: Yes ROS ROS ED Constitutional Constitutional ED: Denies chills or fever(s) Eyes Eyes: Denies blurry vision or change in vision ENT ENT ED: Denies rhinorrhea or sore throat Cardiovascular Cardiovascular: Denies chest pain or palpitations Respiratory/Chest Respiratory/Chest: Reports dyspnea; Denies cough Gastrointestinal Gastrointestinal: Reports nausea; Denies vomiting Genitourinary Genitourinary ED: Denies dysuria or hematuria Musculoskeletal Musculoskeletal: Reports back pain; Denies neck pain Integumentary Denies abscess or rash Neurologic Neurologic: Denies headache(s) or weakness Allergic/Immunologic Allergic/Immunologic ED: Denies mouth swelling or urticaria EXAM Physical Exam Const Vital Signs: 09/26/20 09:21 09/26/20 10:19 09/26/20 12:22 Temperature 95.1 F L Temperature Source Temporal Pulse Rate 41 L Pulse Rate [14] 83 Pulse Rate [25] 103 H Pulse Rate [29] 70 Respiratory Rate 12 Blood Pressure 130/77 H Blood Pressure [25] 103/60 Blood Pressure [27] 76/59 L Blood Pressure [29] 90/59 L Blood Pressure Mean 94 Blood Pressure Position Pulse Ox 91 Oxygen Delivery Method Nasal Cannula Nasal Cannula Oxygen Flow Rate (L/min) 4 4 09/26/20 12:26 09/26/20 12:47 Temperature Temperature Source Pulse Rate 70 107 H Pulse Rate [14] Pulse Rate [25] Pulse Rate [29] Respiratory Rate 19 H 17 Blood Pressure 76/59 L 88/56 L Blood Pressure [25] Blood Pressure [27] Blood Pressure [29] Blood Pressure Mean 64 66 Blood Pressure Position Supine Pulse Ox Oxygen Delivery Method Ambu-Bag Ambu-Bag Oxygen Flow Rate (L/min) Positive well nourished and well developed General Appearance ED: well developed HEENT Reports moist mucous membranes Eyes General Eye ED: Yes scleral icterus Neck supple and no JVD Resp normal respiratory effort and clear to auscultation bilaterally Cardio regular rate, regular rhythm and no murmurs GI normal to inspection, nondistended, normoactive bowel sounds Palpation: soft and tender epigastric, LLQ, RLQ, LUQ, RUQ and suprapubic; Negative for rebound tenderness present Extremity normal to inspection General Extremety ED: Negative for edema or tenderness General Extremity: Negative for edema Neuro oriented x3, CN's II-XII intact bilaterally and no sensory deficits noted Sensorium / Orientation: alert Motor Exam: strength 5/5 throughout Psych mental status grossly normal Skin General Skin Exam: jaundice MDM MDM MDM Narrative Medical decision making narrative: Patient was ordered calcium gluconate, insulin, and dextrose. CBC shows a leukocytosis of 19.8. Comprehensive metabolic profile shows an elevated creatinine of 8.05 and a potassium of 7.8. AST was elevated at 1335, ALT was 261, and alk phos was 990. Total bilirubin was normal. Prior to receiving all of the hyperkalemia medications, patient lost his pulse. Is a wide-complex rhythm noted on the monitor. CPR was started. Patient was intubated with a 7.5 ET tube 21 to 26 cm at the lip. ACLS protocols were followed. Patient was given multiple doses of epinephrine, 2 doses of sodium bicarbonate, and a dose of calcium chloride. Pulse was returned briefly. Levophed was ordered. However prior to the Levophed being started patient became pulseless again. CPR was continued. ACLS protocols were followed. I had a discussion with the patient's . She then informed me that the patient was DNR. Patient did regain a pulse spontaneously. Patient was maintained on the gunner's mate g. Patient then lost pulse again. Levophed was stopped. Patient was disconnected from the ventilator. Patient was then pronounced at 1318. and daughters were at bedside. They are agreeable with the process. Patient's oncologist and primary care physician were notified and Dr. Ordonez was agreeable to sign the certificate. Lab Data Attestation: I reviewed the patient's lab results. Labs: Laboratory Results - last 24 hr 09/26/20 09/26/20 10:10 10:10 WBC 19.8 H RBC 5.04 Hgb 13.2 Hct 44.9 MCV 89.1 MCH 26.2 L MCHC 29.4 L RDW Std Deviation 57.1 H RDW Coeff of Óscar 17.5 H Plt Count 388 MPV 10.0 Immature Gran % (Auto) 3.100 H Neut % (Auto) 77.0 H Lymph % (Auto) 4.0 L Douglas % (Auto) 15.6 H Eos % (Auto) 0.1 Baso % (Auto) 0.2 Absolute Neuts (auto) 15.2 H Absolute Lymphs (auto) 0.79 L Nucleated RBC % 0.1 Differential Comment COMMENT Diff Path Review May foll Sodium 135 L Potassium 7.8 H* Chloride 101 Carbon Dioxide 13.0 L Anion Gap 21 H BUN 98 H Creatinine 8.05 H* Estim Creat Clear Calc 6.96 Est GFR (MDRD) Af Amer 8 L Est GFR (MDRD) Non-Af 7 L BUN/Creatinine Ratio 12.2 Glucose 110 H Calcium 8.3 L Total Bilirubin 0.80 AST 1335 H ALT 261 H Alkaline Phosphatase 990 H Troponin I High Sens 58.3 Total Protein 6.2 L Albumin 2.2 L Globulin 4.0 Albumin/Globulin Ratio 0.6 L Radiography Chest X-Ray - ED: 1 View, Read by ED Physician, Read by Radiologist, Chronic Changes, Right Infiltrate, Left Infiltrate and - (Endotracheal tube in place. Orogastric tube in place) Diagnostic Testing: Radiology Impression Chest X-Ray 09/26/20 12:45 IMPRESSION: Interval development of diffuse reticular nodular pattern involving both lung deras more on the right side as described above Electronically Signed: Erick Fried, at 13:12 EDT Tel , Service support , EKG Initial EKG: Attestation: I personally reviewed and interpreted this EKG as follows: Interpretation: Paced (90) and LBBB Follow-up EKG: Attestation: I personally reviewed and interpreted this EKG as follows: Interpretation: LBBB Comments: Wide-complex rhythm. There are no discernible P waves. There are no pacer spikes noted. There are frequent PVCs. Critical Care Time Critical Care Time: Yes Critical care time (excluding procedures): 30-74 minutes (52), Including time spent:, Discussing w/Patient &/or Family/Disposal Man, Discussing w/Consultants and Performing Direct Patient Care at Bedside Discharge Plan Triage Chief Complaint: Abn Labs ED Provider: Landry Shea Dx/Rx/DC Orders Clinical Impression: Cardiopulmonary arrest, Renal failure, acute, Hyperkalemia Prescriptions: No Action mecobalamin (vitamin B12) 1,000 mcg tablet,chewable 1,000 mcg PO DAILY RF: 0 ferrous sulfate 325 mg (65 mg iron) tablet 325 mg PO QODAY Qty: 30 RF: 0 loperamide [Imodium A-D] 2 mg capsule 4 mg PO TID PRNRF: 0 pantoprazole [Protonix] 20 mg tablet,delayed release (DR/EC) 20 mg PO DAILY RF: 0 aspirin 81 MG tablet 81 mg PO DAILY@0800 RF: 0 nitroglycerin 0.1 MG patch 0.1 mg TD DAILY RF: 0 sod phos di, mono-K phos mono 250 MG tablet 250 mg PO DAILY RF: 0 warfarin 6 mg tablet 3 mg PO DAILY Qty: 0 RF: 0 lisinopril 10 mg tablet 10 mg PO BID Qty: 180 RF: 3 metoprolol succinate 50 mg tablet extended release 24 hr 50 mg PO DAILY Qty: 90 RF: 3 rosuvastatin 40 mg tablet 40 mg PO DAILY Qty: 90 RF: 3 warfarin 1 mg tablet 1 mg PO .COMPLEX Qty: 30 RF: 12 Primary Care Provider: Niko Sampson Referrals: Niko Sampson MD [Primary Care Provider] - Disposition Disposition: Date/Time: 09/26/20 13:18
--- NOTE | 2020-09-26 10:32 | EKG12_ITS ---
Test Reason : Blood Pressure : / mmHG Vent. Rate : 090 BPM Atrial Rate : 072 BPM P-R Int : 000 ms QRS Dur : 214 ms QT Int : 480 ms P-R-T Axes : 000 -71 100 degrees QTc Int : 587 ms Ventricular-paced rhythm Abnormal ECG Confirmed by IDALIA BUTT MD ([id number]), multimedia editor KEVIN PIMENTEL ([id number]) on 09/28/2020 12:49:44 PM Referred By: MAGGIE Confirmed By:IDALIA BUTT MD
[2020-09-26 10:33] LABS: Absolute Lymphocyte Count 0.79 X10^3/uL (0.83-4.51); Absolute Neutrophil Count 15.2 X10^3/uL (2.0-7.7); Basophil# 0.04 X10^3/uL; Basophil% 0.2 % (0-1); Eosinophil# 0.01 X10^3/uL; Eosinophils% 0.1 % (0-5); Hematocrit 44.9 % (40-54); Hemoglobin 13.2 g/dL (13.0-16.5); Lymphocyte # 0.79 X10^3/ul (0.83-4.51); Mean Corp Hgb Conc 29.4 g/dL (32-36); Mean Corpuscular Hgb 26.2 pg (27.0-32.0); Mean Corpuscular Volume 89.1 fL (80-94); Monocyte# 3.09 X10^3/uL; Monocyte% 15.6 % (0-10); NRBC Flagged by Analyzer 0.1 % (0-5); Neutrophil # 15.22 X10^3/uL (2.7-7.7); POSITIVE DIFFERENTIAL YES; POSITIVE MORPHOLOGY YES; Platelet Count 388 K/mm3 (150-450); RBC Distribution Width CV 17.5 % (11.6-14.6); RBC Distribution Width SD 57.1 fl (35.1-43.9); Red Blood Count 5.04 M/mm3 (4.6-6.2); White Blood Count 19.8 K/mm3 (4.4-11.0)
[2020-09-26 10:50] LABS: Differential Indicated SCAN CRITERIA MET
[2020-09-26 11:03] LABS: ALB/GLOB Ratio 0.6 RATIO (0.9-2.4); AST(SGOT) 1335 U/L (15-37); Alanine Aminotransfer ALT/SGPT 261 U/L (16-61); Albumin, Serum 2.2 g/dL (3.2-5.0); Alkaline Phosphatase 990 U/L (45-117); Anion Gap 21 (5-15); BUN 98 mg/dL (7-18); BUN/Creat Ratio 12.2 RATIO (10-20); Calcium,Total 8.3 mg/dL (8.5-10.1); Chloride 101 mmol/L (98-107); Creatinine, Serum 8.05 mg/dL (0.70-1.30); EST Glomerular Filtration Rate 7 mL/min (>60); Est Glom Filt Rate - Afr Amer 8 mL/min (>60); Estimated Creatinine Clearance 6.96 ml/min; Glucose 110 mg/dL (74-106); Potassium 7.8 mmol/L (3.5-5.1); Protein, Total 6.2 g/dL (6.4-8.2); Sodium Level 135 mmol/L (136-145); Troponin-I HS 58.3 pg/mL (3.0-78.5)
[2020-09-26] MEDS: Insulin Lispro 10 UNIT in Syringe 0 ML 6 UNIT IV (11:59)
--- NOTE | 2020-09-26 12:08 | EKG12_ITS ---
Test Reason : Blood Pressure : / mmHG Vent. Rate : 094 BPM Atrial Rate : 032 BPM P-R Int : 000 ms QRS Dur : 146 ms QT Int : 384 ms P-R-T Axes : 000 -70 097 degrees QTc Int : 480 ms Poor data quality, interpretation may be adversely affected Suspect unspecified pacemaker failure Atrial fibrillation , cannot exclude hyperkalemia Left axis deviation Right bundle branch block Possible Lateral infarct , age undetermined Inferior infarct , age undetermined Abnormal ECG Confirmed by FILOMENA KIDD, IDALIA ([id number]), senior editor KEVIN PIMENTEL ([id number]) on 09/28/2020 12:56:14 PM Referred By: Nhung Guy Confirmed By:IDALIA BUTT MD
[2020-09-26 12:22] VITALS: BP 103/60; BP 76/59; BP 90/59; PULSE 103; PULSE 70; PULSE 83; O2SAT 63
[2020-09-26 12:26] VITALS: BP 76/59; PULSE 70; RESP 19
[2020-09-26] MEDS: Norepinephrine 8 mg/250 mL 0.9% NS 9.4 MG CONT INF (12:26)
--- NOTE | 2020-09-26 12:45 | RAD_ITS ---
STUDY: X-RAY CHEST REASON FOR EXAM: Male, 80 years old. et tube and og tube placement. TECHNIQUE: 4 views COMPARISON: 06/12/2020 FINDINGS: There is now noted diffuse reticular nodular pattern involving both lung deras particularly the right side. There is blunting of the right costophrenic angle. A small nodule noted within The right base above the diaphragmatic measures about 1.2 cm. There is endotracheal tube with the tip 2 cm above the katelyn. Central line is present from the right jugular and disease within the cava below atrial junction. A permanent pacemaker with [address] An NG tube is seen with the tip in the stomach RAD/Chest 1 View (Portable) IMPRESSION: Interval development of diffuse reticular nodular pattern involving both lung deras more on the right side as described above Electronically Signed: Erick Fried, at 13:12 EDT Tel , Service support ,
[2020-09-26 12:47] VITALS: BP 88/56; PULSE 107; RESP 17
--- NOTE | 2020-09-26 13:01 | ED.RN ---
AT 1153 ALL CALCIUM GLUCONATE WAS RECIEVED BY THIS NURSE AND PT WAS GOING TO BE MEDICATED FOR HYPERCALCEMIA. UPON ENTERING THE ROOM THE WAS LETHARGIC WITH AGONAL RESPIRATIONS. STERNAL RUB AND LOUD NAME CALLING WAS USED IN ATTEMPT TO ELICIT A RESPONSE FROM THE PT. NO RESPONSE WAS GIVEN BY PT. THE STAFF ASSIST CODE BUTTON WAS PUSHED. WHILE SHORTLY WAITING FOR STAFF TO ARRIVE A RIGHT CAROTID PULSE CHECK WAS PERFORMED. NO PULSE WAS FOUND. CPR WAS INITIATED AND AND THE CODE BLUE BUTTON IN THE ROOM WAS PUSHED. SEE CODE DOCUMENTATION FOR FURTHER INTERVENTIONS.
--- NOTE | 2020-09-26 13:50 | CHAPLAIN ---
Type of Pastoral Visit ___ Initial Visit ___ Follow-up Visit ___ On-call Visit ___ General Patient Visit ___ Spiritual Assessment ___ Family Conference ___ Bereavement ___ Rapid Response _x__ Code Blue ___ Other (describe below) Pastoral Care Referral From ___ Patient ___ Family ___ Nurse ___ Physician ___ President Sales And Marketing ___ Rental Coordinator _x__ Other (describe below) Sacrament/Intervention _x__ Active listening ___ Anointing ___ Congregation ___ Bereavement ___ Communion ___ Christelle exploration ___ _x__ Life review _x__ Prayer ___ Reconciliation ___ Sacrament of Sick _x__ Supportive presence ___ Wedding ___ Other (describe below) Pastoral Comments responded to Code Blue in ED; met spouse in hallway; SW was also providing support; became a presence and principal embedded software engineer of communication for spouse; patient was being attended by medical and lost pulse and revived and then lost pulse again; met daughters as they arrived and offered support and prayer; 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
--- NOTE | 2020-09-26 13:50 | CM.ED ---
SW Note SW Referral Source: Code Blue Referral Reason: Code Blue SW responded to Code Blue. SW provided emotional support to patient's , Yaima. Yaima talked about how she and had been for 60 years. Yaima reports they have 3 children that live locally. Yaima said that they have 3 grandchildren. Yaima talked about her life with patient. Yaima was able to tell stories regarding patient's and her life together. Yaima reports their affiliation with [employer]. SW provided emotional support to patient. Yaima said that her would not want to be on a vent. Patient's daughter and son were called and they came to the hospital to be with patient and Yaima. SW checked on them in attempt to provide support after patient's . SW inquired if patient's family had any needs and they indicated no. SW will remain available if needed. Plan: Patient . Emotional support provided. Libia PARADA
--- NOTE | 2020-09-26 13:53 | ED.RN ---
APPROX 2000 ML 0.9 NS GIVEN
[2020-09-27 12:28] LABS: Pathologist Review Reviewed
== END ==
PROVIDERS: Emergency Provider Emergency Medicine; PCP Family Medicine
DX: I46.9 Cardiac arrest, cause unspecified (principal); N17.9 Acute kidney failure, unspecified; E87.5 Hyperkalemia; C34.90 Malignant neoplasm of unspecified part of unspecified bronchus or lung; C78.7 Secondary malignant neoplasm of liver and intrahepatic bile duct; C78.5 Secondary malignant neoplasm of large intestine and rectum; I25.10 Atherosclerotic heart disease of native coronary artery without angina pectoris; I11.0 Hypertensive heart disease with heart failure; I50.22 Chronic systolic (congestive) heart failure; E78.5 Hyperlipidemia, unspecified; Z79.899 Other long term (current) drug therapy; Z87.891 Personal history of nicotine dependence
CPT/HCPCS: 31500; 36591; 71045; 80053; 84484; 85025; 92950; 93005; 96365; 96366; 96367; 99283; J7030; J7050; A4216; J0610